=== PATIENT | female | born 1965 | race African-American/Black ===

== ENCOUNTER 2018-10-17 15:34 | Emergency (ER) | payer OTHER ==
[2018-10-17 16:25] VITALS: BP 132/78; PULSE 91; TEMP 98; BMI 27.3
--- NOTE | 2018-10-17 16:59 | PDOC ---
History of Present Illness - General Chief Complaint: Wound Stated Complaint: FOOT ULCER Time Seen by Provider: 10/17/18 16:57 Past History - Past Medical History Allergies/Adverse Reactions: Allergies Allergy/AdvReac Type Severity Reaction Status Date / Time No Known Allergies Allergy Verified 10/17/18 16:17 Home Medications: Ambulatory Orders Alprazolam [Xanax] 2 mg PO TID 10/17/18 Gabapentin 800 mg PO TID 10/17/18 Insulin Lispro Protamin/Lispro [Humalog Mix 75-25 Kwikpen] 15 unit SQ BID Oxycodone HCl/Acetaminophen [Percocet 10-325 mg Tablet] 1 tab PO TID 10/17/18 COPD: No Diabetes: Yes Psychiatric Problems: Yes (anxiety, depression) - Suicide/Smoking/Psychosocial Hx Smoking History: Current every day smoker Information on smoking cessation initiated: Yes Hx Alcohol Use: No Drug/Substance Use Hx: No *Physical Exam - Vital Signs Last Vital Signs Temp Pulse Resp BP Pulse Ox 98 F 91 H 18 132/78 97 10/17/18 16:05 10/17/18 16:05 10/17/18 16:05 10/17/18 16:05 10/17/18 16:05
[2018-10-17] MEDS ORDERED: ACETAMINOPHEN 1000 MG/100 ML VIAL (NON FORMULARY) IVPB ONE (17:22)
--- NOTE | 2018-10-17 17:23 | PDOC ---
History of Present Illness - General Chief Complaint: Wound Stated Complaint: FOOT ULCER Time Seen by Provider: 10/17/18 16:57 - History of Present Illness Initial Comments: Kat Good is a 53yo woman with a PMH of IDDM and chronic pain (sees pain management) who presents with a wound on her left heel as well . She reports that her feet feel cold and she has significant pain in her left heel. She additionally states that she has been unable to see her pain management doctor to refill her home Percocet as "they have rescheduled my appointment 4 times." Ms Good additionally states that she has not been able to refill her insulin either as her regular doctor is no longer seeing patients. She says that she went to [facility] but did not like her treatment there, so she came to [facility] for evaluation instead. She denies fevers or chills. Ms Good is a poor historian and is unable to give any additional information. She was noted to be comfortably eating candy when examined. Past History - Past Medical History Allergies/Adverse Reactions: Allergies Allergy/AdvReac Type Severity Reaction Status Date / Time No Known Allergies Allergy Verified 10/17/18 16:17 Home Medications: Ambulatory Orders Alprazolam [Xanax] 2 mg PO TID 10/17/18 Gabapentin 800 mg PO TID 10/17/18 Gabapentin 800 mg PO TID #30 tablet 10/17/18 Insulin Lispro Protamin/Lispro [Humalog Mix 75-25 Kwikpen] 15 unit SQ BID Oxycodone HCl/Acetaminophen [Percocet 10-325 mg Tablet] 1 tab PO TID 10/17/18 Sulfamethoxazole/Trimethoprim [Bactrim Ds -] 1 tab PO BID #20 tablet 10/17/18 COPD: No Diabetes: Yes Psychiatric Problems: Yes (anxiety, depression) - Suicide/Smoking/Psychosocial Hx Smoking History: Current every day smoker Information on smoking cessation initiated: Yes Hx Alcohol Use: No Drug/Substance Use Hx: No Review of Systems - Review of Systems Comments:: General: No fevers, no chills, no weight or appetite change, no malaise HEENT: No changes in vision, no changes in hearing, no congestion, no sore throat CV: No chest pain, no palpitations, no LE edema Pulm: No SOB, no cough, no wheezing GI: No nausea or vomiting, no change in bowel habits, no melena : No frequency, no urgency, no dysuria Musc: See HPI -h/o chronic pain, BLE pain Skin: No rash, + lesions, no erythema Endo: No excessive thirst, no heat/cold intolerance. h/o IDDM Heme: No unusual bruising or bleeding, no swollen glands Neuro: No syncope, + numbness/tingling, no focal weakness Vasc: No claudication Psych: No recent change in mood, no SI or HI *Physical Exam - Vital Signs Last Vital Signs Temp Pulse Resp BP Pulse Ox 98 F 91 H 18 132/78 97 10/17/18 16:05 10/17/18 16:05 10/17/18 16:05 10/17/18 16:05 10/17/18 16:05 - Physical Exam Comments: General: Comfortable, no acute distress, eating candy while examined HEENT: PERRL, EOMI, MMM, voice normal. Very poor dentition w/ only several remaining, broken teeth Cards: RRR, no murmur appreciated Pulm: Comfortable on room air, clear to auscultation bilaterally Abd: Soft, nontender, nondistended Ext: B/l feet with slightly dark discoloration but palpable DP's bilaterally. Able to wiggle toes. Chronic-appearing wound on distal right great toe, left posterior heel. No surrounding erythema or edema. No drainage. No purulence. Thick eschar over left heel wound. Vasc: Extremities WWP. Palpable radial and pedal pulses bilaterally Neuro: A&Ox3, CN grossly intact, normal speech, moves all extremities. Could not complete sensory exam as pt c/o pain and declined additional exam Psych: Agitated, upset ED Treatment Course - LABORATORY CBC & Chemistry Diagram: 10/17/18 18:07 10/17/18 18:07 - RADIOLOGY Radiology Studies Ordered: Category Date Time Status CHEST X-RAY PORTABLE* [RAD] Stat Radiology 10/17/18 17:20 Ordered FOOT-LEFT [RAD] Stat Radiology 10/17/18 17:20 Ordered Medical Decision Making - Medical Decision Making 10/17/18 17:23 Kat Good is a 53yo woman with a PMH of IDDM and chronic pain (sees pain management) who presents with pain, numbness, and sensation of cold in her feet as well as a heel wound that has been present for at least a week. She requests Percocet as she has been unable to see her pain specialist recently. - Lower extremities with palpable DP. Left heel and right 1st toe wounds consistent with diabetic foot wounds. Heel wound with dark eschar but no surrounding erythema, edema or purulence. Wounds do not appear infected - No records available for comparison - CBC, CMP, UA, acetone, A1C - Acetaminophen 10/17/18 18:18 - Pt declining acetaminophen because "Tylenol doesn't help." Advised patient that since she sees pain management, she will need to follow up with her pain specialist for additional narcotic prescriptions - Pt demanding antibiotics for her foot wound. Explained that wound does not appear infected, will review labs prior to giving antibiotics - Stated that she needs to see a different doctor because she was seeing Dr Pike, who is now unavailable, but she was assigned to a different doctor who she has never seen. 10/17/18 19:18 - Labs without significant abnormalities. Glucose 128, no leukocytosis, no REDD. A1C over 10, likely poor glucose control overall, c/w diabetic neuropathy. - No leukocytosis suggesting systemic infection or bacteremia. - Now reporting to Dr Sapp that she has seen a PMD less than one month ago, unclear whether she currently has a primary doctor - Will give antibiotic and gabapentin prior to discharge home. 10/17/18 20:11 - Called to bedside by nurse, pt now demanding acetaminophen. Patient yelling, belligerent. - Will give acetaminophen - Discussed home care and importance of follow up at length. Advised patient that she needs to see both podiatry and wound care. Gave information regarding diabetic foot wounds. Advised that her A1C is significantly elevated, and she needs to establish long-term care with a PMD for management of her diabetes. She states understanding. Discussed with Dr Sapp. Elissa Mcdonald PGY2 *DC/Admit/Observation/Transfer Diagnosis at time of Disposition: Diabetic foot ulcer Qualifiers: Diabetic foot ulcer location: heel Diabetes mellitus type: other specified ( including ASHANTI) Laterality: left Non-pressure ulcer stage: unspecified non- pressure ulcer stage Qualified Code(s): E13.621 - Other specified diabetes mellitus with foot ulcer - Discharge Dispostion Disposition: HOME Condition at time of disposition: Stable Decision to Admit order: No - Prescriptions Prescriptions: Gabapentin 800 mg PO TID #30 tablet Sulfamethoxazole/Trimethoprim [Bactrim Ds -] 1 tab PO BID #20 tablet - Referrals Referrals: [facility] [place] [Provider Group] Ildefonso Barclay MD [Non Staff, Medical] - Melvi Chisholm DPM [Staff Physician] - - Patient Instructions Printed Discharge Instructions: DI for Diabetic Foot Ulcer Additional Instructions: Discharge Instructions: You were seen in the emergency department for a wound on your foot. This wound appears to be a chronic diabetic foot wound but does not appear to be infected. You have been prescribed an antibiotic called bactrim. This should be taken twice per day for 10 days. Continue to take all of your regular medications. You have been given a refill for the next 10 days for your gabapentin, but you will need to see your pimary doctor for additional refills. Follow Up: - You should make an appointment to be seen in wound clinic within the next week. You have been given contact information for Dr Barclay. - You have also been given contact information for a assistant property manager (foot doctor). Please call Dr Chisholm and make an appointment for next week - You will need to see your primary physician as soon as possible for general medical care and management of your diabetes. Blood tests in the ED showed that your A1C is very high, over 10. This shows that your blood sugar is usually very high. If you do not have a regular doctor at this time, you have been given information for the [facility] clinic. Please call on Thursday to schedule an appointment for within the next 3-4 days or as soon as possible. Seek immediate medical care if you develop fever to 101F, you see redness and swelling around your wound or redness spreading up your leg, your wound spreads or begins to have a bad odor, or you have any other medical emergency. - Post Discharge Activity
[2018-10-17] MEDS ORDERED: ACETAMINOPHEN INJECTION 100 ML IVPB ONE (17:44)
[2018-10-17 18:23] LABS: BASO % 0.6 % (0-2.0); EOS % 1.6 % (0-4.5); HEMATOCRIT 37.3 % (32.4-45.2); HEMOGLOBIN 12.8 GM/dL (10.7-15.3); LYMPH % 27.5 % (8-40); MCH 31.4 pg (25.7-33.7); MCHC 34.2 g/dl (32.0-36.0); MEAN CELL VOLUME 91.8 fl (80-96); MEAN PLT VOLUME 9.8 fl (7.5-11.1); MONO % 4.4 % (3.8-10.2); NEUT % 65.9 % (42.8-82.8); PLATELET COUNT 171 K/MM3 (134-434); RBC 4.06 M/mm3 (3.60-5.2); RDW 12.7 % (11.6-15.6); WHITE BLOOD COUNT 8.7 K/mm3 (4.0-10.0)
[2018-10-17 18:45] LABS: ALBUMIN 3.2 g/dl (3.4-5.0); BILIRUBIN,TOTAL 0.3 mg/dL (0.2-1); BLOOD UREA NITROGEN 14.7 mg/dL (7-18); CALCIUM 9.3 mg/dL (8.5-10.1); CREATININE 0.8 mg/dL (0.55-1.3); POTASSIUM 4.3 mmol/L (3.5-5.1); TOT PROT 6.8 g/dl (6.4-8.2)
[2018-10-17] MEDS ORDERED: SULFAMETHOXAZOLE/TRIMETHOPRIM 800MG/160MG D.S. TABLET PO ONE (19:25)
[2018-10-17] MEDS ORDERED: GABAPENTIN 300 MG CAPSULE (FP) PO ONE (19:25)
[2018-10-17] MEDS ORDERED: GABAPENTIN 400 MG CAPSULE (FP) PO ONE (19:27)
[2018-10-17] MEDS ORDERED: GABAPENTIN 100 MG CAPSULE (FP) ONE ×2 (19:30→19:49)
[2018-10-17] MEDS ORDERED: SULFAMETHOXAZOLE/TRIMETHOPRIM 800MG/160MG D.S. TABLET ONE (19:30)
--- NOTE | 2018-10-17 19:32 | PDOC ---
Documentation entered by Berkley Barron SCRIBE, acting as scribe for Whitney Sapp MD. Whitney Sapp MD: This documentation has been prepared by the Anderson jin Sammi, SCRIBE, under my direction and personally reviewed by me in its entirety. I confirm that the documentation accurately reflects all work, treatment, procedures, and medical decision making performed by me. Attending Attestation - Resident Resident Name: TamaraElissa - ED Attending Attestation I have performed the following: I have examined & evaluated the patient, The case was reviewed & discussed with the resident, I agree w/resident's findings & plan, Exceptions are as noted - HPI HPI: 10/17/18 17:23 The patient is a 53 year old female, with a significant PMH of DM, who presents to the emergency department for evaluation of a diabetic foot wound to the left heel. The patient reports her feet feel numb and cold. She notes she went to [facility] for the wound but did not like it there. She states she is not compliant with her diabetes medication. 10/17/18 18:04 - Physicial Exam PE: 10/17/18 18:30 53 yo female looking older than states age has c/o cold feet and hands,wounds on her feet 10/17/18 19:21 head is normocephalic and atraumatic eyes quan eomi Oral exam edentulous arches with exception of one remaining carious tooth neck is supple Lungs are clear to auscultation bilaterally CVS regular rate and rhythm S1, S2 abdomen protuberant but nontender, no rebound or guarding. Extremities there is a chronic heel ulcer with eschar with no erythema or purulence. There is a small eschar on her the right big toe no areas of erythema or fluctuanton her feet. She does have palpable DP pulses and her feet are warm. Neuro alert and oriented 3, moving all her extremities - Medical Decision Making 10/17/18 19:24 patient has told us several different versions of her medical history. Initially, she said that her doctor, Dr. Pike was in skilled nursing and she doesn't have a doctor now. Then she said she saw Nicole Antoine about a month ago and does have prescriptions being sent to her pharmacy, which is [facility]. she also showed me that she has a flexible plan, she states that she gets gabapentin for peripheral neuropathies Initially, she said that she always gets Percocet when she goes to [facility] but it was explained to her that she was not at [facility] would not be receiving Percocets. patient does have a nonhealing wound with eschar that appears to be chronic. She was encouraged to follow up at our wound care and she was referred to a wound care Center.She does not have a fever, she has no evidence of cellulitis or fluctuance on her feet and she has pulses in her feet. She appears to have peripheral neuropathies with chronic nonhealing ulcers and will be given a referral
== END 2018-10-17 22:42 | disposition home or self-care (01) ==
LOC: JER 15:34
DX: R20.2 Paresthesia of skin (principal); E13.621 Other specified diabetes mellitus with foot ulcer; E11.9 Type 2 diabetes mellitus without complications
CPT/HCPCS: 36415; 71045-TC-FY; 73630-TC-LT; 80053; 82009; 83036; 85025; 99283-25

== ENCOUNTER 2019-04-29 10:35 | Inpatient (IN) | payer OTHER ==
--- NOTE | 2019-04-29 11:29 | PDOC ---
History of Present Illness - General Chief Complaint: Wound Stated Complaint: LT FOOT WOUND Time Seen by Provider: 04/29/19 11:28 - History of Present Illness Initial Comments: 04/29/19 11:28 Ms. Good is a 53 yo female w/ pmh of IDDM and chronic pain for which she sees pain management who presents for evaluation of several month history of LLE heel wound. Patient reports she presents today as pain is worsened (01/20 today) . Is s/p 2 courses of antibiotics throughout this time period for this same issue. Was at another hospital last week however reports she was sent home without intervention. Reports the wound seeps through her socks daily. Denies other symptoms at this time. The patient denies chest pain, shortness of breath, headache and dizziness. Denies fever, chills, nausea, vomit, diarrhea and constipation. Denies dysuria, frequency, urgency and hematuria Past History - Past Medical History Allergies/Adverse Reactions: Allergies Allergy/AdvReac Type Severity Reaction Status Date / Time No Known Allergies Allergy Verified 04/29/19 10:42 Home Medications: Ambulatory Orders Alprazolam [Xanax] 2 mg PO TID 10/17/18 Gabapentin 800 mg PO TID #30 tablet 10/17/18 Insulin Lispro Protamin/Lispro [Humalog Mix 75-25 Kwikpen] 15 unit SQ BID Albuterol Sulfate Inhaler - [Ventolin Hfa Inhaler -] 2 inh PO BID 04/29/19 COPD: No Diabetes: Yes Psychiatric Problems: Yes (anxiety, depression) - Immunization History Immunization Up to Date: (UNKNOWN) - Psycho Social/Smoking Cessation Hx Smoking History: Never smoked Hx Alcohol Use: No Drug/Substance Use Hx: No Review of Systems - Review of Systems Comments:: 04/29/19 11:28 GENERAL/CONSTITUTIONAL: No fever or chills. No weakness. HEAD, EYES, EARS, NOSE AND THROAT: No change in vision. No ear pain or discharge. No sore throat. CARDIOVASCULAR: No chest pain or shortness of breath RESPIRATORY: No cough, wheezing, or hemoptysis. GASTROINTESTINAL: No nausea, vomiting, diarrhea or constipation. GENITOURINARY: No dysuria, frequency, or change in urination. MUSCULOSKELETAL: +LLE pain at heal; constant, 10/10 SKIN: Heel wound only NEUROLOGIC: No headache, vertigo, loss of consciousness, or change in strength/ sensation. ENDOCRINE: No increased thirst. No abnormal weight change HEMATOLOGIC/LYMPHATIC: No anemia, easy bleeding, or history of blood clots. ALLERGIC/IMMUNOLOGIC: No hives or skin allergy. *Physical Exam - Vital Signs Last Vital Signs Temp Pulse Resp BP Pulse Ox 98.9 F 72 18 132/82 100 04/29/19 10:43 04/29/19 10:43 04/29/19 10:43 04/29/19 10:43 04/29/19 10:43 - Physical Exam 04/29/19 11:29 GENERAL: Awake, alert, and fully oriented, in no acute distress HEAD: No signs of trauma, normocephalic, atraumatic EYES: PERRLA, EOMI, sclera anicteric, conjunctiva clear ENT: +Patient has very poor dentition. Auricles normal inspection, hearing grossly normal, nares patent, oropharynx clear without exudates. Moist mucosa NECK: Normal ROM, supple, no lymphadenopathy, JVD, or masses LUNGS: No distress, speaks full sentences, clear to auscultation bilaterally HEART: Regular rate and rhythm, normal S1 and S2, no murmurs, rubs or gallops, peripheral pulses normal and equal bilaterally. ABDOMEN: Soft, nontender, normoactive bowel sounds. No guarding, no rebound. No masses EXTREMITIES: +Approx. 8cm chronic wound noted to L lateral heal. R forearm noted to be in splint from reported fracture. Otherwise normal inspection, Normal range of motion, no edema. No clubbing or cyanosis. NEUROLOGICAL: Cranial nerves II through XII grossly intact. Normal speech, normal gait, no focal sensorimotor deficits SKIN: +Heel wound as noted. Otherwise warm, dry, normal turgor, no rashes or lesions noted. ED Treatment Course - LABORATORY CBC & Chemistry Diagram: 04/29/19 12:10 04/29/19 14:50 Medical Decision Making - Medical Decision Making 04/29/19 12:22 Ms. Good is a 53 yo female w/ pmh as described who presents for evaluation of chronic leg wound. Contacted outside hospital who evaluated patient on 04/22 for more information and revealed ulnar R styloid fracture s/p fall which was splinted. Patient did not complain of other problems at this time and leg was not evaluated. Patient additionally has history of depression. Will evaluate patient with wound culture, blood cultures, and for systemic infection as well as XR for r/o osteo. Suspect admission will be needed. 04/29/19 16:50 Patient XR concerning for osteomyelitis. Patient given Vanc/Zosyn and will be admitted for MRI for confirmation and IV ABX / surgery if needed. 04/29/19 18:02 Patient admitted. Discharge - Discharge Information Problems reviewed: Yes Clinical Impression/Diagnosis: Osteomyelitis Qualifiers: Osteomyelitis type: unspecified type Osteomyelitis location: foot Laterality: left Qualified Code(s): M86.9 - Osteomyelitis, unspecified Diabetic foot ulcer Qualifiers: Diabetic foot ulcer location: unspecified part of foot Diabetes mellitus type: type 2 Laterality: left Non-pressure ulcer stage: unspecified non-pressure ulcer stage Qualified Code(s): E11.621 - Type 2 diabetes mellitus with foot ulcer - Admission Yes - Follow up/Referral - Patient Discharge Instructions - Post Discharge Activity
[2019-04-29] MEDS ORDERED: SODIUM CHLORIDE 1,000 ML IV STA (12:08)
[2019-04-29] MEDS ORDERED: ACETAMINOPHEN 1000 MG/100 ML VIAL (NON FORMULARY) IVPB ONE (12:08)
[2019-04-29] MEDS ORDERED: ACETAMINOPHEN INJECTION 100 ML IVPB ONE ×2 (12:36→20:39)
--- NOTE | 2019-04-29 13:05 | PDOC ---
Attending Attestation - Resident Resident Name: Lang Gonzalez - ED Attending Attestation I have performed the following: I have examined & evaluated the patient, The case was reviewed & discussed with the resident, I agree w/resident's findings & plan - HPI HPI: 04/29/19 13:01 53 yo female w/ pmh of IDDM and chronic pain for which she sees pain management who presents for evaluation of several month history of LLE heel wound. Patient reports she presents today as pain is worsened (01/20 today). Is s/p 2 courses of antibiotics throughout this time period for this same issue. Was at another hospital last week however reports she was sent home without intervention. Reports the wound seeps through her socks daily. Denies other symptoms at this time. she was seen at [facility] has splint in place to the right forearm for ulnar styloid fx from 1 week ago complains of chest pain, LLE pain. 04/29/19 13:03 04/29/19 17:12 - Physicial Exam PE: 04/29/19 13:01 Agree with the resident's HPI and PE as documented in the electronic medical record. NAD, well appearing, EOMI, PERRL, nl conjunctiva, anicteric; neck supple. left axilla with soft sq nodule, no erythema or drainage, no tenderness. lungs clear , RRR, abdomen soft nontender. no rebound, guarding. Back nontender. MANN x4, no focal neuro deficits. + peripheral edema. normal color for ethnicity, WWP. +left calcaneal heel with dry ulceration, malodorous, malleoli with discoloration. right forearm splint in place. +distal radius/ulna tenderness and swelling, c/w fx. 04/29/19 13:05 04/30/19 21:16 04/30/19 21:17 - Medical Decision Making 04/29/19 13:03 Vital Signs Temp Pulse Resp BP Pulse Ox 98.9 F 72 18 132/82 100 04/29/19 10:43 04/29/19 10:43 04/29/19 10:43 04/29/19 10:43 04/29/19 10:43 vitals reviewed, wnl, no fever, nontoxic appearing requesting to drink her coffee no abscess/cellulitis seen, chest wall is clear no drainage +acute on chronic left heel wound, does not appear to be healing well labs and lytes forearm splint in place for right arm injury - distal radius/ulna fx from 1 week ago, seen at [facility] IV abx for osteomyelitis coverage of left heel Patient given Vanc/Zosyn and will be admitted for MRI for confirmation and IV ABX / surgery if needed. admit to med/surg, medical management, s/o to resident team, admit to Dr Russo 04/29/19 13:04 04/30/19 21:17 04/30/19 21:18
[2019-04-29 14:07] LABS: BASO % 0.6 % (0-2.0); EOS % 1.4 % (0-4.5); HEMATOCRIT 33.4 % (32.4-45.2); HEMOGLOBIN 11.3 GM/dL (10.7-15.3); LYMPH % 26.7 % (8-40); MCH 30.2 pg (25.7-33.7); MCHC 33.8 g/dl (32.0-36.0); MEAN CELL VOLUME 89.3 fl (80-96); MONO % 5.4 % (3.8-10.2); NEUT % 65.9 % (42.8-82.8); PLATELET COUNT 256 K/MM3 (134-434); RBC 3.74 M/mm3 (3.60-5.2); RDW 14.5 % (11.6-15.6)
[2019-04-29 14:19] LABS: INR 1.14 (0.83-1.09); PROTHROMBIN TIME (PATIENT) 13.5 SEC (9.7-13.0)
[2019-04-29 14:21] LABS: ACTIVATED PTT 38.9 SECONDS (25.2-36.5)
[2019-04-29 15:56] LABS: ALBUMIN 2.7 g/dl (3.4-5.0); BILIRUBIN,TOTAL 0.4 mg/dL (0.2-1); BLOOD UREA NITROGEN 11.1 mg/dL (7-18); CALCIUM 8.9 mg/dL (8.5-10.1); CREATININE 0.9 mg/dL (0.55-1.3); POTASSIUM 4.5 mmol/L (3.5-5.1); TOT PROT 7.1 g/dl (6.4-8.2)
[2019-04-29] MEDS ORDERED: VANCOMYCIN HCL 1,500 MG in DEXTROSE 5%-WATER - 500 ML IVPB ONE (16:49)
[2019-04-29] MEDS ORDERED: PIPERACILLIN/TAZOB 3.375 GM 3.375 GM in DEXTROSE 5%-WATER - 50 ML IVPB ONE (16:49)
[2019-04-29] MEDS ORDERED: PIPERACILLIN/TAZOB 3.375 GM 3.375 GM/50 ML BAG IVPB ONE (17:38)
--- NOTE | 2019-04-29 17:58 | HP ---
CHIEF COMPLAINT: lower extremity wounds PCP: HISTORY OF PRESENT ILLNESS: Patient is a 53 year old female with history of insulin dependent diabetes mellitus, hypertension, anxiety, opiod use disorder (IV heroine; on Methadone), presents with complaint of bilateral lower extremity wounds. Endorses her left foot wound began when an unknown gub (? water-bug) bit her in January 2018. States that there was bubbling of the skin which erupted leaving a hole within her foot. Patient admits seeing a grey roll worker (Dr. Carlos) who performed debridement an dressing changes, however did not prescribe antibiotics. She endorses being seen in [facility] in October 2017 where she describes left lower extremity (?angioplasty/ thrombectomy) after which she describes worsening inability to ambulate. She has independently been dressing her wounds , and has not followed up since her hospital discharge in October. Patient endorses new onset purulent draining from the wound, along with worsening burning pain that prompted her ED presentation. Endorses a chronic right lateral lower extremity wound that has been ongoing for past 4 months. Does not recall inciting factor. Also endorses ?ulnar styloid fracture one week ago after a fall in her apartment lobby. Reportedly splinted at [facility] (04/22). ER course was notable for: (1) Left foot heel ulcer 5cm x 4cm ulcer. purulent discharge, with dry eschar overlying the wound. (2) (3) Recent Travel: Denies PAST MEDICAL HISTORY: insulin dependent diabetes mellitus, hypertension, anxiety , PAST SURGICAL HISTORY: bilateral ankle repair s/p fall in 1999, 1993 Social History: Currently lives alone in ground level apartment. Describes that her heat hsa not been working; freezing Smoking: Endorses 25 pack year smoking history. Currently smokes approx 1/3 pack / day Alcohol: Denies Drugs: Admits former IV heroine use for 4 years duration. Quit over 20 years ago. Currently taking Methadone ([facility]) Allergies No Known Allergies Allergy (Verified 04/29/19 10:42) HOME MEDICATIONS: Home Medications Medication Instructions Recorded Alprazolam [Xanax] 2 mg PO TID 10/17/18 Gabapentin 800 mg PO TID #30 tablet 10/17/18 Insulin Lispro Protamin/Lispro 15 unit SQ BID 10/17/18 [Humalog Mix 75-25 Kwikpen] Albuterol Sulfate Inhaler - 2 inh PO BID 04/29/19 [Ventolin Hfa Inhaler -] REVIEW OF SYSTEMS CONSTITUTIONAL: Absent: fever, chills, diaphoresis, generalized weakness, malaise, loss of appetite, weight change HEENT: Absent: rhinorrhea, nasal congestion, throat pain, throat swelling, difficulty swallowing, mouth swelling, ear pain, eye pain, visual changes CARDIOVASCULAR: Absent: chest pain, syncope, palpitations, irregular heart rate, lightheadedness , peripheral edema RESPIRATORY: Absent: cough, shortness of breath, dyspnea with exertion, orthopnea, wheezing, stridor, hemoptysis GASTROINTESTINAL: Absent: abdominal pain, abdominal distension, nausea, vomiting, diarrhea, constipation, melena, hematochezia GENITOURINARY: Absent: dysuria, frequency, urgency, hesitancy, hematuria, flank pain, genital pain MUSCULOSKELETAL: Admits: foot pain, drainage. Absent: myalgia, arthralgia, joint swelling, back pain, neck pain SKIN: Absent: rash, itching, pallor HEMATOLOGIC/IMMUNOLOGIC: Absent: easy bleeding, easy bruising, lymphadenopathy, frequent infections ENDOCRINE: Absent: unexplained weight gain, unexplained weight loss, heat intolerance, cold intolerance NEUROLOGIC: Absent: headache, focal weakness or paresthesias, dizziness, unsteady gait, seizure, mental status changes, bladder or bowel incontinence PSYCHIATRIC: Absent: anxiety, depression, suicidal or homicidal ideation, hallucinations. PHYSICAL EXAMINATION Vital Signs - 24 hr 04/29/19 04/29/19 10:43 16:54 Temperature 98.9 F Pulse Rate 72 Respiratory 18 Rate Blood Pressure 132/82 O2 Sat by Pulse 100 97 Oximetry (%) GENERAL: The patient is awake, alert, and fully oriented, in mild distress. HEAD: Normocephalic, atraumatic. EYES: PERRL, extraocular movements intact, sclera anicteric, conjunctiva clear. ENT: Oropharynx clear, without erythema or exudates. Moist mucous membranes. NECK: Trachea midline, full range of motion. Supple without lymphadenopathy. LUNGS: Breath sounds equal, clear to auscultation bilaterally. No wheezes, no crackles. No accessory muscle use. HEART: Regular rate and rhythm. S1, S2 without murmur, rub or gallop. ABDOMEN: Soft, nondistended, nontender to light and deep palpation x4 quadrants. No rebound tenderness, no guarding. Normoactive bowel sounds x4 quadrants. No hepatosplenomegaly, no masses appreciated. EXTREMITIES: Left foot heel ulcer 5cm x 4cm ulcer. purulent discharge, with dry eschar overlying the wound. Right lateral foot wound 2cm x 1xcm, minimal purulent drainage. Right upper extremity splinted. NEUROLOGICAL: Cranial nerves II through XII grossly intact. Normal speech. No gross focal deficits. PSYCH: Anxious, tangential upon my encounter. Laboratory Results - last 24 hr 04/29/19 04/29/19 04/29/19 11:17 12:10 12:10 WBC 8.0 RBC 3.74 Hgb 11.3 Hct 33.4 MCV 89.3 MCH 30.2 MCHC 33.8 RDW 14.5 D Plt Count 256 D MPV 9.0 Absolute Neuts (auto) 5.3 Neutrophils % 65.9 Lymphocytes % 26.7 Monocytes % 5.4 Eosinophils % 1.4 Basophils % 0.6 Nucleated RBC % 0 PT with INR INR PTT (Actin FS) Sodium Cancelled Potassium Cancelled Chloride Cancelled Carbon Dioxide Cancelled Anion Gap Cancelled BUN Cancelled Creatinine Cancelled Est GFR (CKD-EPI)AfAm Cancelled Est GFR (CKD-EPI)NonAf Cancelled Random Glucose Cancelled Lactic Acid 1.3 Calcium Cancelled Total Bilirubin Cancelled AST Cancelled ALT Cancelled Alkaline Phosphatase Cancelled Total Protein Cancelled Albumin Cancelled 04/29/19 04/29/19 12:10 14:50 WBC RBC Hgb Hct MCV MCH MCHC RDW Plt Count MPV Absolute Neuts (auto) Neutrophils % Lymphocytes % Monocytes % Eosinophils % Basophils % Nucleated RBC % PT with INR 13.50 H INR 1.14 H PTT (Actin FS) 38.9 H Sodium 139 Potassium 4.5 Chloride 102 Carbon Dioxide 32 Anion Gap 5 L BUN 11.1 Creatinine 0.9 Est GFR (CKD-EPI)AfAm 83.43 Est GFR (CKD-EPI)NonAf 71.98 Random Glucose 89 Lactic Acid Calcium 8.9 Total Bilirubin 0.4 AST 41 H ALT 17 Alkaline Phosphatase 155 H Total Protein 7.1 Albumin 2.7 L ASSESSMENT/PLAN: Patient is a 53 year old female with history of insulin dependent diabetes mellitus, hypertension, anxiety, opiod use disorder (IV heroine; on Methadone), presents with complaint of bilateral lower extremity wounds. Lower extremity wounds -Concern for osteomyelitis; MRI left lower extremity to evaluate for osteomyelitis -ESR, CRP -Arterial and Venous duplex bilateral lower extremities. -Continue Vancomycin, Zosyn -Follow blood cultures, wound cultures -ID consult (Dr. Hoffmann) -Vascular surgery/ wound care consult (Dr. Barclay) -Podiatry consult (Dr. Devine) Right forearm ulnar styloid fracture -Will obtain radiograph right upper extremity forearm, wrist to ensure proper alignment s/p splinting. -Orthopedic surgery consult Anxiety -Continue Alprazolam 2mg PO TID PRN Diabetes mellitus -Insuln Levemir 10 units subq daily -Insulin slidng scale ACHS -Fingerstick blood glucose monitoring ACHS -Gabapentn 800mg PO TID for neuropahy -HbA1c Opiod dependence -Continue patient's Methadone. She uses [facility] on [facility] (?60mg daily). Dose will need to be confirmed in morning. Elevated alkaline phosphatase -Concern for bone origin. Obtain GGT -Follow right upper quadrant ultrasound -Trend transaminases FEN -No IV fluids indicated -Follow BMP -Diabetic diet Prophylaxis -Heparin 5000units subq TID Disposition -Admit to medical- surgical floor Visit type - Emergency Visit Emergency Visit: Yes ED Registration Date: 04/29/19 Care time: The patient presented to the Emergency Department on the above date and was hospitalized for further evaluation of their emergent condition. - New Patient This patient is new to me today: Yes Date on this admission: 04/30/19 - Critical Care Critical Care patient: No ATTENDING PHYSICIAN STATEMENT I saw and evaluated the patient. I reviewed the resident's note and discussed the case with the resident. I agree with the resident's findings and plan as documented. SUBJECTIVE: OBJECTIVE: ASSESSMENT AND PLAN:
[2019-04-29] MEDS: HEPARIN NA (PORCINE) 5,000 UNITS/ML 1ML VIAL SQ SCH ×2 (18:07→22:28)
--- NOTE | 2019-04-29 19:28 | PN ---
Teaching Attending Note Name of Resident: Erick Buckner ATTENDING PHYSICIAN STATEMENT I saw and evaluated the patient. I reviewed the resident's note and discussed the case with the resident. I agree with the resident's findings and plan as documented. SUBJECTIVE: Patient is a 53 year old woman with a PMH of IDDM, Depression, Tobacco use and Chronic pain for which she sees pain management who presents for evaluation of several month history of LLE heel wound. Patient reports she presents today as pain is worsened (01/20 today). Has recently had two courses of antibiotics throughout this time period for this same issue. Was at another hospital last week however reports she was sent home without intervention. Reports the wound seeps through her socks daily. Patient was seen at another hospital on 2019 for fracture of right ulnar styloid after a fall and it was splinted. The patient denies chest pain, shortness of breath, headache and dizziness. Denies fever, chills, nausea, vomit, diarrhea and constipation. Denies dysuria, frequency, urgency and hematuria. Denies alcohol or illicit drug use. No sick contacts or recent travels. OBJECTIVE: Alert Vital Signs Period Temp Pulse Resp BP Sys/Kelly Pulse Ox Last 24 Hr 98.9 F 68-72 18-18 125-132/65-82 97-100 HEENT: No Jaundice, eye redness or discharge, PERRLA, EOMI. Normocephalic, atraumatic. External ears are normal and hearing is grossly intact. No nasal discharge. Neck: Supple, nontender. No palpable adenopathy or thyromegaly. No JVD Chest: Good effort. Clear to auscultation and percussion. Heart: Regular. No S3, rub or murmur Abdomen: Not distended, soft, nontender and no HSM. No rebound or guarding. Normal bowel sounds. Ext: Peripheral pulses intact. Leg edema. Malodorous left heel ulcer with no discharge with surrounding discoloration. Right foot ulcer. Right arm in a splint. Skin: Warm and dry. No petechiae, rash or ecchymosis. Neuro: Alert. Oriented x3. CN 2-12 grossly intact. Sensation grossly intact in all four extremities and DTR are symmetric. Psych: Appropriate mood and affect. Good insight. Current Medications Generic Name Dose Route Start Last Admin Trade Name Freq PRN Reason Stop Dose Admin Acetaminophen 1,000 mg 04/29/19 18:00 Ofirmev Injection - IVPB Q6H PRN PAIN LEVEL 1-5 Alprazolam 2 mg 04/29/19 19:56 Xanax - PO TID PRN ANXIETY Gabapentin 800 mg 04/29/19 22:00 Neurontin - PO TID OBI Heparin Sodium (Porcine) 5,000 unit 04/29/19 22:00 04/29/19 18:07 Heparin - SQ 5,000 unit TID OBI Administration Vancomycin HCl 1,000 mg in 250 mls @ 166.667 mls/hr 04/30/19 06:00 Vancomycin (Pre-Docked) IVPB 04/30/19 07:29 ONCE ONE Protocol Piperacillin Sod/Tazobactam 50 mls @ 100 mls/hr 04/30/19 02:00 Sod 3.375 gm/ Dextrose IVPB Q8H-IV OBI Protocol Piperacillin Sod/Tazobactam 50 mls @ 100 mls/hr 04/30/19 02:00 Sod 3.375 gm/ Dextrose IVPB 04/30/19 18:29 Q8H-IV OBI Protocol Insulin Aspart 1 vial 04/29/19 22:00 Novolog Vial Sliding Scale - SQ ACHS [facility] Protocol Home Medications Medication Instructions Recorded Alprazolam [Xanax] 2 mg PO TID 10/17/18 Gabapentin 800 mg PO TID #30 tablet 10/17/18 Insulin Lispro Protamin/Lispro 15 unit SQ BID 10/17/18 [Humalog Mix 75-25 Kwikpen] Albuterol Sulfate Inhaler - 2 inh PO BID 04/29/19 [Ventolin Hfa Inhaler -] Abnormal Lab Results 04/29/19 04/29/19 12:10 14:50 PT with INR 13.50 H INR 1.14 H PTT (Actin FS) 38.9 H Anion Gap 5 L AST 41 H Alkaline Phosphatase 155 H Albumin 2.7 L ASSESSMENT AND PLAN: 1. Infected diabetic left heel ulcer/right foot ulcer - Foot xray shows findings suspicious for osteomyelitis and possible gas collection. No acute abnormality on CXR. Being treated with IV Vancomycin and Zosyn. Will get MRI, provide daily wound care, consult ID, Vascular surgery and Podiatry. EKG shows NSR with no significant changes. Will continue comprehensive care for all of patients comorbid conditions including care of right arm fracture. 2. Hypoalbuminemia - Possibly due to combined effects of malnutrition and inflammation associated with comorbid chronic conditions. Will ensure adequate dietary protein intake and also consult social media marketing specialist. 3. DM For now, we will hold the home diabetes drugs and implement sliding scale insulin regimen. Provide comprehensive diabetes care with patient teaching and counseling about the importance of adherence to prescribed diabetes regimen, euglycemia, eye care and foot care. 4. Tobacco Use Counseled on risks associated with tobacco use. We will provide patient all the necessary assistance to facilitate smoking cessation and prescribe Nicotine patch. 5. DVT prophylaxis - Lovenox 40 mg SQ q 24 hours. 6. Advance directives - Full code
[2019-04-29] MEDS ORDERED: ALPRAZolam 2 MG TABLET PO PRN (19:56)
[2019-04-29] MEDS ORDERED: ALPRAZolam 1 MG TABLET ONE (20:39)
[2019-04-29] MEDS: ACETAMINOPHEN 1000 MG/100 ML VIAL (NON FORMULARY) IVPB PRN (20:53)
[2019-04-29] MEDS ORDERED: ALPRAZolam 2 MG TABLET PO SCH (22:00)
[2019-04-29] MEDS: GABAPENTIN 400 MG CAPSULE PO SCH (22:29)
[2019-04-29] MEDS: INSULIN SLIDING SCALE (NOVOLOG) 1 VIAL SQ SCH (22:58)
[2019-04-30] MEDS ORDERED: PIPERACILLIN/TAZOBACTAM 3.375 GM VIAL IVPB ONE ×3 (01:54→17:03)
[2019-04-30] MEDS ORDERED: DEXTROSE 5%-WATER - 50 ML IVPB ONE ×3 (01:55→17:03)
[2019-04-30] MEDS: PIPERACILLIN/TAZOB 3.375 GM 3.375 GM in DEXTROSE 5%-WATER - 50 ML IVPB SCH ×4 (02:00→19:19)
[2019-04-30] MEDS: GABAPENTIN 400 MG CAPSULE PO SCH ×3 (05:05→22:02)
[2019-04-30] MEDS: HEPARIN NA (PORCINE) 5,000 UNITS/ML 1ML VIAL SQ SCH ×3 (05:05→22:03)
[2019-04-30] MEDS: ALPRAZolam 1 MG TABLET PO PRN ×3 (05:20→22:02)
[2019-04-30] MEDS ORDERED: VANCOMYCIN 1 GRAM (PRE-DOCKED) 1,000 MG/250 ML BAG IVPB ONE (06:00)
[2019-04-30] MEDS: INSULIN SLIDING SCALE (NOVOLOG) 1 VIAL SQ SCH ×4 (06:50→23:02)
--- NOTE | 2019-04-30 06:51 | CONSULT ---
Consult - text type - Consultation Consultation Note: Podiatry Consultation: 53 year old diabetic female, history of IVDU, presents with non-healing ulcer left heel and diabetic infection. Patient endorses a history of non-healing ulcer since September. Has been seen by [facility] in the past. Denies any trauma to the foot. SHe lives at home alone and has been tending to the ulcer. Denies F/V/N/C/SOB/CP. Afebrile. PMHx:diabetes mellitus, hypertension, anxiety, opiod use disorder (IV heroine; on Methadone) Meds: noted ALL: NKMA BRITTANIE: Vascular: pedal pulses nonpalpable, TG wnl, CFT brisk to toes bilaterally. THere are no acute ischemic changes to the foot bilaterally. neuro: epicritic and protective sensations grossly diminished to the foot bilaterally. There are no focal motor or sensory deficits. derm: there is a right fifth metatarsal base diabetic ulcer fibrotic, no exposed bone, no purulence, no fluctuance, no streaking cellulitis, no signs of infection. There is a left heel diabetic ulcer laterally with fibrotic base, bogginess present, probes to calcaneus; no purulent drainage, no fluctuance, no soft tissue crepitus, no streaking cellulitis, no signs of acute gas infection L foot XR: bone demineralization, ?gas Imp: 53 year old diabetic female with left heel diabetic ulcer, osteomyelitis calcaneus 1. IV abx, ID consultation 2. Local wound care 3. MRI left foot to evaluate for osteomyelitis 4. Will need debridement bone biopsy early next week 5. Will follow. Thank you for the courtesy of this consultation Malcolm Devine DPM
[2019-04-30 09:53] LABS: HEMATOCRIT 32.7 % (32.4-45.2); MCH 30.5 pg (25.7-33.7); MCHC 33.7 g/dl (32.0-36.0); MEAN CELL VOLUME 90.4 fl (80-96); PLATELET COUNT 202 K/MM3 (134-434); RBC 3.61 M/mm3 (3.60-5.2); RDW 14.1 % (11.6-15.6); WHITE BLOOD COUNT 5.6 K/mm3 (4.0-10.0)
--- NOTE | 2019-04-30 09:55 | PN ---
Progress Note (short form) - Note Progress Note: Patient has no acute distress, afraid that is going to loose the LE. Vital Signs Temperature 97.8 F 04/30/19 06:00 Pulse Rate 79 04/30/19 06:00 Respiratory Rate 18 04/30/19 06:00 Blood Pressure 141/72 04/30/19 06:00 O2 Sat by Pulse Oximetry (%) 98 04/29/19 20:30 GENERAL: The patient is awake, alert, and fully oriented, in no acute distress. HEAD: Normal with no signs of trauma. EYES: PERRL, extraocular movements intact, sclera anicteric, conjunctiva clear. ENT: Ears normal, oropharynx clear without exudates, moist mucous membranes. NECK: Trachea midline, full range of motion, supple. LUNGS: Breath sounds equal, clear to auscultation bilaterally, no wheezes, no crackles, no accessory muscle use. HEART: Regular rate and rhythm, S1, S2 without murmur, rub or gallop. ABDOMEN: Soft, Nt,ND, normoactive bowel sounds, no guarding, no rebound, no hepatosplenomegaly, no masses. EXTREMITIES: 2+ pulses, warm, well-perfused, no edema. NEUROLOGICAL: Cranial nerves II through XII grossly intact. Normal speech, gait not observed. PSYCH: Normal mood, normal affect. SKIN: Warm, dry, normal turgor, no rashes or lesions noted CBCD WBC 8.0 K/mm3 (4.0-10.0) 04/29/19 12:10 RBC 3.74 M/mm3 (3.60-5.2) 04/29/19 12:10 Hgb 11.3 GM/dL (10.7-15.3) 04/29/19 12:10 Hct 33.4 % (32.4-45.2) 04/29/19 12:10 MCV 89.3 fl (80-96) 04/29/19 12:10 MCHC 33.8 g/dl (32.0-36.0) 04/29/19 12:10 RDW 14.5 % (11.6-15.6) D 04/29/19 12:10 Plt Count 256 K/MM3 (134-434) D 04/29/19 12:10 MPV 9.0 fl (7.5-11.1) 04/29/19 12:10 CMP Sodium 139 mmol/L (136-145) 04/29/19 14:50 Potassium 4.5 mmol/L (3.5-5.1) 04/29/19 14:50 Chloride 102 mmol/L (98-107) 04/29/19 14:50 Carbon Dioxide 32 mmol/L (21-32) 04/29/19 14:50 Anion Gap 5 MMOL/L (8-16) L 04/29/19 14:50 BUN 11.1 mg/dL (7-18) 04/29/19 14:50 Creatinine 0.9 mg/dL (0.55-1.3) 04/29/19 14:50 Random Glucose 89 mg/dL (74-106) 04/29/19 14:50 Calcium 8.9 mg/dL (8.5-10.1) 04/29/19 14:50 Total Bilirubin 0.4 mg/dL (0.2-1) 04/29/19 14:50 AST 41 U/L (15-37) H 04/29/19 14:50 ALT 17 U/L (13-61) 04/29/19 14:50 Alkaline Phosphatase 155 U/L (45-117) H 04/29/19 14:50 Total Protein 7.1 g/dl (6.4-8.2) 04/29/19 14:50 Albumin 2.7 g/dl (3.4-5.0) L 04/29/19 14:50 CARDIAC ENZYMES Creatine Kinase 172 U/L (26-192) 04/29/19 14:50 Troponin I < 0.02 ng/ml (0.00-0.05) 04/29/19 14:50 Current Medications Generic Name Dose Route Start Last Admin Trade Name Freq PRN Reason Stop Dose Admin Acetaminophen 1,000 mg 04/29/19 18:00 04/29/19 20:53 Ofirmev Injection - IVPB 1,000 mg Q6H PRN Administration PAIN LEVEL 1-5 Alprazolam 2 mg 04/30/19 05:02 04/30/19 05:20 Xanax PO 2 mg TID PRN Administration ANXIETY Gabapentin 800 mg 04/29/19 22:00 04/30/19 05:05 Neurontin - PO 800 mg TID OBI Administration Heparin Sodium (Porcine) 5,000 unit 04/29/19 22:00 04/30/19 05:05 Heparin - SQ 5,000 unit TID [facility] Administration Piperacillin Sod/Tazobactam 50 mls @ 100 mls/hr 04/30/19 02:00 Sod 3.375 gm/ Dextrose IVPB Q8H-IV [facility] Protocol Piperacillin Sod/Tazobactam 50 mls @ 100 mls/hr 04/30/19 02:00 04/30/19 02:00 Sod 3.375 gm/ Dextrose IVPB 04/30/19 18:29 100 mls/hr Q8H-IV [facility] Administration Protocol Influenza Virus Vaccine Quadrival 60 mcg 04/30/19 10:00 Flulaval Quad [id number] IM 04/30/19 10:01 .ONCE ONE Insulin Aspart 1 vial 04/29/19 22:00 04/30/19 06:50 Novolog Vial Sliding Scale - SQ 6 units ACHS [facility] Administration Protocol Insulin Detemir 10 units 04/30/19 08:45 Levemir Vial SQ DAILY@0700 [facility] Pneumococcal 13-Valent Conj Vacc 0.5 ml 04/30/19 10:00 Prevnar 13 Syringe - IM 04/30/19 10:01 .ONCE ONE Home Medications Medication Instructions Recorded Alprazolam [Xanax] 2 mg PO TID 10/17/18 Gabapentin 800 mg PO TID #30 tablet 10/17/18 Insulin Lispro Protamin/Lispro 15 unit SQ BID 10/17/18 [Humalog Mix 75-25 Kwikpen] Albuterol Sulfate Inhaler - 2 inh PO BID 04/29/19 [Ventolin Hfa Inhaler -] Insulin Lispro Protamin/Lispro 20 units SQ BID 04/30/19 [Humalog Mix 75-25 Kwikpen] Art. duplex of lower extremities: decreased monophasic flow is CT along of the common femoral, superficial femoral, popliteal and posterior tibial arteries bl. decreased flow bl. abdominal US: common bile duct apprears dilated with 0.9cm , MRI/MRCP to be considered, no stones or hepatic pathology noted. L foot XR: bone demineralization, ?gas Assessment and plan: Patient is a 53 year old female with Pmhx of history of insulin dependent diabetes mellitus, hypertension, anxiety, opiod use disorder (IV heroine; on Methadone), presents with complaint of bilateral lower extremity wounds. # Lower extremity wounds caanot r/o osteomyelitis; MRI left lower extremity to evaluate for osteomyelitis; ESR, CRP Continue Vancomycin, Zosyn , follow Bx, and wound cx, ID consult (Dr. Hoffmann) , Vascular surgery/ wound care consult (Dr. Barclay) Podiatry consult (Dr. Devine) #Right forearm ulnar styloid fracture: RUE forearm, wrist to ensure proper alignment s/p splinting. orhto consult appreciated #Anxiety: continue Alprazolam 2mg PO TID PRN #Diabetes mellitus: continue Levemir , with SS scale ,follow HbA1c # Peripheral neuropathy : continue Gabapentn 800mg PO TID #Opiod dependence: On Methadone. [facility] (90mg daily was confirmed by the nurse). # Elevated alkaline phosphatase: Concern for bone origin. US of abdomen: dilated CBD 0.9cm mrcp considered. will follow DVT Px: Heparin 5000units subq TID Visit type - Emergency Visit Emergency Visit: Yes ED Registration Date: 04/29/19 Care time: The patient presented to the Emergency Department on the above date and was hospitalized for further evaluation of their emergent condition. - New Patient This patient is new to me today: Yes Date on this admission: 04/30/19 - Critical Care Critical Care patient: No - Discharge Referral Referred to [facility] Med P.C.: No
[2019-04-30] MEDS ORDERED: FLU VACCINE QUAD 60 MCG/0.5 ML (MDV 19-20) IM ONE (10:00)
[2019-04-30] MEDS ORDERED: PNEUMOC 13-VAL CONJ-DIP CRM/PF 0.5 ML DISP.SYRIN IM ONE (10:00)
[2019-04-30 10:04] LABS: ALBUMIN 2.7 g/dl (3.4-5.0); BILIRUBIN,TOTAL 0.4 mg/dL (0.2-1); BLOOD UREA NITROGEN 11.6 mg/dL (7-18); CALCIUM 8.6 mg/dL (8.5-10.1); MAGNESIUM 1.9 mg/dL (1.8-2.4); PHOSPHOROUS 3.3 mg/dL (2.5-4.9); POTASSIUM 3.9 mmol/L (3.5-5.1); TOT PROT 6.9 g/dl (6.4-8.2)
[2019-04-30] MEDS: INSULIN (LEVEMIR) 100 UNITS/ML UNITS SQ SCH (10:21)
[2019-04-30] MEDS: ACETAMINOPHEN 1000 MG/100 ML VIAL (NON FORMULARY) IVPB PRN (11:14)
[2019-04-30] MEDS ORDERED: METHADONE HCL 10 MG TABLET PO SCH (12:30)
--- NOTE | 2019-04-30 13:16 | EKG ---
Test Reason : Blood Pressure : / mmHG Vent. Rate : 072 BPM Atrial Rate : 072 BPM P-R Int : 120 ms QRS Dur : 082 ms QT Int : 424 ms P-R-T Axes : 054 062 036 degrees QTc Int : 464 ms POOR DATA QUALITY, INTERPRETATION MAY BE ADVERSELY AFFECTED NORMAL SINUS RHYTHM CANNOT RULE OUT ANTERIOR INFARCT , AGE UNDETERMINED ABNORMAL ECG WHEN COMPARED WITH ECG OF 17-OCT-2018 18:51, NO SIGNIFICANT CHANGE WAS FOUND Confirmed by ELMIRA SWANSON MD ([id number]) on 04/30/2019 1:16:07 PM Referred By: Confirmed By:ELMIRA SWANSON MD
[2019-04-30] MEDS ORDERED: PT OWN MED DRAWER 7, Y5N ONE (13:42)
[2019-04-30] MEDS ORDERED: METHADONE HCL 10 MG TABLET ONE (13:42)
[2019-04-30] MEDS ORDERED: METHADONE HCL 40 MG DISPERSABLE TABLET ONE (13:42)
[2019-04-30] MEDS: METHADONE 80 MG, METHADONE 10 MG PO SCH (13:56)
--- NOTE | 2019-04-30 19:14 | PN ---
Progress Note (short form) - Note Progress Note: ID CONSULT DICTATED BILATERAL DIABETIC FOOT ULCERS R/O OSTEOMYELITIS IDDM AWAIT C/S, MRI EMPIRIC ZOSYN/VANCOMYCIN
--- NOTE | 2019-04-30 20:54 | PN ---
Progress Note (short form) - Note Progress Note: Films reviewed. Highly comminuted, shortened, displaced fracture of distal radius and ulna. Will come by in AM for full consult.
[2019-04-30] MEDS: VANCOMYCIN 1 GRAM (PRE-DOCKED) 1,000 MG/250 ML BAG IVPB SCH (21:03)
[2019-05-01] MEDS ORDERED: PIPERACILLIN/TAZOBACTAM 3.375 GM VIAL IVPB ONE ×3 (01:56→17:24)
[2019-05-01] MEDS ORDERED: DEXTROSE 5%-WATER - 50 ML IVPB ONE ×3 (01:56→17:24)
[2019-05-01] MEDS: PIPERACILLIN/TAZOB 3.375 GM 3.375 GM in DEXTROSE 5%-WATER - 50 ML IVPB SCH ×3 (02:20→17:35)
[2019-05-01] MEDS: ACETAMINOPHEN 1000 MG/100 ML VIAL (NON FORMULARY) IVPB PRN (02:40)
[2019-05-01] MEDS ORDERED: METHADONE HCL 10 MG TABLET ONE (06:11)
[2019-05-01] MEDS ORDERED: METHADONE HCL 40 MG DISPERSABLE TABLET ONE (06:11)
[2019-05-01] MEDS: METHADONE 80 MG, METHADONE 10 MG PO SCH (06:32)
[2019-05-01] MEDS: HEPARIN NA (PORCINE) 5,000 UNITS/ML 1ML VIAL SQ SCH ×3 (06:32→22:58)
[2019-05-01] MEDS: GABAPENTIN 400 MG CAPSULE PO SCH ×3 (06:33→22:56)
[2019-05-01] MEDS: ALPRAZolam 1 MG TABLET PO PRN ×3 (06:33→22:54)
[2019-05-01] MEDS: INSULIN (LEVEMIR) 100 UNITS/ML UNITS SQ SCH (06:48)
[2019-05-01] MEDS: INSULIN SLIDING SCALE (NOVOLOG) 1 VIAL SQ SCH ×4 (06:48→23:03)
[2019-05-01] MEDS: VANCOMYCIN 1 GRAM (PRE-DOCKED) 1,000 MG/250 ML BAG IVPB SCH ×2 (08:31→21:46)
[2019-05-01 08:52] LABS: BASO % 0.3 % (0-2.0); EOS % 2.1 % (0-4.5); HEMATOCRIT 34.8 % (32.4-45.2); HEMOGLOBIN 11.4 GM/dL (10.7-15.3); LYMPH % 21.2 % (8-40); MCH 29.8 pg (25.7-33.7); MCHC 32.9 g/dl (32.0-36.0); MEAN CELL VOLUME 90.7 fl (80-96); MEAN PLT VOLUME 8.9 fl (7.5-11.1); MONO % 5.6 % (3.8-10.2); NEUT % 70.8 % (42.8-82.8); PLATELET COUNT 223 K/MM3 (134-434); RBC 3.84 M/mm3 (3.60-5.2); RDW 14.3 % (11.6-15.6); WHITE BLOOD COUNT 6.5 K/mm3 (4.0-10.0)
[2019-05-01 09:27] LABS: ALBUMIN 2.8 g/dl (3.4-5.0); BILIRUBIN,TOTAL 0.5 mg/dL (0.2-1); BLOOD UREA NITROGEN 14.9 mg/dL (7-18); CALCIUM 8.8 mg/dL (8.5-10.1); CREATININE 1.1 mg/dL (0.55-1.3); PHOSPHOROUS 3.4 mg/dL (2.5-4.9); POTASSIUM 4.3 mmol/L (3.5-5.1); TOT PROT 7.2 g/dl (6.4-8.2)
--- NOTE | 2019-05-01 10:48 | PN ---
Teaching Attending Note Name of Resident: Gilmer Acevedo ATTENDING PHYSICIAN STATEMENT I saw and evaluated the patient. I reviewed the resident's note and discussed the case with the resident. I agree with the resident's findings and plan as documented. SUBJECTIVE: Patient continues to c/o having right lower extremity pain. Vital Signs Temperature 97.9 F 05/01/19 07:04 Pulse Rate 75 05/01/19 07:04 Respiratory Rate 20 05/01/19 07:04 Blood Pressure 120/79 05/01/19 07:04 O2 Sat by Pulse Oximetry (%) 96 04/30/19 21:00 GENERAL: The patient is awake, alert, and fully oriented, in no acute distress. HEAD: Normal with no signs of trauma. EYES: PERRL, extraocular movements intact, sclera anicteric, conjunctiva clear. ENT: Ears normal, oropharynx clear without exudates, moist mucous membranes. NECK: Trachea midline, full range of motion, supple. LUNGS: Breath sounds equal, clear to auscultation bilaterally, no wheezes, no crackles, no accessory muscle use. HEART: Regular rate and rhythm, S1, S2 without murmur, rub or gallop. ABDOMEN: Soft, Nt,ND, normoactive bowel sounds, no guarding, no rebound, no hepatosplenomegaly, no masses. EXTREMITIES: 2+ pulses, warm, well-perfused, R. forearm in splint and bandaged. + edema 1+ NEUROLOGICAL: Cranial nerves II through XII grossly intact. Normal speech, gait not observed. PSYCH: Normal mood, normal affect. SKIN: Warm, dry, normal turgor, positive for lower extremity, Lower extremities bandaged. CBCD WBC 6.5 K/mm3 (4.0-10.0) 05/01/19 07:00 RBC 3.84 M/mm3 (3.60-5.2) 05/01/19 07:00 Hgb 11.4 GM/dL (10.7-15.3) 05/01/19 07:00 Hct 34.8 % (32.4-45.2) 05/01/19 07:00 MCV 90.7 fl (80-96) 05/01/19 07:00 MCHC 32.9 g/dl (32.0-36.0) 05/01/19 07:00 RDW 14.3 % (11.6-15.6) 05/01/19 07:00 Plt Count 223 K/MM3 (134-434) 05/01/19 07:00 MPV 8.9 fl (7.5-11.1) 05/01/19 07:00 CMP Sodium 134 mmol/L (136-145) L 05/01/19 07:00 Potassium 4.3 mmol/L (3.5-5.1) 05/01/19 07:00 Chloride 100 mmol/L (98-107) 05/01/19 07:00 Carbon Dioxide 29 mmol/L (21-32) 05/01/19 07:00 Anion Gap 5 MMOL/L (8-16) L 05/01/19 07:00 BUN 14.9 mg/dL (7-18) 05/01/19 07:00 Creatinine 1.1 mg/dL (0.55-1.3) 05/01/19 07:00 Random Glucose 172 mg/dL (74-106) H 05/01/19 07:00 Calcium 8.8 mg/dL (8.5-10.1) 05/01/19 07:00 Total Bilirubin 0.5 mg/dL (0.2-1) 05/01/19 07:00 AST 20 U/L (15-37) 05/01/19 07:00 ALT 16 U/L (13-61) 05/01/19 07:00 Alkaline Phosphatase 159 U/L (45-117) H 05/01/19 07:00 Total Protein 7.2 g/dl (6.4-8.2) 05/01/19 07:00 Albumin 2.8 g/dl (3.4-5.0) L 05/01/19 07:00 CARDIAC ENZYMES Creatine Kinase 172 U/L (26-192) 04/29/19 14:50 Troponin I < 0.02 ng/ml (0.00-0.05) 04/29/19 14:50 Current Medications Generic Name Dose Route Start Last Admin Trade Name Freq PRN Reason Stop Dose Admin Acetaminophen 1,000 mg 04/29/19 18:00 05/01/19 02:40 Ofirmev Injection - IVPB 1,000 mg Q6H PRN Administration PAIN LEVEL 1-5 Alprazolam 2 mg 04/30/19 05:02 05/01/19 06:33 Xanax PO 2 mg TID PRN Administration ANXIETY Gabapentin 800 mg 04/29/19 22:00 05/01/19 06:33 Neurontin - PO 800 mg TID OBI Administration Heparin Sodium (Porcine) 5,000 unit 04/29/19 22:00 05/01/19 06:32 Heparin - SQ 5,000 unit TID OBI Administration Piperacillin Sod/Tazobactam 50 mls @ 100 mls/hr 05/01/19 02:00 05/01/19 02:20 Sod 3.375 gm/ Dextrose IVPB 100 mls/hr Q8H-IV OBI Administration Protocol Vancomycin HCl 1,000 mg in 250 mls @ 166.667 mls/hr 04/30/19 19:30 05/01/19 08:31 Vancomycin (Pre-Docked) IVPB 166.667 mls/hr Q12H OBI Administration Protocol Insulin Aspart 1 vial 04/29/19 22:00 05/01/19 06:48 Novolog Vial Sliding Scale - SQ 6 units ACHS OBI Administration Protocol Insulin Detemir 10 units 04/30/19 08:45 05/01/19 06:48 Levemir Vial SQ 10 units DAILY@0700 [facility] Administration Methadone HCl 80 mg/ Methadone 90 mg 04/30/19 13:00 05/01/19 06:32 HCl 10 mg PO 90 mg DAILY@0600 [facility] Administration Home Medications Medication Instructions Recorded Alprazolam [Xanax] 2 mg PO TID 10/17/18 Gabapentin 800 mg PO TID #30 tablet 10/17/18 Insulin Lispro Protamin/Lispro 15 unit SQ BID 10/17/18 [Humalog Mix 75-25 Kwikpen] Albuterol Sulfate Inhaler - 2 inh PO BID 04/29/19 [Ventolin Hfa Inhaler -] Insulin Lispro Protamin/Lispro 20 units SQ BID 04/30/19 [Humalog Mix 75-25 Kwikpen] Art. duplex of lower extremities: decreased monophasic flow is CT along of the common femoral, superficial femoral, popliteal and posterior tibial arteries bl. decreased flow bl. abdominal US: common bile duct apprears dilated with 0.9cm , MRI/MRCP to be considered, no stones or hepatic pathology noted. L foot XR: bone demineralization, possible gas Assessment and plan: Patient is a 53 year old female with Pmhx of history of insulin dependent diabetes mellitus, hypertension, anxiety, opiod use disorder (IV heroine; on Methadone), presents with complaint of bilateral lower extremity wounds. # Lower extremity wounds cannot r/o osteomyelitis; MRI left lower extremity to evaluate for osteomyelitis; ESR, CRP Continue Vancomycin, Zosyn , follow Bx, and wound cx, ID consult (Dr. Hoffmann) , Vascular surgery/ wound care consult (Dr. Barclay) Podiatry consult (Dr. Devine) #Right forearm ulnar styloid fracture: RUE forearm, wrist to ensure proper alignment s/p splinting. ortho consult appreciated #Anxiety: continue Alprazolam 2mg PO TID PRN #Diabetes mellitus: continue Levemir , with SS scale ,follow HbA1c # Peripheral neuropathy : continue Gabapentn 800mg PO TID #Opiod dependence: On Methadone. She uses [facility] on [facility] (90mg daily was confirmed by the nurse). # Elevated alkaline phosphatase: Concern for bone origin. US of abdomen: dilated CBD 0.9cm mrcp considered. will follow DVT Px: Heparin 5000units subq TID
--- NOTE | 2019-05-01 11:05 | PN ---
Physical Exam: SUBJECTIVE: Patient seen and examined. Pt. complained of pain overnight with imaging. Pt. afraid of losing her foot because of poor wound healing. Pt. states her wound dressing was changed overnight. Pt. states that her legs are swollen and that she takes Furosemide 10mg? at home for edema. Pt. endorses that her pain is improved after receiving her pain medications. this AM. Pt. sitting up in chair eating breakfast and is anxious. OBJECTIVE: Vital Signs Period Temp Pulse Resp BP Sys/Kelly Pulse Ox Last 24 Hr 97.6 F-97.9 F 71-83 20-20 120-149/77-87 96 GENERAL: The patient is awake, alert, and fully oriented, in no acute distress. HEAD: Normal with no signs of trauma. EYES: PERRL, extraocular movements intact, sclera anicteric, conjunctiva clear. ENT: Ears normal, oropharynx clear without exudates, moist mucous membranes. NECK: Trachea midline, full range of motion, supple. LUNGS: Breath sounds equal, clear to auscultation bilaterally, no wheezes, no crackles, no accessory muscle use. HEART: Regular rate and rhythm, S1, S2 without murmur, rub or gallop. ABDOMEN: Soft, Nt,ND, normoactive bowel sounds EXTREMITIES: 2+ radial pulses, warm, well-perfused, b/l lower extremitt anasarcic changes. Lower extremities bandaged. R. forearm in splint and bandaged. NEUROLOGICAL: Cranial nerves II through XII grossly intact. Normal speech, gait not observed. PSYCH: Anxious SKIN: Warm, dry, anasarca in lower extremities, thickened skin in lower extrmeities Laboratory Results - last 24 hr 04/30/19 04/30/19 04/30/19 08:51 08:51 11:35 WBC RBC Hgb Hct MCV MCH MCHC RDW Plt Count MPV Absolute Neuts (auto) Neutrophils % Lymphocytes % Monocytes % Eosinophils % Basophils % Nucleated RBC % ESR 66 H Sodium Potassium Chloride Carbon Dioxide Anion Gap BUN Creatinine Est GFR (CKD-EPI)AfAm Est GFR (CKD-EPI)NonAf POC Glucometer 242 Random Glucose Calcium Phosphorus Magnesium Total Bilirubin AST ALT Alkaline Phosphatase Total Protein Albumin Blood Type A POSITIVE Antibody Screen Negative 04/30/19 04/30/19 04/30/19 12:20 17:12 22:37 WBC RBC Hgb Hct MCV MCH MCHC RDW Plt Count MPV Absolute Neuts (auto) Neutrophils % Lymphocytes % Monocytes % Eosinophils % Basophils % Nucleated RBC % ESR Sodium Potassium Chloride Carbon Dioxide Anion Gap BUN Creatinine Est GFR (CKD-EPI)AfAm Est GFR (CKD-EPI)NonAf POC Glucometer 196 286 Random Glucose Calcium Phosphorus Magnesium Total Bilirubin AST ALT Alkaline Phosphatase Total Protein Albumin Blood Type A POSITIVE Antibody Screen 05/01/19 05/01/19 05/01/19 06:47 07:00 07:00 WBC 6.5 RBC 3.84 Hgb 11.4 Hct 34.8 MCV 90.7 MCH 29.8 MCHC 32.9 RDW 14.3 Plt Count 223 MPV 8.9 Absolute Neuts (auto) 4.6 Neutrophils % 70.8 Lymphocytes % 21.2 D Monocytes % 5.6 Eosinophils % 2.1 Basophils % 0.3 Nucleated RBC % 0 ESR Sodium 134 L Potassium 4.3 Chloride 100 Carbon Dioxide 29 Anion Gap 5 L BUN 14.9 Creatinine 1.1 Est GFR (CKD-EPI)AfAm 65.45 Est GFR (CKD-EPI)NonAf 56.47 POC Glucometer 230 Random Glucose 172 H Calcium 8.8 Phosphorus 3.4 Magnesium 2.0 Total Bilirubin 0.5 AST 20 ALT 16 Alkaline Phosphatase 159 H Total Protein 7.2 Albumin 2.8 L Blood Type Antibody Screen Active Medications Home Medications Medication Instructions Recorded Alprazolam [Xanax] 2 mg PO TID 10/17/18 Gabapentin 800 mg PO TID #30 tablet 10/17/18 Insulin Lispro Protamin/Lispro 15 unit SQ BID 10/17/18 [Humalog Mix 75-25 Kwikpen] Albuterol Sulfate Inhaler - 2 inh PO BID 04/29/19 [Ventolin Hfa Inhaler -] Insulin Lispro Protamin/Lispro 20 units SQ BID 04/30/19 [Humalog Mix 75-25 Kwikpen] Current Medications Acetaminophen (Ofirmev Injection -) 1,000 mg IVPB Q6H PRN PRN Reason: PAIN LEVEL 1-5 Last Admin: 05/01/19 02:40 Dose: 1,000 mg Alprazolam (Xanax) 2 mg PO TID PRN PRN Reason: ANXIETY Last Admin: 05/01/19 06:33 Dose: 2 mg Gabapentin (Neurontin -) 800 mg PO TID OBI Last Admin: 05/01/19 06:33 Dose: 800 mg Heparin Sodium (Porcine) (Heparin -) 5,000 unit SQ TID [facility] Last Admin: 05/01/19 06:32 Dose: 5,000 unit Piperacillin Sod/Tazobactam (Sod 3.375 gm/ Dextrose) 50 mls @ 100 mls/hr IVPB Q8H-IV OBI; Protocol Last Admin: 05/01/19 02:20 Dose: 100 mls/hr Vancomycin HCl (Vancomycin (Pre-Docked)) 1,000 mg in 250 mls @ 166.667 mls/hr IVPB Q12H [facility]; Protocol Last Admin: 05/01/19 08:31 Dose: 166.667 mls/hr Insulin Aspart (Novolog Vial Sliding Scale -) 1 vial SQ ACHS [facility]; Protocol Last Admin: 05/01/19 06:48 Dose: 6 units Insulin Detemir (Levemir Vial) 10 units SQ DAILY@0700 [facility] Last Admin: 05/01/19 06:48 Dose: 10 units Methadone HCl 80 mg/ Methadone (HCl 10 mg) 90 mg PO DAILY@0600 [facility] Last Admin: 05/01/19 06:32 Dose: 90 mg ASSESSMENT/PLAN: Patient is a 53 year old female with history of insulin dependent diabetes mellitus, hypertension, anxiety, opiod use disorder (IV heroine; on Methadone), presents with complaint of bilateral lower extremity wounds. Lower extremity wounds -Concern for osteomyelitis; f/u MRI read -ESR: 66, CRP: 2.3 -Arterial and Venous duplex bilateral lower extremities: decreased flow bilaterally -Continue Vancomycin, Zosyn -Follow blood cultures, wound cultures: WCx. growing MDR Morganella Morganii -ID consult (Dr. Hoffmann) -Vascular surgery/ wound care consult (Dr. Barclay) appreciated. -Podiatry consult (Dr. Devine) Right forearm ulnar styloid fracture -Xray confirms distal radial and ulnar fractures -Orthopedic surgery consulted, will evaluate. Anxiety -Continue Alprazolam 2mg PO TID PRN Diabetes mellitus -c/w Levemir 10 units -Insulin slidng scale ACHS -Fingerstick blood glucose monitoring ACHS -Gabapentn 800mg PO TID for neuropahy -HbA1c: 9.5 Opiod dependence -Continue patient's Methadone. She uses [facility] on [facility] (90mg daily). Elevated alkaline phosphatase -Concern for bone origin. GGT: elevated -Abd US: no acute pathology, CBD: 0.9cm, can do MRCP if there is increased clinical concern -LFTs downtrending FEN -No IV fluids indicated, encourage PO intake -Follow BMP -Diabetic diet Prophylaxis -Heparin 5000units subq TID Disposition -Admit to medical- surgical floor Visit type - Emergency Visit Emergency Visit: Yes ED Registration Date: 04/29/19 Care time: The patient presented to the Emergency Department on the above date and was hospitalized for further evaluation of their emergent condition. - New Patient This patient is new to me today: Yes Date on this admission: 05/02/19 - Critical Care Critical Care patient: No - Discharge Referral Referred to [facility] Med [facility] No ATTENDING PHYSICIAN STATEMENT I saw and evaluated the patient. I reviewed the resident's note and discussed the case with the resident. I agree with the resident's findings and plan as documented. SUBJECTIVE: OBJECTIVE: ASSESSMENT AND PLAN:
--- NOTE | 2019-05-01 12:12 | CON.ORTH ---
Consult Consult Specialty:: Orthopedic surgery - History of Present Illness History of Present Illness: 53y F with PMHx as below admitted for infected heel ulcers pt was treated at [facility] for wrist fracture that she states was 9 days ago pt states fracture happened "just after new years" when she tripped a wood panel in the floor of her building pt was splinted for the fracture but did not seek follow up care, states she did not know she was supposed to follow up notes persistent pain in the wrist no numbness or tingling being treated by ID/medicine for her foot infections with IV abx - Past Medical History 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 PLACEMENT DIRECTOR: Yes: Peripheral Neuropathy Cardio/Vascular: Yes: HTN, Other (PVD) Endocrine: Yes: Diabetes Insipidus - Past Surgical History Past Surgical History: Yes: - Alcohol/Substance Use Hx Alcohol Use: No - Smoking History Smoking history: Current every day smoker Have you smoked in the past 12 months: Yes - Social History Usual Living Arrangement: Alone Home Medications - Allergies Allergies/Adverse Reactions: Allergies Allergy/AdvReac Type Severity Reaction Status Date / Time No Known Allergies Allergy Verified 04/29/19 10:42 - Home Medications Home Medications: Ambulatory Orders Alprazolam [Xanax] 2 mg PO TID 10/17/18 Gabapentin 800 mg PO TID #30 tablet 10/17/18 Insulin Lispro Protamin/Lispro [Humalog Mix 75-25 Kwikpen] 15 unit SQ BID Albuterol Sulfate Inhaler - [Ventolin Hfa Inhaler -] 2 inh PO BID 04/29/19 Insulin Lispro Protamin/Lispro [Humalog Mix 75-25 Kwikpen] 20 units SQ BID 04/30 Physical Exam for Ortho Vital Signs: Vital Signs Temperature 97.9 F 05/01/19 07:04 Pulse Rate 75 05/01/19 07:04 Respiratory Rate 20 05/01/19 07:04 Blood Pressure 120/79 05/01/19 07:04 O2 Sat by Pulse Oximetry (%) 96 04/30/19 21:00 Constitutional: Yes: Well Nourished, Anxious Cardiovascular: Yes: Regular Rate and Rhythm Respiratory: Yes: Regular Extremities: Yes: Other (RUE splint removed. no skin lesions. mild swelling. tender about wrist. nontender elbow. no gross motion at fracture site. pt seen to weight bear on wrist to get out of and into of chair, was advised not to stand at the moment but did not pay attention. sensation grossly intact to light touch. 2+ rad pulse.) Labs: CBC, BMP 05/01/19 07:00 05/01/19 07:00 INR, PTT INR 1.14 (0.83-1.09) H 04/29/19 12:10 Imaging - Results X-ray: Report Reviewed, Image Reviewed (comminuted, displaced fracture of distal radius and ulnar styloid) Problem List - Problems (1) Colles' fracture of right radius, initial encounter for closed fracture Assessment/Plan: I reviewed today's findings with Kat advised that she suffered a significant injury to her wrist in an ideal case, surgery would be the best option for this fracture would not recommend surgery right now as she is suffering from active infection for now, pt placed in a better contoured splint advised to put no pressure on the joint, she should ask for assistance to properly mobilize will have pt follow up with hand surgeon on discharge to consider operative fixation, if she decides on surgery should be performed within the next 1-2 weeks as it has already likely been at least 2 weeks since her injury (lack of motion at fracture site, pt bearing weight on wrist) Code(s): S52.531A - COLLES' FRACTURE OF RIGHT RADIUS, INIT FOR KASHIF BENAVIDEZ
[2019-05-01] MEDS ORDERED: PT OWN MED DRAWER 7, Y5N ONE ×2 (13:11→21:35)
[2019-05-01 14:47] LABS: URINE APPEARANCE CLEAR; URINE BILIRUBIN NEGATIVE (NEGATIVE); URINE COLOR YELLOW; URINE GLUCOSE (UA) NEGATIVE (NEGATIVE); URINE KETONE NEGATIVE (NEGATIVE); URINE LEUK ESTERASE NEGATIVE (NEGATIVE); URINE NITRITE NEGATIVE (NEGATIVE); URINE PROTEIN TRACE (NEGATIVE); URINE UROBILINOGEN 0.2 mg/dL (0.2-1.0)
--- NOTE | 2019-05-01 15:57 | CONS ---
DATE OF CONSULTATION: DATE OF DICTATION: 05/01/2019 INFECTIOUS DISEASE CONSULTATION HISTORY OF PRESENT ILLNESS: The patient is a 53-year-old female, history of insulin-dependent diabetes mellitus, hypertension, history of IV drug use on methadone, admitted with bilateral lower extremity wounds. She reports that the left foot wound has been longstanding dating back to January 2018. She had been under the care of a manufacturing executive and had had debridements performed. She was seen in [facility] in 2018 where had undergone vascular intervention. She has had worsening pain and ulcers of the lower extremities with inability to ambulate. She has apparently not followed up since her hospital discharge in October 2018, and she now reports new onset of purulent drainage from the foot wound and a chronic right lateral foot wound which has been ongoing for the past several months. She denies any traumatic injury. PAST MEDICAL HISTORY: Positive for insulin-dependent diabetes mellitus, hypertension, peripheral vascular disease, anxiety. PAST SURGICAL HISTORY: Status post bilateral ankle repair, section. SOCIAL HISTORY: Lives in the community. Positive history of tobacco use. Former IV drug user on methadone. ALLERGIES: No known drug allergies. MEDICATIONS: Include vancomycin, Zosyn, Tylenol, Xanax, Neurontin, methadone. LABORATORY DATA: White count 5.8, ESR 66, creatinine 1.0, C-reactive protein 2.3. Blood cultures pending. Wound culture non-lactose air traffic controller center. MRI of the lower extremity is pending. Foot x-ray: Soft tissue air by the heel. PHYSICAL EXAMINATION: General: She is awake, moderate distress secondary to her foot pain. Vital Signs: Temperature 97.6, blood pressure 155/90, pulse 84, respirations 20 per minute. Patient is chronically ill appearing. HEENT: Sclerae are anicteric. Heart: Sounds S1, S2. Lungs: Clear. Abdomen: Obese, soft, nontender. Extremities: Examination of the left lower extremity there is a large ulceration present over the heel with no purulent drainage with surrounding erythema. There are ulcerations present over the lateral aspect of the right foot. Right upper extremity in cast. IMPRESSION: 1. Infected bilateral diabetic foot ulcers. 2. Rule out osteomyelitis. 3. Insulin-dependent diabetes mellitus. Await culture results, MRI. Surgical evaluation. Empiric antibiotic coverage with vancomycin and Zosyn. Local wound care. Thank you for the kind referral. ZULEIMA TEJADA M.D. [id number]
[2019-05-02] MEDS ORDERED: PIPERACILLIN/TAZOBACTAM 3.375 GM VIAL IVPB ONE ×3 (01:40→15:37)
[2019-05-02] MEDS ORDERED: DEXTROSE 5%-WATER - 50 ML IVPB ONE ×3 (01:41→15:37)
[2019-05-02] MEDS: PIPERACILLIN/TAZOB 3.375 GM 3.375 GM in DEXTROSE 5%-WATER - 50 ML IVPB SCH ×3 (01:45→17:07)
[2019-05-02] MEDS ORDERED: METHADONE HCL 40 MG DISPERSABLE TABLET ONE (07:00)
[2019-05-02] MEDS ORDERED: METHADONE HCL 10 MG TABLET ONE (07:00)
[2019-05-02] MEDS: METHADONE 80 MG, METHADONE 10 MG PO SCH (07:06)
[2019-05-02] MEDS: GABAPENTIN 400 MG CAPSULE PO SCH ×3 (07:08→21:28)
[2019-05-02] MEDS: ACETAMINOPHEN 1000 MG/100 ML VIAL (NON FORMULARY) IVPB PRN (07:14)
[2019-05-02] MEDS: HEPARIN NA (PORCINE) 5,000 UNITS/ML 1ML VIAL SQ SCH ×3 (07:16→21:28)
[2019-05-02] MEDS: INSULIN (LEVEMIR) 100 UNITS/ML UNITS SQ SCH (07:19)
[2019-05-02] MEDS: INSULIN SLIDING SCALE (NOVOLOG) 1 VIAL SQ SCH ×4 (07:22→21:28)
[2019-05-02] MEDS ORDERED: PT OWN MED DRAWER 7, Y5N ONE ×3 (08:14→21:19)
--- NOTE | 2019-05-02 08:15 | PN ---
Progress Note (short form) - Note Progress Note: Seen at bedside in NAD PT seen with Internal Medicine service PT had MRI yesterday suggestive of osteomyelitis of left heel Wounds clinically stable RECC bone biopsy and bone culture Discussed with pt proposed procedure and potential risks vs benefits All questions and concerns were addressed Seen and evaluated by Dr Jorge Markham
[2019-05-02] MEDS: VANCOMYCIN 1 GRAM (PRE-DOCKED) 1,000 MG/250 ML BAG IVPB SCH ×2 (08:17→19:14)
[2019-05-02] MEDS: ALPRAZolam 1 MG TABLET PO PRN ×2 (08:17→16:25)
[2019-05-02 09:04] LABS: BASO % 0.6 % (0-2.0); EOS % 1.9 % (0-4.5); HEMATOCRIT 33.9 % (32.4-45.2); HEMOGLOBIN 11.2 GM/dL (10.7-15.3); LYMPH % 27.8 % (8-40); MCH 29.7 pg (25.7-33.7); MEAN CELL VOLUME 90.2 fl (80-96); MEAN PLT VOLUME 8.9 fl (7.5-11.1); MONO % 7.8 % (3.8-10.2); NEUT % 61.9 % (42.8-82.8); PLATELET COUNT 212 K/MM3 (134-434); RBC 3.76 M/mm3 (3.60-5.2); RDW 13.8 % (11.6-15.6); WHITE BLOOD COUNT 6.4 K/mm3 (4.0-10.0)
[2019-05-02 09:32] LABS: ALBUMIN 2.6 g/dl (3.4-5.0); BILIRUBIN,TOTAL 0.4 mg/dL (0.2-1); BLOOD UREA NITROGEN 17.7 mg/dL (7-18); POTASSIUM 4.4 mmol/L (3.5-5.1); TOT PROT 7.1 g/dl (6.4-8.2)
--- NOTE | 2019-05-02 11:13 | PN ---
Physical Exam: SUBJECTIVE: Patient seen and examined. Pt. denies any new complaints. Pt. states that her living condition is very poor, with lots of bugs/roaches. Pt. states that she takes Lasix 10mg at home everyday. Pt. again was tearful and is anxious about losing her leg. Pt. described that she had a procedure( angiogram ) done at [facility] where Pt. follows for wound care. Pt. states that she has not been on antibiotics. OBJECTIVE: Vital Signs Period Temp Pulse Resp BP Sys/Kelly Pulse Ox Last 24 Hr 97.5 F-98.4 F 77-80 18-20 135-163/72-77 96 GENERAL: The patient is awake, alert, and fully oriented, in no acute distress. HEAD: Normal with no signs of trauma. EYES: PERRL, extraocular movements intact, sclera anicteric, conjunctiva clear. ENT: Ears normal, oropharynx clear without exudates, moist mucous membranes. NECK: Trachea midline, full range of motion, supple. LUNGS: Breath sounds equal, clear to auscultation bilaterally, no wheezes, no crackles, no accessory muscle use. HEART: Regular rate and rhythm, S1, S2 without murmur, rub or gallop. ABDOMEN: Soft, Nt,ND, normoactive bowel sounds EXTREMITIES: 2+ radial pulses, warm, well-perfused, b/l lower extremity anasarcic changes. Lower extremities bandaged. R. forearm in splint and bandaged. NEUROLOGICAL: Cranial nerves II through XII grossly intact. Normal speech, gait not observed. PSYCH: Anxious SKIN: Warm, dry, anasarca in lower extremities, thickened skin in lower extremities Laboratory Results - last 24 hr 05/01/19 05/01/19 05/01/19 07:45 11:21 17:16 WBC RBC Hgb Hct MCV MCH MCHC RDW Plt Count MPV Absolute Neuts (auto) Neutrophils % Lymphocytes % Monocytes % Eosinophils % Basophils % Nucleated RBC % Sodium Potassium Chloride Carbon Dioxide Anion Gap BUN Creatinine Est GFR (CKD-EPI)AfAm Est GFR (CKD-EPI)NonAf POC Glucometer 165 270 Random Glucose Calcium Total Bilirubin AST ALT Alkaline Phosphatase Total Protein Albumin Urine Color Yellow Urine Appearance Clear Urine pH 6.0 Ur Specific Darby 1.014 Urine Protein Trace Urine Glucose (UA) Negative Urine Ketones Negative Urine Blood Negative Urine Nitrite Negative Urine Bilirubin Negative Urine Urobilinogen 0.2 Ur Leukocyte Esterase Negative 05/01/19 05/02/19 05/02/19 21:49 07:03 08:15 WBC 6.4 RBC 3.76 Hgb 11.2 Hct 33.9 MCV 90.2 MCH 29.7 MCHC 33.0 RDW 13.8 Plt Count 212 MPV 8.9 Absolute Neuts (auto) 4.0 Neutrophils % 61.9 Lymphocytes % 27.8 D Monocytes % 7.8 Eosinophils % 1.9 Basophils % 0.6 Nucleated RBC % 0 Sodium Potassium Chloride Carbon Dioxide Anion Gap BUN Creatinine Est GFR (CKD-EPI)AfAm Est GFR (CKD-EPI)NonAf POC Glucometer 142 219 Random Glucose Calcium Total Bilirubin AST ALT Alkaline Phosphatase Total Protein Albumin Urine Color Urine Appearance Urine pH Ur Specific Darby Urine Protein Urine Glucose (UA) Urine Ketones Urine Blood Urine Nitrite Urine Bilirubin Urine Urobilinogen Ur Leukocyte Esterase 05/02/19 08:15 WBC RBC Hgb Hct MCV MCH MCHC RDW Plt Count MPV Absolute Neuts (auto) Neutrophils % Lymphocytes % Monocytes % Eosinophils % Basophils % Nucleated RBC % Sodium 136 Potassium 4.4 Chloride 102 Carbon Dioxide 27 Anion Gap 7 L BUN 17.7 Creatinine 1.0 Est GFR (CKD-EPI)AfAm 73.45 Est GFR (CKD-EPI)NonAf 63.37 POC Glucometer Random Glucose 228 H Calcium 9.0 Total Bilirubin 0.4 AST 19 ALT 15 Alkaline Phosphatase 156 H Total Protein 7.1 Albumin 2.6 L Urine Color Urine Appearance Urine pH Ur Specific Darby Urine Protein Urine Glucose (UA) Urine Ketones Urine Blood Urine Nitrite Urine Bilirubin Urine Urobilinogen Ur Leukocyte Esterase Active Medications Home Medications Medication Instructions Recorded Alprazolam [Xanax] 2 mg PO TID 10/17/18 Gabapentin 800 mg PO TID #30 tablet 10/17/18 Insulin Lispro Protamin/Lispro 15 unit SQ BID 10/17/18 [Humalog Mix 75-25 Kwikpen] Albuterol Sulfate Inhaler - 2 inh PO BID 04/29/19 [Ventolin Hfa Inhaler -] Insulin Lispro Protamin/Lispro 20 units SQ BID 04/30/19 [Humalog Mix 75-25 Kwikpen] Current Medications Acetaminophen (Tylenol -) 650 mg PO Q6H PRN PRN Reason: Fever Alprazolam (Xanax) 2 mg PO TID PRN PRN Reason: ANXIETY Last Admin: 05/02/19 08:17 Dose: 2 mg Furosemide (Lasix -) 20 mg PO ONCE ONE Stop: 05/02/19 16:00 Gabapentin (Neurontin -) 800 mg PO TID [facility] Last Admin: 05/02/19 13:38 Dose: 800 mg Heparin Sodium (Porcine) (Heparin -) 5,000 unit SQ TID OBI Last Admin: 05/02/19 13:39 Dose: 5,000 unit Piperacillin Sod/Tazobactam (Sod 3.375 gm/ Dextrose) 50 mls @ 100 mls/hr IVPB Q8H-IV OBI; Protocol Last Admin: 05/02/19 10:27 Dose: 100 mls/hr Vancomycin HCl (Vancomycin (Pre-Docked)) 1,000 mg in 250 mls @ 166.667 mls/hr IVPB Q12H [facility]; Protocol Last Admin: 05/02/19 08:17 Dose: 166.667 mls/hr Insulin Aspart (Novolog Vial Sliding Scale -) 1 vial SQ ACHS [facility]; Protocol Last Admin: 05/02/19 12:59 Dose: 10 units Insulin Detemir (Levemir Vial) 10 units SQ DAILY@0700 [facility] Last Admin: 05/02/19 07:19 Dose: 10 units Methadone HCl 80 mg/ Methadone (HCl 10 mg) 90 mg PO DAILY@0600 [facility] Last Admin: 05/02/19 07:06 Dose: 90 mg ASSESSMENT/PLAN: Patient is a 53 year old female with history of insulin dependent diabetes mellitus, hypertension, anxiety, opiod use disorder (IV heroine; on Methadone), presents with complaint of bilateral lower extremity wounds. #Lower extremity wounds Concern for osteomyelitis; f/u MRI read ESR: 66, CRP: 2.3 Arterial and Venous duplex bilateral lower extremities: decreased flow bilaterally Continue Vancomycin, Zosyn Follow blood cultures, wound cultures: WCx. growing MDR Morganella Morganii ID consult (Dr. Gaming): c/w Vancomycin and Zosyn Vascular surgery/ wound care consult (Dr. Barclay) appreciated: cleared from a vascular standpoint, if osteo found, pt will need HBO, can further work up vascular status after debridement with CTA. Podiatry consult (Dr. Bortniker): For bone biopsy in AM will give Lasix 20mg PO ONCE for lower extremity edema #Right forearm ulnar styloid fracture Xray confirms distal radial and ulnar fractures Orthopedic surgery consulted, will evaluate. #Anxiety Continue Alprazolam 2mg PO TID PRN #Diabetes mellitus c/w Levemir 10 units Insulin slidng scale ACHS Fingerstick blood glucose monitoring ACHS Gabapentn 800mg PO TID for neuropahy HbA1c: 9.5 #Opiod dependence Continue patient's Methadone. She uses [facility] on [facility] (90mg daily). #Elevated alkaline phosphatase Concern for bone origin. GGT: elevated Abd US: no acute pathology, CBD: 0.9cm, can do MRCP if there is increased clinical concern LFTs downtrending #FEN No IV fluids indicated, NPO after midnight Follow BMP Diabetic diet #DVT Prophylaxis Heparin 5000units subq TID #Disposition Admit to medical- surgical floor Visit type - Emergency Visit Emergency Visit: Yes ED Registration Date: 04/29/19 Care time: The patient presented to the Emergency Department on the above date and was hospitalized for further evaluation of their emergent condition. - New Patient This patient is new to me today: No - Critical Care Critical Care patient: No - Discharge Referral Referred to [facility] No ATTENDING PHYSICIAN STATEMENT I saw and evaluated the patient. I reviewed the resident's note and discussed the case with the resident. I agree with the resident's findings and plan as documented. SUBJECTIVE: OBJECTIVE: ASSESSMENT AND PLAN:
[2019-05-02] MEDS ORDERED: ACETAMINOPHEN 325 MG TABLET (FP) PO PRN (12:26)
--- NOTE | 2019-05-02 12:28 | PN ---
Progress Note (short form) - Note Progress Note: Vascular Surgery Pt seen and examined. Pt has left heel necrotic ulcer for over three months. Pt goes to [facility] wound care for treatment. Pt has had a angiogram at [facility]. Called to evaluate left leg. Left leg Necrotic left heel. Dopplerable biphasic PT signal. Foot is warm. Podiatry to do debridement and bone biopsy mckenzie. Cleared from a vascular standpoint. If osteo found, pt will need HBO. The ulcer is foul smelling and needs debridement. Pt has had vascular assessment with angiogram done at [facility]. Pt is non compliant with all treatment. Says her living conditions are terrible with roaches. Can further work up vascular status after debridement with CTA. Will follow Ildefonso Barclay DO
--- NOTE | 2019-05-02 15:39 | CON.ORTH ---
Consult Reason for Consultation:: right wrist fx - Past Medical History FIRER RETORT: Yes: Peripheral Neuropathy Cardio/Vascular: Yes: HTN, Other (PVD) Endocrine: Yes: Diabetes Insipidus - Past Surgical History Past Surgical History: Yes: - Alcohol/Substance Use Hx Alcohol Use: No - Smoking History Smoking history: Current every day smoker Have you smoked in the past 12 months: Yes - Social History Usual Living Arrangement: Alone Home Medications - Allergies Allergies/Adverse Reactions: Allergies Allergy/AdvReac Type Severity Reaction Status Date / Time No Known Allergies Allergy Verified 04/29/19 10:42 - Home Medications Home Medications: Ambulatory Orders Alprazolam [Xanax] 2 mg PO TID 10/17/18 Gabapentin 800 mg PO TID #30 tablet 10/17/18 Insulin Lispro Protamin/Lispro [Humalog Mix 75-25 Kwikpen] 15 unit SQ BID Albuterol Sulfate Inhaler - [Ventolin Hfa Inhaler -] 2 inh PO BID 04/29/19 Insulin Lispro Protamin/Lispro [Humalog Mix 75-25 Kwikpen] 20 units SQ BID 04/30 Physical Exam for Ortho Vital Signs: Vital Signs Temperature 98.1 F 05/02/19 09:49 Pulse Rate 77 05/02/19 09:49 Respiratory Rate 18 05/02/19 09:49 Blood Pressure 141/72 05/02/19 09:49 O2 Sat by Pulse Oximetry (%) 99 05/02/19 10:00 Labs: CBC, BMP 05/02/19 08:15 05/02/19 08:15 INR, PTT INR 1.14 (0.83-1.09) H 04/29/19 12:10 - Upper Extremity Wrist: Yes: Right, Other (splint intact, nvi) Imaging - Results X-ray: Image Reviewed Assessment/Plan 53 year old female with history of insulin dependent diabetes mellitus, hypertension, anxiety, opiod use disorder (IV heroine; on Methadone), presents with complaint of bilateral lower extremity wounds. Endorses her left foot wound began when an unknown gub (? water-bug) bit her in January 2018. States that there was bubbling of the skin which erupted leaving a hole within her foot. Patient admits seeing a hairspring vibrator (Dr. Carlos) who performed debridement an dressing changes, however did not prescribe antibiotics. She endorses being seen in [facility] in October 2017 where she describes left lower extremity (?angioplasty/ thrombectomy) after which she describes worsening inability to ambulate. She has independently been dressing her wounds, and has not followed up since her hospital discharge in October. Patient endorses new onset purulent draining from the wound, along with worsening burning pain that prompted her ED presentation. Also pt is s/ fall 2 weeks ago sustaining a distal radius fx. a/p- Right displaced distal radius fx Pt is not a good surgical candidate given her active infection etc. Will perform a bedside closed reduction and cast application tomorrow afternoon strict elevation pain control d/w Dr. Garcia
--- NOTE | 2019-05-02 15:39 | PN ---
Progress Note, Physician History of Present Illness: C/O CHRONIC LE EDEMA, HEEL PAIN REQUESTING WATER PILL AFEBRILE WBC WNL ESR 66 CRP 2.3 BC (-) WOUND C/S MORGANELLA MRI + OSTEOMYELITIS - Current Medication List Current Medications: Active Medications Acetaminophen (Tylenol -) 650 mg PO Q6H PRN PRN Reason: Fever Alprazolam (Xanax) 2 mg PO TID PRN PRN Reason: ANXIETY Last Admin: 05/02/19 08:17 Dose: 2 mg Gabapentin (Neurontin -) 800 mg PO TID [facility] Last Admin: 05/02/19 13:38 Dose: 800 mg Heparin Sodium (Porcine) (Heparin -) 5,000 unit SQ TID [facility] Last Admin: 05/02/19 13:39 Dose: 5,000 unit Piperacillin Sod/Tazobactam (Sod 3.375 gm/ Dextrose) 50 mls @ 100 mls/hr IVPB Q8H-IV OBI; Protocol Last Admin: 05/02/19 10:27 Dose: 100 mls/hr Vancomycin HCl (Vancomycin (Pre-Docked)) 1,000 mg in 250 mls @ 166.667 mls/hr IVPB Q12H [facility]; Protocol Last Admin: 05/02/19 08:17 Dose: 166.667 mls/hr Insulin Aspart (Novolog Vial Sliding Scale -) 1 vial SQ ACHS [facility]; Protocol Last Admin: 05/02/19 12:59 Dose: 10 units Insulin Detemir (Levemir Vial) 10 units SQ DAILY@0700 [facility] Last Admin: 05/02/19 07:19 Dose: 10 units Methadone HCl 80 mg/ Methadone (HCl 10 mg) 90 mg PO DAILY@0600 [facility] Last Admin: 05/02/19 07:06 Dose: 90 mg - Objective Vital Signs: Vital Signs Temperature 98.1 F 05/02/19 09:49 Pulse Rate 77 05/02/19 09:49 Respiratory Rate 18 05/02/19 09:49 Blood Pressure 141/72 05/02/19 09:49 O2 Sat by Pulse Oximetry (%) 99 05/02/19 10:00 Constitutional: Yes: No Distress Eyes: Yes: Conjunctiva Clear Cardiovascular: Yes: Regular Rate and Rhythm, S1, S2 Respiratory: Yes: CTA Bilaterally Gastrointestinal: Yes: Normal Bowel Sounds, Soft. No: Tenderness Extremities: Yes: Other (+ NECROTIC, FOUL SMELLING HEEL ULCER) Labs: CBC, BMP 05/02/19 08:15 05/02/19 08:15 INR, PTT INR 1.14 (0.83-1.09) H 04/29/19 12:10 Assessment/Plan INFECTED DIABETIC HEEL ULCER/ OSTEOMYELITIS FOR DEBRIDEMENT/ BONE BX CONTINUE ZOSYN/ VANCOMYCIN
[2019-05-02] MEDS ORDERED: FUROSEMIDE 20 MG TABLET (FP) PO ONE (15:59)
[2019-05-02] MEDS ORDERED: METHYL SALICYLATE/MENTHOL OINT 30 GM TUBE TP PRN (18:05)
--- NOTE | 2019-05-02 19:32 | PN ---
Teaching Attending Note Name of Resident: Gilmer Acevedo ATTENDING PHYSICIAN STATEMENT I saw and evaluated the patient. I reviewed the resident's note and discussed the case with the resident. I agree with the resident's findings and plan as documented. SUBJECTIVE: Patient has no new complaints. Vital Signs Temperature 98.0 F 05/02/19 15:00 Pulse Rate 80 05/02/19 15:00 Respiratory Rate 18 05/02/19 15:00 Blood Pressure 143/83 05/02/19 15:00 O2 Sat by Pulse Oximetry (%) 99 05/02/19 10:00 GENERAL: The patient is awake, alert, and fully oriented, in no acute distress. HEAD: Normal with no signs of trauma. EYES: PERRL, extraocular movements intact, sclera anicteric, conjunctiva clear. ENT: Ears normal, oropharynx clear without exudates, moist mucous membranes. NECK: Trachea midline, full range of motion, supple. LUNGS: Breath sounds equal, clear to auscultation bilaterally, no wheezes, no crackles, no accessory muscle use. HEART: Regular rate and rhythm, S1, S2 without murmur, rub or gallop. ABDOMEN: Soft, Nt,ND, normoactive bowel sounds, no guarding, no rebound, no hepatosplenomegaly, no masses. EXTREMITIES: 2+ pulses, warm, well-perfused, R. forearm in splint and bandaged. + edema 1+ NEUROLOGICAL: Cranial nerves II through XII grossly intact. Normal speech, gait not observed. PSYCH: Normal mood, normal affect. SKIN: Warm, dry, normal turgor, positive for lower extremities bandaged. CBCD WBC 6.4 K/mm3 (4.0-10.0) 05/02/19 08:15 RBC 3.76 M/mm3 (3.60-5.2) 05/02/19 08:15 Hgb 11.2 GM/dL (10.7-15.3) 05/02/19 08:15 Hct 33.9 % (32.4-45.2) 05/02/19 08:15 MCV 90.2 fl (80-96) 05/02/19 08:15 MCHC 33.0 g/dl (32.0-36.0) 05/02/19 08:15 RDW 13.8 % (11.6-15.6) 05/02/19 08:15 Plt Count 212 K/MM3 (134-434) 05/02/19 08:15 MPV 8.9 fl (7.5-11.1) 05/02/19 08:15 CMP Sodium 136 mmol/L (136-145) 05/02/19 08:15 Potassium 4.4 mmol/L (3.5-5.1) 05/02/19 08:15 Chloride 102 mmol/L (98-107) 05/02/19 08:15 Carbon Dioxide 27 mmol/L (21-32) 05/02/19 08:15 Anion Gap 7 MMOL/L (8-16) L 05/02/19 08:15 BUN 17.7 mg/dL (7-18) 05/02/19 08:15 Creatinine 1.0 mg/dL (0.55-1.3) 05/02/19 08:15 Random Glucose 228 mg/dL (74-106) H 05/02/19 08:15 Calcium 9.0 mg/dL (8.5-10.1) 05/02/19 08:15 Total Bilirubin 0.4 mg/dL (0.2-1) 05/02/19 08:15 AST 19 U/L (15-37) 05/02/19 08:15 ALT 15 U/L (13-61) 05/02/19 08:15 Alkaline Phosphatase 156 U/L (45-117) H 05/02/19 08:15 Total Protein 7.1 g/dl (6.4-8.2) 05/02/19 08:15 Albumin 2.6 g/dl (3.4-5.0) L 05/02/19 08:15 CARDIAC ENZYMES Creatine Kinase 172 U/L (26-192) 04/29/19 14:50 Troponin I < 0.02 ng/ml (0.00-0.05) 04/29/19 14:50 Current Medications Generic Name Dose Route Start Last Admin Trade Name Freq PRN Reason Stop Dose Admin Acetaminophen 650 mg 05/02/19 12:26 05/02/19 16:23 Tylenol - PO 650 mg Q6H PRN Administration Fever Alprazolam 2 mg 04/30/19 05:02 05/02/19 16:25 Xanax PO 2 mg TID PRN Administration ANXIETY Gabapentin 800 mg 04/29/19 22:00 05/02/19 13:38 Neurontin - PO 800 mg TID OBI Administration Heparin Sodium (Porcine) 5,000 unit 04/29/19 22:00 05/02/19 13:39 Heparin - SQ 5,000 unit TID OBI Administration Piperacillin Sod/Tazobactam 50 mls @ 100 mls/hr 05/01/19 02:00 05/02/19 17:07 Sod 3.375 gm/ Dextrose IVPB 100 mls/hr Q8H-IV OBI Administration Protocol Vancomycin HCl 1,000 mg in 250 mls @ 166.667 mls/hr 04/30/19 19:30 05/02/19 19:14 Vancomycin (Pre-Docked) IVPB Not Given Q12H [facility] Protocol Insulin Aspart 1 vial 04/29/19 22:00 05/02/19 17:05 Novolog Vial Sliding Scale - SQ 4 units ACHS OBI Administration Protocol Insulin Detemir 10 units 04/30/19 08:45 05/02/19 07:19 Levemir Vial SQ 10 units DAILY@0700 [facility] Administration Methadone HCl 80 mg/ Methadone 90 mg 04/30/19 13:00 05/02/19 07:06 HCl 10 mg PO 90 mg DAILY@0600 [facility] Administration Methyl Salicylate 1 applic 05/02/19 18:05 [place] - TP Q24H PRN PAIN Home Medications Medication Instructions Recorded Alprazolam [Xanax] 2 mg PO TID 10/17/18 Gabapentin 800 mg PO TID #30 tablet 10/17/18 Insulin Lispro Protamin/Lispro 15 unit SQ BID 10/17/18 [Humalog Mix 75-25 Kwikpen] Albuterol Sulfate Inhaler - 2 inh PO BID 04/29/19 [Ventolin Hfa Inhaler -] Insulin Lispro Protamin/Lispro 20 units SQ BID 04/30/19 [Humalog Mix 75-25 Kwikpen] Art. duplex of lower extremities: decreased monophasic flow is CT along of the common femoral, superficial femoral, popliteal and posterior tibial arteries bl. decreased flow bl. abdominal US: common bile duct apprears dilated with 0.9cm , MRI/MRCP to be considered, no stones or hepatic pathology noted. L foot XR: bone demineralization, possible gas Assessment and plan: Patient is a 53 year old female with Pmhx of history of insulin dependent diabetes mellitus, hypertension, anxiety, opiod use disorder (IV heroine; on Methadone), presents with complaint of bilateral lower extremity wounds. # Lower extremity wounds cannot r/o osteomyelitis; MRI left lower extremity to evaluate for osteomyelitis; ESR, CRP Continue Vancomycin, Zosyn , follow Bx, and wound cx, ID consult (Dr. Hoffmann) , Vascular surgery/ wound care consult (Dr. Barclay) Podiatry consult (Dr. Devine) #Right forearm ulnar styloid fracture/ distal radiun fx : RUE forearm, wrist to ensure proper alignment s/p splinting. As per ortho ;is not a good surgical candidate given her active infection etc. strict elevation, pain control #Anxiety: continue Alprazolam 2mg PO TID PRN #Diabetes mellitus: continue Levemir , with SS scale ,follow HbA1c # Peripheral neuropathy : continue Gabapentn 800mg PO TID #Opiod dependence: On Methadone. She uses [facility] on [facility] (90mg daily was confirmed by the nurse). # Elevated alkaline phosphatase: Concern for bone origin. US of abdomen: dilated CBD 0.9cm mrcp considered. will follow DVT Px: Heparin 5000units subq TID
[2019-05-02] MEDS ORDERED: INSULIN (NOVOLOG) ASPART 100 UNITS/ML 10ML VIAL ONE (21:27)
[2019-05-03] MEDS: ALPRAZolam 1 MG TABLET PO PRN ×3 (00:37→23:12)
[2019-05-03] MEDS ORDERED: PIPERACILLIN/TAZOBACTAM 3.375 GM VIAL IVPB ONE ×4 (01:03→16:55)
[2019-05-03] MEDS ORDERED: DEXTROSE 5%-WATER - 50 ML IVPB ONE ×3 (01:03→16:55)
[2019-05-03] MEDS: PIPERACILLIN/TAZOB 3.375 GM 3.375 GM in DEXTROSE 5%-WATER - 50 ML IVPB SCH ×3 (01:06→17:09)
[2019-05-03] MEDS ORDERED: METHADONE HCL 40 MG DISPERSABLE TABLET ONE (05:59)
[2019-05-03] MEDS ORDERED: METHADONE HCL 10 MG TABLET ONE (05:59)
[2019-05-03] MEDS ORDERED: PT OWN MED DRAWER 7, Y5N ONE ×2 (06:00→13:11)
[2019-05-03] MEDS: METHADONE 80 MG, METHADONE 10 MG PO SCH (06:06)
[2019-05-03] MEDS: HEPARIN NA (PORCINE) 5,000 UNITS/ML 1ML VIAL SQ SCH ×4 (06:07→23:10)
[2019-05-03] MEDS: GABAPENTIN 400 MG CAPSULE PO SCH ×3 (06:07→23:11)
[2019-05-03] MEDS: INSULIN (LEVEMIR) 100 UNITS/ML UNITS SQ SCH ×2 (06:31→07:22)
[2019-05-03] MEDS: INSULIN SLIDING SCALE (NOVOLOG) 1 VIAL SQ SCH ×5 (06:31→23:09)
[2019-05-03] MEDS ORDERED: ALPRAZolam 1 MG TABLET PO PRN (07:37)
[2019-05-03] MEDS: VANCOMYCIN 1 GRAM (PRE-DOCKED) 1,000 MG/250 ML BAG IVPB SCH (07:46)
[2019-05-03 09:20] LABS: BASO % 0.5 % (0-2.0); EOS % 1.5 % (0-4.5); HEMATOCRIT 33.9 % (32.4-45.2); HEMOGLOBIN 11.3 GM/dL (10.7-15.3); LYMPH % 20.7 % (8-40); MCH 30.3 pg (25.7-33.7); MCHC 33.3 g/dl (32.0-36.0); MEAN PLT VOLUME 8.9 fl (7.5-11.1); MONO % 5.6 % (3.8-10.2); NEUT % 71.7 % (42.8-82.8); PLATELET COUNT 211 K/MM3 (134-434); RBC 3.73 M/mm3 (3.60-5.2); WHITE BLOOD COUNT 6.5 K/mm3 (4.0-10.0)
[2019-05-03] MEDS ORDERED: MIDAZOLAM HCL 2 MG/2 ML SINGLE DOSE VIAL ONE ×4 (09:25→09:48)
[2019-05-03] MEDS ORDERED: PROPOFOL 20 ML ONE (09:25)
[2019-05-03] MEDS ORDERED: fentaNYL CITRATE 250 MCG/5 ML VIAL ONE (09:25)
[2019-05-03] MEDS ORDERED: LIDOCAINE HCL 2% (20ML MULTI-DOSE VIAL) ONE (09:35)
[2019-05-03 09:40] LABS: INR 1.1 (0.83-1.09)
[2019-05-03 09:55] LABS: ALBUMIN 2.8 g/dl (3.4-5.0); BILIRUBIN,TOTAL 0.4 mg/dL (0.2-1); BLOOD UREA NITROGEN 26.2 mg/dL (7-18); CALCIUM 8.9 mg/dL (8.5-10.1); CREATININE 1.1 mg/dL (0.55-1.3); MAGNESIUM 2.1 mg/dL (1.8-2.4); PHOSPHOROUS 3.1 mg/dL (2.5-4.9); POTASSIUM 4.5 mmol/L (3.5-5.1); TOT PROT 7.1 g/dl (6.4-8.2)
[2019-05-03] MEDS ORDERED: LIDOCAINE HCL 2% (50ML VIAL) NR ONE (10:00)
[2019-05-03] MEDS ORDERED: ONDANSETRON 4 MG/2 ML VIAL IVPUSH PRN ×2 (10:39→11:41)
[2019-05-03] MEDS ORDERED: METHYL SALICYLATE/MENTHOL OINT 30 GM TUBE TP PRN (11:41)
[2019-05-03] MEDS ORDERED: ACETAMINOPHEN 325 MG TABLET (FP) PO PRN (11:41)
--- NOTE | 2019-05-03 11:43 | OP ---
Operative Note - Note: Operative Date: 05/03/19 Pre-Operative Diagnosis: Left heel diabetic ulcer, osteomyelitis Operation: left heel debridement of ulcer with bone biopsy Findings: see operative note Post-Operative Diagnosis: Same as Pre-op Surgeon: Javier Devine Anesthesiologist/GEOTECHNICAL INTERN: Jacob Celestin Anesthesia: Local, MAC Specimens Removed: bone left heel Estimated Blood Loss (mls): 20 Instrument used (Debridements only): #15 blade scalpel and sterile scissors Operative Report Dictated: Yes
--- NOTE | 2019-05-03 13:37 | OP ---
DATE OF OPERATION: 05/03/2019 PREOPERATIVE DIAGNOSIS: Left heel diabetic ulcer with osteomyelitis. POSTOPERATIVE DIAGNOSIS: Left heel diabetic ulcer with osteomyelitis. PROCEDURE: Left heel debridement of ulcer with bone biopsy. SURGEON: Javier Devine DPM RESEARCH STUDY ASSISTANT: None. ANESTHESIA: IV sedation with local. HEMOSTASIS: Surgical dissection. PATHOLOGY: Bone, left heel. COMPLICATIONS: None. DESCRIPTION OF PROCEDURE: Patient was brought to the operating room and placed on the operating table in the supine position. Following the induction of IV sedation, local anesthesia was achieved using 10 mL of 2% lidocaine plain. The left foot was scrubbed, prepped, and draped in the usual sterile fashion. Attention was then directed to the left lateral heel where a diabetic ulcer with infection and probing to bone was visualized and appreciated. I began by performing a sharp excisional debridement of the left heel diabetic ulcer to the level of skin, subcutaneous tissue, and muscle utilizing a sterile 15 blade and sterile scissors. There was a large amount of fibronecrotic, liquefactive tissue overlying the heel. This was subsequently removed until there was bleeding, healthy, fibrogranular tissue present. Of note, there was depth to bone of the left heel diabetic ulcer. Next, I took a rongeur and removed fragments of bone from the lateral calcaneal wall, which was noted to be friable. Portions of bone were removed and sectioned for both bone culture and bone biopsy. A wound culture was then obtained. Surgical site was copiously irrigated with sterile saline. The surgical site was covered with Xeroform, and a sterile compressive dressing was applied to the left foot consisting of sterile gauze, Kerlix, and an Ez wrap. Patient tolerated the procedure and anesthesia well without complications. She was transferred from the operating room to the recovery unit with vital signs stable and neurovasculature intact to the left foot. JELLY DOWELL/[id number] cc: [facility]
--- NOTE | 2019-05-03 14:28 | PN ---
Progress Note (short form) - Note Progress Note: Ortho Pt seen and examined- s/p right wrist fx Selected Entries 05/03/19 11:45 Temperature 98.0 F Pulse Rate 70 Respiratory 18 Rate Blood Pressure 102/62 splint intact, + ttp, + swelling, decr rom nvi a/p Closed reduction performed, cast applied procedure tolerated well sling ordered for comfort pain control elevation will follow d/w Dr. Garcia
[2019-05-03] MEDS ORDERED: ACETAMINOPHEN 1000 MG/100 ML VIAL (NON FORMULARY) IVPB PRN (16:46)
--- NOTE | 2019-05-03 19:24 | PN ---
Physical Exam: SUBJECTIVE: Patient seen and examined RACHEL Has mild Left heel pain OBJECTIVE: Vital Signs Period Temp Pulse Resp BP Sys/Kelly Pulse Ox Last 24 Hr 97.8 F-98.6 F 69-88 10-20 102-158/54-85 95-98 GENERAL: The patient is awake, alert, and fully oriented, in no acute distress. HEAD: Normal with no signs of trauma. EYES: PERRL, extraocular movements intact, sclera anicteric, conjunctiva clear. ENT: Ears normal, oropharynx clear without exudates, moist mucous membranes. NECK: Trachea midline, full range of motion, supple. LUNGS: Breath sounds equal, clear to auscultation bilaterally, no wheezes, no crackles, no accessory muscle use. HEART: Regular rate and rhythm, S1, S2 without murmur, rub or gallop. ABDOMEN: Soft, Nt,ND, normoactive bowel sounds EXTREMITIES: 2+ radial pulses, warm, well-perfused, b/l lower extremity anasarcic changes. Lower extremities bandaged. Left heel with purulent wound with foul smell. R. forearm in splint and bandaged. NEUROLOGICAL: Cranial nerves II through XII grossly intact. Normal speech, favoring Left leg while walking. PSYCH: Anxious SKIN: Warm, dry, anasarca in lower extremities, thickened skin in lower extremities Laboratory Results - last 24 hr 05/02/19 05/03/19 05/03/19 21:22 06:37 08:42 WBC 6.5 RBC 3.73 Hgb 11.3 Hct 33.9 MCV 91.0 MCH 30.3 MCHC 33.3 RDW 14.0 Plt Count 211 MPV 8.9 Absolute Neuts (auto) 4.7 Neutrophils % 71.7 Lymphocytes % 20.7 D Monocytes % 5.6 Eosinophils % 1.5 Basophils % 0.5 Nucleated RBC % 0 PT with INR INR Sodium Potassium Chloride Carbon Dioxide Anion Gap BUN Creatinine Est GFR (CKD-EPI)AfAm Est GFR (CKD-EPI)NonAf POC Glucometer 187 206 Random Glucose Calcium Phosphorus Magnesium Total Bilirubin AST ALT Alkaline Phosphatase Total Protein Albumin 05/03/19 05/03/19 05/03/19 08:42 08:42 11:39 WBC RBC Hgb Hct MCV MCH MCHC RDW Plt Count MPV Absolute Neuts (auto) Neutrophils % Lymphocytes % Monocytes % Eosinophils % Basophils % Nucleated RBC % PT with INR 13.00 INR 1.10 H Sodium 136 Potassium 4.5 Chloride 103 Carbon Dioxide 28 Anion Gap 5 L BUN 26.2 H Creatinine 1.1 Est GFR (CKD-EPI)AfAm 65.45 Est GFR (CKD-EPI)NonAf 56.47 POC Glucometer 188 Random Glucose 208 H Calcium 8.9 Phosphorus 3.1 Magnesium 2.1 Total Bilirubin 0.4 AST 19 ALT 15 Alkaline Phosphatase 150 H Total Protein 7.1 Albumin 2.8 L 05/03/19 16:51 WBC RBC Hgb Hct MCV MCH MCHC RDW Plt Count MPV Absolute Neuts (auto) Neutrophils % Lymphocytes % Monocytes % Eosinophils % Basophils % Nucleated RBC % PT with INR INR Sodium Potassium Chloride Carbon Dioxide Anion Gap BUN Creatinine Est GFR (CKD-EPI)AfAm Est GFR (CKD-EPI)NonAf POC Glucometer 94 Random Glucose Calcium Phosphorus Magnesium Total Bilirubin AST ALT Alkaline Phosphatase Total Protein Albumin Active Medications Generic Name Dose Route Start Last Admin Trade Name Freq PRN Reason Stop Dose Admin Acetaminophen 650 mg 05/03/19 11:41 Tylenol - PO Q6H PRN Fever Acetaminophen 1,000 mg 05/03/19 16:46 Ofirmev Injection - IVPB 05/04/19 16:45 Q6H PRN PAIN LEVEL 6-10 Alprazolam 2 mg 05/03/19 11:41 05/03/19 13:11 Xanax PO 2 mg TID PRN Administration ANXIETY Gabapentin 800 mg 05/03/19 14:00 05/03/19 13:13 Neurontin - PO 800 mg TID OBI Administration Heparin Sodium (Porcine) 5,000 unit 05/03/19 14:00 05/03/19 13:12 Heparin - SQ 5,000 unit TID OBI Administration Piperacillin Sod/Tazobactam 50 mls @ 100 mls/hr 05/03/19 18:00 05/03/19 17:09 Sod 3.375 gm/ Dextrose IVPB 100 mls/hr Q8H-IV OBI Administration Protocol Insulin Aspart 1 vial 05/03/19 16:30 05/03/19 16:52 Novolog Vial Sliding Scale - SQ Not Given ACHS [facility] Protocol Insulin Detemir 10 units 05/04/19 07:00 Levemir Vial SQ DAILY@0700 [facility] Methadone HCl 80 mg/ Methadone 90 mg 05/04/19 06:00 HCl 10 mg PO DAILY@0600 OBI Methyl Salicylate 1 applic 05/03/19 11:41 Jam-Angeles - TP Q24H PRN PAIN ASSESSMENT/PLAN: 53 year old female with history of insulin dependent diabetes mellitus, hypertension, anxiety, opiod use disorder (IV heroine; on Methadone), presents with complaint of bilateral lower extremity wounds. S/p Left heel debridement w / bone biopsy(Nilson, 05/03/19). S/p bedside RUE ulnar-radial closed reduction (Jose, 05/03/19). #Lower extremity wounds --LLE OM > MRI(05/01/19): Left heel w/ extensive cellulitis and OM, partial tear of lateral plantar fascia > ESR: 66, CRP: 2.3 > Venous duplex bilateral lower extremities: decreased flow bilaterally > BCX(04/29/19): NGTD > Left Foot Heel Cx(04/29/19): Morganella, GBS - abx reigmen: --continue Vancomycin, Zosyn -ID consult (Dr. Gaming): --c/w Vancomycin and Zosyn -Vascular surgery/ wound care consult (Dr. Barclay) appreciated: --cleared from a vascular standpoint, if osteo found, pt will need HBO, --further work up vascular status after debridement with CTA. -Podiatry consult (Dr. Devine): --s/p Left heel debridement w/ bone biopsy(Nilson, 05/03/19) will give Lasix 20mg PO ONCE for lower extremity edema #Right forearm ulnar styloid fracture >Xray: distal radial and ulnar fractures -Orthopedic surgery consulted, will evaluate. --s/p bedside closed reduction(Jose, 05/03/19) #Anxiety Continue Alprazolam 2mg PO TID PRN #Diabetes mellitus c/w Levemir 10 units Insulin slidng scale ACHS Fingerstick blood glucose monitoring ACHS Gabapentn 800mg PO TID for neuropahy HbA1c: 9.5 #Opiod dependence Continue patient's Methadone. She uses [facility] on [facility] (90mg daily). #Elevated alkaline phosphatase Concern for bone origin. GGT: elevated Abd US: no acute pathology, CBD: 0.9cm, can do MRCP if there is increased clinical concern LFTs downtrending #FEN No IV fluids indicated, NPO after midnight Follow BMP Diabetic diet #DVT Prophylaxis Heparin 5000units subq TID #Disposition Admit to medical- surgical floor Visit type - Emergency Visit Emergency Visit: No - New Patient This patient is new to me today: No - Critical Care Critical Care patient: No ATTENDING PHYSICIAN STATEMENT I saw and evaluated the patient. I reviewed the resident's note and discussed the case with the resident. I agree with the resident's findings and plan as documented. SUBJECTIVE: OBJECTIVE: ASSESSMENT AND PLAN:
[2019-05-03] MEDS ORDERED: VANCOMYCIN 1 GRAM (PRE-DOCKED) 1,000 MG/250 ML BAG IVPB SCH (19:30)
--- NOTE | 2019-05-03 19:30 | PN ---
Teaching Attending Note Name of Resident: Duong Mcnally ATTENDING PHYSICIAN STATEMENT I saw and evaluated the patient. I reviewed the resident's note and discussed the case with the resident. I agree with the resident's findings and plan as documented. SUBJECTIVE: Vital Signs Temperature 97.8 F 05/03/19 18:00 Pulse Rate 78 05/03/19 18:00 Respiratory Rate 18 05/03/19 18:00 Blood Pressure 158/76 05/03/19 18:00 O2 Sat by Pulse Oximetry (%) 95 05/03/19 12:30 GENERAL: The patient is awake, alert, and fully oriented, in no acute distress. HEAD: Normal with no signs of trauma. EYES: PERRL, extraocular movements intact, sclera anicteric, conjunctiva clear. ENT: Ears normal, oropharynx clear without exudates, moist mucous membranes. NECK: Trachea midline, full range of motion, supple. LUNGS: Breath sounds equal, clear to auscultation bilaterally, no wheezes, no crackles, no accessory muscle use. HEART: Regular rate and rhythm, S1, S2 without murmur, rub or gallop. ABDOMEN: Soft, Nt,ND, normoactive bowel sounds, no guarding, no rebound, no hepatosplenomegaly, no masses. EXTREMITIES: 2+ pulses, warm, well-perfused, R. forearm in splint and bandaged. + edema 1+ NEUROLOGICAL: Cranial nerves II through XII grossly intact. Normal speech, gait not observed. PSYCH: Normal mood, normal affect. SKIN: Warm, dry, normal turgor, positive for lower extremities bandaged. CBCD WBC 6.4 K/mm3 (4.0-10.0) 05/02/19 08:15 RBC 3.76 M/mm3 (3.60-5.2) 05/02/19 08:15 Hgb 11.2 GM/dL (10.7-15.3) 05/02/19 08:15 Hct 33.9 % (32.4-45.2) 05/02/19 08:15 MCV 90.2 fl (80-96) 05/02/19 08:15 MCHC 33.0 g/dl (32.0-36.0) 05/02/19 08:15 RDW 13.8 % (11.6-15.6) 05/02/19 08:15 Plt Count 212 K/MM3 (134-434) 05/02/19 08:15 MPV 8.9 fl (7.5-11.1) 05/02/19 08:15 CMP Sodium 136 mmol/L (136-145) 05/02/19 08:15 Potassium 4.4 mmol/L (3.5-5.1) 05/02/19 08:15 Chloride 102 mmol/L (98-107) 05/02/19 08:15 Carbon Dioxide 27 mmol/L (21-32) 05/02/19 08:15 Anion Gap 7 MMOL/L (8-16) L 05/02/19 08:15 BUN 17.7 mg/dL (7-18) 05/02/19 08:15 Creatinine 1.0 mg/dL (0.55-1.3) 05/02/19 08:15 Random Glucose 228 mg/dL (74-106) H 05/02/19 08:15 Calcium 9.0 mg/dL (8.5-10.1) 05/02/19 08:15 Total Bilirubin 0.4 mg/dL (0.2-1) 05/02/19 08:15 AST 19 U/L (15-37) 05/02/19 08:15 ALT 15 U/L (13-61) 05/02/19 08:15 Alkaline Phosphatase 156 U/L (45-117) H 05/02/19 08:15 Total Protein 7.1 g/dl (6.4-8.2) 05/02/19 08:15 Albumin 2.6 g/dl (3.4-5.0) L 05/02/19 08:15 CARDIAC ENZYMES Creatine Kinase 172 U/L (26-192) 04/29/19 14:50 Troponin I < 0.02 ng/ml (0.00-0.05) 04/29/19 14:50 Current Medications Generic Name Dose Route Start Last Admin Trade Name Freq PRN Reason Stop Dose Admin Acetaminophen 650 mg 05/02/19 12:26 05/02/19 16:23 Tylenol - PO 650 mg Q6H PRN Administration Fever Alprazolam 2 mg 04/30/19 05:02 05/02/19 16:25 Xanax PO 2 mg TID PRN Administration ANXIETY Gabapentin 800 mg 04/29/19 22:00 05/02/19 13:38 Neurontin - PO 800 mg TID OBI Administration Heparin Sodium (Porcine) 5,000 unit 04/29/19 22:00 05/02/19 13:39 Heparin - SQ 5,000 unit TID OBI Administration Piperacillin Sod/Tazobactam 50 mls @ 100 mls/hr 05/01/19 02:00 05/02/19 17:07 Sod 3.375 gm/ Dextrose IVPB 100 mls/hr Q8H-IV OBI Administration Protocol Vancomycin HCl 1,000 mg in 250 mls @ 166.667 mls/hr 04/30/19 19:30 05/02/19 19:14 Vancomycin (Pre-Docked) IVPB Not Given Q12H OBI Protocol Insulin Aspart 1 vial 04/29/19 22:00 05/02/19 17:05 Novolog Vial Sliding Scale - SQ 4 units ACHS OBI Administration Protocol Insulin Detemir 10 units 04/30/19 08:45 05/02/19 07:19 Levemir Vial SQ 10 units DAILY@0700 OBI Administration Methadone HCl 80 mg/ Methadone 90 mg 04/30/19 13:00 05/02/19 07:06 HCl 10 mg PO 90 mg DAILY@0600 OBI Administration Methyl Salicylate 1 applic 05/02/19 18:05 Jam-Angeles - TP Q24H PRN PAIN Home Medications Medication Instructions Recorded Alprazolam [Xanax] 2 mg PO TID 10/17/18 Gabapentin 800 mg PO TID #30 tablet 10/17/18 Insulin Lispro Protamin/Lispro 15 unit SQ BID 10/17/18 [Humalog Mix 75-25 Kwikpen] Albuterol Sulfate Inhaler - 2 inh PO BID 04/29/19 [Ventolin Hfa Inhaler -] Insulin Lispro Protamin/Lispro 20 units SQ BID 04/30/19 [Humalog Mix 75-25 Kwikpen] Art. duplex of lower extremities: decreased monophasic flow is CT along of the common femoral, superficial femoral, popliteal and posterior tibial arteries bl. decreased flow bl. abdominal US: common bile duct apprears dilated with 0.9cm , MRI/MRCP to be considered, no stones or hepatic pathology noted. L foot XR: bone demineralization, possible gas Assessment and plan: Patient is a 53 year old female with Pmhx of history of insulin dependent diabetes mellitus, hypertension, anxiety, opiod use disorder (IV heroine; on Methadone), presents with complaint of bilateral lower extremity wounds. #POD# 0 left heel debridement of ulcer with bone biopsy by dr sandoval # POD#0 s/p closed reduction performed, patient with Right forearm ulnar styloid fracture/ distal radiun fx cast applied per ortho, sling ordered for comfort, pain control, elevation. Continue Vancomycin, Zosyn , follow Bx, and wound cx, ID consult (Dr. Hoffmann) , Vascular surgery/ wound care consult ( Dr. Barclay) Podiatry consult (Dr. Devine) #Anxiety: continue Alprazolam 2mg PO TID PRN #Diabetes mellitus: continue Levemir , with SS scale ,follow HbA1c # Peripheral neuropathy : continue Gabapentn 800mg PO TID #Opiod dependence: On Methadone. She uses [facility] on [facility] (90mg daily was confirmed by the nurse). # Elevated alkaline phosphatase: Concern for bone origin. US of abdomen: dilated CBD 0.9cm mrcp considered. will follow DVT Px: Heparin 5000units subq TID
[2019-05-04] MEDS ORDERED: PIPERACILLIN/TAZOBACTAM 3.375 GM VIAL IVPB ONE ×3 (01:04→17:43)
[2019-05-04] MEDS ORDERED: DEXTROSE 5%-WATER - 50 ML IVPB ONE ×3 (01:04→17:43)
[2019-05-04] MEDS: PIPERACILLIN/TAZOB 3.375 GM 3.375 GM in DEXTROSE 5%-WATER - 50 ML IVPB SCH ×3 (02:34→18:12)
[2019-05-04] MEDS ORDERED: METHADONE HCL 10 MG TABLET ONE (06:12)
[2019-05-04] MEDS ORDERED: METHADONE HCL 40 MG DISPERSABLE TABLET ONE (06:12)
[2019-05-04] MEDS: METHADONE 80 MG, METHADONE 10 MG PO SCH (06:19)
[2019-05-04] MEDS: HEPARIN NA (PORCINE) 5,000 UNITS/ML 1ML VIAL SQ SCH ×3 (06:22→23:39)
[2019-05-04] MEDS: GABAPENTIN 400 MG CAPSULE PO SCH ×3 (06:22→23:39)
[2019-05-04] MEDS: INSULIN SLIDING SCALE (NOVOLOG) 1 VIAL SQ SCH ×4 (06:26→23:43)
[2019-05-04] MEDS: INSULIN (LEVEMIR) 100 UNITS/ML UNITS SQ SCH (06:27)
--- NOTE | 2019-05-04 07:28 | PN ---
Progress Note (short form) - Note Progress Note: VASCULAR SURGERY POD #1 s/p left heel debridement of ulcer with bone biopsy by Podiatry CTA Aortogram w/ bilateral LE runoff ordered. Will cont to follow
[2019-05-04] MEDS: ALPRAZolam 1 MG TABLET PO PRN ×3 (08:49→23:38)
--- NOTE | 2019-05-04 09:22 | PN ---
Progress Note (short form) - Note Progress Note: Pt seen and examined. Her right wrist is in a short arm cast, doing well. Pain is decreasing in the right wrist. She is stable. RUE is grossly NVI. Good ROM of the right fingers, thumb, elbow. She understands her restrictions as far as the right wrist is concerned. Needs to keep cast clean and dry, no heavy lifting > 5 lbs
[2019-05-04 11:27] LABS: HEMATOCRIT 31.2 % (32.4-45.2); HEMOGLOBIN 10.5 GM/dL (10.7-15.3); MCH 30.4 pg (25.7-33.7); MCHC 33.7 g/dl (32.0-36.0); MEAN PLT VOLUME 8.9 fl (7.5-11.1); PLATELET COUNT 201 K/MM3 (134-434); RBC 3.46 M/mm3 (3.60-5.2); RDW 14.2 % (11.6-15.6); WHITE BLOOD COUNT 4.6 K/mm3 (4.0-10.0)
[2019-05-04 11:53] LABS: BLOOD UREA NITROGEN 19.4 mg/dL (7-18); CALCIUM 8.8 mg/dL (8.5-10.1); CREATININE 0.9 mg/dL (0.55-1.3); MAGNESIUM 2.2 mg/dL (1.8-2.4); PHOSPHOROUS 3.2 mg/dL (2.5-4.9); POTASSIUM 4.4 mmol/L (3.5-5.1)
[2019-05-04] MEDS ORDERED: PT OWN MED DRAWER 7, Y5N ONE ×2 (13:53→21:13)
--- NOTE | 2019-05-04 14:43 | PATH ---
Surgical Pathology Report Patient Name: PATRICIA ADAMS [facility]. Rec. #: [id number] /Age/Gender: 1965 (Age: 53) / F Account: [id number] Location: [address] [place] [address]/[facility] Taken: 05/03/2019 Received: 05/03/2019 Reported: 05/04/2019 Physicians: MD Javier Melendez DPM Specimen(s) Received A: BONE BIOPSY B: BONE BIOPSY Clinical History Left foot diabetic ulcer Final Diagnosis A. BONE, BIOPSY: SCANT BONE WITH FOCAL MILD ACUTE OSTEOMYELITIS. FRAGMENTS OF INFLAMED GRANULATION TISSUE AND FIBRINOPURULENT EXUDATE IN A HEMORRHAGIC BACKGROUND. B. BONE, CULTURE, BIOPSY: BONE WITH FOCAL MILD ACUTE OSTEOMYELITIS. FRAGMENTS OF SOFT TISSUE WITH MARKED ACUTE INFLAMMATION, ULCERATION, AND GRANULATION TISSUE IN A BACKGROUND OF HEMORRHAGE AND FIBRINOPURULENT EXUDATE. Electronically Signed Aishwarya Paz M.D. Gross Description A. Received fresh labeled "bone biopsy," is a 0.6 x 0.6 x 0.1 cm aggregate of elmore bone fragments. The formalin is filtered and the specimen is entirely submitted in one cassette, following decalcification. B. Received fresh labeled "bone culture," is a 0.7 x 0.5 x 0.2 cm aggregate of elmore bone fragments. A portion is given to microbiology for culture. The remainder of the specimen is entirely submitted in one cassette, following decalcification. DL/05/03/2019 saudi/05/03/2019
[2019-05-04 15:40] VITALS: BMI 30.2
--- NOTE | 2019-05-04 15:40 | PN ---
Progress Note (short form) - Note Progress Note: Podiatry Consultation: 53 year old diabetic female, history of IVDU, presents with non-healing ulcer left heel and diabetic infection. Is s/p heel bone biopsy. Doing well. NO complaints at this time. PMHx:diabetes mellitus, hypertension, anxiety, opiod use disorder (IV heroine; on Methadone) Meds: noted ALL: NKMA BRITTANIE: Vascular: pedal pulses nonpalpable, TG wnl, CFT brisk to toes bilaterally. Dressing intact, No gross further signs of infection neuro: epicritic and protective sensations grossly diminished to the foot bilaterally. There are no focal motor or sensory deficits. derm: there is a right fifth metatarsal base diabetic ulcer fibrotic, no exposed bone, no purulence, no fluctuance, no streaking cellulitis, no signs of infection. There is a left heel diabetic ulcer laterally with fibrotic base, bogginess present, probes to calcaneus; no purulent drainage, no fluctuance, no soft tissue crepitus, no streaking cellulitis, no signs of acute gas infection Imp: 53 year old diabetic female with left heel diabetic ulcer, osteomyelitis calcaneus; s/p bone biopsy Evaluated and reviewed Can do daily wet to dry dressing changes for CTA with vascular Stable; follow cultures for Iv ABX Will follow.
[2019-05-04] MEDS ORDERED: DOCUSATE SODIUM 100 MG CAPSULE (FP) PO PRN (18:36)
--- NOTE | 2019-05-04 18:40 | PN ---
Physical Exam: SUBJECTIVE: Patient seen and examined NAEON Endorsing pain of Left axilla. Says has had infection in the past OBJECTIVE: Vital Signs Period Temp Pulse Resp BP Sys/Kelly Pulse Ox Last 24 Hr 97.5 F-98.4 F 72-77 18-20 133-151/71-87 97-100 GENERAL: The patient is awake, alert, and fully oriented, in no acute distress. HEAD: Normal with no signs of trauma. EYES: PERRL, extraocular movements intact, sclera anicteric, conjunctiva clear. ENT: Ears normal, oropharynx clear without exudates, moist mucous membranes. NECK: Trachea midline, full range of motion, supple. LUNGS: Breath sounds equal, clear to auscultation bilaterally, no wheezes, no crackles, no accessory muscle use. HEART: Regular rate and rhythm, S1, S2 without murmur, rub or gallop. ABDOMEN: Soft, Nt,ND, normoactive bowel sounds EXTREMITIES: 2+ radial pulse of LUE, warm, well-perfused. RUE in short cast. Moving RUE fingers spontaneously, fingers warm and sensation intact. b/l lower extremity anasarcic changes. Lower extremities bandaged. Left heel with surgical dressing in place NEUROLOGICAL: Normal speech, favoring Left leg while walking. PSYCH: Anxious SKIN: Warm, dry, anasarca in lower extremities, thickened skin in lower extremities Laboratory Results - last 24 hr 05/03/19 05/04/19 05/04/19 23:04 06:24 10:25 WBC 4.6 RBC 3.46 L Hgb 10.5 L Hct 31.2 L MCV 90.0 MCH 30.4 MCHC 33.7 RDW 14.2 Plt Count 201 MPV 8.9 Sodium Potassium Chloride Carbon Dioxide Anion Gap BUN Creatinine Est GFR (CKD-EPI)AfAm Est GFR (CKD-EPI)NonAf POC Glucometer 265 225 Random Glucose Calcium Phosphorus Magnesium 05/04/19 05/04/19 05/04/19 10:25 12:38 17:13 WBC RBC Hgb Hct MCV MCH MCHC RDW Plt Count MPV Sodium 137 Potassium 4.4 Chloride 105 Carbon Dioxide 27 Anion Gap 5 L BUN 19.4 H Creatinine 0.9 Est GFR (CKD-EPI)AfAm 83.43 Est GFR (CKD-EPI)NonAf 71.98 POC Glucometer 222 171 Random Glucose 205 H Calcium 8.8 Phosphorus 3.2 Magnesium 2.2 Active Medications Generic Name Dose Route Start Last Admin Trade Name Freq PRN Reason Stop Dose Admin Acetaminophen 650 mg 05/03/19 11:41 05/03/19 23:13 Tylenol - PO 650 mg Q6H PRN Administration Fever Alprazolam 2 mg 05/03/19 11:41 05/04/19 17:08 Xanax PO 2 mg TID PRN Administration ANXIETY Gabapentin 800 mg 05/03/19 14:00 05/04/19 14:03 Neurontin - PO 800 mg TID OBI Administration Heparin Sodium (Porcine) 5,000 unit 05/03/19 14:00 05/04/19 14:05 Heparin - SQ 5,000 unit TID OBI Administration Piperacillin Sod/Tazobactam 50 mls @ 100 mls/hr 05/03/19 18:00 05/04/19 18:12 Sod 3.375 gm/ Dextrose IVPB 100 mls/hr Q8H-IV OBI Administration Protocol Insulin Aspart 1 vial 05/03/19 16:30 05/04/19 17:16 Novolog Vial Sliding Scale - SQ 2 units ACHS OBI Administration Protocol Insulin Detemir 10 units 05/04/19 07:00 05/04/19 06:27 Levemir Vial SQ 10 units DAILY@0700 OBI Administration Methadone HCl 80 mg/ Methadone 90 mg 05/04/19 06:00 05/04/19 06:19 HCl 10 mg PO 90 mg DAILY@0600 OBI Administration Methyl Salicylate 1 applic 05/03/19 11:41 Jam-Angeles - TP Q24H PRN PAIN ASSESSMENT/PLAN: 53 year old female with history of insulin dependent diabetes mellitus, hypertension, anxiety, opiod use disorder (IV heroine; on Methadone), presents with complaint of bilateral lower extremity wounds. Admitted for OM of Left heel. S/p Left heel debridement w/ bone biopsy(Nilson, 05/03/19). S/p bedside RUE ulnar-radial closed reduction(Jose, 05/03/19). On IV abx(zosyn). #Lower extremity wounds --LLE OM > MRI(05/01/19): Left heel w/ extensive cellulitis and OM, partial tear of lateral plantar fascia > ESR: 66, CRP: 2.3 > Venous duplex bilateral lower extremities: decreased flow bilaterally > BCX(04/29/19): NGTD > Left Foot Heel Cx(04/29/19): Morganella, GBS > Left Foot Heel Surgical Bx(05/03/19): GNR --pending speciation > CTA aortogram w/ bl runoffs(05/04/19): widely patent aortoiliac, femoro- popliteal and proximal infrapopliteal arteries - abx reigmen: --Zosyn -ID consult (Dr. Gaming): --c/w Zosyn -Vascular surgery/ wound care consult (Dr. Barclay) appreciated: --cleared from a vascular standpoint, if osteo found, pt will need HBO, --further work up vascular status after debridement with CTA. -Podiatry consult (Dr. Devine): --s/p Left heel debridement w/ bone biopsy(Nilson, 05/03/19) --Dressings: daily WTD #Right forearm ulnar styloid fracture >Xray: distal radial and ulnar fractures -Orthopedic surgery consulted, will evaluate. --s/p bedside closed reduction(Jose, 05/03/19) #Anxiety -Continue Alprazolam 2mg PO TID PRN #Diabetes mellitus -c/w Levemir 10 units -Insulin slidng scale ACHS -Fingerstick blood glucose monitoring ACHS -Gabapentn 800mg PO TID for neuropahy -HbA1c: 9.5 #Opiod dependence -Continue patient's Methadone. She uses [facility] on [facility] (90mg daily). #Elevated alkaline phosphatase -Concern for bone origin. GGT: elevated -Abd US: no acute pathology, CBD: 0.9cm, can do MRCP if there is increased clinical concern -LFTs downtrending #FEN -Diabetic diet #DVT Prophylaxis -Heparin 5000units subq TID #Disposition -MedSurg Visit type - Emergency Visit Emergency Visit: No - New Patient This patient is new to me today: No - Critical Care Critical Care patient: No ATTENDING PHYSICIAN STATEMENT I saw and evaluated the patient. I reviewed the resident's note and discussed the case with the resident. I agree with the resident's findings and plan as documented. SUBJECTIVE: OBJECTIVE: ASSESSMENT AND PLAN:
[2019-05-04] MEDS: POLYETHYLENE GLYCOL 3350 119 GM BTL PO SCH (18:41)
--- NOTE | 2019-05-04 19:59 | PN ---
Teaching Attending Note Name of Resident: Duong Mcnally ATTENDING PHYSICIAN STATEMENT I saw and evaluated the patient. I reviewed the resident's note and discussed the case with the resident. I agree with the resident's findings and plan as documented. SUBJECTIVE:seeen at 11 am pain in L heel and R arm. OBJECTIVE: NAD CV: RRR Lungs: CTAB Ext : L foot in a surgical dressing, R arm in a splint. edema on R leg with hyperpigmentation ASSESSMENT AND PLAN: 53 y/o lady wit h/o opioid abuse, on methadone, Dm, HTN, anxiety, an other medical problems who presented with L heel ulcer. 1- L heel infected woound with OM and tenosynovitis . 2- R diatal radius and ulnar Fx 3- methadone dependence 4- dilated CBD 0.9 cm 5- PVD 6- DM. plan : - cont zosyn . cx reviewed. - cont methadone - LFTS noted. no sx . will repeat LFTs in am , then if cont to be nl, MRCP as out pt - no weight baring RUE. - leg elevation - awaiting bone bx - vascular eval for short segment occlusion noted on CTA - cont SQ heparin
[2019-05-04] MEDS: SENNOSIDES 8.6MG TABLET (FP) PO SCH (23:38)
[2019-05-05] MEDS ORDERED: DEXTROSE 5%-WATER - 50 ML IVPB ONE ×3 (02:32→17:15)
[2019-05-05] MEDS ORDERED: PIPERACILLIN/TAZOBACTAM 3.375 GM VIAL IVPB ONE ×3 (02:32→17:15)
[2019-05-05] MEDS: PIPERACILLIN/TAZOB 3.375 GM 3.375 GM in DEXTROSE 5%-WATER - 50 ML IVPB SCH ×3 (03:29→17:35)
[2019-05-05] MEDS ORDERED: METHADONE HCL 10 MG TABLET ONE (06:44)
[2019-05-05] MEDS ORDERED: METHADONE HCL 40 MG DISPERSABLE TABLET ONE (06:44)
[2019-05-05] MEDS: METHADONE 80 MG, METHADONE 10 MG PO SCH (06:47)
[2019-05-05] MEDS: HEPARIN NA (PORCINE) 5,000 UNITS/ML 1ML VIAL SQ SCH ×2 (06:47→13:23)
[2019-05-05] MEDS: GABAPENTIN 400 MG CAPSULE PO SCH ×2 (06:47→13:22)
[2019-05-05] MEDS: ALPRAZolam 1 MG TABLET PO PRN ×2 (06:47→13:22)
[2019-05-05] MEDS: INSULIN (LEVEMIR) 100 UNITS/ML UNITS SQ SCH (06:48)
[2019-05-05] MEDS: INSULIN SLIDING SCALE (NOVOLOG) 1 VIAL SQ SCH ×3 (06:53→17:05)
[2019-05-05 08:49] LABS: HEMATOCRIT 33.2 % (32.4-45.2); MCH 30.4 pg (25.7-33.7); MCHC 33.2 g/dl (32.0-36.0); MEAN CELL VOLUME 91.7 fl (80-96); MEAN PLT VOLUME 8.9 fl (7.5-11.1); PLATELET COUNT 197 K/MM3 (134-434); RBC 3.63 M/mm3 (3.60-5.2); RDW 14.3 % (11.6-15.6); WHITE BLOOD COUNT 5.5 K/mm3 (4.0-10.0)
--- NOTE | 2019-05-05 08:57 | PN ---
Progress Note (short form) - Note Progress Note: Ortho Pt seen and examined- s/p right distal radius fx cast intact, nvi a/p maintain cast elevation work on rom of fingers pain control ok to d/c from ortho pov d/w Dr. Garcia
[2019-05-05 09:09] LABS: BLOOD UREA NITROGEN 23.4 mg/dL (7-18); CALCIUM 9.5 mg/dL (8.5-10.1); MAGNESIUM 2.4 mg/dL (1.8-2.4); PHOSPHOROUS 3.3 mg/dL (2.5-4.9); POTASSIUM 4.2 mmol/L (3.5-5.1)
[2019-05-05 09:20] LABS: ALBUMIN 2.9 g/dl (3.4-5.0); BILIRUBIN,DIRECT 0.2 mg/dL (0.0-0.2); BILIRUBIN,TOTAL 0.8 mg/dL (0.2-1); TOT PROT 7.9 g/dl (6.4-8.2)
[2019-05-05] MEDS: POLYETHYLENE GLYCOL 3350 119 GM BTL PO SCH (10:10)
[2019-05-05] MEDS ORDERED: PT OWN MED DRAWER 7, Y5N ONE (13:14)
[2019-05-05] MEDS ORDERED: ALBUTEROL SO4 2.5/IPRATROPIUM 0.5 INH SOL 3 ML VIAL.NEB. NEB PRN (15:17)
[2019-05-05] MEDS: FUROSEMIDE 40 MG TABLET (FP) PO SCH (16:28)
[2019-05-05] MEDS: CITALOPRAM HYDROBROMIDE 20 MG TABLET PO SCH (16:29)
[2019-05-05] MEDS: ENALAPRIL MALEATE 10 MG TABLET (FP) PO SCH (17:35)
--- NOTE | 2019-05-05 17:41 | PN ---
Teaching Attending Note Name of Resident: Duong Mcnally ATTENDING PHYSICIAN STATEMENT I saw and evaluated the patient. I reviewed the resident's note and discussed the case with the resident. I agree with the resident's findings and plan as documented. SUBJECTIVE: No fever or chills. has pain in her R thumb, and the cast is bothering her. has burning in the left heel. OBJECTIVE: NAD CV: RRR Lungs: CTAB Ext: R arm in a splint. L foot with a heel ulcer with no drainage. Edema on legs with hyperpigmentation Abd: soft, TTP in umbilical area. no hernia. ASSESSMENT AND PLAN: 53 y/o lady wit h/o opioid abuse, on methadone, Dm, HTN, anxiety, an other medical problems who presented with L heel ulcer. 1- L heel infected wound with OM and tenosynovitis . 2- R diatal radius and ulnar Fx 3- methadone dependence 4- dilated CBD 0.9 cm 5- PVD 6- DM. plan: - cont zosyn. cx reviewed, will wait for sensitivity on the group D strep - pathology with signs of OM, will call micro to confirm receiving bone cx - cont methadone - LFTS noted, MRCP as out pt - no weight baring RUE. - seen by otho and no adjustment of the cast is indicated - leg elevation - vascular eval for short segment occlusion noted on CTA - cont SQ heparin
--- NOTE | 2019-05-05 18:35 | PN ---
Physical Exam: SUBJECTIVE: Patient seen and examined OBJECTIVE: Vital Signs Period Temp Pulse Resp BP Sys/Kelly Pulse Ox Last 24 Hr 97.8 F-98.7 F 76-83 20-20 135-159/70-85 98-98 GENERAL: The patient is awake, alert, and fully oriented, in no acute distress. HEAD: Normal with no signs of trauma. EYES: PERRL, extraocular movements intact, sclera anicteric, conjunctiva clear. ENT: Ears normal, oropharynx clear without exudates, moist mucous membranes. NECK: Trachea midline, full range of motion, supple. LUNGS: Breath sounds equal, clear to auscultation bilaterally, no wheezes, no crackles, no accessory muscle use. HEART: Regular rate and rhythm, S1, S2 without murmur, rub or gallop. ABDOMEN: Soft, nonTTP [id number], ND, normoactive bowel sounds EXTREMITIES: 2+ radial pulse of LUE, warm, well-perfused. RUE in short cast. Moving RUE fingers spontaneously, fingers warm and sensation intact. B/l lower extremity w/ nonpitting edema. Lower extremities bandaged. Left heel with >8cm diameter of surgical debridement, clean pink base with mild fibrinous exudate at the edges NEUROLOGICAL: Normal speech, favoring Left leg while walking. PSYCH: Anxious SKIN: Warm, dry, nonpitting edema in lower extremities, thickened skin in lower extremities Laboratory Results - last 24 hr 05/04/19 05/05/19 05/05/19 23:42 06:52 08:10 WBC 5.5 RBC 3.63 Hgb 11.0 Hct 33.2 MCV 91.7 MCH 30.4 MCHC 33.2 RDW 14.3 Plt Count 197 MPV 8.9 Sodium Potassium Chloride Carbon Dioxide Anion Gap BUN Creatinine Est GFR (CKD-EPI)AfAm Est GFR (CKD-EPI)NonAf POC Glucometer 237 231 Random Glucose Calcium Phosphorus Magnesium Total Bilirubin Direct Bilirubin AST ALT Alkaline Phosphatase Total Protein Albumin 05/05/19 05/05/19 05/05/19 08:10 08:10 12:12 WBC RBC Hgb Hct MCV MCH MCHC RDW Plt Count MPV Sodium 138 Potassium 4.2 Chloride 105 Carbon Dioxide 28 Anion Gap 6 L BUN 23.4 H Creatinine 1.0 Est GFR (CKD-EPI)AfAm 73.45 Est GFR (CKD-EPI)NonAf 63.37 POC Glucometer 148 Random Glucose 158 H Calcium 9.5 Phosphorus 3.3 Magnesium 2.4 Total Bilirubin 0.8 Direct Bilirubin 0.2 AST 26 ALT 18 Alkaline Phosphatase 183 H Total Protein 7.9 Albumin 2.9 L 05/05/19 16:54 WBC RBC Hgb Hct MCV MCH MCHC RDW Plt Count MPV Sodium Potassium Chloride Carbon Dioxide Anion Gap BUN Creatinine Est GFR (CKD-EPI)AfAm Est GFR (CKD-EPI)NonAf POC Glucometer 191 Random Glucose Calcium Phosphorus Magnesium Total Bilirubin Direct Bilirubin AST ALT Alkaline Phosphatase Total Protein Albumin Active Medications Generic Name Dose Route Start Last Admin Trade Name Freq PRN Reason Stop Dose Admin Acetaminophen 650 mg 05/03/19 11:41 05/03/19 23:13 Tylenol - PO 650 mg Q6H PRN Administration Fever Albuterol/Ipratropium 1 amp 05/05/19 15:17 Duoneb - NEB Q6H PRN SHORT OF BREATH/WHEEZING Alprazolam 2 mg 05/03/19 11:41 05/05/19 13:22 Xanax PO 2 mg TID PRN Administration ANXIETY Citalopram Hydrobromide 20 mg 05/05/19 15:30 05/05/19 16:29 Celexa - PO 20 mg DAILY OBI Administration Docusate Sodium 100 mg 05/04/19 18:36 Colace - PO BID PRN CONSTIPATION Enalapril Maleate 10 mg 05/05/19 15:30 05/05/19 17:35 Vasotec - PO 10 mg DAILY OBI Administration Furosemide 40 mg 05/05/19 15:30 05/05/19 16:28 Lasix - PO 40 mg DAILY OBI Administration Gabapentin 800 mg 05/03/19 14:00 05/05/19 13:22 Neurontin - PO 800 mg TID OBI Administration Heparin Sodium (Porcine) 5,000 unit 05/03/19 14:00 05/05/19 13:23 Heparin - SQ 5,000 unit TID OBI Administration Piperacillin Sod/Tazobactam 50 mls @ 100 mls/hr 05/03/19 18:00 05/05/19 17:35 Sod 3.375 gm/ Dextrose IVPB 100 mls/hr Q8H-IV OBI Administration Protocol Insulin Aspart 1 vial 05/03/19 16:30 05/05/19 17:05 Novolog Vial Sliding Scale - SQ 4 units ACHS OBI Administration Protocol Insulin Detemir 10 units 05/04/19 07:00 05/05/19 06:48 Levemir Vial SQ 10 units DAILY@0700 OBI Administration Methadone HCl 80 mg/ Methadone 90 mg 05/04/19 06:00 05/05/19 06:47 HCl 10 mg PO 90 mg DAILY@0600 OBI Administration Methyl Salicylate 1 applic 05/03/19 11:41 Jam-Angeles - TP Q24H PRN PAIN Polyethylene Glycol 17 gm 05/04/19 18:45 05/05/19 10:10 Miralax (For Daily Use) - PO Not Given DAILY OBI Senna 1 tab 05/04/19 22:00 05/04/19 23:38 Senna - PO 1 tab HS OBI Administration ASSESSMENT/PLAN: 53 year old female with history of insulin dependent diabetes mellitus, hypertension, anxiety, opiod use disorder (IV heroine; on Methadone), presents with complaint of bilateral lower extremity wounds. Admitted for OM of Left heel. S/p Left heel debridement w/ bone biopsy(Nilson, 05/03/19). S/p bedside RUE ulnar-radial closed reduction(Jose, 05/03/19). On IV abx(zosyn). #Lower extremity wounds --LLE OM > MRI(05/01/19): Left heel w/ extensive cellulitis and OM, partial tear of lateral plantar fascia > ESR: 66, CRP: 2.3 > Venous duplex bilateral lower extremities: decreased flow bilaterally > BCX(04/29/19): NGTD > Left Foot Heel Cx(04/29/19): Morganella, GBS > Left Foot Heel Surgical Bx(05/03/19): morganella, Group D Strep, GBS > CTA aortogram w/ bl runoffs(05/04/19): widely patent aortoiliac, femoro- popliteal and proximal infrapopliteal arteries - abx reigmen: --Zosyn -ID consult (Dr. Gaming): --c/w Zosyn -Vascular surgery/ wound care consult (Dr. Barclay) appreciated: --cleared from a vascular standpoint, if osteo found, pt will need HBO, --further work up vascular status after debridement with CTA. -Podiatry consult (Dr. Devine): --s/p Left heel debridement w/ bone biopsy(Nilson, 05/03/19) --Dressings: daily WTD #Right forearm ulnar styloid fracture >Xray: distal radial and ulnar fractures -Orthopedic surgery consulted, will evaluate. --s/p bedside closed reduction(Jose, 05/03/19) #Anxiety -Continue Alprazolam 2mg PO TID PRN #Diabetes mellitus -c/w Levemir 10 units -Insulin slidng scale ACHS -Fingerstick blood glucose monitoring ACHS -Gabapentn 800mg PO TID for neuropahy -HbA1c: 9.5 #Opiod dependence -Continue patient's Methadone. She uses [facility] on [facility] (90mg daily). #Elevated alkaline phosphatase -Concern for bone origin. GGT: elevated -Abd US: no acute pathology, CBD: 0.9cm, can do MRCP if there is increased clinical concern -LFTs downtrending #FEN -Diabetic diet #DVT Prophylaxis -Heparin 5000units subq TID #Disposition -MedSur Visit type - Emergency Visit Emergency Visit: No - New Patient This patient is new to me today: No - Critical Care Critical Care patient: No ATTENDING PHYSICIAN STATEMENT I saw and evaluated the patient. I reviewed the resident's note and discussed the case with the resident. I agree with the resident's findings and plan as documented. SUBJECTIVE: OBJECTIVE: ASSESSMENT AND PLAN:
[2019-05-06] MEDS: SENNOSIDES 8.6MG TABLET (FP) PO SCH ×2 (00:34→21:56)
[2019-05-06] MEDS: ALPRAZolam 1 MG TABLET PO PRN ×4 (00:36→21:56)
[2019-05-06] MEDS: HEPARIN NA (PORCINE) 5,000 UNITS/ML 1ML VIAL SQ SCH ×4 (00:36→21:55)
[2019-05-06] MEDS: GABAPENTIN 400 MG CAPSULE PO SCH ×4 (00:37→21:57)
[2019-05-06] MEDS: INSULIN SLIDING SCALE (NOVOLOG) 1 VIAL SQ SCH ×5 (00:37→21:55)
[2019-05-06] MEDS ORDERED: PIPERACILLIN/TAZOBACTAM 3.375 GM VIAL IVPB ONE ×3 (02:35→17:29)
[2019-05-06] MEDS ORDERED: DEXTROSE 5%-WATER - 50 ML IVPB ONE ×3 (02:35→17:29)
[2019-05-06] MEDS: PIPERACILLIN/TAZOB 3.375 GM 3.375 GM in DEXTROSE 5%-WATER - 50 ML IVPB SCH ×3 (03:00→18:13)
[2019-05-06] MEDS ORDERED: METHADONE HCL 40 MG DISPERSABLE TABLET ONE (06:54)
[2019-05-06] MEDS ORDERED: METHADONE HCL 10 MG TABLET ONE (06:55)
[2019-05-06] MEDS: METHADONE 80 MG, METHADONE 10 MG PO SCH (06:58)
[2019-05-06] MEDS: INSULIN (LEVEMIR) 100 UNITS/ML UNITS SQ SCH (07:14)
[2019-05-06 08:52] LABS: HEMATOCRIT 32.3 % (32.4-45.2); HEMOGLOBIN 10.7 GM/dL (10.7-15.3); MCH 30.3 pg (25.7-33.7); MCHC 33.2 g/dl (32.0-36.0); MEAN CELL VOLUME 91.2 fl (80-96); MEAN PLT VOLUME 8.8 fl (7.5-11.1); PLATELET COUNT 209 K/MM3 (134-434); RBC 3.54 M/mm3 (3.60-5.2); RDW 14.2 % (11.6-15.6); WHITE BLOOD COUNT 6.7 K/mm3 (4.0-10.0)
[2019-05-06 09:28] LABS: BLOOD UREA NITROGEN 29.2 mg/dL (7-18); CREATININE 1.3 mg/dL (0.55-1.3); MAGNESIUM 2.1 mg/dL (1.8-2.4); PHOSPHOROUS 4.2 mg/dL (2.5-4.9); POTASSIUM 4.5 mmol/L (3.5-5.1)
[2019-05-06] MEDS: CITALOPRAM HYDROBROMIDE 20 MG TABLET PO SCH (10:33)
[2019-05-06] MEDS: FUROSEMIDE 40 MG TABLET (FP) PO SCH (10:33)
[2019-05-06] MEDS: POLYETHYLENE GLYCOL 3350 119 GM BTL PO SCH (10:34)
[2019-05-06] MEDS ORDERED: PT OWN MED DRAWER 7, Y5N ONE (10:39)
[2019-05-06] MEDS: ENALAPRIL MALEATE 10 MG TABLET (FP) PO SCH (10:41)
--- NOTE | 2019-05-06 12:33 | PN ---
Progress Note (short form) - Note Progress Note: 53 year old diabetic female, history of IVDU, presents with non-healing ulcer left heel and diabetic infection. Is s/p heel bone biopsy. PMHx:diabetes mellitus, hypertension, anxiety, opiod use disorder (IV heroine; on Methadone) Meds: noted ALL: NKMA BRITTANIE: Vascular: pedal pulses nonpalpable, TG wnl, CFT brisk to toes bilaterally. Dressing intact, No gross further signs of infection neuro: epicritic and protective sensations grossly diminished to the foot bilaterally. There are no focal motor or sensory deficits. derm: there is a right fifth metatarsal base diabetic ulcer fibrotic, no exposed bone, no purulence, no fluctuance, no streaking cellulitis, no signs of infection. There is a left heel diabetic ulcer laterally with fibrotic base, bogginess present, probes to calcaneus; no purulent drainage, no fluctuance, no soft tissue crepitus, no streaking cellulitis, no signs of acute gas infection Imp: 53 year old diabetic female with left heel diabetic ulcer, osteomyelitis calcaneus; s/p bone biopsy Evaluated and reviewed Cont Wet to dry daily dressing changes will need Iv abx Will follow as outpatient once discharged for wound care here at [place]
--- NOTE | 2019-05-06 17:34 | PN ---
Teaching Attending Note Name of Resident: Frantz Pablo ATTENDING PHYSICIAN STATEMENT I saw and evaluated the patient. I reviewed the resident's note and discussed the case with the resident. I agree with the resident's findings and plan as documented. SUBJECTIVE: R cast is bothering her thumb. has pain in her L heel. OBJECTIVE: NAD CV: RRR Lungs: CTAB Ext: R arm in a splint. L foot in a clean dressing. Edema on legs with hyperpigmentation. Abd: soft, TTP in umbilical area. No hernia. ASSESSMENT AND PLAN: 53 y/o lady wit h/o opioid abuse, on methadone, Dm, HTN, anxiety, an other medical problems who presented with L heel ulcer. 1- L heel infected wound with OM and tenosynovitis. 2- R diatal radius and ulnar Fx 3- methadone dependence 4- dilated CBD 0.9 cm 5- PVD 6- DM. plan: - microlab was called, the last cx reported as soft tissue is actually the bone and the soft tissue for m surgery. - cont zosyn which cover all her organisms - will d/w ID the duration and the choice of out pt Abx . - cont methadone - LFTS noted, MRCP as out pt - no weight baring RUE. - leg elevation - No follow up from vascular regarding CTA results. - cont levemir and SSI - cont SQ heparin
--- NOTE | 2019-05-06 17:58 | PN ---
Physical Exam: SUBJECTIVE: Patient seen and examined RACHEL Endorses continued R-hand inner thumb pain OBJECTIVE: Vital Signs Period Temp Pulse Resp BP Sys/Kelly Pulse Ox Last 24 Hr 97.7 F-99.9 F 77-83 18-20 114-163/64-91 97-99 GENERAL: The patient is awake, alert, and fully oriented, in no acute distress. HEAD: Normal with no signs of trauma. EYES: PERRL, extraocular movements intact, sclera anicteric, conjunctiva clear. ENT: Ears normal, oropharynx clear without exudates, moist mucous membranes. NECK: Trachea midline, full range of motion, supple. LUNGS: Breath sounds equal, clear to auscultation bilaterally, no wheezes, no crackles, no accessory muscle use. HEART: Regular rate and rhythm, S1, S2 without murmur, rub or gallop. ABDOMEN: Soft, nonTTP [id number], ND, normoactive bowel sounds EXTREMITIES: 2+ radial pulse of LUE, warm, well-perfused. RUE in short cast. Moving RUE fingers spontaneously, fingers warm and sensation intact. B/l lower extremity w/ nonpitting edema. Lower extremities bandaged. Left heel with >8cm diameter of surgical debridement, light pink base with mild fibrinous exudate at the edges NEUROLOGICAL: Normal speech, favoring Left leg while walking. PSYCH: Anxious SKIN: Warm, dry, nonpitting edema in lower extremities, thickened skin in lower extremities Laboratory Results - last 24 hr 05/06/19 05/06/19 05/06/19 00:35 07:12 08:23 WBC 6.7 RBC 3.54 L Hgb 10.7 Hct 32.3 L MCV 91.2 MCH 30.3 MCHC 33.2 RDW 14.2 Plt Count 209 MPV 8.8 Sodium Potassium Chloride Carbon Dioxide Anion Gap BUN Creatinine Est GFR (CKD-EPI)AfAm Est GFR (CKD-EPI)NonAf POC Glucometer 180 139 Random Glucose Calcium Phosphorus Magnesium 05/06/19 05/06/19 05/06/19 08:23 10:46 17:33 WBC RBC Hgb Hct MCV MCH MCHC RDW Plt Count MPV Sodium 135 L Potassium 4.5 Chloride 103 Carbon Dioxide 23 Anion Gap 9 BUN 29.2 H Creatinine 1.3 Est GFR (CKD-EPI)AfAm 53.48 Est GFR (CKD-EPI)NonAf 46.15 POC Glucometer 189 183 Random Glucose 163 H Calcium 9.0 Phosphorus 4.2 Magnesium 2.1 Active Medications Generic Name Dose Route Start Last Admin Trade Name Freq PRN Reason Stop Dose Admin Acetaminophen 650 mg 05/03/19 11:41 05/03/19 23:13 Tylenol - PO 650 mg Q6H PRN Administration Fever Albuterol/Ipratropium 1 amp 05/05/19 15:17 Duoneb - NEB Q6H PRN SHORT OF BREATH/WHEEZING Alprazolam 2 mg 05/03/19 11:41 05/06/19 13:36 Xanax PO 2 mg TID PRN Administration ANXIETY Citalopram Hydrobromide 20 mg 05/05/19 15:30 05/06/19 10:33 Celexa - PO 20 mg DAILY OBI Administration Docusate Sodium 100 mg 05/04/19 18:36 Colace - PO BID PRN CONSTIPATION Enalapril Maleate 10 mg 05/05/19 15:30 05/06/19 10:41 Vasotec - PO 10 mg DAILY OBI Administration Furosemide 40 mg 05/05/19 15:30 05/06/19 10:33 Lasix - PO 40 mg DAILY OBI Administration Gabapentin 800 mg 05/03/19 14:00 05/06/19 13:36 Neurontin - PO 800 mg TID OBI Administration Heparin Sodium (Porcine) 5,000 unit 05/03/19 14:00 05/06/19 13:37 Heparin - SQ 5,000 unit TID OBI Administration Piperacillin Sod/Tazobactam 50 mls @ 100 mls/hr 05/03/19 18:00 05/06/19 10:34 Sod 3.375 gm/ Dextrose IVPB 100 mls/hr Q8H-IV OBI Administration Protocol Insulin Aspart 1 vial 05/03/19 16:30 05/06/19 11:05 Novolog Vial Sliding Scale - SQ 4 units ACHS OBI Administration Protocol Insulin Detemir 10 units 05/04/19 07:00 05/06/19 07:14 Levemir Vial SQ 10 units DAILY@0700 OBI Administration Methadone HCl 80 mg/ Methadone 90 mg 05/04/19 06:00 05/06/19 06:58 HCl 10 mg PO 90 mg DAILY@0600 OBI Administration Methyl Salicylate 1 applic 05/03/19 11:41 Jam-Angeles - TP Q24H PRN PAIN Polyethylene Glycol 17 gm 05/04/19 18:45 05/06/19 10:34 Miralax (For Daily Use) - PO Not Given DAILY OBI Senna 1 tab 05/04/19 22:00 05/06/19 00:34 Senna - PO Not Given HS OBI ASSESSMENT/PLAN: 53 year old female with history of insulin dependent diabetes mellitus, hypertension, anxiety, opiod use disorder (IV heroine; on Methadone), presents with complaint of bilateral lower extremity wounds. Admitted for OM of Left heel. S/p Left heel debridement w/ bone biopsy(Nilson, 05/03/19). S/p bedside RUE ulnar-radial closed reduction(Jose, 05/03/19). On IV abx(zosyn). #Lower extremity wounds --LLE OM > MRI(05/01/19): Left heel w/ extensive cellulitis and OM, partial tear of lateral plantar fascia > ESR: 66, CRP: 2.3 > Venous duplex bilateral lower extremities: decreased flow bilaterally > BCX(04/29/19): NGTD > Left Foot Heel Cx(04/29/19): Morganella, GBS > Left Foot Heel Surgical Bx(05/03/19): morganella, Group D Strep, GBS > CTA aortogram w/ bl runoffs(05/04/19): widely patent aortoiliac, femoro- popliteal and proximal infrapopliteal arteries - abx reigmen: --Zosyn -ID consult (Dr. Gaming): --c/w Zosyn -Vascular surgery/ wound care consult (Dr. Barclay) appreciated: --cleared from a vascular standpoint, if osteo found, pt will need HBO, --further work up vascular status after debridement with CTA. -Podiatry consult (Dr. Devine): --s/p Left heel debridement w/ bone biopsy(Nilson, 05/03/19) --Dressings: daily WTD #Right forearm ulnar styloid fracture >Xray: distal radial and ulnar fractures -Orthopedic surgery consulted, will evaluate. --s/p bedside closed reduction(Jose, 05/03/19) #Anxiety -Continue Alprazolam 2mg PO TID PRN #Diabetes mellitus -c/w Levemir 10 units -Insulin slidng scale ACHS -Fingerstick blood glucose monitoring ACHS -Gabapentn 800mg PO TID for neuropahy -HbA1c: 9.5 #Opiod dependence -Continue patient's Methadone. She uses [facility] on [facility] (90mg daily). #Elevated alkaline phosphatase -Concern for bone origin. GGT: elevated -Abd US: no acute pathology, CBD: 0.9cm, can do MRCP if there is increased clinical concern -LFTs downtrending #FEN -Diabetic diet #DVT Prophylaxis -Heparin 5000units subq TID #Disposition -MedSurg Visit type - Emergency Visit Emergency Visit: No - New Patient This patient is new to me today: No - Critical Care Critical Care patient: No ATTENDING PHYSICIAN STATEMENT I saw and evaluated the patient. I reviewed the resident's note and discussed the case with the resident. I agree with the resident's findings and plan as documented. SUBJECTIVE: OBJECTIVE: ASSESSMENT AND PLAN:
--- NOTE | 2019-05-06 18:46 | PN ---
Progress Note, Physician History of Present Illness: OOB IN CHAIR C/O HEEL PAIN AFEBRILE WBC WNL ESR 66 CRP 2.3 BC (-) WOUND C/S MORGANELLA, PROTEUS, ENTEROCOCCUS MRI/ BONE BX + OSTEOMYELITIS - Current Medication List Current Medications: Active Medications Acetaminophen (Tylenol -) 650 mg PO Q6H PRN PRN Reason: Fever Last Admin: 05/03/19 23:13 Dose: 650 mg Albuterol/Ipratropium (Duoneb -) 1 amp NEB Q6H PRN PRN Reason: SHORT OF BREATH/WHEEZING Alprazolam (Xanax) 2 mg PO TID PRN PRN Reason: ANXIETY Last Admin: 05/06/19 13:36 Dose: 2 mg Citalopram Hydrobromide (Celexa -) 20 mg PO DAILY [facility] Last Admin: 05/06/19 10:33 Dose: 20 mg Docusate Sodium (Colace -) 100 mg PO BID PRN PRN Reason: CONSTIPATION Enalapril Maleate (Vasotec -) 10 mg PO DAILY [facility] Last Admin: 05/06/19 10:41 Dose: 10 mg Furosemide (Lasix -) 40 mg PO DAILY [facility] Last Admin: 05/06/19 10:33 Dose: 40 mg Gabapentin (Neurontin -) 800 mg PO TID [facility] Last Admin: 05/06/19 13:36 Dose: 800 mg Heparin Sodium (Porcine) (Heparin -) 5,000 unit SQ TID [facility] Last Admin: 05/06/19 13:37 Dose: 5,000 unit Piperacillin Sod/Tazobactam (Sod 3.375 gm/ Dextrose) 50 mls @ 100 mls/hr IVPB Q8H-IV [facility]; Protocol Last Admin: 05/06/19 10:34 Dose: 100 mls/hr Insulin Aspart (Novolog Vial Sliding Scale -) 1 vial SQ ACHS [facility]; Protocol Last Admin: 05/06/19 17:56 Dose: 4 units Insulin Detemir (Levemir Vial) 10 units SQ DAILY@0700 [facility] Last Admin: 05/06/19 07:14 Dose: 10 units Methadone HCl 80 mg/ Methadone (HCl 10 mg) 90 mg PO DAILY@0600 [facility] Last Admin: 05/06/19 06:58 Dose: 90 mg Methyl Salicylate (Jam-Angeles -) 1 applic TP Q24H PRN PRN Reason: PAIN Polyethylene Glycol (Miralax (For Daily Use) -) 17 gm PO DAILY [facility] Last Admin: 05/06/19 10:34 Dose: Not Given Senna (Senna -) 1 tab PO HS [facility] Last Admin: 05/06/19 00:34 Dose: Not Given - Objective Vital Signs: Vital Signs Temperature 97.8 F 05/06/19 18:00 Pulse Rate 78 05/06/19 18:00 Respiratory Rate 18 05/06/19 18:00 Blood Pressure 147/83 05/06/19 18:00 O2 Sat by Pulse Oximetry (%) 99 05/06/19 13:23 Cardiovascular: Yes: Regular Rate and Rhythm, S1, S2 Respiratory: Yes: CTA Bilaterally Gastrointestinal: Yes: Normal Bowel Sounds, Soft Extremities: Yes: Other (DRESSING IN PLACE) Labs: CBC, BMP 05/06/19 08:23 05/06/19 08:23 INR, PTT INR 1.10 (0.83-1.09) H 05/03/19 08:42 Assessment/Plan INFECTED DIABETIC HEEL ULCER/ OSTEOMYELITIS CONTINUE ZOSYN WILL NEED PICC FOR CREW CHIEF ANTIBIOTIC TX SNF PLACEMENT WOULD BE MOST APPROPRIATE AT THIS TIME (? HX IVDU)
--- NOTE | 2019-05-06 19:01 | PN ---
Progress Note (short form) - Note Progress Note: VAscular Surgery CTA reviewed. Good flow in PT to ankle and heel. No other disease found in left leg. Cont present care. No need for vascular intervention at this time. Ildefonso Barclay DO
[2019-05-07] MEDS ORDERED: PIPERACILLIN/TAZOBACTAM 3.375 GM VIAL IVPB ONE ×3 (01:08→17:00)
[2019-05-07] MEDS ORDERED: DEXTROSE 5%-WATER - 50 ML IVPB ONE ×3 (01:08→17:00)
[2019-05-07] MEDS: PIPERACILLIN/TAZOB 3.375 GM 3.375 GM in DEXTROSE 5%-WATER - 50 ML IVPB SCH ×3 (01:46→17:11)
[2019-05-07] MEDS ORDERED: METHADONE HCL 40 MG DISPERSABLE TABLET ONE (05:58)
[2019-05-07] MEDS ORDERED: METHADONE HCL 10 MG TABLET ONE (05:58)
[2019-05-07] MEDS: METHADONE 80 MG, METHADONE 10 MG PO SCH (06:37)
[2019-05-07] MEDS: INSULIN SLIDING SCALE (NOVOLOG) 1 VIAL SQ SCH ×4 (06:39→22:35)
[2019-05-07] MEDS: HEPARIN NA (PORCINE) 5,000 UNITS/ML 1ML VIAL SQ SCH ×3 (06:44→22:31)
[2019-05-07] MEDS: INSULIN (LEVEMIR) 100 UNITS/ML UNITS SQ SCH (06:44)
[2019-05-07] MEDS: GABAPENTIN 400 MG CAPSULE PO SCH ×3 (06:49→22:30)
[2019-05-07] MEDS: ALPRAZolam 1 MG TABLET PO PRN ×3 (07:10→22:29)
--- NOTE | 2019-05-07 08:22 | PN ---
Physical Exam: SUBJECTIVE: Patient seen and examined at bedside. Endorses continued pain at left heel. Denies subjective fevers, chills. OBJECTIVE: Vital Signs Period Temp Pulse Resp BP Sys/Kelly Pulse Ox Last 24 Hr 97.7 F-98.5 F 72-83 18-18 104-150/54-83 99-99 GENERAL: The patient is awake, alert, and fully oriented, in mild distress. HEAD: Normocephalic, atraumatic. EYES: PERRL, extraocular movements intact, sclera anicteric, conjunctiva clear. ENT: Oropharynx clear, without erythema or exudates. Moist mucous membranes. NECK: Trachea midline, full range of motion. Supple without lymphadenopathy. LUNGS: Breath sounds equal, clear to auscultation bilaterally. No wheezes, no crackles. No accessory muscle use. HEART: Regular rate and rhythm. S1, S2 without murmur, rub or gallop. ABDOMEN: Soft, nondistended, nontender to light and deep palpation x4 quadrants. No rebound tenderness, no guarding. Normoactive bowel sounds x4 quadrants. No hepatosplenomegaly, no masses appreciated. EXTREMITIES: Left foot heel ulcer s/p debridement, badinaged clean, dry. Right lateral foot wound 2cm x 1xcm, bandaged clean, dry. Right upper extremity splinted. Finger movement, sensation intact. NEUROLOGICAL: Cranial nerves II through XII grossly intact. Normal speech. No gross focal deficits. PSYCH: Anxious, tangential upon my encounter. Laboratory Results - last 24 hr 05/06/19 05/06/19 05/06/19 08:23 08:23 10:46 WBC 6.7 RBC 3.54 L Hgb 10.7 Hct 32.3 L MCV 91.2 MCH 30.3 MCHC 33.2 RDW 14.2 Plt Count 209 MPV 8.8 Sodium 135 L Potassium 4.5 Chloride 103 Carbon Dioxide 23 Anion Gap 9 BUN 29.2 H Creatinine 1.3 Est GFR (CKD-EPI)AfAm 53.48 Est GFR (CKD-EPI)NonAf 46.15 POC Glucometer 189 Random Glucose 163 H Calcium 9.0 Phosphorus 4.2 Magnesium 2.1 05/06/19 05/06/19 05/07/19 17:33 21:49 06:34 WBC RBC Hgb Hct MCV MCH MCHC RDW Plt Count MPV Sodium Potassium Chloride Carbon Dioxide Anion Gap BUN Creatinine Est GFR (CKD-EPI)AfAm Est GFR (CKD-EPI)NonAf POC Glucometer 183 204 162 Random Glucose Calcium Phosphorus Magnesium Active Medications Generic Name Dose Route Start Last Admin Trade Name Freq PRN Reason Stop Dose Admin Acetaminophen 650 mg 05/03/19 11:41 05/03/19 23:13 Tylenol - PO 650 mg Q6H PRN Administration Fever Albuterol/Ipratropium 1 amp 05/05/19 15:17 Duoneb - NEB Q6H PRN SHORT OF BREATH/WHEEZING Alprazolam 2 mg 05/03/19 11:41 05/07/19 07:10 Xanax PO 2 mg TID PRN Administration ANXIETY Citalopram Hydrobromide 20 mg 05/05/19 15:30 05/06/19 10:33 Celexa - PO 20 mg DAILY OBI Administration Docusate Sodium 100 mg 05/04/19 18:36 Colace - PO BID PRN CONSTIPATION Enalapril Maleate 10 mg 05/05/19 15:30 05/06/19 10:41 Vasotec - PO 10 mg DAILY OBI Administration Furosemide 40 mg 05/05/19 15:30 05/06/19 10:33 Lasix - PO 40 mg DAILY OBI Administration Gabapentin 800 mg 05/03/19 14:00 05/07/19 06:49 Neurontin - PO 800 mg TID OIB Administration Heparin Sodium (Porcine) 5,000 unit 05/03/19 14:00 05/07/19 06:44 Heparin - SQ 5,000 unit TID OBI Administration Piperacillin Sod/Tazobactam 50 mls @ 100 mls/hr 05/03/19 18:00 05/07/19 01:46 Sod 3.375 gm/ Dextrose IVPB 100 mls/hr Q8H-IV OBI Administration Protocol Insulin Aspart 1 vial 05/03/19 16:30 05/07/19 06:39 Novolog Vial Sliding Scale - SQ 4 units ACHS OBI Administration Protocol Insulin Detemir 10 units 05/04/19 07:00 05/07/19 06:44 Levemir Vial SQ 10 units DAILY@0700 OBI Administration Methadone HCl 80 mg/ Methadone 90 mg 05/04/19 06:00 05/07/19 06:37 HCl 10 mg PO 90 mg DAILY@0600 OBI Administration Methyl Salicylate 1 applic 05/03/19 11:41 Jam-Angeles - TP Q24H PRN PAIN Polyethylene Glycol 17 gm 05/04/19 18:45 05/06/19 10:34 Miralax (For Daily Use) - PO Not Given DAILY OBI Senna 1 tab 05/04/19 22:00 05/06/19 21:56 Senna - PO 1 tab HS OBI Administration ASSESSMENT/PLAN: Patient is a 53 year old female with history of insulin dependent diabetes mellitus, hypertension, anxiety, opiod use disorder (IV heroine; on Methadone), presents with complaint of bilateral lower extremity wounds. Osteomyelitis left lower extremity -Wound cultures grow morganella, E. Faecalis, Group B strep. -ID consult appreciated. Will determine duration. Requires PICC line for custodial antibiotics. -Continue Zosyn -Elevate left lower extremity at rest. Avoid weight bearing. -Vascular surgery/ wound care consult appreciated -Podiatry consult appreciated Right forearm ulnar styloid fracture -Splinted. Patent will continue outpatient orthopedic follow up. -Orthopedic surgery consult appreciated Anxiety -Continue Alprazolam 2mg PO TID PRN -Citalopram 20mg PO daily Diabetes mellitus -Insuln Levemir 10 units subq daily -Insulin slidng scale ACHS -Fingerstick blood glucose monitoring ACHS -Gabapentin 800mg PO TID for neuropathy Opiod dependence -Continue Methadone 90mg PO daily FEN -No IV fluids indicated -Follow BMP -Diabetic diet Prophylaxis -Heparin 5000units subq TID Disposition -Continue care in medical- surgical floor. PICC line on Thursday. Likely will require SNF placement; patient will consider. Visit type - Emergency Visit Emergency Visit: Yes ED Registration Date: 04/29/19 Care time: The patient presented to the Emergency Department on the above date and was hospitalized for further evaluation of their emergent condition. - New Patient This patient is new to me today: No - Critical Care Critical Care patient: No - Discharge Referral Referred to [facility] No ATTENDING PHYSICIAN STATEMENT I saw and evaluated the patient. I reviewed the resident's note and discussed the case with the resident. I agree with the resident's findings and plan as documented. SUBJECTIVE: OBJECTIVE: ASSESSMENT AND PLAN:
[2019-05-07] MEDS ORDERED: PT OWN MED DRAWER 7, Y5N ONE (09:22)
[2019-05-07] MEDS: FUROSEMIDE 40 MG TABLET (FP) PO SCH (09:48)
[2019-05-07] MEDS: CITALOPRAM HYDROBROMIDE 20 MG TABLET PO SCH (09:49)
[2019-05-07] MEDS: POLYETHYLENE GLYCOL 3350 119 GM BTL PO SCH (10:06)
[2019-05-07] MEDS: ENALAPRIL MALEATE 10 MG TABLET (FP) PO SCH (11:31)
[2019-05-07 11:33] LABS: HEMATOCRIT 33.7 % (32.4-45.2); HEMOGLOBIN 11.2 GM/dL (10.7-15.3); MCH 30.2 pg (25.7-33.7); MCHC 33.1 g/dl (32.0-36.0); MEAN CELL VOLUME 91.1 fl (80-96); MEAN PLT VOLUME 9.1 fl (7.5-11.1); PLATELET COUNT 203 K/MM3 (134-434); RDW 14.6 % (11.6-15.6); WHITE BLOOD COUNT 6.5 K/mm3 (4.0-10.0)
[2019-05-07 12:37] LABS: BLOOD UREA NITROGEN 33.9 mg/dL (7-18); CALCIUM 9.2 mg/dL (8.5-10.1); CREATININE 1.1 mg/dL (0.55-1.3); MAGNESIUM 2.3 mg/dL (1.8-2.4); PHOSPHOROUS 4.5 mg/dL (2.5-4.9); POTASSIUM 4.5 mmol/L (3.5-5.1)
--- NOTE | 2019-05-07 15:11 | PN ---
Teaching Attending Note Name of Resident: Erick Buckner ATTENDING PHYSICIAN STATEMENT I saw and evaluated the patient. I reviewed the resident's note and discussed the case with the resident. I agree with the resident's findings and plan as documented. SUBJECTIVE: No fever or chills. no SOB. No diarrhea. pain in L heel. did not sleep last night . OBJECTIVE: NAD CV: RRR Lungs: CTAB Ext: R arm in a splint able to ove her fingers. L foot with an ulcer on L heel with no drainage. no change from before. a scab on posterior lower leg. R foot with scabs on lateral front foot. less edema on legs with hyperpigmentation. Abd: soft,NT. nl BS ASSESSMENT AND PLAN: 53 y/o lady wit h/o opioid abuse, on methadone, Dm, HTN, anxiety, an other medical problems who presented with L heel ulcer. 1- L heel infected wound with OM and tenosynovitis. 2- R diatal radius and ulnar Fx. 3- methadone dependence. 4- Dilated CBD 0.9 cm. 5- PVD. 6- DM. Plan: - cont zosyn for - will decide on Abx fro PICC on Thursday if patient agrees to rehab - cont methadone - LFTS tomorrow - no weight baring RUE. - leg elevation - Vascular f.u as out p t. no intervention is recommended at this time . - cont levemir and SSI - cont lasix and enalapril - cont SQ heparin ASSESSMENT AND PLAN:
[2019-05-07] MEDS: SENNOSIDES 8.6MG TABLET (FP) PO SCH (22:44)
[2019-05-08] MEDS ORDERED: DEXTROSE 5%-WATER - 50 ML IVPB ONE ×3 (02:05→17:10)
[2019-05-08] MEDS ORDERED: PIPERACILLIN/TAZOBACTAM 3.375 GM VIAL IVPB ONE ×3 (02:05→17:10)
[2019-05-08] MEDS: PIPERACILLIN/TAZOB 3.375 GM 3.375 GM in DEXTROSE 5%-WATER - 50 ML IVPB SCH ×3 (02:20→17:47)
[2019-05-08] MEDS ORDERED: METHADONE HCL 40 MG DISPERSABLE TABLET ONE (05:36)
[2019-05-08] MEDS ORDERED: METHADONE HCL 10 MG TABLET ONE (05:37)
[2019-05-08] MEDS: METHADONE 80 MG, METHADONE 10 MG PO SCH (06:56)
[2019-05-08] MEDS: HEPARIN NA (PORCINE) 5,000 UNITS/ML 1ML VIAL SQ SCH ×3 (06:57→22:59)
[2019-05-08] MEDS: INSULIN SLIDING SCALE (NOVOLOG) 1 VIAL SQ SCH ×4 (07:00→22:59)
[2019-05-08] MEDS: INSULIN (LEVEMIR) 100 UNITS/ML UNITS SQ SCH (07:01)
[2019-05-08] MEDS: GABAPENTIN 400 MG CAPSULE PO SCH ×3 (07:02→22:58)
[2019-05-08] MEDS: ALPRAZolam 1 MG TABLET PO PRN ×3 (07:04→22:55)
[2019-05-08 08:30] LABS: MCH 30.7 pg (25.7-33.7); MCHC 33.4 g/dl (32.0-36.0); MEAN CELL VOLUME 91.8 fl (80-96); MEAN PLT VOLUME 9.3 fl (7.5-11.1); PLATELET COUNT 189 K/MM3 (134-434); WHITE BLOOD COUNT 6.4 K/mm3 (4.0-10.0)
[2019-05-08 08:46] LABS: ALBUMIN 2.9 g/dl (3.4-5.0); BILIRUBIN,DIRECT 0.2 mg/dL (0.0-0.2); BILIRUBIN,TOTAL 0.5 mg/dL (0.2-1); CALCIUM 9.5 mg/dL (8.5-10.1); CREATININE 1.3 mg/dL (0.55-1.3); POTASSIUM 4.4 mmol/L (3.5-5.1); TOT PROT 7.5 g/dl (6.4-8.2)
[2019-05-08] MEDS: FUROSEMIDE 40 MG TABLET (FP) PO SCH (10:04)
[2019-05-08] MEDS: CITALOPRAM HYDROBROMIDE 20 MG TABLET PO SCH (10:04)
--- NOTE | 2019-05-08 10:16 | PN ---
Progress Note (short form) - Note Progress Note: Podiatry F/U: Seen/evaluated at bedside NAD. Pain controlled, denies F/V/N/C/SOB/CP. AFebrile. S/p L heel debridement and bone biopsy. BRITTANIE: L foot: pedal pulses nonpalpable, TG wnl, CFT brisk to toes. There is no active bleeding, no bandage strikethrough. Diabetic ulcer lateral heel with mixed fibrogranular base, down to capsule, no purulent drainage, no fluctuance, no streaking cellulitis, no signs of infection. No ischemic changes to the foot. Mild tenderness to palpation. OR Cx: morganella, group d enterococcus OR Path: (+) osteomyelitis Imp: 53 year old diabetic female s/p left heel debridement and bone biopsy 1. IV abx per ID 2. Continue local wound care 3. Vascular input appreciated 4. Will follow Malcolm Devine DPM
[2019-05-08] MEDS: POLYETHYLENE GLYCOL 3350 119 GM BTL PO SCH (10:41)
[2019-05-08] MEDS: ENALAPRIL MALEATE 10 MG TABLET (FP) PO SCH (14:17)
--- NOTE | 2019-05-08 16:37 | PN ---
Progress Note (short form) - Note Progress Note: Subjective: painin R hand. and L heel. Objective: Vital Signs: Last Vital Signs Temp Pulse Resp BP Pulse Ox 97.8 F 77 20 137/73 99 05/08/19 15:39 05/08/19 15:39 05/08/19 15:39 05/08/19 15:39 05/08/19 09:00 Laboratory Results - last 24 hr 05/07/19 05/07/19 05/08/19 16:50 22:27 06:59 WBC RBC Hgb Hct MCV MCH MCHC RDW Plt Count MPV Sodium Potassium Chloride Carbon Dioxide Anion Gap BUN Creatinine Est GFR (CKD-EPI)AfAm Est GFR (CKD-EPI)NonAf POC Glucometer 162 178 164 Random Glucose Calcium Total Bilirubin Direct Bilirubin AST ALT Alkaline Phosphatase Total Protein Albumin 05/08/19 05/08/19 05/08/19 07:55 07:55 11:54 WBC 6.4 RBC 3.60 Hgb 11.0 Hct 33.0 MCV 91.8 MCH 30.7 MCHC 33.4 RDW 14.0 Plt Count 189 MPV 9.3 Sodium 137 Potassium 4.4 Chloride 104 Carbon Dioxide 28 Anion Gap 5 L BUN 33.0 H Creatinine 1.3 Est GFR (CKD-EPI)AfAm 53.48 Est GFR (CKD-EPI)NonAf 46.15 POC Glucometer 241 Random Glucose 162 H Calcium 9.5 Total Bilirubin 0.5 Direct Bilirubin 0.2 AST 29 ALT 21 Alkaline Phosphatase 172 H Total Protein 7.5 Albumin 2.9 L Physical Exam: NAD CV: RRR Lungs: CTAB Ext: R arm in a splint able to move her fingers. mild edema on fingers with no color change.she declined L foot exam. edema on both legs . L thigh circumference > R . ASSESSMENT AND PLAN: 53 y/o lady wit h/o opioid abuse, on methadone, Dm, HTN, anxiety, an other medical problems who presented with L heel ulcer. 1- L heel infected wound with OM and tenosynovitis. 2- R diatal radius and ulnar Fx. 3- methadone dependence. 4- Dilated CBD 0.9 cm. 5- PVD. 6- DM. Plan: - cont zosyn for now -will place PICC for Abx. - cont methadone - LFTS with isolated ALk phos elevation , likely due to Fx. out pT MRCP for dilated CBD - no weight baring RUE. - leg elevation - Vascular f.u as out p t. no intervention is recommended at this time . - cont levemir and SSI - cont lasix and enalapril - cont SQ heparin - Us of LLE Visit type - Emergency Visit Emergency Visit: Yes ED Registration Date: 04/29/19 Care time: The patient presented to the Emergency Department on the above date and was hospitalized for further evaluation of their emergent condition. - New Patient This patient is new to me today: No - Critical Care Critical Care patient: No
[2019-05-08] MEDS: SENNOSIDES 8.6MG TABLET (FP) PO SCH (23:00)
[2019-05-09] MEDS ORDERED: PIPERACILLIN/TAZOBACTAM 3.375 GM VIAL IVPB ONE ×2 (00:14→09:17)
[2019-05-09] MEDS ORDERED: DEXTROSE 5%-WATER - 50 ML IVPB ONE ×2 (00:15→09:17)
[2019-05-09] MEDS: PIPERACILLIN/TAZOB 3.375 GM 3.375 GM in DEXTROSE 5%-WATER - 50 ML IVPB SCH ×2 (02:00→09:23)
[2019-05-09] MEDS ORDERED: METHADONE HCL 40 MG DISPERSABLE TABLET ONE (06:45)
[2019-05-09] MEDS ORDERED: METHADONE HCL 10 MG TABLET ONE (06:45)
[2019-05-09] MEDS: METHADONE 80 MG, METHADONE 10 MG PO SCH (06:59)
[2019-05-09] MEDS: ALPRAZolam 1 MG TABLET PO PRN (07:01)
[2019-05-09] MEDS: GABAPENTIN 400 MG CAPSULE PO SCH ×3 (07:02→23:07)
[2019-05-09] MEDS: HEPARIN NA (PORCINE) 5,000 UNITS/ML 1ML VIAL SQ SCH ×3 (07:03→23:07)
[2019-05-09] MEDS: INSULIN (LEVEMIR) 100 UNITS/ML UNITS SQ SCH (07:47)
[2019-05-09] MEDS: INSULIN SLIDING SCALE (NOVOLOG) 1 VIAL SQ SCH ×4 (07:49→23:08)
[2019-05-09] MEDS ORDERED: PT OWN MED DRAWER 7, Y5N ONE ×4 (09:17→22:34)
[2019-05-09] MEDS: ENALAPRIL MALEATE 10 MG TABLET (FP) PO SCH (09:23)
[2019-05-09] MEDS: FUROSEMIDE 40 MG TABLET (FP) PO SCH (09:23)
[2019-05-09] MEDS: POLYETHYLENE GLYCOL 3350 119 GM BTL PO SCH (09:23)
[2019-05-09] MEDS: CITALOPRAM HYDROBROMIDE 20 MG TABLET PO SCH (09:23)
--- NOTE | 2019-05-09 15:58 | PN ---
Progress Note, Physician History of Present Illness: AMBULATING NO C/O HEEL PAIN AFEBRILE WBC WNL BC (-) WOUND C/S MORGANELLA, PROTEUS, ENTEROCOCCUS MRI/ BONE BX + OSTEOMYELITIS - Current Medication List Current Medications: Active Medications Acetaminophen (Tylenol -) 650 mg PO Q6H PRN PRN Reason: Fever Last Admin: 05/03/19 23:13 Dose: 650 mg Albuterol/Ipratropium (Duoneb -) 1 amp NEB Q6H PRN PRN Reason: SHORT OF BREATH/WHEEZING Citalopram Hydrobromide (Celexa -) 20 mg PO DAILY [facility] Last Admin: 05/09/19 09:23 Dose: 20 mg Docusate Sodium (Colace -) 100 mg PO BID PRN PRN Reason: CONSTIPATION Enalapril Maleate (Vasotec -) 10 mg PO DAILY [facility] Last Admin: 05/09/19 09:23 Dose: 10 mg Furosemide (Lasix -) 40 mg PO DAILY [facility] Last Admin: 05/09/19 09:23 Dose: 40 mg Gabapentin (Neurontin -) 800 mg PO TID [facility] Last Admin: 05/09/19 14:31 Dose: 800 mg Heparin Sodium (Porcine) (Heparin -) 5,000 unit SQ TID [facility] Last Admin: 05/09/19 14:32 Dose: 5,000 unit Piperacillin Sod/Tazobactam (Sod 3.375 gm/ Dextrose) 50 mls @ 100 mls/hr IVPB Q8H-IV [facility]; Protocol Last Admin: 05/09/19 09:23 Dose: 100 mls/hr Insulin Aspart (Novolog Vial Sliding Scale -) 1 vial SQ ACHS [facility]; Protocol Last Admin: 05/09/19 11:49 Dose: 8 units Insulin Detemir (Levemir Vial) 10 units SQ DAILY@0700 [facility] Last Admin: 05/09/19 07:47 Dose: 10 units Methadone HCl 80 mg/ Methadone (HCl 10 mg) 90 mg PO DAILY@0600 [facility] Last Admin: 05/09/19 06:59 Dose: 90 mg Methyl Salicylate (Jam-Anglees -) 1 applic TP Q24H PRN PRN Reason: PAIN Polyethylene Glycol (Miralax (For Daily Use) -) 17 gm PO DAILY [facility] Last Admin: 05/09/19 09:23 Dose: Not Given Senna (Senna -) 1 tab PO HS [facility] Last Admin: 05/08/19 23:00 Dose: Not Given - Objective Vital Signs: Vital Signs Temperature 97.9 F 05/09/19 15:00 Pulse Rate 83 05/09/19 15:00 Respiratory Rate 05/09/19 15:00 Blood Pressure 125/61 05/09/19 15:00 O2 Sat by Pulse Oximetry (%) 99 05/09/19 09:00 Constitutional: Yes: No Distress Cardiovascular: Yes: Regular Rate and Rhythm, S1, S2 Respiratory: Yes: CTA Bilaterally Gastrointestinal: Yes: Normal Bowel Sounds, Soft. No: Tenderness Extremities: Yes: Other (DRESSING IN PLACE, FOOT) Labs: CBC, BMP 05/08/19 07:55 05/08/19 07:55 INR, PTT INR 1.10 (0.83-1.09) H 05/03/19 08:42 Assessment/Plan INFECTED DIABETIC HEEL ULCER/ OSTEOMYELITIS WILL NEED CATHETER FOR SENIOR CARE ANTIBIOTIC TX ERTAPENEM 1GM QD X 5WEEKS
--- NOTE | 2019-05-09 17:02 | PN ---
Physical Exam: SUBJECTIVE: Patient seen and examined RACHEL Complains of Left heel pain. States that the dressings are wet and needs a change. OBJECTIVE: Vital Signs Period Temp Pulse Resp BP Sys/Kelly Pulse Ox Last 24 Hr 97.1 F-98.3 F 69-83 20-20 114-158/58-89 99-99 GENERAL: The patient is awake, alert, and fully oriented, in no acute distress. HEAD: Normal with no signs of trauma. EYES: PERRL, extraocular movements intact, sclera anicteric, conjunctiva clear. ENT: Ears normal, oropharynx clear without exudates, moist mucous membranes. NECK: Trachea midline, full range of motion, supple. LUNGS: Breath sounds equal, clear to auscultation bilaterally, no wheezes, no crackles, no accessory muscle use. HEART: Regular rate and rhythm, S1, S2 without murmur, rub or gallop. ABDOMEN: Soft, nonTTP [id number], ND, normoactive bowel sounds EXTREMITIES: 2+ radial pulse of LUE, warm, well-perfused. RUE in short cast. Moving RUE fingers spontaneously, fingers warm and sensation intact. B/l lower extremity w/ nonpitting edema. Mild erythema of RLE. LLE bandaged with scant serous drainage. Left heel with >8cm diameter of surgical debridement, light pink base with mild fibrinous exudate at the edges, mil bleeding at center NEUROLOGICAL: Normal speech. PSYCH: meandering thoughts SKIN: Warm, dry, nonpitting edema in lower extremities, thickened skin in lower extremities Laboratory Results - last 24 hr 05/08/19 05/08/19 05/09/19 16:41 22:57 07:35 POC Glucometer 157 196 127 05/09/19 11:40 POC Glucometer 264 Active Medications Generic Name Dose Route Start Last Admin Trade Name Freq PRN Reason Stop Dose Admin Acetaminophen 650 mg 05/03/19 11:41 05/03/19 23:13 Tylenol - PO 650 mg Q6H PRN Administration Fever Albuterol/Ipratropium 1 amp 05/05/19 15:17 Duoneb - NEB Q6H PRN SHORT OF BREATH/WHEEZING Citalopram Hydrobromide 20 mg 05/05/19 15:30 05/09/19 09:23 Celexa - PO 20 mg DAILY [facility] Administration Docusate Sodium 100 mg 05/04/19 18:36 Colace - PO BID PRN CONSTIPATION Enalapril Maleate 10 mg 05/05/19 15:30 05/09/19 09:23 Vasotec - PO 10 mg DAILY [facility] Administration Furosemide 40 mg 05/05/19 15:30 05/09/19 09:23 Lasix - PO 40 mg DAILY [facility] Administration Gabapentin 800 mg 05/03/19 14:00 05/09/19 14:31 Neurontin - PO 800 mg TID [facility] Administration Heparin Sodium (Porcine) 5,000 unit 05/03/19 14:00 05/09/19 14:32 Heparin - SQ 5,000 unit TID [facility] Administration Ertapenem 1 gm/ Sodium 50 mls @ 100 mls/hr 05/09/19 16:00 Chloride IVPB DAILY [facility] Insulin Aspart 1 vial 05/03/19 16:30 05/09/19 11:49 Novolog Vial Sliding Scale - SQ 8 units ACHS [facility] Administration Protocol Insulin Detemir 10 units 05/04/19 07:00 05/09/19 07:47 Levemir Vial SQ 10 units DAILY@0700 [facility] Administration Methadone HCl 80 mg/ Methadone 90 mg 05/04/19 06:00 05/09/19 06:59 HCl 10 mg PO 90 mg DAILY@0600 [facility] Administration Methyl Salicylate 1 applic 05/03/19 11:41 Ajm-Angeles - TP Q24H PRN PAIN Polyethylene Glycol 17 gm 05/04/19 18:45 05/09/19 09:23 Miralax (For Daily Use) - PO Not Given DAILY [facility] Senna 1 tab 05/04/19 22:00 05/08/19 23:00 Senna - PO Not Given HS [facility] ASSESSMENT/PLAN: 53 year old female with history of insulin dependent diabetes mellitus, hypertension, anxiety, opiod use disorder (IV heroine; on Methadone), presents with complaint of bilateral lower extremity wounds. Admitted for OM of Left heel. S/p Left heel debridement w/ bone biopsy(Nilson, 05/03/19). S/p bedside RUE ulnar-radial closed reduction(Jose, 05/03/19). Was IV abx(zosyn), then changed to Ertapenem 1g QD [id number]. Will need PICC vs tunneled-catheter. #Lower extremity wounds --LLE OM > MRI(05/01/19): Left heel w/ extensive cellulitis and OM, partial tear of lateral plantar fascia > ESR: 66, CRP: 2.3 > Venous duplex bilateral lower extremities: decreased flow bilaterally > BCX(04/29/19): NGTD > Left Foot Heel Cx(04/29/19): Morganella, GBS > Left Foot Heel Surgical Bx(05/03/19): morganella, Group D Strep, GBS > CTA aortogram w/ bl runoffs(05/04/19): widely patent aortoiliac, femoro- popliteal and proximal infrapopliteal arteries - abx reigmen: --Zosyn then Ertapenem 1g QD [id number] -ID consult (Dr. Gaming): --c/w Zosyn then Ertapenem 1g QD [id number] -Vascular surgery/ wound care consult (Dr. Barclay) appreciated: --cleared from a vascular standpoint, if osteo found, pt will need HBO, --further work up vascular status after debridement with CTA. -Podiatry consult (Dr. Devine): --s/p Left heel debridement w/ bone biopsy(Nilson, 05/03/19) --Dressings: daily WTD #Right forearm ulnar styloid fracture >Xray: distal radial and ulnar fractures -Orthopedic surgery consulted, will evaluate. --s/p bedside closed reduction(Jose, 05/03/19) #Anxiety -Continue Alprazolam 2mg PO TID PRN #Diabetes mellitus -c/w Levemir 10 units -Insulin slidng scale ACHS -Fingerstick blood glucose monitoring ACHS -Gabapentn 800mg PO TID for neuropathy -HbA1c: 9.5 #Opiod dependence -Continue patient's Methadone. She uses [facility] on [facility] (90mg daily). #Elevated alkaline phosphatase -Concern for bone origin. GGT: elevated -Abd US: no acute pathology, CBD: 0.9cm, can do MRCP if there is increased clinical concern -LFTs downtrending #FEN -Diabetic diet #DVT Prophylaxis -Heparin 5000units subq TID --to hold prior to Tunneled-Cathteter #Disposition -MedSurg Visit type - Emergency Visit Emergency Visit: No - New Patient This patient is new to me today: No - Critical Care Critical Care patient: No ATTENDING PHYSICIAN STATEMENT I saw and evaluated the patient. I reviewed the resident's note and discussed the case with the resident. I agree with the resident's findings and plan as documented. SUBJECTIVE: OBJECTIVE: ASSESSMENT AND PLAN:
--- NOTE | 2019-05-09 17:03 | PN ---
Teaching Attending Note Name of Resident: Duong Mcnally ATTENDING PHYSICIAN STATEMENT I saw and evaluated the patient. I reviewed the resident's note and discussed the case with the resident. I agree with the resident's findings and plan as documented. SUBJECTIVE: No fever or chills. pain in L heel OBJECTIVE: NAD CV: RRR Lungs: CTAB Ext: R arm in a splint able to move her fingers. mild edema on fingers with no color change. L heel wit a deep ulcer with no drainage or any surrounding erythema. edema and hyperpigmentation on both legs . L thigh circumference > R . ASSESSMENT AND PLAN: 53 y/o lady wit h/o opioid abuse, on methadone, Dm, HTN, anxiety, an other medical problems who presented with L heel ulcer. 1- L heel infected wound with OM and tenosynovitis. 2- R diatal radius and ulnar Fx. 3- methadone dependence. 4- Dilated CBD 0.9 cm. 5- PVD. 6- DM. Plan: - plan fro Ertapenem x 5 weeks - weekly blood work - Tunneled cath placement - cont methadone - LFTS with isolated ALk phos elevation , likely due to Fx. out pT MRCP for dilated CBD - no weight baring RUE, until f/u with ortho - leg elevation - Vascular f.u as out p t. no intervention is recommended at this time . - cont levemir and SSI. will change to her home insulin at dc - cont lasix and enalapril - cont SQ heparin - Us of LLE
[2019-05-09] MEDS: ERTAPENEM SODIUM 1 GM in SODIUM CHLORIDE 50 ML IVPB SCH (17:58)
[2019-05-09] MEDS: SENNOSIDES 8.6MG TABLET (FP) PO SCH (23:07)
[2019-05-09] MEDS ORDERED: ALPRAZolam 2 MG TABLET PO PRN (23:22)
[2019-05-10] MEDS: ALPRAZolam 1 MG TABLET PO PRN ×2 (00:49→16:31)
[2019-05-10] MEDS ORDERED: METHADONE HCL 40 MG DISPERSABLE TABLET ONE (05:09)
[2019-05-10] MEDS ORDERED: METHADONE HCL 10 MG TABLET ONE (05:09)
[2019-05-10] MEDS: METHADONE 80 MG, METHADONE 10 MG PO SCH (06:17)
[2019-05-10] MEDS: GABAPENTIN 400 MG CAPSULE PO SCH ×3 (06:19→22:20)
[2019-05-10] MEDS: HEPARIN NA (PORCINE) 5,000 UNITS/ML 1ML VIAL SQ SCH ×3 (06:19→22:20)
[2019-05-10] MEDS: INSULIN (LEVEMIR) 100 UNITS/ML UNITS SQ SCH (06:20)
[2019-05-10] MEDS: INSULIN SLIDING SCALE (NOVOLOG) 1 VIAL SQ SCH ×4 (06:21→22:21)
[2019-05-10 09:15] LABS: HEMATOCRIT 28.9 % (32.4-45.2); HEMOGLOBIN 9.6 GM/dL (10.7-15.3); MCH 30.3 pg (25.7-33.7); MCHC 33.3 g/dl (32.0-36.0); MEAN PLT VOLUME 9.4 fl (7.5-11.1); PLATELET COUNT 179 K/MM3 (134-434); RBC 3.18 M/mm3 (3.60-5.2); RDW 14.9 % (11.6-15.6); WHITE BLOOD COUNT 6.1 K/mm3 (4.0-10.0)
[2019-05-10 10:33] LABS: BLOOD UREA NITROGEN 36.1 mg/dL (7-18); CALCIUM 8.6 mg/dL (8.5-10.1); CREATININE 1.2 mg/dL (0.55-1.3); MAGNESIUM 2.3 mg/dL (1.8-2.4); PHOSPHOROUS 4.2 mg/dL (2.5-4.9); POTASSIUM 4.1 mmol/L (3.5-5.1)
[2019-05-10] MEDS: POLYETHYLENE GLYCOL 3350 119 GM BTL PO SCH (10:49)
[2019-05-10] MEDS: CITALOPRAM HYDROBROMIDE 20 MG TABLET PO SCH (10:53)
[2019-05-10] MEDS: FUROSEMIDE 40 MG TABLET (FP) PO SCH (10:53)
[2019-05-10] MEDS: ENALAPRIL MALEATE 10 MG TABLET (FP) PO SCH (10:54)
[2019-05-10] MEDS: ERTAPENEM SODIUM 1 GM in SODIUM CHLORIDE 50 ML IVPB SCH (11:45)
[2019-05-10] MEDS ORDERED: PT OWN MED DRAWER 7, Y5N ONE ×2 (15:25→22:18)
--- NOTE | 2019-05-10 16:08 | PN ---
Progress Note (short form) - Note Progress Note: Podiatry F/U: Seen/evaluated at bedside NAD. Pain to left foot. Denies F/V/N/C/SOB/CP. Afebrile. S/p left heel debridement and bone biopsy for osteomyelitis. BRITTANIE: L foot: pedal pulses nonpalpable, TG wnl, CFT brisk to toes. There are no ischemic changes to the foot. Lateral heel diabetic ulcer with mixed fibrogranular base, granular tissue covering calcaneus, no purulent drainage, no fluctuance, no streaking cellulitis, no signs of active infection. Moderate tenderness to palpation. OR cx: morganella, group d strep, enterococcus Imp: 53 year old diabetic female with left heel diabetic ulcer and chronic osteomyelitis 1. IV abx per infectious disease 2. Tunnelled catheter placement 3. Patient instructed to minimizing weightbearing and for toe-touch weightbearing 4. Pod stable for discharge will f/u in wound healing center Malcolm Devine DPM
--- NOTE | 2019-05-10 17:28 | PN ---
Physical Exam: SUBJECTIVE: Patient seen and examined RACHEL Complains of Right thumb pain, Left-sided axillary pain at site of former I&D. Endorsing pain and demanding w/u. Threatening to purposefully fall in order to prolong hospitalization OBJECTIVE: Vital Signs Period Temp Pulse Resp BP Sys/Kelly Pulse Ox Last 24 Hr 97.2 F-99.4 F 72-88 20-20 100-153/48-78 100-100 GENERAL: The patient is awake, alert, and fully oriented, in no acute distress. HEAD: Normal with no signs of trauma. EYES: PERRL, extraocular movements intact, sclera anicteric, conjunctiva clear. ENT: Ears normal, oropharynx clear without exudates, moist mucous membranes. NECK: Trachea midline, full range of motion, supple. LUNGS: Breath sounds equal, clear to auscultation bilaterally, no wheezes, no crackles, no accessory muscle use. HEART: Regular rate and rhythm, S1, S2 without murmur, rub or gallop. ABDOMEN: Soft, nonTTP [id number], ND, normoactive bowel sounds EXTREMITIES: 2+ radial pulse of LUE, warm, well-perfused. RUE in short cast. Moving RUE fingers spontaneously, fingers warm and sensation intact. B/l lower extremity w/ nonpitting edema. Mild erythema of RLE. LLE bandaged with scant serous drainage. Left heel with >7cm diameter of surgical debridement, light pink base with mild fibrinous exudate at the edges, mil bleeding at center NEUROLOGICAL: Normal speech. PSYCH: meandering thoughts SKIN: Warm, dry, nonpitting edema in lower extremities, thickened skin in lower extremities Laboratory Results - last 24 hr 05/09/19 05/09/19 05/10/19 17:27 22:10 06:08 WBC RBC Hgb Hct MCV MCH MCHC RDW Plt Count MPV Sodium Potassium Chloride Carbon Dioxide Anion Gap BUN Creatinine Est GFR (CKD-EPI)AfAm Est GFR (CKD-EPI)NonAf POC Glucometer 234 140 152 Random Glucose Calcium Phosphorus Magnesium 05/10/19 05/10/19 05/10/19 07:45 07:45 11:35 WBC 6.1 RBC 3.18 L Hgb 9.6 L Hct 28.9 L MCV 91.0 MCH 30.3 MCHC 33.3 RDW 14.9 Plt Count 179 MPV 9.4 Sodium 137 Potassium 4.1 Chloride 105 Carbon Dioxide 26 Anion Gap 7 L BUN 36.1 H Creatinine 1.2 Est GFR (CKD-EPI)AfAm 58.92 Est GFR (CKD-EPI)NonAf 50.84 POC Glucometer 188 Random Glucose 150 H Calcium 8.6 Phosphorus 4.2 Magnesium 2.3 05/10/19 16:59 WBC RBC Hgb Hct MCV MCH MCHC RDW Plt Count MPV Sodium Potassium Chloride Carbon Dioxide Anion Gap BUN Creatinine Est GFR (CKD-EPI)AfAm Est GFR (CKD-EPI)NonAf POC Glucometer 148 Random Glucose Calcium Phosphorus Magnesium Active Medications Generic Name Dose Route Start Last Admin Trade Name Freq PRN Reason Stop Dose Admin Acetaminophen 650 mg 05/03/19 11:41 05/03/19 23:13 Tylenol - PO 650 mg Q6H PRN Administration Fever Albuterol/Ipratropium 1 amp 05/05/19 15:17 Duoneb - NEB Q6H PRN SHORT OF BREATH/WHEEZING Alprazolam 2 mg 05/10/19 00:29 05/10/19 16:31 Xanax PO 2 mg TID PRN Administration ANXIETY Citalopram Hydrobromide 20 mg 05/05/19 15:30 05/10/19 10:53 Celexa - PO 20 mg DAILY [facility] Administration Docusate Sodium 100 mg 05/04/19 18:36 Colace - PO BID PRN CONSTIPATION Enalapril Maleate 10 mg 05/05/19 15:30 05/10/19 10:54 Vasotec - PO 10 mg DAILY [facility] Administration Furosemide 40 mg 05/05/19 15:30 05/10/19 10:53 Lasix - PO 40 mg DAILY [facility] Administration Gabapentin 800 mg 05/03/19 14:00 05/10/19 15:28 Neurontin - PO 800 mg TID [facility] Administration Heparin Sodium (Porcine) 5,000 unit 05/03/19 14:00 05/10/19 14:22 Heparin - SQ Not Given TID [facility] Ertapenem 1 gm/ Sodium 50 mls @ 100 mls/hr 05/09/19 16:00 05/10/19 11:45 Chloride IVPB 100 mls/hr DAILY [facility] Administration Insulin Aspart 1 vial 05/03/19 16:30 05/10/19 17:02 Novolog Vial Sliding Scale - SQ 2 units ACHS [facility] Administration Protocol Insulin Detemir 10 units 05/04/19 07:00 05/10/19 06:20 Levemir Vial SQ 10 units DAILY@0700 [facility] Administration Methadone HCl 80 mg/ Methadone 90 mg 05/04/19 06:00 05/10/19 06:17 HCl 10 mg PO 90 mg DAILY@0600 [facility] Administration Methyl Salicylate 1 applic 05/03/19 11:41 Jam-Angeles - TP Q24H PRN PAIN Polyethylene Glycol 17 gm 05/04/19 18:45 05/10/19 10:49 Miralax (For Daily Use) - PO Not Given DAILY [facility] Senna 1 tab 05/04/19 22:00 05/09/19 23:07 Senna - PO 1 tab HS [facility] Administration ASSESSMENT/PLAN: 53 year old female with history of insulin dependent diabetes mellitus, hypertension, anxiety, opiod use disorder (IV heroine; on Methadone), presents with complaint of bilateral lower extremity wounds. Admitted for OM of Left heel. S/p Left heel debridement w/ bone biopsy(Nilson, 05/03/19). S/p bedside RUE ulnar-radial closed reduction(Jose, 05/03/19). Was IV abx(zosyn), then changed to Ertapenem 1g QD [id number]. Tunneled-catheter placed. Pt appealing discharge. States that she will purposely fall to prolong her hospitalization. #Lower extremity wounds --LLE OM > MRI(05/01/19): Left heel w/ extensive cellulitis and OM, partial tear of lateral plantar fascia > ESR: 66, CRP: 2.3 > Venous duplex bilateral lower extremities: decreased flow bilaterally > BCX(04/29/19): NGTD > Left Foot Heel Cx(04/29/19): Morganella, GBS > Left Foot Heel Surgical Bx(05/03/19): morganella, Group D Strep, GBS > CTA aortogram w/ bl runoffs(05/04/19): widely patent aortoiliac, femoro- popliteal and proximal infrapopliteal arteries - abx reigmen: --Zosyn then Ertapenem 1g QD [id number] -ID consult (Dr. Gaming): --c/w Zosyn then Ertapenem 1g QD [id number] -Vascular surgery/ wound care consult (Dr. Barclay) appreciated: --cleared from a vascular standpoint, if osteo found, pt will need HBO, --further work up vascular status after debridement with CTA. -Podiatry consult (Dr. Devine): --s/p Left heel debridement w/ bone biopsy(Nilson, 05/03/19) --Dressings: daily WTD #Right forearm ulnar styloid fracture >Xray: distal radial and ulnar fractures -Orthopedic surgery consulted, will evaluate. --s/p bedside closed reduction(Jose, 05/03/19) #Anxiety -Continue Alprazolam 2mg PO TID PRN #Diabetes mellitus -c/w Levemir 10 units -Insulin slidng scale ACHS -Fingerstick blood glucose monitoring ACHS -Gabapentn 800mg PO TID for neuropathy -HbA1c: 9.5 #Opiod dependence -Continue patient's Methadone. She uses [facility] on [facility] (90mg daily). #Elevated alkaline phosphatase -Concern for bone origin. GGT: elevated -Abd US: no acute pathology, CBD: 0.9cm, can do MRCP if there is increased clinical concern -LFTs downtrending #FEN -Diabetic diet #DVT Prophylaxis -Heparin 5000units subq TID --to hold prior to Tunneled-Cathteter #Disposition -MedSurg Visit type - Emergency Visit Emergency Visit: No - New Patient This patient is new to me today: No - Critical Care Critical Care patient: No ATTENDING PHYSICIAN STATEMENT I saw and evaluated the patient. I reviewed the resident's note and discussed the case with the resident. I agree with the resident's findings and plan as documented. SUBJECTIVE: OBJECTIVE: ASSESSMENT AND PLAN:
--- NOTE | 2019-05-10 18:15 | PN ---
Teaching Attending Note Name of Resident: Duong Mcnally ATTENDING PHYSICIAN STATEMENT I saw and evaluated the patient. I reviewed the resident's note and discussed the case with the resident. I agree with the resident's findings and plan as documented. SUBJECTIVE: No fever or chills. cont to have pain in her foot . she says that some one told her previously ( before her admission ) she has a lesion on her left side. she does not have any specific details . OBJECTIVE: NAD Ext: R arm in a splint able to move her fingers. mild edema on fingers with no color change. edema and hyperpigmentation on legs. L foot in a dressing ASSESSMENT AND PLAN: 53 y/o lady wit h/o opioid abuse, on methadone, D, HTN, anxiety, an other medical problems who presented with L heel ulcer. 1- L heel infected wound with OM and tenosynovitis. 2- R diatal radius and ulnar Fx. 3- methadone dependence. 4- Dilated CBD 0.9 cm. 5- PVD. 6- DM. Plan: - plan for Ertapenem x 5 weeks - weekly blood work while on Abx ( ESR, CRP, CMP, CBC) - Tunneled cath placement today - cont methadone - LFTS with isolated ALk phos elevation , likely due to Fx. out pT MRCP for dilated CBD - no weight baring RUE, until f/u with ortho - leg elevation - Vascular f.u as out p t. no intervention is recommended at this time . - Resume her home insulin at dc - cont lasix and enalapril - cont SQ heparin - old cxray reviewed. radiologist reported a lesion in L base. Not edilson rib vs lung lesion. xray this admission with no reported findings. she will need out pt follow up with her PCP for further investigations ( probably CT of the chest) . patient was discharged home with VNS today . plan for IV abx at infusion center. She declined going to rehab for IV abx and wound care. she understands that wound might get worse, in addition to the risk of fall and risk for non compliance with her Abx regimen. she insisted on home dc. Her wishes were respected. however, later today, she refused to leave the hospital and she threatened to fall i n the hospital ( per medical student report to me )
[2019-05-10] MEDS: SENNOSIDES 8.6MG TABLET (FP) PO SCH (22:20)
[2019-05-11] MEDS ORDERED: METHADONE HCL 40 MG DISPERSABLE TABLET ONE (06:07)
[2019-05-11] MEDS ORDERED: METHADONE HCL 10 MG TABLET ONE (06:07)
[2019-05-11] MEDS: GABAPENTIN 400 MG CAPSULE PO SCH ×3 (06:11→21:39)
[2019-05-11] MEDS: HEPARIN NA (PORCINE) 5,000 UNITS/ML 1ML VIAL SQ SCH ×3 (06:12→21:39)
[2019-05-11] MEDS: METHADONE 80 MG, METHADONE 10 MG PO SCH (06:12)
[2019-05-11] MEDS: INSULIN (LEVEMIR) 100 UNITS/ML UNITS SQ SCH (07:06)
[2019-05-11] MEDS: INSULIN SLIDING SCALE (NOVOLOG) 1 VIAL SQ SCH ×4 (07:07→21:39)
[2019-05-11] MEDS: ALPRAZolam 1 MG TABLET PO PRN ×2 (07:10→21:41)
[2019-05-11] MEDS ORDERED: PT OWN MED DRAWER 7, Y5N ONE ×3 (09:34→21:36)
[2019-05-11] MEDS: ERTAPENEM SODIUM 1 GM in SODIUM CHLORIDE 50 ML IVPB SCH (10:08)
[2019-05-11] MEDS: FUROSEMIDE 40 MG TABLET (FP) PO SCH (10:38)
[2019-05-11] MEDS: ENALAPRIL MALEATE 10 MG TABLET (FP) PO SCH (10:38)
[2019-05-11] MEDS: CITALOPRAM HYDROBROMIDE 20 MG TABLET PO SCH (10:38)
[2019-05-11] MEDS: POLYETHYLENE GLYCOL 3350 119 GM BTL PO SCH (10:39)
--- NOTE | 2019-05-11 13:24 | DS ---
Physical Exam: SUBJECTIVE: Patient seen and examined Endorsing pain of Left sided chest wall, axilla and demanding w/u. Had threatened to fall to purposefully fall in order to prolong hospitalization OBJECTIVE: Vital Signs Period Temp Pulse Resp BP Sys/Kelly Pulse Ox Last 24 Hr 97.2 F-98.3 F 72-88 20-20 103-153/62-85 100 PHYSICAL EXAM GENERAL: The patient is awake, alert, and fully oriented, in no acute distress. HEAD: Normal with no signs of trauma. EYES: PERRL, extraocular movements intact, sclera anicteric, conjunctiva clear. ENT: Ears normal, oropharynx clear without exudates, moist mucous membranes. NECK: Trachea midline, full range of motion, supple. LUNGS: Breath sounds equal, clear to auscultation bilaterally, no wheezes, no crackles, no accessory muscle use. HEART: Regular rate and rhythm, S1, S2 without murmur, rub or gallop. ABDOMEN: Soft, nonTTP [id number], ND, normoactive bowel sounds EXTREMITIES: 2+ radial pulse of LUE, warm, well-perfused. RUE in short cast. Moving RUE fingers spontaneously, fingers warm and sensation intact. B/l lower extremity w/ nonpitting edema. Mild erythema of RLE. LLE bandaged with scant serous drainage. Left heel with >7cm diameter of surgical debridement, light pink base with mild fibrinous exudate at the edges, mil bleeding at center NEUROLOGICAL: Normal speech. PSYCH: meandering thoughts SKIN: Warm, dry, nonpitting edema in lower extremities, thickened skin in lower extremities LABS Laboratory Results - last 24 hr 05/10/19 05/10/19 05/11/19 16:59 21:14 06:03 POC Glucometer 148 156 168 05/11/19 10:59 POC Glucometer 233 HOSPITAL COURSE: Date of Admission:04/29/19 Date of Discharge: 05/11/19 53 year old female with history of insulin dependent diabetes mellitus, hypertension, anxiety, opiod use disorder (IV heroine; on Methadone), presented with complaint of bilateral lower extremity wounds. Admitted for OM of Left heel. S/p Left heel debridement w/ bone biopsy(Nilson, 05/03/19). S/p bedside RUE ulnar-radial closed reduction(Jose, 05/03/19). MRI suggesting OM of Left heel w/ partial tear of lateral plantar fascia. Vascular consult recommended CTA aortogram w/ b/l runoffs, which showed patent vasculature. Bone biopsy growing morganella, Group D Strept, GBS. Was given IV abx(zosyn), then changed to Ertapenem 1g QD [id number]. Tunneled-catheter placed on 05/10/19. Incidental findings of dilated CBD(0.9cm). HbA1c 9.5. Pt appealed discharge on 05/10/19. Stated that she will purposely fall to prolong her hospitalization. Minutes to complete discharge: 31 Discharge Summary Problems reviewed: Yes Reason For Visit: DIABETIC FOOT ULCER Current Active Problems Colles' fracture of right radius, initial encounter for closed fracture (Acute) Diabetic foot ulcer (Acute) Osteomyelitis (Acute) Condition: Improved - Instructions Diet, Activity, Other Instructions: You were admitted to the hospital for evaluation of your Left foot pain. You were evaluated by the furnace fitter, vascular surgeon, and infectious disease physicians and underwent debridement of your wound. Imaging studies and bone cultures confirmed infection of your bone (osteomyelitis) and you were treated with antibiotics. You will require IV antibiotics as outpatient MEDICATIONS: - Intravenous Antibiotics: Ertapenem 1 gram IV daily through 06/04/19 - Continue taking your other home medications as directed Additional Instructions: - Keep Right arm cast clean and dry, no weight baring on right arm until you follow up with the your orthopedic surgeon - Apply wet-to-dry dressings to you Left heel wound, once daily. Apply a gauze, moistened with normal saline, on top of the heel wound. Then apply a dry bandage on top of the dressing. Please see the physicians below: -Primary Care Physician: to discuss your recent hospitalization. -Orthopedist(Rodney): to discuss your Right wrist splint -Podiatry(Nilson): to discuss your Left heel wound -Infectious Disease specialist(Mekhi): to discuss your bone infection of the Left Heel - GI dr. Stone, to inquire about getting an outpatient MRCP for a dilated Common Bile Duct - follow up with Jayesh Sandoval, vascular surgeon regarding your circulation in legs you need weekly blood work ( CBC, CMP, ESR, CRP ) while on Antibiotics . results to be faxed to Dr. Gaming Avoid taking ibuprofen/motrin/Advil to prevent damage to your kidneys Return to your methadone clinic for your methadone You need to follow with Your primary care doctor and the lung doctor ( dr. Martínez ) , regarding the findings of a possible lesion on the L lung/rib seen on a previous xray. need to confirm with CT scan . No urgency but needs to be done within the next month for sure. Referrals: Matt Gaming MD [Staff Physician] - 2 Weeks Javier Devine MD [Staff Physician] - 1 Week Hari Stevens MD [Staff Physician] - 1 Week Nicole Antoine MD [Primary Care Provider] - 1 Week Aishwarya Stone DO [Staff Physician] - 2 Weeks Ildefonso Barclay DO [Staff Physician] - 3 Weeks Pk Martínez MD, MD [Staff Physician] - Disposition: HOME - Home Medications Comprehensive Discharge Medication List: Ambulatory Orders Alprazolam [Xanax] 2 mg PO TID 10/17/18 Gabapentin 800 mg PO TID #30 tablet 10/17/18 Insulin Lispro Protamin/Lispro [Humalog Mix 75-25 Kwikpen] 24 units SQ BID 04/30 Albuterol Sulfate Inhaler - [Ventolin HFA Inhaler -] 2 inh PO Q4H 05/03/19 Citalopram Hydrobromide [Citalopram HBr] 20 mg PO DAILY 05/03/19 Enalapril Maleate [Vasotec -] 10 mg PO DAILY 05/03/19 Fenofibrate Nanocrystallized [Fenofibrate] 145 mg PO DAILY 05/03/19 Ferrous Sulfate 325 mg PO BID 05/03/19 Furosemide 40 mg PO DAILY 05/03/19 Ipratropium/Albuterol Sulfate [Iprat-Albut 0.5-3(2.5) mg/3 ml] 1 vial IH Q6H PRN 05/03/19 Metformin HCl [Glucophage] 1,000 mg PO BID 05/03/19 Sitagliptin Phosphate [Januvia] 100 mg PO DAILY 05/03/19 Ertapenem Sodium [Invanz -] 1 gm IVPB DAILY vial 05/09/19 Methadone [Dolophine -] 90 mg PO DAILY #1 tab.disper MDD 90 mg 05/09/19 This patient is new to me today: No Emergency Visit: No Critical Care patient: No - Discharge Referral Referred to [facility] Med P.C[facility] No ATTENDING PHYSICIAN STATEMENT I saw and evaluated the patient. I reviewed the resident's note and discussed the case with the resident. I agree with the resident's findings and plan as documented. SUBJECTIVE: OBJECTIVE: ASSESSMENT AND PLAN:
--- NOTE | 2019-05-11 18:20 | PN ---
Teaching Attending Note Name of Resident: Duong Mcnally ATTENDING PHYSICIAN STATEMENT I saw and evaluated the patient. I reviewed the resident's note and discussed the case with the resident. I agree with the resident's findings and plan as documented. SUBJECTIVE: Patient is comfortable with no acute distress. OBJECTIVE: Vital Signs Temperature 98.1 F 05/11/19 15:00 Pulse Rate 82 05/11/19 15:00 Respiratory Rate 20 05/11/19 15:00 Blood Pressure 143/76 05/11/19 15:00 O2 Sat by Pulse Oximetry (%) 100 05/11/19 09:00 Chest: CTA BL Heart: S1S2 +, NAD Abdomen: soft, NT,ND Ext: R arm in a splint able to move her fingers. mild edema on fingers with no color change. edema and hyperpigmentation on legs. L foot in a dressing CBCD WBC 6.1 K/mm3 (4.0-10.0) 05/10/19 07:45 RBC 3.18 M/mm3 (3.60-5.2) L 05/10/19 07:45 Hgb 9.6 GM/dL (10.7-15.3) L 05/10/19 07:45 Hct 28.9 % (32.4-45.2) L 05/10/19 07:45 MCV 91.0 fl (80-96) 05/10/19 07:45 MCHC 33.3 g/dl (32.0-36.0) 05/10/19 07:45 RDW 14.9 % (11.6-15.6) 05/10/19 07:45 Plt Count 179 K/MM3 (134-434) 05/10/19 07:45 MPV 9.4 fl (7.5-11.1) 05/10/19 07:45 CMP Sodium 137 mmol/L (136-145) 05/10/19 07:45 Potassium 4.1 mmol/L (3.5-5.1) 05/10/19 07:45 Chloride 105 mmol/L (98-107) 05/10/19 07:45 Carbon Dioxide 26 mmol/L (21-32) 05/10/19 07:45 Anion Gap 7 MMOL/L (8-16) L 05/10/19 07:45 BUN 36.1 mg/dL (7-18) H 05/10/19 07:45 Creatinine 1.2 mg/dL (0.55-1.3) 05/10/19 07:45 Random Glucose 150 mg/dL (74-106) H 05/10/19 07:45 Calcium 8.6 mg/dL (8.5-10.1) 05/10/19 07:45 Total Bilirubin 0.5 mg/dL (0.2-1) 05/08/19 07:55 AST 29 U/L (15-37) 05/08/19 07:55 ALT 21 U/L (13-61) 05/08/19 07:55 Alkaline Phosphatase 172 U/L (45-117) H 05/08/19 07:55 Total Protein 7.5 g/dl (6.4-8.2) 05/08/19 07:55 Albumin 2.9 g/dl (3.4-5.0) L 05/08/19 07:55 CARDIAC ENZYMES Creatine Kinase 172 U/L (26-192) 04/29/19 14:50 Troponin I < 0.02 ng/ml (0.00-0.05) 04/29/19 14:50 Current Medications Generic Name Dose Route Start Last Admin Trade Name Freq PRN Reason Stop Dose Admin Acetaminophen 650 mg 05/03/19 11:41 05/03/19 23:13 Tylenol - PO 650 mg Q6H PRN Administration Fever Albuterol/Ipratropium 1 amp 05/05/19 15:17 Duoneb - NEB Q6H PRN SHORT OF BREATH/WHEEZING Alprazolam 2 mg 05/10/19 00:29 05/11/19 07:10 Xanax PO 2 mg TID PRN Administration ANXIETY Citalopram Hydrobromide 20 mg 05/05/19 15:30 05/11/19 10:38 Celexa - PO 20 mg DAILY OBI Administration Docusate Sodium 100 mg 05/04/19 18:36 Colace - PO BID PRN CONSTIPATION Enalapril Maleate 10 mg 05/05/19 15:30 05/11/19 10:38 Vasotec - PO 10 mg DAILY OBI Administration Furosemide 40 mg 05/05/19 15:30 05/11/19 10:38 Lasix - PO 40 mg DAILY OBI Administration Gabapentin 800 mg 05/03/19 14:00 05/11/19 15:50 Neurontin - PO 800 mg TID OBI Administration Heparin Sodium (Porcine) 5,000 unit 05/03/19 14:00 05/11/19 15:50 Heparin - SQ 5,000 unit TID OBI Administration Ertapenem 1 gm/ Sodium 50 mls @ 100 mls/hr 05/09/19 16:00 05/11/19 10:08 Chloride IVPB 100 mls/hr DAILY OBI Administration Insulin Aspart 1 vial 05/03/19 16:30 05/11/19 16:51 Novolog Vial Sliding Scale - SQ 2 units ACHS OBI Administration Protocol Insulin Detemir 10 units 05/04/19 07:00 05/11/19 07:06 Levemir Vial SQ 10 units DAILY@0700 [facility] Administration Methadone HCl 80 mg/ Methadone 90 mg 05/04/19 06:00 05/11/19 06:12 HCl 10 mg PO 90 mg DAILY@0600 OBI Administration Methyl Salicylate 1 applic 05/03/19 11:41 Jam-Angeles - TP Q24H PRN PAIN Polyethylene Glycol 17 gm 05/04/19 18:45 05/11/19 10:39 Miralax (For Daily Use) - PO Not Given DAILY OBI Senna 1 tab 05/04/19 22:00 05/10/19 22:20 Senna - PO 1 tab HS OBI Administration Home Medications Medication Instructions Recorded Alprazolam [Xanax] 2 mg PO TID 10/17/18 Gabapentin 800 mg PO TID #30 tablet 10/17/18 Insulin Lispro Protamin/Lispro 24 units SQ BID 04/30/19 [Humalog Mix 75-25 Kwikpen] Albuterol Sulfate Inhaler - 2 inh PO Q4H 05/03/19 [Ventolin HFA Inhaler -] Citalopram Hydrobromide 20 mg PO DAILY 05/03/19 [Citalopram HBr] Enalapril Maleate [Vasotec -] 10 mg PO DAILY 05/03/19 Fenofibrate Nanocrystallized 145 mg PO DAILY 05/03/19 [Fenofibrate] Ferrous Sulfate 325 mg PO BID 05/03/19 Furosemide 40 mg PO DAILY 05/03/19 Ipratropium/Albuterol Sulfate 1 vial IH Q6H PRN 05/03/19 [Iprat-Albut 0.5-3(2.5) mg/3 ml] Metformin HCl [Glucophage] 1,000 mg PO BID 05/03/19 Sitagliptin Phosphate [Januvia] 100 mg PO DAILY 05/03/19 Ertapenem Sodium [Invanz -] 1 gm IVPB DAILY vial 05/09/19 Methadone [Dolophine -] 90 mg PO DAILY #1 tab.disper MDD 05/09/19 90 mg ASSESSMENT AND PLAN: Patient is a 53yof with PMhx of opioid abuse, on methadone, HTN, anxiety, presented with L heel ulcer. # Acute L heel infected wound with OM and tenosynovitis. plan for Ertapenem x 5 weeks , patient has a tunneled catheter day#2 of placement weekly blood work while on Abx ( ESR, CRP, CMP, CBC) , follow up with infusion center daily for IV antibiotic, follow with the wound care on a weekly basis. # R diatal radius and ulnar Fx. isolated ALk phos elevation , likely due to Fx. no weight baring RUE, until f/u with ortho # methadone dependence: cont methadone # Dilated CBD 0.9 cm.: out pT MRCP for dilated CBD # PVD: leg elevation ,Vascular f/u as outpatient no intervention is recommended at this time #T2DM: Resume her home insulin at dc #HTN : continue lasix and enalapril DVT Px: SQ heparin Old cxray reviewed. radiologist reported a lesion in L base. Not sure rib vs lung lesion. xray this admission with no reported findings. she will need out pt follow up with her PCP for further investigations ( probably CT of the chest) . Patient was discharged home with VNS but appealed. plan for IV abx at infusion center. She declined going to rehab for IV abx and wound care. she understands that wound might get worse, in addition to the risk of fall and risk for non compliance with her Abx regimen. she insisted on home dc. patient is going home today.
[2019-05-11] MEDS ORDERED: INSULIN (NOVOLOG) ASPART 100 UNITS/ML 10ML VIAL ONE (21:37)
[2019-05-11] MEDS: SENNOSIDES 8.6MG TABLET (FP) PO SCH (21:39)
[2019-05-12] MEDS: HEPARIN NA (PORCINE) 5,000 UNITS/ML 1ML VIAL SQ SCH ×2 (06:48→13:22)
[2019-05-12] MEDS: INSULIN SLIDING SCALE (NOVOLOG) 1 VIAL SQ SCH ×2 (06:50→12:15)
[2019-05-12] MEDS ORDERED: METHADONE HCL 40 MG DISPERSABLE TABLET ONE (08:58)
[2019-05-12] MEDS ORDERED: METHADONE HCL 10 MG TABLET ONE (08:59)
[2019-05-12] MEDS: METHADONE 80 MG, METHADONE 10 MG PO SCH (09:01)
[2019-05-12] MEDS: CITALOPRAM HYDROBROMIDE 20 MG TABLET PO SCH (09:03)
[2019-05-12] MEDS: FUROSEMIDE 40 MG TABLET (FP) PO SCH (09:03)
[2019-05-12] MEDS: GABAPENTIN 400 MG CAPSULE PO SCH ×2 (09:04→13:23)
[2019-05-12] MEDS: INSULIN (LEVEMIR) 100 UNITS/ML UNITS SQ SCH (09:04)
--- NOTE | 2019-05-12 09:41 | PN ---
Teaching Attending Note Name of Resident: Duong Mcnally ATTENDING PHYSICIAN STATEMENT I saw and evaluated the patient. I reviewed the resident's note and discussed the case with the resident. I agree with the resident's findings and plan as documented. SUBJECTIVE: Patient is comfortable going home today, did not go home yesterday Vital Signs Temperature 98.3 F 05/12/19 06:00 Pulse Rate 73 05/12/19 06:00 Respiratory Rate 20 05/12/19 06:00 Blood Pressure 104/56 L 05/12/19 06:00 O2 Sat by Pulse Oximetry (%) 100 05/11/19 21:00 Chest: CTA BL Heart: S1S2 +, NAD Abdomen: soft, NT,ND Ext: R arm in a splint able to move her fingers. mild edema on fingers with no color change. edema and hyperpigmentation on legs. L foot in a dressing CBCD WBC 6.1 K/mm3 (4.0-10.0) 05/10/19 07:45 RBC 3.18 M/mm3 (3.60-5.2) L 05/10/19 07:45 Hgb 9.6 GM/dL (10.7-15.3) L 05/10/19 07:45 Hct 28.9 % (32.4-45.2) L 05/10/19 07:45 MCV 91.0 fl (80-96) 05/10/19 07:45 MCHC 33.3 g/dl (32.0-36.0) 05/10/19 07:45 RDW 14.9 % (11.6-15.6) 05/10/19 07:45 Plt Count 179 K/MM3 (134-434) 05/10/19 07:45 MPV 9.4 fl (7.5-11.1) 05/10/19 07:45 CMP Sodium 137 mmol/L (136-145) 05/10/19 07:45 Potassium 4.1 mmol/L (3.5-5.1) 05/10/19 07:45 Chloride 105 mmol/L (98-107) 05/10/19 07:45 Carbon Dioxide 26 mmol/L (21-32) 05/10/19 07:45 Anion Gap 7 MMOL/L (8-16) L 05/10/19 07:45 BUN 36.1 mg/dL (7-18) H 05/10/19 07:45 Creatinine 1.2 mg/dL (0.55-1.3) 05/10/19 07:45 Random Glucose 150 mg/dL (74-106) H 05/10/19 07:45 Calcium 8.6 mg/dL (8.5-10.1) 05/10/19 07:45 Total Bilirubin 0.5 mg/dL (0.2-1) 05/08/19 07:55 AST 29 U/L (15-37) 05/08/19 07:55 ALT 21 U/L (13-61) 05/08/19 07:55 Alkaline Phosphatase 172 U/L (45-117) H 05/08/19 07:55 Total Protein 7.5 g/dl (6.4-8.2) 05/08/19 07:55 Albumin 2.9 g/dl (3.4-5.0) L 05/08/19 07:55 CARDIAC ENZYMES Creatine Kinase 172 U/L (26-192) 04/29/19 14:50 Troponin I < 0.02 ng/ml (0.00-0.05) 04/29/19 14:50 Current Medications Generic Name Dose Route Start Last Admin Trade Name Freq PRN Reason Stop Dose Admin Acetaminophen 650 mg 05/03/19 11:41 05/03/19 23:13 Tylenol - PO 650 mg Q6H PRN Administration Fever Albuterol/Ipratropium 1 amp 05/05/19 15:17 Duoneb - NEB Q6H PRN SHORT OF BREATH/WHEEZING Alprazolam 2 mg 05/10/19 00:29 05/11/19 21:41 Xanax PO 2 mg TID PRN Administration ANXIETY Citalopram Hydrobromide 20 mg 05/05/19 15:30 05/12/19 09:03 Celexa - PO 20 mg DAILY OBI Administration Docusate Sodium 100 mg 05/04/19 18:36 Colace - PO BID PRN CONSTIPATION Enalapril Maleate 10 mg 05/05/19 15:30 05/11/19 10:38 Vasotec - PO 10 mg DAILY OBI Administration Furosemide 40 mg 05/05/19 15:30 05/12/19 09:03 Lasix - PO 40 mg DAILY OBI Administration Gabapentin 800 mg 05/03/19 14:00 05/12/19 09:04 Neurontin - PO 800 mg TID [facility] Administration Heparin Sodium (Porcine) 5,000 unit 05/03/19 14:00 05/12/19 06:48 Heparin - SQ Not Given TID [facility] Ertapenem 1 gm/ Sodium 50 mls @ 100 mls/hr 05/09/19 16:00 05/11/19 10:08 Chloride IVPB 100 mls/hr DAILY [facility] Administration Insulin Aspart 1 vial 05/03/19 16:30 05/12/19 06:50 Novolog Vial Sliding Scale - SQ Not Given ACHS [facility] Protocol Insulin Detemir 10 units 05/04/19 07:00 05/12/19 09:04 Levemir Vial SQ 10 units DAILY@0700 [facility] Administration Methadone HCl 80 mg/ Methadone 90 mg 05/04/19 06:00 05/12/19 09:01 HCl 10 mg PO 90 mg DAILY@0600 [facility] Administration Methyl Salicylate 1 applic 05/03/19 11:41 Jam-Angeles - TP Q24H PRN PAIN Polyethylene Glycol 17 gm 05/04/19 18:45 05/11/19 10:39 Miralax (For Daily Use) - PO Not Given DAILY [facility] Senna 1 tab 05/04/19 22:00 05/11/19 21:39 Senna - PO Not Given [facility] Home Medications Medication Instructions Recorded Alprazolam [Xanax] 2 mg PO TID 10/17/18 Gabapentin 800 mg PO TID #30 tablet 10/17/18 Insulin Lispro Protamin/Lispro 24 units SQ BID 04/30/19 [Humalog Mix 75-25 Kwikpen] Albuterol Sulfate Inhaler - 2 inh PO Q4H 05/03/19 [Ventolin HFA Inhaler -] Citalopram Hydrobromide 20 mg PO DAILY 05/03/19 [Citalopram HBr] Enalapril Maleate [Vasotec -] 10 mg PO DAILY 05/03/19 Fenofibrate Nanocrystallized 145 mg PO DAILY 05/03/19 [Fenofibrate] Ferrous Sulfate 325 mg PO BID 05/03/19 Furosemide 40 mg PO DAILY 05/03/19 Ipratropium/Albuterol Sulfate 1 vial IH Q6H PRN 05/03/19 [Iprat-Albut 0.5-3(2.5) mg/3 ml] Metformin HCl [Glucophage] 1,000 mg PO BID 05/03/19 Sitagliptin Phosphate [Januvia] 100 mg PO DAILY 05/03/19 Ertapenem Sodium [Invanz -] 1 gm IVPB DAILY vial 05/09/19 Methadone [Dolophine -] 90 mg PO DAILY #1 tab.disper MDD 05/09/19 90 mg ASSESSMENT AND PLAN: Patient is a 53yof with PMhx of opioid abuse, on methadone, HTN, anxiety, presented with L heel ulcer. # Acute L heel infected wound with OM and tenosynovitis. plan for Ertapenem x 5 weeks , patient has a tunneled catheter day#2 of placement weekly blood work while on Abx ( ESR, CRP, CMP, CBC) , daily visit to infusion center, follow with the wound care center # R diatal radius and ulnar Fx. isolated ALk phos elevation , likely due to Fx. no weight baring RUE, until f/u with ortho as an outpatient. # methadone dependence: cont methadone # Dilated CBD 0.9 cm.: out pT MRCP for dilated CBD # PVD: leg elevation ,Vascular f/u as outpatient no intervention is recommended at this time #T2DM: Resume her home insulin at dc #HTN : continue lasix and enalapril DVT Px: SQ heparin Old cxray reviewed. radiologist reported a lesion in L base. Not sure rib vs lung lesion. xray this admission with no reported findings. she will need out pt follow up with her PCP for further investigations ( probably CT of the chest) . Patient is discharged home with VNS .plan for IV abx at infusion center daily x 5 weeks. She declined going to rehab for IV abx and wound care. she understands that wound might get worse, in addition to the risk of fall and risk for non compliance with her Abx regimen. she insisted on home dc.
[2019-05-12] MEDS: ERTAPENEM SODIUM 1 GM in SODIUM CHLORIDE 50 ML IVPB SCH (10:36)
[2019-05-12] MEDS: POLYETHYLENE GLYCOL 3350 119 GM BTL PO SCH (10:36)
[2019-05-12] MEDS: ENALAPRIL MALEATE 10 MG TABLET (FP) PO SCH (10:55)
[2019-05-12] MEDS ORDERED: PT OWN MED DRAWER 7, Y5N ONE (11:48)
[2019-05-12 12:48] VITALS: PULSE 77; TEMP 98.5
[2019-05-12 13:05] VITALS: BP 144/77
[2019-05-12] MEDS: ALPRAZolam 1 MG TABLET PO PRN (13:22)
--- NOTE | 2019-05-12 17:09 | DS ---
Physical Exam: SUBJECTIVE: Patient seen and examined OBJECTIVE: Vital Signs Period Temp Pulse Resp BP Sys/Kelly Pulse Ox Last 24 Hr 98.0 F-98.5 F 73-87 17-20 104-151/56-82 100-100 PHYSICAL EXAM GENERAL: The patient is awake, alert, and fully oriented, in no acute distress. HEAD: Normal with no signs of trauma. EYES: PERRL, extraocular movements intact, sclera anicteric, conjunctiva clear. ENT: Ears normal, oropharynx clear without exudates, moist mucous membranes. NECK: Trachea midline, full range of motion, supple. LUNGS: Breath sounds equal, clear to auscultation bilaterally, no wheezes, no crackles, no accessory muscle use. HEART: Regular rate and rhythm, S1, S2 without murmur, rub or gallop. ABDOMEN: Soft, nonTTP [id number], ND, normoactive bowel sounds EXTREMITIES: 2+ radial pulse of LUE, warm, well-perfused. RUE in short cast. Moving RUE fingers spontaneously, fingers warm and sensation intact. B/l lower extremity w/ nonpitting edema. Mild erythema of RLE. LLE bandaged with scant serous drainage. Left heel with >7cm diameter of surgical debridement, light pink base with mild fibrinous exudate at the edges, mil bleeding at center NEUROLOGICAL: Normal speech. PSYCH: meandering thoughts SKIN: Warm, dry, nonpitting edema in lower extremities, thickened skin in lower extremities LABS Laboratory Results - last 24 hr 05/11/19 05/12/19 05/12/19 21:33 06:38 11:26 POC Glucometer 132 101 175 HOSPITAL COURSE: Date of Admission:04/29/19 Date of Discharge: 05/12/19 53 year old female with history of insulin dependent diabetes mellitus, hypertension, anxiety, opiod use disorder (IV heroine; on Methadone), presented with complaint of bilateral lower extremity wounds. Admitted for OM of Left heel. S/p Left heel debridement w/ bone biopsy(Nilson, 05/03/19). S/p bedside RUE ulnar-radial closed reduction(Jose, 05/03/19). MRI suggesting OM of Left heel w/ partial tear of lateral plantar fascia. Vascular consult recommended CTA aortogram w/ b/l runoffs, which showed patent vasculature. Bone biopsy growing morganella, Group D Strept, GBS. Was given IV abx(zosyn), then changed to Ertapenem 1g QD [id number]. Tunneled-catheter placed on 05/10/19. Incidental findings of dilated CBD(0.9cm). HbA1c 9.5. Pt appealed discharge on 05/10/19. Stated that she will purposely fall to prolong her hospitalization. Patient left the hospital on 05/12/19. Minutes to complete discharge: 33 Discharge Summary Problems reviewed: Yes Reason For Visit: DIABETIC FOOT ULCER Condition: Improved - Instructions Diet, Activity, Other Instructions: You were admitted to the hospital for evaluation of your Left foot pain. You were evaluated by the assistant cook, vascular surgeon, and infectious disease physicians and underwent debridement of your wound. Imaging studies and bone cultures confirmed infection of your bone (osteomyelitis) and you were treated with antibiotics. You will require IV antibiotics as outpatient MEDICATIONS: - Intravenous Antibiotics: Ertapenem 1 gram IV daily through 06/04/19 - Continue taking your other home medications as directed Additional Instructions: - Keep Right arm cast clean and dry, no weight baring on right arm until you follow up with the your orthopedic surgeon - Apply wet-to-dry dressings to you Left heel wound, once daily. Apply a gauze, moistened with normal saline, on top of the heel wound. Then apply a dry bandage on top of the dressing. Please see the physicians below: -Primary Care Physician: to discuss your recent hospitalization. -Orthopedist(Rodney): to discuss your Right wrist splint -Podiatry(Nilson): to discuss your Left heel wound -Infectious Disease specialist(Mekhi): to discuss your bone infection of the Left Heel - GI dr. Stone, to inquire about getting an outpatient MRCP for a dilated Common Bile Duct - follow up with Jayesh Sandoval, vascular surgeon regarding your circulation in legs you need weekly blood work ( CBC, CMP, ESR, CRP ) while on Antibiotics . results to be faxed to Dr. Gamign Avoid taking ibuprofen/motrin/Advil to prevent damage to your kidneys Return to your methadone clinic for your methadone You need to follow with Your primary care doctor and the lung doctor ( dr. Martínez ) , regarding the findings of a possible lesion on the L lung/rib seen on a previous xray. need to confirm with CT scan . No urgency but needs to be done within the next month for sure. Referrals: Matt Gaming MD [Staff Physician] - 2 Weeks Javier Devine MD [Staff Physician] - 1 Week Hari Stevens MD [Staff Physician] - 1 Week Nicole Antoine MD [Primary Care Provider] - 1 Week Aishwarya Stone DO [Staff Physician] - 2 Weeks Ildefonso Barclay DO [Staff Physician] - 3 Weeks Pk Martínez MD, MD [Staff Physician] - Disposition: HOME - Home Medications Comprehensive Discharge Medication List: Ambulatory Orders Alprazolam [Xanax] 2 mg PO TID 10/17/18 Gabapentin 800 mg PO TID #30 tablet 10/17/18 Insulin Lispro Protamin/Lispro [Humalog Mix 75-25 Kwikpen] 24 units SQ BID 04/30 Albuterol Sulfate Inhaler - [Ventolin HFA Inhaler -] 2 inh PO Q4H 05/03/19 Citalopram Hydrobromide [Citalopram HBr] 20 mg PO DAILY 05/03/19 Fenofibrate Nanocrystallized [Fenofibrate] 145 mg PO DAILY 05/03/19 Ferrous Sulfate 325 mg PO BID 05/03/19 Furosemide 40 mg PO DAILY 05/03/19 Ipratropium/Albuterol Sulfate [Iprat-Albut 0.5-3(2.5) mg/3 ml] 1 vial IH Q6H PRN 05/03/19 Ertapenem Sodium [Invanz -] 1 gm IVPB DAILY vial 05/09/19 Methadone [Dolophine -] 90 mg PO DAILY #1 tab.disper MDD 90 mg 05/09/19 Citalopram Hydrobromide [Celexa -] 20 mg PO DAILY #30 tablet 05/12/19 Enalapril Maleate [Vasotec -] 10 mg PO DAILY #30 tablet 05/12/19 Furosemide [Lasix -] 40 mg PO DAILY #30 tablet 05/12/19 Gabapentin 800 mg PO TID #30 tablet 05/12/19 Gauze Bandage [Band-Aid Gauze Pads] 1 each TP DAILY #60 bandage 05/12/19 Gauze Bandage [Kerlix] 1 each TP DAILY #30 sponge 05/12/19 Metformin HCl [Glucophage] 1,000 mg PO BID #60 tablet 05/12/19 Sitagliptin Phosphate [Januvia] 100 mg PO DAILY #30 tablet 05/12/19 Sodium Chloride 0.9% Irrig [Sodium Chloride 0.9% Irrig. Soln 500 ml] 500 ml IR DAILY #1 btl 05/12/19 This patient is new to me today: No Emergency Visit: No Critical Care patient: No - Discharge Referral Referred to [facility] No ATTENDING PHYSICIAN STATEMENT I saw and evaluated the patient. I reviewed the resident's note and discussed the case with the resident. I agree with the resident's findings and plan as documented. SUBJECTIVE: OBJECTIVE: ASSESSMENT AND PLAN:
== END 2019-05-12 16:41 | disposition home or self-care (01) | DRG 317 ==
LOC: JER 10:35 → SUPCPDRO 10:35 → JERBED 16:51 → J5S 21:45
PROVIDERS: ADMIT Internal Medicine; ATTEND Internal Medicine
PROC: 0QBM0ZX Excision of Left Tarsal, Open Approach, Diagnostic (ICD-10-PCS; 2019-05-03)
PROC: 0KBW0ZZ Excision of Left Foot Muscle, Open Approach (ICD-10-PCS; principal; 2019-05-03 12:00)
PROC: 02HV33Z Insertion of Infusion Device into Superior Vena Cava, Percutaneous Approach (ICD-10-PCS; 2019-05-10)
DX: E11.621 Type 2 diabetes mellitus with foot ulcer (principal); E11.69 Type 2 diabetes mellitus with other specified complication; M86.172 Other acute osteomyelitis, left ankle and foot; F41.8 Other specified anxiety disorders; F41.9 Anxiety disorder, unspecified; Z72.0 Tobacco use; I10 Essential (primary) hypertension; E88.09 Other disorders of plasma-protein metabolism, not elsewhere classified; E46 Unspecified protein-calorie malnutrition; F11.20 Opioid dependence, uncomplicated; E11.42 Type 2 diabetes mellitus with diabetic polyneuropathy; S52.201A Unspecified fracture of shaft of right ulna, initial encounter for closed fracture; T14.8XXA Other injury of unspecified body region, initial encounter; Y93.9 Activity, unspecified; Y92.89 Other specified places as the place of occurrence of the external cause; Y99.9 Unspecified external cause status
CPT/HCPCS: 36415; 36558; 71045-TC-FY; 73090-TC-RT-FY; 73110-TC-RT-FY; 73630-TC-LT; 73718-TC-LT; 75635-TC; 76705-TC; 77001-TC-FY; 80048; 80053; 80076; 81003; 82550; 82553; 82962; 82977; 83036; 83605; 83735; 84100; 84484; 85025; 85027; 85610; 85651; 85730; 86140; 86850; 86900; 86901; 87040; 87070; 87075; 87077; 87186; 87205; 88305-TC; 88311-TC; 90670; 93005; 93010; 93925-TC; 93970-TC; 94760; 97116-GP; 97162-GP; 99284-25; C1751; G0008; G0009; G0480; J0131; J1644; J7030; Q2036; Q9967

== ENCOUNTER 2019-05-15 14:55 | Day surgery (SDC) | payer OTHER ==
[2019-05-15] MEDS ORDERED: ERTAPENEM SODIUM 1 GM in SODIUM CHLORIDE 50 ML IVPB ONE (16:00)
== END 2019-05-15 19:27 | disposition home or self-care (01) ==
LOC: J7W 14:55 → JINFUSION 14:55
PROVIDERS: ATTEND Internal Medicine
DX: E11.621 Type 2 diabetes mellitus with foot ulcer (principal); M86.172 Other acute osteomyelitis, left ankle and foot
CPT/HCPCS: 96365

== ENCOUNTER 2019-05-16 16:03 | Day surgery (SDC) | payer OTHER ==
[2019-05-16] MEDS ORDERED: ERTAPENEM SODIUM 1 GM in SODIUM CHLORIDE 50 ML IVPB ONE (16:45)
[2019-05-16 17:22] VITALS: BP 147/78; PULSE 86; TEMP 98.8
== END 2019-05-16 18:45 | disposition home or self-care (01) ==
LOC: JINFUSION 16:03 → J7W 16:36 → JINFUSION 18:45
PROVIDERS: ATTEND Internal Medicine
DX: E11.621 Type 2 diabetes mellitus with foot ulcer (principal); M86.172 Other acute osteomyelitis, left ankle and foot
CPT/HCPCS: 96365

== ENCOUNTER 2019-05-17 16:20 | Day surgery (SDC) | payer OTHER ==
[2019-05-17] MEDS ORDERED: ERTAPENEM SODIUM 1 GM in SODIUM CHLORIDE 50 ML IVPB ONE (17:15)
[2019-05-17 18:48] VITALS: BP 154/73; PULSE 79; TEMP 98
== END 2019-05-17 19:00 | disposition home or self-care (01) ==
LOC: JINFUSION 16:20 → J7W 16:22 → JINFUSION 19:00
PROVIDERS: ATTEND Internal Medicine
DX: E11.621 Type 2 diabetes mellitus with foot ulcer (principal); M86.172 Other acute osteomyelitis, left ankle and foot
CPT/HCPCS: 96365

== ENCOUNTER 2019-05-19 16:27 | Day surgery (SDC) | payer OTHER ==
[2019-05-19] MEDS ORDERED: ERTAPENEM SODIUM 1 GM in SODIUM CHLORIDE 50 ML IVPB ONE (17:15)
[2019-05-19 18:02] VITALS: BP 151/84; PULSE 76; TEMP 98.2
[2019-05-19 18:15] LABS: HEMATOCRIT 33.7 % (32.4-45.2); HEMOGLOBIN 11.4 GM/dL (10.7-15.3); MCH 30.7 pg (25.7-33.7); MCHC 33.9 g/dl (32.0-36.0); MEAN CELL VOLUME 90.7 fl (80-96); MEAN PLT VOLUME 9.2 fl (7.5-11.1); PLATELET COUNT 232 K/MM3 (134-434); RBC 3.72 M/mm3 (3.60-5.2); RDW 14.3 % (11.6-15.6); WHITE BLOOD COUNT 8.8 K/mm3 (4.0-10.0)
[2019-05-19 18:42] LABS: BLOOD UREA NITROGEN 17.6 mg/dL (7-18); CALCIUM 8.8 mg/dL (8.5-10.1); CREATININE 1.1 mg/dL (0.55-1.3); POTASSIUM 4.2 mmol/L (3.5-5.1)
== END 2019-05-19 19:39 | disposition home or self-care (01) ==
LOC: JINFUSION 16:27 → J7W 16:45 → JINFUSION 19:39
PROVIDERS: ATTEND Internal Medicine
DX: E11.621 Type 2 diabetes mellitus with foot ulcer (principal); M86.172 Other acute osteomyelitis, left ankle and foot
CPT/HCPCS: 36415; 80048; 85027; 85651; 86140; 96365

== ENCOUNTER 2019-05-20 14:51 | Day surgery (SDC) | payer OTHER ==
[2019-05-20] MEDS ORDERED: ERTAPENEM SODIUM 1 GM in SODIUM CHLORIDE 50 ML IVPB ONE (15:30)
[2019-05-20 15:45] VITALS: TEMP 98.4
[2019-05-20 17:34] VITALS: BP 158/87; PULSE 79
== END 2019-05-20 18:23 | disposition home or self-care (01) ==
LOC: J7W 14:51 → JINFUSION 14:51 → J7W 15:21 → JINFUSION 18:23
PROVIDERS: ATTEND Internal Medicine
DX: E11.621 Type 2 diabetes mellitus with foot ulcer (principal); M86.172 Other acute osteomyelitis, left ankle and foot
CPT/HCPCS: 96365

== ENCOUNTER 2019-05-21 12:36 | Day surgery (SDC) | payer OTHER ==
[2019-05-21] MEDS ORDERED: ERTAPENEM SODIUM 1 GM in SODIUM CHLORIDE 50 ML IVPB ONE (13:15)
[2019-05-21 15:30] VITALS: BP 143/76; PULSE 71; TEMP 98.1
== END 2019-05-21 15:33 | disposition home or self-care (01) ==
LOC: JINFUSION 12:36 → J7W 12:37 → JINFUSION 15:33
PROVIDERS: ATTEND Internal Medicine
DX: E11.621 Type 2 diabetes mellitus with foot ulcer (principal); M86.172 Other acute osteomyelitis, left ankle and foot
CPT/HCPCS: 96365

== ENCOUNTER 2019-05-22 14:45 | Day surgery (SDC) | payer OTHER ==
[2019-05-22] MEDS ORDERED: ERTAPENEM SODIUM 1 GM in SODIUM CHLORIDE 50 ML IVPB ONE (15:15)
[2019-05-22 15:21] VITALS: TEMP 98.1
[2019-05-22 16:11] VITALS: BP 125/55; PULSE 81
== END 2019-05-22 17:05 | disposition home or self-care (01) ==
LOC: J7W 14:45 → JINFUSION 14:45
PROVIDERS: ATTEND Internal Medicine
DX: E11.621 Type 2 diabetes mellitus with foot ulcer (principal); M86.172 Other acute osteomyelitis, left ankle and foot
CPT/HCPCS: 96365

== ENCOUNTER 2019-05-23 14:34 | Day surgery (SDC) | payer OTHER ==
[2019-05-23] MEDS ORDERED: ERTAPENEM SODIUM 1 GM in SODIUM CHLORIDE 50 ML IVPB ONE (16:00)
[2019-05-23 18:20] VITALS: BP 120/86; PULSE 86
== END 2019-05-23 18:23 | disposition home or self-care (01) ==
LOC: JINFUSION 14:34 → J7W 14:47 → JINFUSION 18:23
PROVIDERS: ATTEND Internal Medicine
DX: E11.621 Type 2 diabetes mellitus with foot ulcer (principal); M86.172 Other acute osteomyelitis, left ankle and foot
CPT/HCPCS: 96365

== ENCOUNTER 2019-05-24 14:16 | Day surgery (SDC) | payer OTHER ==
[2019-05-24] MEDS ORDERED: PT OWN MED DRAWER 7, Y5N ONE (15:53)
[2019-05-24] MEDS ORDERED: ERTAPENEM SODIUM 1 GM in SODIUM CHLORIDE 50 ML IVPB ONE (16:00)
[2019-05-24 17:27] VITALS: BP 138/65; PULSE 74; TEMP 98.2
== END 2019-05-24 18:21 | disposition home or self-care (01) ==
LOC: JINFUSION 14:16 → J7W 14:18 → JINFUSION 18:21
PROVIDERS: ATTEND Internal Medicine
DX: E11.621 Type 2 diabetes mellitus with foot ulcer (principal); M86.172 Other acute osteomyelitis, left ankle and foot
CPT/HCPCS: 96365

== ENCOUNTER 2019-05-25 14:41 | Day surgery (SDC) | payer OTHER ==
[2019-05-25 15:28] LABS: HEMATOCRIT 34.1 % (32.4-45.2); HEMOGLOBIN 11.6 GM/dL (10.7-15.3); MCH 30.7 pg (25.7-33.7); MEAN CELL VOLUME 90.3 fl (80-96); MEAN PLT VOLUME 9.2 fl (7.5-11.1); PLATELET COUNT 182 K/MM3 (134-434); RBC 3.78 M/mm3 (3.60-5.2); RDW 13.8 % (11.6-15.6); WHITE BLOOD COUNT 6.3 K/mm3 (4.0-10.0)
[2019-05-25 15:50] LABS: BLOOD UREA NITROGEN 15.3 mg/dL (7-18); CALCIUM 8.6 mg/dL (8.5-10.1); CREATININE 0.9 mg/dL (0.55-1.3); POTASSIUM 4.4 mmol/L (3.5-5.1)
[2019-05-25 16:52] VITALS: TEMP 98.5
[2019-05-25] MEDS ORDERED: ERTAPENEM SODIUM 1 GM in SODIUM CHLORIDE 50 ML IVPB ONE (17:00)
[2019-05-25 17:40] VITALS: BP 163/95; PULSE 73
[2019-05-25 17:48] LABS: ERYTHROCYTE SEDIMENTATION RATE 43 mm/hr (0-30)
== END 2019-05-25 17:45 | disposition home or self-care (01) ==
LOC: JINFUSION 14:41 → J7W 14:41 → JINFUSION 17:45
PROVIDERS: ATTEND Internal Medicine
DX: E11.621 Type 2 diabetes mellitus with foot ulcer (principal); M86.172 Other acute osteomyelitis, left ankle and foot
CPT/HCPCS: 36415; 80048; 85027; 85651; 86140; 96365

== ENCOUNTER 2019-05-26 14:42 | Day surgery (SDC) | payer OTHER ==
[2019-05-26] MEDS ORDERED: ERTAPENEM SODIUM 1 GM in SODIUM CHLORIDE 50 ML IVPB ONE (16:00)
[2019-05-26 18:51] VITALS: BP 154/70; PULSE 89; TEMP 98.4
== END 2019-05-26 18:05 | disposition home or self-care (01) ==
LOC: J7W 14:42 → JINFUSION 14:42
PROVIDERS: ATTEND Internal Medicine
DX: E11.621 Type 2 diabetes mellitus with foot ulcer (principal); M86.172 Other acute osteomyelitis, left ankle and foot
CPT/HCPCS: 96365

== ENCOUNTER 2019-05-27 16:15 | Day surgery (SDC) | payer OTHER ==
[2019-05-27] MEDS ORDERED: ERTAPENEM SODIUM 1 GM in SODIUM CHLORIDE 50 ML IVPB ONE (16:30)
[2019-05-27] MEDS ORDERED: PT OWN MED DRAWER 7, Y5N ONE (17:41)
[2019-05-27 17:58] VITALS: BP 147/76; PULSE 78; TEMP 98.9
== END 2019-05-27 18:30 | disposition home or self-care (01) ==
LOC: JINFUSION 16:15 → J7W 16:16 → JINFUSION 18:30
PROVIDERS: ATTEND Internal Medicine
DX: E11.621 Type 2 diabetes mellitus with foot ulcer (principal); M86.172 Other acute osteomyelitis, left ankle and foot
CPT/HCPCS: 96365

== ENCOUNTER 2019-05-28 12:43 | Day surgery (SDC) | payer OTHER ==
[2019-05-28] MEDS ORDERED: ERTAPENEM SODIUM 1 GM in SODIUM CHLORIDE 50 ML IVPB ONE (13:15)
[2019-05-28 15:25] VITALS: BP 151/67; PULSE 71; TEMP 97.7
== END 2019-05-28 14:15 | disposition home or self-care (01) ==
LOC: J7W 12:43 → JINFUSION 12:43
PROVIDERS: ATTEND Internal Medicine
DX: E11.621 Type 2 diabetes mellitus with foot ulcer (principal); M86.172 Other acute osteomyelitis, left ankle and foot
CPT/HCPCS: 96365

== ENCOUNTER 2019-05-29 14:48 | Day surgery (SDC) | payer OTHER ==
[2019-05-29 15:53] VITALS: BP 154/79; PULSE 81; TEMP 97.5
[2019-05-29] MEDS ORDERED: ERTAPENEM SODIUM 1 GM in SODIUM CHLORIDE 50 ML IVPB ONE (16:00)
== END 2019-05-29 16:35 | disposition home or self-care (01) ==
LOC: JINFUSION 14:48 → J7W 14:55 → JINFUSION 16:35
PROVIDERS: ATTEND Internal Medicine
DX: E11.621 Type 2 diabetes mellitus with foot ulcer (principal); M86.172 Other acute osteomyelitis, left ankle and foot
CPT/HCPCS: 96365

== ENCOUNTER 2019-05-30 14:47 | Day surgery (SDC) | payer OTHER ==
[2019-05-30] MEDS ORDERED: ERTAPENEM SODIUM 1 GM in SODIUM CHLORIDE 50 ML IVPB ONE (15:30)
[2019-05-30 18:53] VITALS: BP 132/71; PULSE 76; TEMP 97.4
== END 2019-05-30 15:00 | disposition home or self-care (01) ==
LOC: J7W 14:47 → JINFUSION 14:47
PROVIDERS: ATTEND Internal Medicine
DX: E11.621 Type 2 diabetes mellitus with foot ulcer (principal); M86.172 Other acute osteomyelitis, left ankle and foot
CPT/HCPCS: 96365

== ENCOUNTER 2019-05-31 12:39 | Day surgery (SDC) | payer OTHER ==
[2019-05-31] MEDS ORDERED: ERTAPENEM SODIUM 1 GM in SODIUM CHLORIDE 100 ML IVPB ONE (14:30)
[2019-05-31] MEDS ORDERED: ERTAPENEM SODIUM 1 GM in SODIUM CHLORIDE 50 ML IVPB ONE (14:45)
[2019-05-31 14:54] VITALS: PULSE 75; TEMP 98.1
[2019-05-31 14:58] VITALS: BP 145/90
== END 2019-05-31 15:49 | disposition home or self-care (01) ==
LOC: JINFUSION 12:39 → J7W 12:40 → JINFUSION 15:49
PROVIDERS: ATTEND Internal Medicine
DX: E11.621 Type 2 diabetes mellitus with foot ulcer (principal); M86.172 Other acute osteomyelitis, left ankle and foot
CPT/HCPCS: 96365

== ENCOUNTER 2019-06-01 14:06 | Day surgery (SDC) | payer OTHER ==
[2019-06-01] MEDS ORDERED: ERTAPENEM SODIUM 1 GM in SODIUM CHLORIDE 50 ML IVPB ONE (16:00)
[2019-06-01] MEDS ORDERED: ERTAPENEM SODIUM 1 GM VIAL ONE (16:03)
[2019-06-01] MEDS ORDERED: SODIUM CHLORIDE 50 ML IVPB ONE (16:03)
[2019-06-01 17:08] LABS: BASO % 0.4 % (0-2.0); EOS % 1.6 % (0-4.5); HEMATOCRIT 34.5 % (32.4-45.2); HEMOGLOBIN 11.6 GM/dL (10.7-15.3); LYMPH % 21.5 % (8-40); MCH 30.1 pg (25.7-33.7); MCHC 33.7 g/dl (32.0-36.0); MEAN CELL VOLUME 89.4 fl (80-96); MEAN PLT VOLUME 9.4 fl (7.5-11.1); MONO % 5.7 % (3.8-10.2); NEUT % 70.8 % (42.8-82.8); PLATELET COUNT 188 K/MM3 (134-434); RBC 3.85 M/mm3 (3.60-5.2); WHITE BLOOD COUNT 7.3 K/mm3 (4.0-10.0)
[2019-06-01 17:28] LABS: BLOOD UREA NITROGEN 11.8 mg/dL (7-18); CALCIUM 9.1 mg/dL (8.5-10.1); CREATININE 0.8 mg/dL (0.55-1.3); POTASSIUM 4.4 mmol/L (3.5-5.1)
[2019-06-01 17:53] VITALS: BP 145/65; PULSE 80; TEMP 98
[2019-06-01 18:30] LABS: ERYTHROCYTE SEDIMENTATION RATE 64 mm/hr (0-30)
== END 2019-06-01 17:53 | disposition home or self-care (01) ==
LOC: JINFUSION 14:06 → J7W 14:08 → JINFUSION 17:53
PROVIDERS: ATTEND Internal Medicine
DX: E11.621 Type 2 diabetes mellitus with foot ulcer (principal); M86.172 Other acute osteomyelitis, left ankle and foot
CPT/HCPCS: 36415; 80048; 85025; 85651; 86140; 96365

== ENCOUNTER 2019-06-02 15:37 | Day surgery (SDC) | payer OTHER ==
[2019-06-02] MEDS ORDERED: ERTAPENEM SODIUM 1 GM in SODIUM CHLORIDE 50 ML IVPB ONE (16:30)
== END 2019-06-02 17:32 | disposition home or self-care (01) ==
LOC: J7W 15:37 → JINFUSION 15:37
PROVIDERS: ATTEND Internal Medicine
DX: E11.621 Type 2 diabetes mellitus with foot ulcer (principal); M86.172 Other acute osteomyelitis, left ankle and foot
CPT/HCPCS: 96365

== ENCOUNTER 2019-06-08 14:41 | Day surgery (SDC) | payer OTHER ==
[2019-06-08] MEDS ORDERED: ERTAPENEM SODIUM 1 GM in SODIUM CHLORIDE 50 ML IVPB ONE (15:15)
[2019-06-08] MEDS ORDERED: ERTAPENEM SODIUM 1 GM VIAL ONE (15:29)
[2019-06-08] MEDS ORDERED: SODIUM CHLORIDE 50 ML IVPB ONE (15:29)
[2019-06-08 15:39] LABS: HEMATOCRIT 37.8 % (32.4-45.2); HEMOGLOBIN 12.8 GM/dL (10.7-15.3); MCH 30.3 pg (25.7-33.7); MCHC 33.8 g/dl (32.0-36.0); MEAN CELL VOLUME 89.5 fl (80-96); MEAN PLT VOLUME 9.2 fl (7.5-11.1); PLATELET COUNT 195 K/MM3 (134-434); RBC 4.22 M/mm3 (3.60-5.2); RDW 13.9 % (11.6-15.6); WHITE BLOOD COUNT 7.7 K/mm3 (4.0-10.0)
[2019-06-08 16:07] LABS: BLOOD UREA NITROGEN 15.4 mg/dL (7-18); CALCIUM 9.2 mg/dL (8.5-10.1); CREATININE 0.9 mg/dL (0.55-1.3); POTASSIUM 4.3 mmol/L (3.5-5.1)
[2019-06-08 16:09] VITALS: TEMP 97.8
[2019-06-08 16:59] LABS: ERYTHROCYTE SEDIMENTATION RATE 51 mm/hr (0-30)
[2019-06-08 18:14] VITALS: BP 153/90; PULSE 84
== END 2019-06-08 16:30 | disposition home or self-care (01) ==
LOC: JINFUSION 14:41 → J7W 14:42 → JINFUSION 16:30
PROVIDERS: ATTEND Internal Medicine
DX: M86.172 Other acute osteomyelitis, left ankle and foot (principal); E11.621 Type 2 diabetes mellitus with foot ulcer
CPT/HCPCS: 36415; 80048; 85027; 85651; 86140; 96365

== ENCOUNTER 2019-06-12 15:29 | Day surgery (SDC) | payer OTHER ==
[2019-06-12] MEDS ORDERED: ERTAPENEM SODIUM 1 GM VIAL ONE (15:43)
[2019-06-12] MEDS ORDERED: ERTAPENEM SODIUM 1 GM in SODIUM CHLORIDE 50 ML IVPB ONE (15:45)
[2019-06-12 18:19] VITALS: BP 160/80; PULSE 83; TEMP 97.8
== END 2019-06-12 16:51 | disposition home or self-care (01) ==
LOC: JINFUSION 15:29 → J7W 15:34 → JINFUSION 16:51
PROVIDERS: ATTEND Internal Medicine
DX: M86.172 Other acute osteomyelitis, left ankle and foot (principal); E11.621 Type 2 diabetes mellitus with foot ulcer
CPT/HCPCS: 96365

== ENCOUNTER 2019-06-13 14:42 | Day surgery (SDC) | payer OTHER ==
[2019-06-13] MEDS ORDERED: ERTAPENEM SODIUM 1 GM VIAL ONE (15:14)
[2019-06-13] MEDS ORDERED: ERTAPENEM SODIUM 1 GM in SODIUM CHLORIDE 50 ML IVPB ONE ×2 (15:15→15:30)
[2019-06-13 16:36] VITALS: BP 125/85; PULSE 89; TEMP 98
== END 2019-06-13 16:36 | disposition home or self-care (01) ==
LOC: JINFUSION 14:42 → J7W 14:43 → JINFUSION 16:36
PROVIDERS: ATTEND Internal Medicine
DX: M86.172 Other acute osteomyelitis, left ankle and foot (principal); E11.621 Type 2 diabetes mellitus with foot ulcer
CPT/HCPCS: 96365

== ENCOUNTER 2019-06-14 14:22 | Day surgery (SDC) | payer OTHER ==
[2019-06-14] MEDS ORDERED: SODIUM CHLORIDE 50 ML IVPB ONE (14:41)
[2019-06-14] MEDS ORDERED: ERTAPENEM SODIUM 1 GM VIAL ONE (14:41)
[2019-06-14] MEDS ORDERED: ERTAPENEM SODIUM 1 GM in SODIUM CHLORIDE 50 ML IVPB ONE (15:00)
[2019-06-14 15:43] VITALS: BP 160/94; PULSE 88; TEMP 97.9
== END 2019-06-14 16:00 | disposition home or self-care (01) ==
LOC: J7W 14:22 → JINFUSION 14:22
PROVIDERS: ATTEND Internal Medicine
DX: M86.172 Other acute osteomyelitis, left ankle and foot (principal); E11.621 Type 2 diabetes mellitus with foot ulcer
CPT/HCPCS: 96365

== ENCOUNTER 2019-06-17 14:41 | Day surgery (SDC) | payer OTHER ==
[2019-06-17 15:22] LABS: HEMATOCRIT 38.2 % (32.4-45.2); HEMOGLOBIN 12.8 GM/dL (10.7-15.3); MCH 29.8 pg (25.7-33.7); MCHC 33.4 g/dl (32.0-36.0); MEAN CELL VOLUME 89.3 fl (80-96); MEAN PLT VOLUME 9.3 fl (7.5-11.1); PLATELET COUNT 188 K/MM3 (134-434); RBC 4.28 M/mm3 (3.60-5.2); RDW 13.7 % (11.6-15.6); WHITE BLOOD COUNT 7.4 K/mm3 (4.0-10.0)
[2019-06-17] MEDS ORDERED: ERTAPENEM SODIUM 1 GM in SODIUM CHLORIDE 50 ML IVPB ONE (15:30)
[2019-06-17 15:45] LABS: POTASSIUM 4.3 mmol/L (3.5-5.1)
[2019-06-17] MEDS ORDERED: ERTAPENEM SODIUM 1 GM VIAL ONE (16:04)
[2019-06-17] MEDS ORDERED: SODIUM CHLORIDE 50 ML IVPB ONE (16:04)
[2019-06-17 16:26] LABS: ERYTHROCYTE SEDIMENTATION RATE 51 mm/hr (0-30)
[2019-06-17 16:36] VITALS: BP 137/87; PULSE 75; TEMP 98.2
--- NOTE | 2019-06-17 16:51 | PN ---
Progress Note (short form) - Note Progress Note: ID SEEN [facility] 7[facility] DAY# 49 IV ABX ( MINUS MISSED DAYS) L HEEL ULCER WITH GRANULATION TISSUE NO DRAINAGE OR FOUL ODOR OSTEOMYELITIS L HEEL COMPLETING COURSE OF IV TX D/C ANTIBIOTICS/ CATHETER THURSDAY FOLLOW UP WOUND [facility]
== END 2019-06-17 17:19 | disposition home or self-care (01) ==
LOC: JINFUSION 14:41 → J7W 14:42 → JINFUSION 17:19
PROVIDERS: ATTEND Internal Medicine
DX: M86.172 Other acute osteomyelitis, left ankle and foot (principal); E11.621 Type 2 diabetes mellitus with foot ulcer
CPT/HCPCS: 36415; 80048; 85027; 85651; 86140; 96365

== ENCOUNTER 2019-06-18 15:13 | Day surgery (SDC) | payer OTHER ==
[2019-06-18] MEDS ORDERED: SODIUM CHLORIDE 50 ML IVPB ONE (15:55)
[2019-06-18] MEDS ORDERED: ERTAPENEM SODIUM 1 GM VIAL ONE (15:55)
[2019-06-18] MEDS ORDERED: ERTAPENEM SODIUM 1 GM in SODIUM CHLORIDE 50 ML IVPB ONE (16:00)
[2019-06-18 17:25] VITALS: BP 154/77; PULSE 78; TEMP 98
== END 2019-06-18 16:55 | disposition home or self-care (01) ==
LOC: JINFUSION 15:13 → J7W 15:14 → JINFUSION 16:55
PROVIDERS: ATTEND Internal Medicine
DX: M86.172 Other acute osteomyelitis, left ankle and foot (principal); E11.621 Type 2 diabetes mellitus with foot ulcer
CPT/HCPCS: 96365

== ENCOUNTER 2019-06-19 15:41 | Day surgery (SDC) | payer OTHER ==
[2019-06-19] MEDS ORDERED: ERTAPENEM SODIUM 1 GM in SODIUM CHLORIDE 50 ML IVPB ONE (16:30)
[2019-06-19] MEDS ORDERED: PORTA CATH FLUSH 10 ML IVPUSH ONE (18:13)
[2019-06-19 18:14] VITALS: BP 149/85; PULSE 75; TEMP 97.6
== END 2019-06-19 18:00 | disposition home or self-care (01) ==
LOC: J7W 15:41 → JINFUSION 15:41
PROVIDERS: ATTEND Internal Medicine
DX: M86.172 Other acute osteomyelitis, left ankle and foot (principal); E11.621 Type 2 diabetes mellitus with foot ulcer
CPT/HCPCS: 96365

== ENCOUNTER 2019-12-09 17:42 | Inpatient (IN) | payer OTHER ==
[2019-12-09 18:07] VITALS: BMI 31.8
[2019-12-09] MEDS ORDERED: ACETAMINOPHEN 1000 MG/100 ML VIAL (NON FORMULARY) IVPB ONE (19:46)
--- NOTE | 2019-12-09 20:08 | PDOC ---
History of Present Illness - General Chief Complaint: Wound Stated Complaint: ANKLE PAIN Time Seen by Provider: 12/09/19 19:09 - History of Present Illness Initial Comments: 12/09/19 19:59 54 y/o F hx of DM, HTN, opioid use (daily methadone 90mg daily), chronic osteomyelitis, neuropathy presents to the ED with bilateral foot pain. Pt has a chronic stage III ulcer on left heel s/p bone biopsy. Pain has been worsening over the last month Pt has not had wound care for the last 1 month due to problems with the agency and insurance issues. Patient denies BRAGA, vision change, palpitations, cough, wheezing, orthopena, PND, leg swelling/pain, N/V, F,C, CP, SOB, urinary complaints, hematuria, BPR, abdominal pain, diarrhea, constipation, lightheadedness, weakness, sensory changes. PMHx: as noted above ROS: as noted SHx: Denies Etoh, IVDA, tobacco use Allergies: NKDA ROS: GENERAL/CONSTITUTIONAL: No fever or chills. No weakness. HEAD, EYES, EARS, NOSE AND THROAT: No change in vision. No ear pain or discharge. No sore throat. CARDIOVASCULAR: No chest pain or shortness of breath RESPIRATORY: No cough, wheezing, or hemoptysis. GASTROINTESTINAL: No nausea, vomiting, diarrhea or constipation. GENITOURINARY: No dysuria, frequency, or change in urination. MUSCULOSKELETAL: No joint or muscle swelling or pain. No neck or back pain. SKIN: No rash NEUROLOGIC: No headache, vertigo, loss of consciousness, or change in strength /sensation. ENDOCRINE: No increased thirst. No abnormal weight change HEMATOLOGIC/LYMPHATIC: No anemia, easy bleeding, or history of blood clots. ALLERGIC/IMMUNOLOGIC: No hives or skin allergy. PE: GENERAL: Awake, alert, and fully oriented, in no acute distress HEAD: No signs of trauma, normocephalic, atraumatic EYES: PERRLA, EOMI, sclera anicteric, conjunctiva clear ENT: Auricles normal inspection, hearing grossly normal, nares patent, oropharynx clear without exudates. Moist mucosa NECK: Normal ROM, supple, no lymphadenopathy, JVD, or masses LUNGS: No distress, speaks full sentences, clear to auscultation bilaterally HEART: Regular rate and rhythm, normal S1 and S2, no murmurs, rubs or gallops, peripheral pulses normal and equal bilaterally. ABDOMEN: Soft, nontender, normoactive bowel sounds. No guarding, no rebound. No masses EXTREMITIES : Normal inspection, Normal range of motion, no edema. No clubbing or cyanosis NEUROLOGICAL: Cranial nerves II through XII grossly intact. Normal speech, normal gait, no focal sensorimotor deficits SKIN: Warm, Dry, normal turgor, no rashes or lesions noted 12/09/19 23:04 12/09/19 23:07 Past History - Medical History Allergies/Adverse Reactions: Allergies Allergy/AdvReac Type Severity Reaction Status Date / Time No Known Allergies Allergy Verified 04/29/19 10:42 Home Medications: Ambulatory Orders Alprazolam [Xanax] 2 mg PO TID 10/17/18 Insulin Lispro Protamin/Lispro [Humalog Mix 75-25 Kwikpen] 24 units SQ BID 04/30/19 Albuterol Sulfate Inhaler - [Ventolin HFA Inhaler -] 2 inh PO Q4H 05/03/19 Citalopram Hydrobromide [Citalopram HBr] 20 mg PO DAILY 05/03/19 Fenofibrate Nanocrystallized [Fenofibrate] 145 mg PO DAILY 05/03/19 Ferrous Sulfate 325 mg PO BID 05/03/19 Ipratropium/Albuterol Sulfate [Iprat-Albut 0.5-3(2.5) mg/3 ml] 1 vial IH Q6H PRN 05/03/19 Methadone [Dolophine -] 90 mg PO DAILY #1 tab.disper MDD 90 mg 05/09/19 Enalapril Maleate [Vasotec -] 10 mg PO DAILY #30 tablet 05/12/19 Furosemide [Lasix -] 40 mg PO DAILY #30 tablet 05/12/19 Gabapentin 800 mg PO TID #30 tablet 05/12/19 Metformin HCl [Glucophage] 1,000 mg PO BID #60 tablet 05/12/19 Sitagliptin Phosphate [Januvia] 100 mg PO DAILY #30 tablet 05/12/19 Collagenase Clostridium Hist. [Santyl] 1 applic TP DAILY #30 applic 08/19/19 Piperacillin/Tazob 3.375 gm [Zosyn -] 3.375 gm IVPB Q8H-IV vial 05/08/20 COPD: No Diabetes: Yes HTN: Yes Psychiatric Problems: Yes (anxiety, depression) - Surgical History Orthopedic Surgery: (Rt ulnar fracture- splint in place) - Reproductive History Is Patient Now?: No - Immunization History Immunization Up to Date: (UNKNOWN) - Psycho-Social/Smoking History Smoking History: Never smoked Have you smoked in the past 12 months: No Number of Cigarettes Smoked Daily: 6 Information on smoking cessation initiated: No 'Breaking Loose' booklet given: 08/15/19 - Substance Abuse Hx (Audit-C & DAST Scrn) How often the patient has a drink containing alcohol: Never Score: In Men: 4 or > Positive; In Women: 3 or > Positive: 0 Screen Result (Pos requires Nsg. Audit-10AR): Negative In the last yr the pt used illegal drug/Rx for NonMed reason: No Score: Yes response is considered Positive: 0 Screen Result (Positive result requires Nsg. DAST-10): Negative *Physical Exam - Vital Signs Last Vital Signs Temp Pulse Resp BP Pulse Ox 99.1 F 86 18 146/78 98 12/09/19 17:43 12/09/19 17:43 12/09/19 17:43 12/09/19 17:43 12/09/19 17:43 ED Treatment Course - LABORATORY CBC & Chemistry Diagram: 12/09/19 22:30 12/09/19 20:50 - RADIOLOGY Radiology Studies Ordered: Category Date Time Status GLEN [CHEST X-RAY PORTABLE*] [RAD] Stat Radiology 12/09/19 19:48 Ordered FOOT-LEFT [RAD] Stat Radiology 12/09/19 19:47 Ordered FOOT-RIGHT [RAD] Stat Radiology 12/09/19 19:47 Ordered
[2019-12-09] MEDS ORDERED: ACETAMINOPHEN INJECTION 100 ML IVPB ONE (20:15)
[2019-12-09] MEDS ORDERED: KETOROLAC TROMETHAMINE 30 MG/1 ML VIAL IM ONE (21:01)
[2019-12-09] MEDS ORDERED: METHADONE HCL 10 MG TABLET (FOR DETOX USE ONLY) PO ONE (21:01)
[2019-12-09] MEDS ORDERED: METHADONE HCL 10 MG TABLET ONE (21:05)
[2019-12-09] MEDS ORDERED: METHADONE HCL 40 MG DISPERSABLE TABLET ONE (21:05)
[2019-12-09] MEDS ORDERED: KETOROLAC TROMETHAMINE 30 MG/1 ML VIAL ONE (21:06)
[2019-12-09 21:56] LABS: ALBUMIN 2.6 g/dl (3.4-5.0); BILIRUBIN,TOTAL 0.4 mg/dL (0.2-1); BLOOD UREA NITROGEN 19.8 mg/dL (7-18); CALCIUM 9.2 mg/dL (8.5-10.1); CREATININE 1.2 mg/dL (0.55-1.3); TOT PROT 7.5 g/dl (6.4-8.2)
[2019-12-09] MEDS ORDERED: GABAPENTIN 400 MG CAPSULE PO ONE (22:24)
[2019-12-09] MEDS ORDERED: GABAPENTIN 100 MG CAPSULE ONE (22:26)
[2019-12-09 22:47] LABS: BASO % 1.4 % (0-2.0); EOS % 1.4 % (0-4.5); HEMATOCRIT 35.5 % (32.4-45.2); HEMOGLOBIN 11.9 GM/dL (10.7-15.3); LYMPH % 31.4 % (8-40); MCH 29.7 pg (25.7-33.7); MCHC 33.5 g/dl (32.0-36.0); MEAN CELL VOLUME 88.5 fl (80-96); MEAN PLT VOLUME 8.9 fl (7.5-11.1); MONO % 6.4 % (3.8-10.2); NEUT % 59.4 % (42.8-82.8); PLATELET COUNT 213 K/MM3 (134-434); RBC 4.01 M/mm3 (3.60-5.2); RDW 12.9 % (11.6-15.6); WHITE BLOOD COUNT 8.8 K/mm3 (4.0-10.0)
--- NOTE | 2019-12-09 23:25 | PDOC ---
Documentation entered by Aruna Grey SCRIBE, acting as scribe for Abbe Neves DO. Abbe Neves DO: This documentation has been prepared by the Que jin Brenda, SCRIBE, under my direction and personally reviewed by me in its entirety. I confirm that the documentation accurately reflects all work, treatment, procedures, and medical decision making performed by me. Attending Attestation - Resident Resident Name: MarisaDwightNeliSanjay - ED Attending Attestation I have performed the following: I have examined & evaluated the patient, The case was reviewed & discussed with the resident, I agree w/resident's findings & plan, Exceptions are as noted - HPI HPI: 12/09/19 19:58 The patient is a 54 year old female with a significant PMH of IDDM, HTN, Anxiety, opioid dependence (on methadone), and recent osteomyelitis to left heel of left foot s/p wash-out and resection who presents to the ED for evaluation of worsening foot pain to the right lateral side of foot as well as to the left heel of left foot. Denies fever or chills. Patient has not had wound care due to insurance issues. No other complaints. Allergies: NKA - Physicial Exam PE: 12/09/19 21:25 Staged 2-3 ulcer on left heel of left foot, good capillary refill in left foot with palpable but diminished DP pulse. Left foot is warm not cool. Right foot with eschar on lasteral side of foot, pulses are palpable but diminished, capillary refill intact. Otherwise unremarkable exam. - Medical Decision Making 12/09/19 21:25 54 year old diabetic female with diabetic foot pain. Will evaluate for new infection vs neuropathy vs chronic foot pain. Plan for basic labs, likely will get feet imaging and evaluate for diabetic infection. Consider admission due to poor wound care follow-up, no insurance and uncared for wounds. Discharge - Discharge Information Problems reviewed: Yes Clinical Impression/Diagnosis: Diabetic foot ulcer Qualifiers: Diabetic foot ulcer location: heel Diabetes mellitus type: type 2 Laterality: unspecified laterality Non-pressure ulcer stage: with necrosis of bone Qualified Code(s): E11.621 - Type 2 diabetes mellitus with foot ulcer Condition: Stable Disposition: HOME - Follow up/Referral - Patient Discharge Instructions - Post Discharge Activity
[2019-12-09] MEDS ORDERED: ALPRAZolam 1 MG TABLET ONE (23:48)
[2019-12-09] MEDS: ALPRAZolam 1 MG TABLET PO PRN (23:53)
[2019-12-10] MEDS ORDERED: VANCOMYCIN 1 GM in D5W (PRE-DOCKED) 1,000 MG/250 ML IVPB ONE (00:54)
[2019-12-10] MEDS ORDERED: PIPERACILLIN/TAZOB 3.375 GM 3.375 GM in DEXTROSE 5%-WATER - 50 ML IVPB ONE (00:54)
[2019-12-10] MEDS ORDERED: VANCOMYCIN 1 GRAM (PRE-DOCKED) 1,000 MG/250 ML BAG IVPB ONE (01:04)
--- NOTE | 2019-12-10 02:09 | PN ---
Teaching Attending Note Name of Resident: Amita Cash ATTENDING PHYSICIAN STATEMENT I saw and evaluated the patient. I reviewed the resident's note and discussed the case with the resident. I agree with the resident's findings and plan as documented. SUBJECTIVE: Patient is a 54 year old woman with Insulin-treated DM, HTN, Tobacco use, A nxiety, Depression, Opioid use (daily methadone 90 mg daily), Chronic left heel ulcer, Chronic osteomyelitis and Neuropathy presents to the ER with bilateral foot pain. He has a chronic stage III ulcer on left heel (s/p bone biopsy). Pain has been worsening over the last month. He has not had wound care for the last 1 month due to problems with the agency and insurance issues. Patient denies chest pain, shortness of breath, abdominal pain, headache, palpitations, dizziness, fever, chills, nausea, vomiting, diarrhea, constipation, dysuria, frequency, urgency, melena, hematochezia or hematuria. Denies alcohol, tobacco or illicit drug use. No sick contacts or recent travels. Family history is unremarkable. OBJECTIVE: Alert Vital Signs Period Temp Pulse Resp BP Sys/Kelly Pulse Ox Last 24 Hr 97.8 F-99.1 F 78-86 18-20 146-170/78-85 98-98 HEENT: No Jaundice, eye redness or discharge, PERRLA, EOMI. Normocephalic, atraumatic. External ears are normal and hearing is grossly intact. No nasal discharge. Neck: Supple, nontender. No palpable adenopathy or thyromegaly. No JVD Chest: Good effort. Clear to auscultation and percussion. Heart: Regular. No S3, rub or murmur Abdomen: Not distended, soft, nontender and no HSM. No rebound or guarding. Normal bowel sounds. Ext: Peripheral pulses intact. No leg edema. Left heel ulcer - stage III. Skin: Warm and dry. No petechiae, rash or ecchymosis. Neuro: Alert. Oriented x3. CN 2-12 grossly intact. Sensation grossly intact in all four extremities and DTR are symmetric. Psych: Appropriate mood and affect. Good insight. Home Medications Medication Instructions Recorded Alprazolam [Xanax] 2 mg PO TID 10/17/18 Insulin Lispro Protamin/Lispro 24 units SQ BID 04/30/19 [Humalog Mix 75-25 Kwikpen] Albuterol Sulfate Inhaler - 2 inh PO Q4H 05/03/19 [Ventolin HFA Inhaler -] Citalopram Hydrobromide 20 mg PO DAILY 05/03/19 [Citalopram HBr] Fenofibrate Nanocrystallized 145 mg PO DAILY 05/03/19 [Fenofibrate] Ferrous Sulfate 325 mg PO BID 05/03/19 Ipratropium/Albuterol Sulfate 1 vial IH Q6H PRN 05/03/19 [Iprat-Albut 0.5-3(2.5) mg/3 ml] Methadone [Dolophine -] 90 mg PO DAILY #1 tab.disper MDD 05/09/19 90 mg Enalapril Maleate [Vasotec -] 10 mg PO DAILY #30 tablet 05/12/19 Furosemide [Lasix -] 40 mg PO DAILY #30 tablet 05/12/19 Gabapentin 800 mg PO TID #30 tablet 05/12/19 Metformin HCl [Glucophage] 1,000 mg PO BID #60 tablet 05/12/19 Sitagliptin Phosphate [Januvia] 100 mg PO DAILY #30 tablet 05/12/19 Collagenase Clostridium Hist. 1 applic TP DAILY #30 applic 08/19/19 [Santyl] Piperacillin/Tazob 3.375 gm [Zosyn 3.375 gm IVPB Q8H-IV vial 08/19/19 -] Abnormal Lab Results 12/09/19 20:50 Sodium 134 L Chloride 97 L Anion Gap 6 L BUN 19.8 H Random Glucose 126 H ALT 11 L Alkaline Phosphatase 196 H C-Reactive Protein 2.0 H Albumin 2.6 L Current Medications Generic Name Dose Route Start Last Admin Trade Name Freq PRN Reason Stop Dose Admin Alprazolam 2 mg 12/09/19 23:46 12/09/19 23:53 Xanax PO 2 mg ONCE PRN Administration ANXIETY Enoxaparin Sodium 40 mg 12/10/19 10:00 Lovenox - SQ DAILY OBI Piperacillin Sod/Tazobactam 50 mls @ 100 mls/hr 12/10/19 07:30 Sod 3.375 gm/ Dextrose IVPB Q8H-IV OBI Protocol Piperacillin Sod/Tazobactam 50 mls @ 100 mls/hr 08/29/20 09:00 Sod 3.375 gm/ Dextrose IVPB 12/11/19 02:29 Q8H-IV OBI Protocol Vancomycin HCl 1,000 mg in 250 mls @ 166.667 mls/hr 12/10/19 12:00 Vancomycin (Pre-Docked) IVPB 12/11/19 01:29 Q12H OBI Insulin Aspart 1 vial 12/10/19 07:00 Novolog Vial Sliding Scale - SQ ACHS OBI Protocol Vancomycin HCl 1,000 mg 12/11/19 01:30 Vancomycin (Pre-Docked) IVPB DAILY [facility] Protocol ASSESSMENT AND PLAN: 1. Left heel ulcer/Rue out osteomyelitis - No acute abnormality on CXR. CT scan of feet didnot show air collection or evidence of osteomyelitis. Sepsis workup done and patient started on IV Vancomycin and IV Zosyn. Got Methadone 90, Xanax, Neurontin and Ketorolac in the ER. EKG pending. Viral testing for COVID-19 ordered and patient placed on airborne, droplet and contact isolation. Get MRI of foot, consult Podiatry and ID. Hyponatremia likely partly due to hyperglycemia. Will limit free water intake and correct hyperglycemia. Consult bridge gang worker for insurance and Home health agency issues. Will continue comprehensive care for all of patients comorbid conditions. 2. Hypoalbuminemia - Possibly due to combined effects of malnutrition and inflammation associated with comorbid conditions. Will ensure adequate dietary protein intake and also consult veterinarian epidemiologist. Urinalysis pending. 3. DM For now, we will hold the home diabetes drugs and implement sliding scale insulin regimen. Provide comprehensive diabetes care with patient teaching and counseling about the importance of adherence to prescribed diabetes regimen, euglycemia, eye care and foot care. 4. Tobacco Use Counseled on risks associated with tobacco use. We will provide patient all the necessary assistance to facilitate smoking cessation and prescribe Nicotine patch. 5. Obesity Counseled on the risks associated with obesity. Will provide patient all the necessary assistance, counseling and positive reinforcement to facilitate weight loss. Consult veterinarian epidemiologist. 6. Hypertension Will restart suitable outpatient antihypertensive drugs when clinically appropriate. Subsequently, will revise regimen to ensure [id number] excellent BP control. Patient counseled on the injurious effects of uncontrolled hypertension. Nonpharmacologic measures to control hypertension like weight loss, salt restriction and exercise stressed. Importance of adherence to treatment regimen and attainment of normotension emphasized. 7. DVT prophylaxis - Lovenox 40 mg SQ q 24 hours. 8. Advance directives - Full code
[2019-12-10] MEDS ORDERED: ACETAMINOPHEN 1000 MG/100 ML VIAL (NON FORMULARY) IVPB PRN (04:21)
--- NOTE | 2019-12-10 06:36 | HP ---
CHIEF COMPLAINT: bilateral foot pain PCP: unknown HISTORY OF PRESENT ILLNESS: Kat Good is a 54 year old woman with IDDM, HTN, Tobacco use, Anxiety, Depression, Opioid use (daily methadone 90 mg daily), Chronic left heel ulcer, Chronic osteomyelitis and Neuropathy presenting with bilateral foot pain. Neftaly echeverria has a chronic stage III ulcer on left heel (s/p bone biopsy). Patient has had problems with her insurence and coverage so she has not been following up with her podiatry appointments over the last month. She states that she is in a lot of leg pain today. Patient is s/p b/l ankle repair in 1999 and was previously hospitalized for foot ulcers. Family history is unremarkable. ER course was notable for: (1) vanc and zosyn abx administered (2) Methadone 90 given (3) EKG: normal sinus rhythm; QTc 465 (4) CT scan of the feet Recent Travel: denies PAST MEDICAL HISTORY: IDDM, HTN, anxiety, opioid dependence on methadone, recent osteomyelitis to the left heel s/p washouy PAST SURGICAL HISTORY: b/l ankle repair, ulcer washout Social History: Smoking: current 25 pack year smoker, smokes 1/3 pack per day Alcohol: denies Drugs: past heroin use; currently on methadone Allergies No Known Allergies Allergy (Verified 12/09/19 23:29) HOME MEDICATIONS: Home Medications Medication Instructions Recorded Alprazolam [Xanax] 2 mg PO TID 10/17/18 Insulin Lispro Protamin/Lispro 24 units SQ BID 04/30/19 [Humalog Mix 75-25 Kwikpen] Albuterol Sulfate Inhaler - 2 inh PO Q4H 05/03/19 [Ventolin HFA Inhaler -] Citalopram Hydrobromide 20 mg PO DAILY 05/03/19 [Citalopram HBr] Fenofibrate Nanocrystallized 145 mg PO DAILY 05/03/19 [Fenofibrate] Ferrous Sulfate 325 mg PO BID 05/03/19 Ipratropium/Albuterol Sulfate 1 vial IH Q6H PRN 05/03/19 [Iprat-Albut 0.5-3(2.5) mg/3 ml] Methadone [Dolophine -] 90 mg PO DAILY #1 tab.disper MDD 05/09/19 90 mg Enalapril Maleate [Vasotec -] 10 mg PO DAILY #30 tablet 05/12/19 Furosemide [Lasix -] 40 mg PO DAILY #30 tablet 05/12/19 Gabapentin 800 mg PO TID #30 tablet 05/12/19 Metformin HCl [Glucophage] 1,000 mg PO BID #60 tablet 05/12/19 Sitagliptin Phosphate [Januvia] 100 mg PO DAILY #30 tablet 05/12/19 Collagenase Clostridium Hist. 1 applic TP DAILY #30 applic 08/19/19 [Santyl] Piperacillin/Tazob 3.375 gm [Zosyn 3.375 gm IVPB Q8H-IV vial 08/19/19 -] REVIEW OF SYSTEMS CONSTITUTIONAL: Absent: fever, chills, diaphoresis, generalized weakness, malaise, loss of appetite, weight change HEENT: Absent: rhinorrhea, nasal congestion, throat pain, throat swelling, difficulty swallowing, mouth swelling, ear pain, eye pain, visual changes CARDIOVASCULAR: Absent: chest pain, syncope, palpitations, irregular heart rate, lightheadedness, peripheral edema RESPIRATORY: Absent: cough, shortness of breath, dyspnea with exertion, orthopnea, wheezing, stridor, hemoptysis GASTROINTESTINAL: Absent: abdominal pain, abdominal distension, nausea, vomiting, diarrhea, constipation, melena, hematochezia GENITOURINARY: Absent: dysuria, frequency, urgency, hesitancy, hematuria, flank pain, genital pain MUSCULOSKELETAL: +back pain, +leg pain Absent: myalgia, arthralgia, joint swelling, neck pain SKIN: Absent: rash, itching, pallor HEMATOLOGIC/IMMUNOLOGIC: Absent: easy bleeding, easy bruising, lymphadenopathy, frequent infections ENDOCRINE: Absent: unexplained weight gain, unexplained weight loss, heat intolerance, cold intolerance NEUROLOGIC: Absent: headache, focal weakness or paresthesias, dizziness, unsteady gait, seizure, mental status changes, bladder or bowel incontinence PSYCHIATRIC: Absent: anxiety, depression, suicidal or homicidal ideation, hallucinations. PHYSICAL EXAMINATION Vital Signs - 24 hr 12/09/19 12/09/19 12/10/19 17:43 23:43 03:40 Temperature 99.1 F 97.8 F 97.9 F Pulse Rate 86 69 Pulse Rate [ 78 Right Radial] Respiratory 18 20 18 Rate Blood Pressure 146/78 182/88 H Blood Pressure 170/85 [Right Arm] O2 Sat by Pulse 98 98 95 Oximetry (%) GENERAL: AAOx3, in no acute distress HEENT: NCAT, PERRLA, EOMI, sclera anicteric, conjunctiva clear, oropharynx clear w/o exudates. MMM. NECK: Normal ROM, supple, no lymphadenopathy, JVD, or masses LUNGS: CTABL no wheezes/ rhonchi/ rales. No distress, speaks in full sentences. No increased work of breathing. HEART: RRR, normal S1 S2, no M/R/G, peripheral pulses 2+ and equal b/l ABDOMEN: Soft, NTND, + BS. No guarding or rebound. No hepatomegaly or splenomegaly. MSK: ROM WNL EXTREMITIES: L heel ulcer stage 3. right foot eschar on the lateral aspect of the foot. NEUROLOGICAL: CN II-XII intact. Normal speech, normal gait, no focal sensorimotor deficits. SKIN: Warm, Dry, normal turgor, no rashes or lesions noted Laboratory Results - last 24 hr CBC, BMP 12/09/19 22:30 12/09/19 20:50 12/09/19 12/09/19 12/09/19 20:50 20:50 22:30 WBC Cancelled 8.8 Corrected WBC (auto) Cancelled RBC Cancelled 4.01 Hgb Cancelled 11.9 Hct Cancelled 35.5 MCV Cancelled 88.5 MCH Cancelled 29.7 MCHC Cancelled 33.5 RDW Cancelled 12.9 Plt Count Cancelled 213 D MPV Cancelled 8.9 Absolute Neuts (auto) Cancelled 5.3 Absolute Lymphs (auto) Cancelled Absolute Monos (auto) Cancelled Absolute Eos (auto) Cancelled Absolute Basos (auto) Cancelled Add Manual Diff Cancelled Neutrophils % Cancelled 59.4 Lymphocytes % Cancelled 31.4 Monocytes % Cancelled 6.4 Eosinophils % Cancelled 1.4 Basophils % Cancelled 1.4 D Nucleated RBC % Cancelled 0 Platelet Estimate Cancelled Platelet Comment Cancelled Normal RBC Morphology Cancelled Sodium 134 L Potassium 5.0 Chloride 97 L Carbon Dioxide 31 Anion Gap 6 L BUN 19.8 H Creatinine 1.2 Est GFR (CKD-EPI)AfAm 58.51 Est GFR (CKD-EPI)NonAf 50.48 Random Glucose 126 H Calcium 9.2 Total Bilirubin 0.4 AST 27 ALT 11 L Alkaline Phosphatase 196 H C-Reactive Protein 2.0 H Total Protein 7.5 Albumin 2.6 L ASSESSMENT/PLAN: 54 y/o female with PMX IDDM, HTN, anxiety, opioid dependence on methadone, and recent osteomyelitis to the left heel s/p washout presenting with bilateral foot pain. Admitted for left foot ulcer to rule out osteomyelitis. #Left heel ulcer/Rule out Osteomyelitis -CT scan of feet :negative for air collection or evidence of osteomyelitis. -abx: IV Vancomycin and IV Zosyn. -received Methadone 90, Xanax, Neurontin and Ketorolac in the ER. -MRI of foot ordered to r/o osteomyelitis -Podiatry consult appreciated -ID consult appreciated -Consult wireworker for insurance and Home health agency issues -UA ordered #Diabetes Mellitus -ISS BGM ordered #Hypertension monitor blood pressure -will restart HTN meds when appropriate #Opioid Dependence -confirm patient's methadone dosage with [facility] -give Methadone at the dosage confirmed with [facility] #Anxiety -Xanax PRN #FEN -monitor electrolytes -diabetic diet #Prophylaxis -DVT: Lovenox 40 mg SQ q 24 hours. dispo: monitor in m/s. Family Medical History Family History: As Documented Visit type - Emergency Visit Emergency Visit: Yes ED Registration Date: 12/10/19 Care time: The patient presented to the Emergency Department on the above date and was hospitalized for further evaluation of their emergent condition. - New Patient This patient is new to me today: Yes Date on this admission: 12/10/19 - Critical Care Critical Care patient: No ATTENDING PHYSICIAN STATEMENT I saw and evaluated the patient. I reviewed the resident's note and discussed the case with the resident. I agree with the resident's findings and plan as documented. SUBJECTIVE: OBJECTIVE: ASSESSMENT AND PLAN:
[2019-12-10] MEDS: INSULIN SLIDING SCALE (NOVOLOG) 1 VIAL SQ SCH ×4 (07:13→21:15)
[2019-12-10] MEDS ORDERED: DEXTROSE 5%-WATER - 50 ML IVPB ONE ×2 (08:53→17:18)
[2019-12-10] MEDS ORDERED: PIPERACILLIN/TAZOBACTAM 3.375 GM VIAL IVPB ONE ×2 (08:53→17:18)
--- NOTE | 2019-12-10 09:36 | HOSP ---
Subjective - Review of Symptoms Events since last encounter: Patient is refusing his morning labs. methadone was verified by the nurse ,is 90mg daily Vital Signs Temperature 97.9 F 12/10/19 03:40 Pulse Rate 69 12/10/19 03:40 Respiratory Rate 18 12/10/19 03:40 Blood Pressure 182/88 H 12/10/19 03:40 O2 Sat by Pulse Oximetry (%) 95 12/10/19 03:40 GENERAL: The patient is awake, alert, and fully oriented, in no acute distress. HEAD: Normal with no signs of trauma. EYES: PERRL, extraocular movements intact, sclera anicteric, conjunctiva clear. ENT: Ears normal, oropharynx clear without exudates, moist mucous membranes. NECK: Trachea midline, full range of motion, supple. LUNGS: Breath sounds equal, clear to auscultation bilaterally, no wheezes, no crackles, no accessory muscle use. HEART: Regular rate and rhythm, S1, S2 without murmur, rub or gallop. ABDOMEN: Soft, nontender, nondistended, normoactive bowel sounds, no guarding, no rebound, no hepatosplenomegaly, no masses. EXTREMITIES: NEUROLOGICAL: Cranial nerves II through XII grossly intact. Normal speech, gait not observed. PSYCH: Normal mood, normal affect. SKIN: Warm, dry, normal turgor, no rashes or lesions noted CBCD WBC 8.8 K/mm3 (4.0-10.0) 12/09/19 22:30 RBC 4.01 M/mm3 (3.60-5.2) 12/09/19 22:30 Hgb 11.9 GM/dL (10.7-15.3) 12/09/19 22:30 Hct 35.5 % (32.4-45.2) 12/09/19 22:30 MCV 88.5 fl (80-96) 12/09/19 22:30 MCHC 33.5 g/dl (32.0-36.0) 12/09/19 22:30 RDW 12.9 % (11.6-15.6) 12/09/19 22:30 Plt Count 213 K/MM3 (134-434) D 12/09/19 22:30 MPV 8.9 fl (7.5-11.1) 12/09/19 22:30 CMP Sodium 134 mmol/L (136-145) L 12/09/19 20:50 Potassium 5.0 mmol/L (3.5-5.1) 12/09/19 20:50 Chloride 97 mmol/L (98-107) L 12/09/19 20:50 Carbon Dioxide 31 mmol/L (21-32) 12/09/19 20:50 Anion Gap 6 MMOL/L (8-16) L 12/09/19 20:50 BUN 19.8 mg/dL (7-18) H 12/09/19 20:50 Creatinine 1.2 mg/dL (0.55-1.3) 12/09/19 20:50 Random Glucose 126 mg/dL (74-106) H 12/09/19 20:50 Calcium 9.2 mg/dL (8.5-10.1) 12/09/19 20:50 Total Bilirubin 0.4 mg/dL (0.2-1) 12/09/19 20:50 AST 27 U/L (15-37) 12/09/19 20:50 ALT 11 U/L (13-61) L 12/09/19 20:50 Alkaline Phosphatase 196 U/L (45-117) H 12/09/19 20:50 Total Protein 7.5 g/dl (6.4-8.2) 12/09/19 20:50 Albumin 2.6 g/dl (3.4-5.0) L 12/09/19 20:50 Current Medications Generic Name Dose Route Start Last Admin Trade Name Freq PRN Reason Stop Dose Admin Acetaminophen 1,000 mg 12/10/19 04:21 Ofirmev Injection - IVPB 12/11/19 04:22 Q6H PRN PAIN LEVEL 6-10 Alprazolam 2 mg 12/09/19 23:46 12/09/19 23:53 Xanax PO 2 mg ONCE PRN Administration ANXIETY Enoxaparin Sodium 40 mg 12/10/19 10:00 Lovenox - SQ DAILY OBI Piperacillin Sod/Tazobactam 50 mls @ 100 mls/hr 12/10/19 07:30 Sod 3.375 gm/ Dextrose IVPB Q8H-IV [facility] Protocol Piperacillin Sod/Tazobactam 50 mls @ 100 mls/hr 08/29/20 09:00 Sod 3.375 gm/ Dextrose IVPB 12/11/19 02:29 Q8H-IV [facility] Protocol Vancomycin HCl 1,000 mg in 250 mls @ 166.667 mls/hr 12/10/19 12:00 Vancomycin (Pre-Docked) IVPB 12/11/19 01:29 Q12H OBI Insulin Aspart 1 vial 12/10/19 07:00 12/10/19 07:13 Novolog Vial Sliding Scale - SQ Not Given ACHS [facility] Protocol Methadone HCl 90 mg 12/10/19 10:00 Dolophine - PO DAILY [facility] Vancomycin HCl 1,000 mg 12/11/19 01:30 Vancomycin (Pre-Docked) IVPB DAILY [facility] Protocol Home Medications Medication Instructions Recorded Alprazolam [Xanax] 2 mg PO TID 10/17/18 Insulin Lispro Protamin/Lispro 24 units SQ BID 04/30/19 [Humalog Mix 75-25 Kwikpen] Albuterol Sulfate Inhaler - 2 inh PO Q4H 05/03/19 [Ventolin HFA Inhaler -] Citalopram Hydrobromide 20 mg PO DAILY 05/03/19 [Citalopram HBr] Fenofibrate Nanocrystallized 145 mg PO DAILY 05/03/19 [Fenofibrate] Ferrous Sulfate 325 mg PO BID 05/03/19 Ipratropium/Albuterol Sulfate 1 vial IH Q6H PRN 05/03/19 [Iprat-Albut 0.5-3(2.5) mg/3 ml] Methadone [Dolophine -] 90 mg PO DAILY #1 tab.disper MDD 05/09/19 90 mg Enalapril Maleate [Vasotec -] 10 mg PO DAILY #30 tablet 05/12/19 Furosemide [Lasix -] 40 mg PO DAILY #30 tablet 05/12/19 Gabapentin 800 mg PO TID #30 tablet 05/12/19 Metformin HCl [Glucophage] 1,000 mg PO BID #60 tablet 05/12/19 Sitagliptin Phosphate [Januvia] 100 mg PO DAILY #30 tablet 05/12/19 Collagenase Clostridium Hist. 1 applic TP DAILY #30 applic 08/19/19 [Santyl] Piperacillin/Tazob 3.375 gm [Zosyn 3.375 gm IVPB Q8H-IV vial 08/19/19 -] 08/2019 R wrist XR: Healed slightly displaced distal radial fracture as well as an ulnar styloid process fracture, as described above. There is suggestion of mild surrounding soft tissue swelling XR L foot & ankle: Significant soft tissue swelling over the lateral malleolus a No gross acute fracture or dislocation identified XR R foot: Metallic hardware is transfixing a lateral malleolar fracture in satisfactory alignment. No gross acute fracture or dislocation are identified. Prominent dorsal spur formation also noted at the junction of the talus and navicular bone on 08/15/2019; LLE MRI: Large ulcer in the heel region with associated cellulitis and osteomyelitis of the calcaneus. Edema of the shaft and base of the third metatarsal suspicious for a stress fracture. Achilles tendinosis witho ut tear. CXR: no acute pathology 12/09/2019: CT scan of feet: negative for air collection or evidence of osteomyelitis. Assessment and plan: This patient is a 54yof with PMhx of T2DM, HTN, anxiety, opioid dependence on methadone, with recent osteomyelitis to the left heel s/p washout presented with bilateral foot pain and is admitted for left foot ulcer to rule out osteomyelitis #Left heel ulcer with osteomyelitis podiatry and ID on the case , on IV vanco and zosyn, as per podiatry , patient has a chronic bilateral heel diabetic ulcers,with chronic osteomyelitis left calcaneus with no acute intervention is required , continue IV abx per ID, Continue local care Offloading measures. #T2DM with ISS BGM ordered #Hypertension: continue home meds DVT Px: Lovenox 40 mg SQ Physical Examination Vital Signs: Vital Signs Temperature 97.9 F 12/10/19 03:40 Pulse Rate 69 12/10/19 03:40 Respiratory Rate 18 12/10/19 03:40 Blood Pressure 182/88 H 12/10/19 03:40 O2 Sat by Pulse Oximetry (%) 95 12/10/19 03:40 Labs: CBC, BMP 12/09/19 22:30 12/09/19 20:50
[2019-12-10] MEDS ORDERED: METHADONE HCL 40 MG DISPERSABLE TABLET ONE (09:41)
[2019-12-10] MEDS ORDERED: METHADONE HCL 10 MG TABLET ONE (09:41)
[2019-12-10] MEDS: METHADONE 80 MG, METHADONE 10 MG PO SCH (09:45)
[2019-12-10] MEDS: PIPERACILLIN/TAZOB 3.375 GM 3.375 GM in DEXTROSE 5%-WATER - 50 ML IVPB SCH ×2 (09:46→17:33)
[2019-12-10] MEDS ORDERED: ALBUTEROL SO4 HFA INHALER IH PRN (09:47)
[2019-12-10] MEDS: ENOXAPARIN NA (PORCINE) 40 MG/0.4 ML DISP.SYRIN SQ SCH (09:49)
[2019-12-10 09:50] LABS: BASO % 1.2 % (0-2.0); EOS % 2.6 % (0-4.5); HEMATOCRIT 35.7 % (32.4-45.2); LYMPH % 33.2 % (8-40); MCH 29.9 pg (25.7-33.7); MCHC 33.6 g/dl (32.0-36.0); MEAN CELL VOLUME 88.9 fl (80-96); MONO % 5.9 % (3.8-10.2); NEUT % 57.1 % (42.8-82.8); PLATELET COUNT 184 K/MM3 (134-434); RBC 4.02 M/mm3 (3.60-5.2)
[2019-12-10] MEDS ORDERED: PATIENT'S OWN MEDICATION (NON-FORMULARY) (Fenofibrate Nanocrystallized [Fenofibrate] 145 M PO SCH (10:00)
[2019-12-10] MEDS ORDERED: METHADONE HCL 40 MG DISPERSABLE TABLET PO SCH (10:00)
[2019-12-10] MEDS ORDERED: PATIENT'S OWN MEDICATION (NON-FORMULARY) (Insulin Lispro Protamin/Lispro [Humalog Mix 75-2 SQ SCH (10:00)
--- NOTE | 2019-12-10 10:16 | EKG ---
Test Reason : Blood Pressure : / mmHG Vent. Rate : 078 BPM Atrial Rate : 078 BPM P-R Int : 124 ms QRS Dur : 082 ms QT Int : 408 ms P-R-T Axes : 065 069 071 degrees QTc Int : 465 ms NORMAL SINUS RHYTHM NORMAL ECG WHEN COMPARED WITH ECG OF 29-APR-2019 19:06, NONSPECIFIC T WAVE ABNORMALITY NO LONGER EVIDENT IN INFERIOR LEADS Confirmed by ZULEIMA SPEARS MD ([id number]) on 12/10/2019 10:16:07 AM Referred By: Confirmed By:ZULEIMA SPEARS MD
[2019-12-10 10:22] LABS: ALBUMIN 2.5 g/dl (3.4-5.0); BILIRUBIN,TOTAL 0.4 mg/dL (0.2-1); BLOOD UREA NITROGEN 21.5 mg/dL (7-18); CALCIUM 9.1 mg/dL (8.5-10.1); CREATININE 1.3 mg/dL (0.55-1.3); POTASSIUM 4.7 mmol/L (3.5-5.1)
[2019-12-10] MEDS: amLODIPine BESYLATE 10 MG TABLET (FP) PO SCH (12:03)
[2019-12-10] MEDS: FUROSEMIDE 40 MG TABLET (FP) PO SCH (12:03)
[2019-12-10] MEDS: ENALAPRIL MALEATE 10 MG TABLET (FP) PO SCH (12:03)
[2019-12-10] MEDS: ALPRAZolam 1 MG TABLET PO PRN ×2 (12:22→20:24)
[2019-12-10] MEDS: VANCOMYCIN 1 GRAM (PRE-DOCKED) 1,000 MG/250 ML BAG IVPB SCH ×2 (12:23→23:33)
[2019-12-10] MEDS: GABAPENTIN 400 MG CAPSULE PO SCH ×2 (13:29→21:07)
--- NOTE | 2019-12-10 13:44 | PN ---
Progress Note (short form) - Note Progress Note: Podiatry Consultation: 54 year old poorly controlled diabetic female well known to me from prior admission, presents with bilateral feet pain and burning. Patient denies trauma to the feet. She has history of chronic osteomyelitis left calcaneus, underwent long term care administrator IV abx treatment in rehab. She has been consistently lost to follow up. Currently afebrile. VSS. PMHx: IDDM, HTN, Tobacco use, Anxiety, Depression, Opioid use (daily methadone 90 mg daily), Chronic left heel ulcer, Chronic osteomyelitis and Neuropathy Meds: noted ALL: NKMA BRITTANIE: Pedal pulses nonpalpable, TG wnl, CFT brisk to toes. On the right foot is a lateral heel and lateral fifth metatarsal base diabetic ulcer with mixed fibrogranular base, regular borders. No probing to bone, no purulence, no fluctuance, no streaking cellulitis, no signs of infection. On the left foot, there is a large lateral calcaneal diabetic ulcer with mixed fibrogranular base, regular borders. No probing to bone, no purulence, no fluctuance, no streaking cellulitis, no signs of infection. Imp: 54 year old diabetic female with bilateral heel diabetic ulcers, chronic osteomyelitis left calcaneus 1. IV abx per ID 2. Continue local care 3. Offloading measures 4. Glycemic management 5. No acute intervention required. Thank you for the courtesy of this consultation.
[2019-12-10] MEDS ORDERED: PATIENT'S OWN MEDICATION (NON-FORMULARY) (Gabapentin [Gabapentin] 800 MG) PO SCH (14:00)
[2019-12-10 16:02] LABS: EPI CELLS 9 /uL (0-25.1); HYALINE CASTS 0 /uL (0-3.1); PH,URINE 5.5 (5.0-8.0); URINE APPEARANCE CLEAR; URINE BACTERIA 11 /uL (0-1359); URINE BILIRUBIN NEGATIVE (NEGATIVE); URINE COLOR YELLOW; URINE GLUCOSE (UA) NEGATIVE (NEGATIVE); URINE KETONE NEGATIVE (NEGATIVE); URINE LEUK ESTERASE NEGATIVE (NEGATIVE); URINE NITRITE NEGATIVE (NEGATIVE); URINE PROTEIN 2+ (NEGATIVE); URINE RBC 22 /uL (0-23.9); URINE UROBILINOGEN 0.2 mg/dL (0.2-1.0); URINE WBC 4 /uL (0-25.8)
[2019-12-10] MEDS: INSULIN (NOVOLOG MIX 70/30) 100 UNITS/ML MDV SQ SCH (17:33)
[2019-12-10] MEDS ORDERED: INSULIN (NOVOLOG) ASPART 100 UNITS/ML 10ML VIAL ONE (18:03)
[2019-12-10] MEDS ORDERED: INSULIN (NOVOLOG MIX 70/30) 100 UNITS/ML MDV SQ ONE (18:03)
[2019-12-11] MEDS ORDERED: PIPERACILLIN/TAZOBACTAM 3.375 GM VIAL IVPB ONE ×2 (02:12→16:45)
[2019-12-11] MEDS ORDERED: DEXTROSE 5%-WATER - 50 ML IVPB ONE ×2 (02:13→16:45)
[2019-12-11] MEDS: PIPERACILLIN/TAZOB 3.375 GM 3.375 GM in DEXTROSE 5%-WATER - 50 ML IVPB SCH ×4 (02:14→17:37)
[2019-12-11] MEDS ORDERED: METHADONE HCL 10 MG TABLET ONE (05:07)
[2019-12-11] MEDS ORDERED: METHADONE HCL 40 MG DISPERSABLE TABLET ONE (05:07)
[2019-12-11] MEDS: METHADONE 80 MG, METHADONE 10 MG PO SCH (05:44)
[2019-12-11] MEDS: GABAPENTIN 400 MG CAPSULE PO SCH ×3 (05:44→21:01)
[2019-12-11] MEDS: INSULIN (NOVOLOG MIX 70/30) 100 UNITS/ML MDV SQ SCH ×2 (06:02→17:37)
[2019-12-11] MEDS: INSULIN SLIDING SCALE (NOVOLOG) 1 VIAL SQ SCH ×4 (06:03→21:11)
[2019-12-11 08:45] LABS: BASO % 0.6 % (0-2.0); EOS % 1.6 % (0-4.5); HEMATOCRIT 38.1 % (32.4-45.2); HEMOGLOBIN 12.8 GM/dL (10.7-15.3); LYMPH % 15.2 % (8-40); MCH 29.7 pg (25.7-33.7); MCHC 33.5 g/dl (32.0-36.0); MEAN CELL VOLUME 88.7 fl (80-96); MEAN PLT VOLUME 9.3 fl (7.5-11.1); MONO % 4.3 % (3.8-10.2); NEUT % 78.3 % (42.8-82.8); PLATELET COUNT 235 K/MM3 (134-434); RDW 13.2 % (11.6-15.6); WHITE BLOOD COUNT 9.4 K/mm3 (4.0-10.0)
[2019-12-11] MEDS: ALPRAZolam 1 MG TABLET PO PRN ×2 (09:00→19:15)
[2019-12-11 09:13] LABS: ALBUMIN 2.8 g/dl (3.4-5.0); BILIRUBIN,TOTAL 0.9 mg/dL (0.2-1); BLOOD UREA NITROGEN 23.5 mg/dL (7-18); CALCIUM 8.8 mg/dL (8.5-10.1); CREATININE 1.5 mg/dL (0.55-1.3); MAGNESIUM 2.2 mg/dL (1.8-2.4); PHOSPHOROUS 4.1 mg/dL (2.5-4.9); POTASSIUM 4.4 mmol/L (3.5-5.1); TOT PROT 7.5 g/dl (6.4-8.2)
[2019-12-11] MEDS: ENOXAPARIN NA (PORCINE) 40 MG/0.4 ML DISP.SYRIN SQ SCH (10:33)
[2019-12-11] MEDS: amLODIPine BESYLATE 10 MG TABLET (FP) PO SCH ×2 (10:33→12:33)
[2019-12-11] MEDS: ENALAPRIL MALEATE 10 MG TABLET (FP) PO SCH ×2 (10:33→12:33)
[2019-12-11] MEDS: FENOFIBRIC ACID 135 MG CAP PO SCH (10:33)
[2019-12-11] MEDS: FUROSEMIDE 40 MG TABLET (FP) PO SCH (10:33)
--- NOTE | 2019-12-11 10:59 | PN ---
Physical Exam: SUBJECTIVE: Patient seen and examined. She was more concerned over people entering her room than her feet. She reports feet are not bothering her much. She is concerned about abx treatment. She reports having problems with diarrhea with abx. OBJECTIVE: Vital Signs Period Temp Pulse Resp BP Sys/Kelly Pulse Ox Last 24 Hr 97.6 F-98.0 F 79-149 20-20 102-145/62-82 97-100 GENERAL: A&Ox3, in no acute distress. Sitting in chair. HEAD: Normal with no signs of trauma. EYES: PERRL, EOMI. ENT: Ears normal, nares patent, moist mucous membranes. NECK: Trachea midline, full range of motion. LUNGS: CTAB, no wheezes or crackles. HEART: RRR, no murmur. ABDOMEN: Soft, nontender, nondistended, normoactive bowel sounds. EXTREMITIES: Warm, well-perfused, no edema. NEUROLOGICAL: Cranial nerves II through XII grossly intact. Normal speech. PSYCH: Normal mood, normal affect. SKIN: Warm, dry, normal turgor. Laboratory Results - last 24 hr 12/10/19 12/10/19 12/10/19 10:00 12:18 17:14 WBC RBC Hgb Hct MCV MCH MCHC RDW Plt Count MPV Absolute Neuts (auto) Neutrophils % Lymphocytes % Monocytes % Eosinophils % Basophils % Nucleated RBC % Sodium Potassium Chloride Carbon Dioxide Anion Gap BUN Creatinine Est GFR (CKD-EPI)AfAm Est GFR (CKD-EPI)NonAf POC Glucometer 256 174 Random Glucose Calcium Phosphorus Magnesium Total Bilirubin AST ALT Alkaline Phosphatase Total Protein Albumin Urine Color Yellow Urine Appearance Clear Urine pH 5.5 Ur Specific [place] 1.008 L Urine Protein 2+ H Urine Glucose (UA) Negative Urine Ketones Negative Urine Blood Negative Urine Nitrite Negative Urine Bilirubin Negative Urine Urobilinogen 0.2 Ur Leukocyte Esterase Negative Urine WBC (Auto) 4 Urine RBC (Auto) 22 Urine Casts (Auto) 0 U Epithel Cells (Auto) 9 Urine Bacteria (Auto) 11 12/10/19 12/11/19 12/11/19 21:08 06:00 08:08 WBC 9.4 RBC 4.30 Hgb 12.8 Hct 38.1 MCV 88.7 MCH 29.7 MCHC 33.5 RDW 13.2 Plt Count 235 D MPV 9.3 Absolute Neuts (auto) 7.4 Neutrophils % 78.3 D Lymphocytes % 15.2 D Monocytes % 4.3 Eosinophils % 1.6 Basophils % 0.6 Nucleated RBC % 0 Sodium Potassium Chloride Carbon Dioxide Anion Gap BUN Creatinine Est GFR (CKD-EPI)AfAm Est GFR (CKD-EPI)NonAf POC Glucometer 93 127 Random Glucose Calcium Phosphorus Magnesium Total Bilirubin AST ALT Alkaline Phosphatase Total Protein Albumin Urine Color Urine Appearance Urine pH Ur Specific [place] Urine Protein Urine Glucose (UA) Urine Ketones Urine Blood Urine Nitrite Urine Bilirubin Urine Urobilinogen Ur Leukocyte Esterase Urine WBC (Auto) Urine RBC (Auto) Urine Casts (Auto) U Epithel Cells (Auto) Urine Bacteria (Auto) 12/11/19 08:08 WBC RBC Hgb Hct MCV MCH MCHC RDW Plt Count MPV Absolute Neuts (auto) Neutrophils % Lymphocytes % Monocytes % Eosinophils % Basophils % Nucleated RBC % Sodium 132 L Potassium 4.4 Chloride 96 L Carbon Dioxide 28 Anion Gap 8 BUN 23.5 H Creatinine 1.5 H Est GFR (CKD-EPI)AfAm 44.67 Est GFR (CKD-EPI)NonAf 38.54 POC Glucometer Random Glucose 75 Calcium 8.8 Phosphorus 4.1 Magnesium 2.2 Total Bilirubin 0.9 AST 20 ALT 12 L Alkaline Phosphatase 183 H Total Protein 7.5 Albumin 2.8 L Urine Color Urine Appearance Urine pH Ur Specific [place] Urine Protein Urine Glucose (UA) Urine Ketones Urine Blood Urine Nitrite Urine Bilirubin Urine Urobilinogen Ur Leukocyte Esterase Urine WBC (Auto) Urine RBC (Auto) Urine Casts (Auto) U Epithel Cells (Auto) Urine Bacteria (Auto) Active Medications Generic Name Dose Route Start Last Admin Trade Name Freq PRN Reason Stop Dose Admin Albuterol Sulfate 2 puff 12/10/19 09:47 Ventolin Hfa Inhaler - IH Q4H PRN SHORTNESS OF BREATH Alprazolam 2 mg 12/09/19 23:46 12/09/19 23:53 Xanax PO 2 mg ONCE PRN Administration ANXIETY Alprazolam 2 mg 12/10/19 09:53 12/11/19 09:00 Xanax PO 2 mg TID PRN Administration ANXIETY Amlodipine Besylate 10 mg 12/10/19 10:15 12/11/19 10:33 Norvasc - PO 10 mg DAILY OBI Administration Enalapril Maleate 10 mg 12/10/19 10:00 12/11/19 10:33 Vasotec - PO 10 mg DAILY OBI Administration Enoxaparin Sodium 40 mg 12/10/19 10:00 12/11/19 10:33 Lovenox - SQ 40 mg DAILY OBI Administration Fenofibric Acid 135 mg 12/11/19 10:00 12/11/19 10:33 Trilipix - PO 135 mg DAILY OBI Administration Furosemide 40 mg 12/10/19 10:00 12/11/19 10:33 Lasix - PO 40 mg DAILY OBI Administration Gabapentin 800 mg 12/10/19 14:00 12/11/19 05:44 Neurontin - PO 800 mg TID OBI Administration Piperacillin Sod/Tazobactam 50 mls @ 100 mls/hr 12/10/19 07:30 Sod 3.375 gm/ Dextrose IVPB Q8H-IV [facility] Protocol Insulin Aspart 1 vial 12/10/19 07:00 12/11/19 06:03 Novolog Vial Sliding Scale - SQ Not Given ACHS [facility] Protocol Insulin Aspart 20 units 12/10/19 16:30 12/11/19 06:02 Novolog Mix 70/30 Vial SQ 20 units BIDAC [facility]BI Administration Methadone HCl 80 mg/ Methadone 90 mg 12/10/19 09:45 12/11/19 05:44 HCl 10 mg PO 90 mg DAILY@0600 OBI Administration Sitagliptin Phosphate 100 mg 12/10/19 10:00 12/11/19 06:09 Januvia - PO Not Given ACBK [facility] Vancomycin HCl 1,000 mg 12/11/19 01:30 Vancomycin (Pre-Docked) IVPB DAILY [facility] Protocol ASSESSMENT/PLAN: Pt is a 54 y/o female with IDDM type 2 with b/l chronic foot ulcers with osteomyelitis of left heel (staph and enterococcus in August 2019), diabetic neuropathy, HTN, generalized anxiety disorder, and opioid use disorder on methadone presenting with bilateral foot pain. Admitted for left foot ulcer and r/o osteo. #b/l heel ulcers, need to r/o cellulitis vs infected ulcers vs osteomyelitis #diabetic neuropathy -no definitive evidence of osteo on CT -MRI ordered for confirmation -cx growing multiple organisms -Vancomycin 12/09 -Zosyn 12/09 -continue gabapentin -continue Lasix -podiatry following- Dr. Devine familiar with pt, often lost to f/u; offloading measures and wound care -ID following #IDDM type 2 -likely poorly controlled given hx of chronic foot ulcers -continue home Januvia -hold metformin -SSI -BGMs #HTN -continue home enalapril -amlodipine 10mg daily #HLD -continue fenofibrate #opioid use disorder -continue methadone 90mg daily, confirmed dose #generalized anxiety disorder -Xanax TID PRN DVT Ppx Lovenox FEN PO fluids monitor labs diabetic diet dispo med/surg Needs med rec. [facility] closed today. Visit type - Emergency Visit Emergency Visit: Yes ED Registration Date: 12/10/19 Care time: The patient presented to the Emergency Department on the above date and was hospitalized for further evaluation of their emergent condition. - New Patient This patient is new to me today: Yes Date on this admission: 12/11/19 - Critical Care Critical Care patient: No ATTENDING PHYSICIAN STATEMENT I saw and evaluated the patient. I reviewed the resident's note and discussed the case with the resident. I agree with the resident's findings and plan as documented. SUBJECTIVE: OBJECTIVE: ASSESSMENT AND PLAN:
[2019-12-11] MEDS ORDERED: INSULIN (NOVOLOG) ASPART 100 UNITS/ML 10ML VIAL ONE ×2 (11:40→16:45)
[2019-12-11] MEDS: VANCOMYCIN 1 GRAM (PRE-DOCKED) 1,000 MG/250 ML BAG IVPB SCH (14:13)
[2019-12-11] MEDS: VANCOMYCIN 1 GM in D5W (PRE-DOCKED) 1,000 MG/250 ML IVPB SCH (14:14)
--- NOTE | 2019-12-11 17:39 | PN ---
Teaching Attending Note Name of Resident: Meagan Munson ATTENDING PHYSICIAN STATEMENT I saw and evaluated the patient. I reviewed the resident's note and discussed the case with the resident. I agree with the resident's findings and plan as documented. SUBJECTIVE: OBJECTIVE: Vital Signs Temperature 97.6 F 12/11/19 14:06 Pulse Rate 66 12/11/19 14:06 Respiratory Rate 20 12/11/19 14:06 Blood Pressure 91/62 12/11/19 14:06 O2 Sat by Pulse Oximetry (%) 98 12/11/19 10:45 PE: per resident's note CBCD WBC 9.4 K/mm3 (4.0-10.0) 12/11/19 08:08 RBC 4.30 M/mm3 (3.60-5.2) 12/11/19 08:08 Hgb 12.8 GM/dL (10.7-15.3) 12/11/19 08:08 Hct 38.1 % (32.4-45.2) 12/11/19 08:08 MCV 88.7 fl (80-96) 12/11/19 08:08 MCHC 33.5 g/dl (32.0-36.0) 12/11/19 08:08 RDW 13.2 % (11.6-15.6) 12/11/19 08:08 Plt Count 235 K/MM3 (134-434) D 12/11/19 08:08 MPV 9.3 fl (7.5-11.1) 12/11/19 08:08 CMP Sodium 132 mmol/L (136-145) L 12/11/19 08:08 Potassium 4.4 mmol/L (3.5-5.1) 12/11/19 08:08 Chloride 96 mmol/L (98-107) L 12/11/19 08:08 Carbon Dioxide 28 mmol/L (21-32) 12/11/19 08:08 Anion Gap 8 MMOL/L (8-16) 12/11/19 08:08 BUN 23.5 mg/dL (7-18) H 12/11/19 08:08 Creatinine 1.5 mg/dL (0.55-1.3) H 12/11/19 08:08 Random Glucose 75 mg/dL (74-106) 12/11/19 08:08 Calcium 8.8 mg/dL (8.5-10.1) 12/11/19 08:08 Total Bilirubin 0.9 mg/dL (0.2-1) 12/11/19 08:08 AST 20 U/L (15-37) 12/11/19 08:08 ALT 12 U/L (13-61) L 12/11/19 08:08 Alkaline Phosphatase 183 U/L (45-117) H 12/11/19 08:08 Total Protein 7.5 g/dl (6.4-8.2) 12/11/19 08:08 Albumin 2.8 g/dl (3.4-5.0) L 12/11/19 08:08 Current Medications Generic Name Dose Route Start Last Admin Trade Name Freq PRN Reason Stop Dose Admin Albuterol Sulfate 2 puff 12/10/19 09:47 Ventolin Hfa Inhaler - IH Q4H PRN SHORTNESS OF BREATH Alprazolam 2 mg 12/09/19 23:46 12/09/19 23:53 Xanax PO 2 mg ONCE PRN Administration ANXIETY Alprazolam 2 mg 12/10/19 09:53 12/11/19 09:00 Xanax PO 2 mg TID PRN Administration ANXIETY Amlodipine Besylate 10 mg 12/10/19 10:15 12/11/19 12:33 Norvasc - PO Not Given DAILY [facility] Enalapril Maleate 10 mg 12/10/19 10:00 12/11/19 12:33 Vasotec - PO Not Given DAILY [facility] Enoxaparin Sodium 40 mg 12/10/19 10:00 12/11/19 10:33 Lovenox - SQ 40 mg DAILY [facility] Administration Fenofibric Acid 135 mg 12/11/19 10:00 12/11/19 10:33 Trilipix - PO 135 mg DAILY [facility] Administration Furosemide 40 mg 12/10/19 10:00 12/11/19 10:33 Lasix - PO 40 mg DAILY [facility] Administration Gabapentin 800 mg 12/10/19 14:00 12/11/19 14:13 Neurontin - PO 800 mg TID [facility] Administration Piperacillin Sod/Tazobactam 50 mls @ 100 mls/hr 12/11/19 18:00 Sod 3.375 gm/ Dextrose IVPB Q8H-IV [facility] Protocol Vancomycin HCl 1,000 mg in 250 mls @ 200 mls/hr 12/11/19 14:00 12/11/19 14:13 Vancomycin (Pre-Docked) IVPB 200 mls/hr DAILY@1400 [facility] Administration Protocol Insulin Aspart 1 vial 12/10/19 07:00 12/11/19 12:33 Novolog Vial Sliding Scale - SQ Not Given ACHS [facility] Protocol Insulin Aspart 20 units 12/10/19 16:30 12/11/19 06:02 Novolog Mix 70/30 Vial SQ 20 units BIDAC [facility] Administration Methadone HCl 80 mg/ Methadone 90 mg 12/10/19 09:45 12/11/19 05:44 HCl 10 mg PO 90 mg DAILY@0600 [facility] Administration Sitagliptin Phosphate 100 mg 12/10/19 10:00 12/11/19 06:09 Januvia - PO Not Given ACBK [facility] Home Medications Medication Instructions Recorded Alprazolam [Xanax] 2 mg PO TID 10/17/18 Insulin Lispro Protamin/Lispro 24 units SQ BID 04/30/19 [Humalog Mix 75-25 Kwikpen] Albuterol Sulfate Inhaler - 2 inh PO Q4H 05/03/19 [Ventolin HFA Inhaler -] Citalopram Hydrobromide 20 mg PO DAILY 05/03/19 [Citalopram HBr] Fenofibrate Nanocrystallized 145 mg PO DAILY 05/03/19 [Fenofibrate] Ferrous Sulfate 325 mg PO BID 05/03/19 Ipratropium/Albuterol Sulfate 1 vial IH Q6H PRN 05/03/19 [Iprat-Albut 0.5-3(2.5) mg/3 ml] Methadone [Dolophine -] 90 mg PO DAILY #1 tab.disper MDD 05/09/19 90 mg Enalapril Maleate [Vasotec -] 10 mg PO DAILY #30 tablet 05/12/19 Furosemide [Lasix -] 40 mg PO DAILY #30 tablet 05/12/19 Gabapentin 800 mg PO TID #30 tablet 05/12/19 Metformin HCl [Glucophage] 1,000 mg PO BID #60 tablet 05/12/19 Sitagliptin Phosphate [Januvia] 100 mg PO DAILY #30 tablet 05/12/19 Collagenase Clostridium Hist. 1 applic TP DAILY #30 applic 08/19/19 [Santyl] Piperacillin/Tazob 3.375 gm [Zosyn 3.375 gm IVPB Q8H-IV vial 08/19/19 -] 08/2019 R wrist XR: Healed slightly displaced distal radial fracture as well as an ulnar styloid process fracture, as described above. There is suggestion of mild surrounding soft tissue swelling XR L foot & ankle: Significant soft tissue swelling over the lateral malleolus a No gross acute fracture or dislocation identified XR R foot: Metallic hardware is transfixing a lateral malleolar fracture in satisfactory alignment. No gross acute fracture or dislocation are identified. Prominent dorsal spur formation also noted at the junction of the talus and navicular bone on 08/15/2019; LLE MRI: Large ulcer in the heel region with associated cellulitis and osteomyelitis of the calcaneus. Edema of the shaft and base of the third metatarsal suspicious for a stress fracture. Achilles tendinosis without tear. CXR: no acute pathology 12/09/2019: CT scan of feet: negative for air collection or evidence of osteomyelitis. Assessment and plan: This patient is a 54yof with PMhx of T2DM, HTN, anxiety, opioid dependence on methadone, with recent osteomyelitis to the left heel s/p washout presented with bilateral foot pain and is admitted for left foot ulcer to rule out osteomyelitis #Left heel ulcer with osteomyelitis podiatry and ID on the case ,continue IV vanco and zosyn, as per podiatry , patient has a chronic bilateral heel diabetic ulcers,with chronic osteomyelitis left calcaneus with no acute intervention is required , continue IV abx per ID, Continue local care Offloading measures. #T2DM with ISS BGM ordered #Hypertension: continue home meds DVT Px: Lovenox 40 mg SQ will check with ID if ok to discharge her tomorrow with oral antibiotics
[2019-12-11] MEDS ORDERED: INSULIN (NOVOLOG MIX 70/30) 100 UNITS/ML MDV SQ ONE (18:09)
[2019-12-12] MEDS ORDERED: PIPERACILLIN/TAZOBACTAM 3.375 GM VIAL IVPB ONE ×3 (01:15→16:24)
[2019-12-12] MEDS ORDERED: DEXTROSE 5%-WATER - 50 ML IVPB ONE ×3 (01:15→16:24)
[2019-12-12] MEDS: PIPERACILLIN/TAZOB 3.375 GM 3.375 GM in DEXTROSE 5%-WATER - 50 ML IVPB SCH ×3 (01:18→17:03)
[2019-12-12] MEDS ORDERED: PHENYLEPHRINE HCL/COCOA BUTTER SUPPOSITORY RC PRN (04:54)
[2019-12-12] MEDS ORDERED: METHADONE HCL 40 MG DISPERSABLE TABLET ONE (05:18)
[2019-12-12] MEDS ORDERED: METHADONE HCL 10 MG TABLET ONE (05:18)
[2019-12-12] MEDS: GABAPENTIN 400 MG CAPSULE PO SCH ×3 (05:44→21:00)
[2019-12-12] MEDS: METHADONE 80 MG, METHADONE 10 MG PO SCH (05:44)
[2019-12-12] MEDS: ALPRAZolam 1 MG TABLET PO PRN ×3 (06:03→21:01)
[2019-12-12] MEDS: INSULIN (NOVOLOG MIX 70/30) 100 UNITS/ML MDV SQ SCH ×2 (06:03→16:13)
[2019-12-12] MEDS: INSULIN SLIDING SCALE (NOVOLOG) 1 VIAL SQ SCH ×4 (06:04→21:00)
[2019-12-12] MEDS ORDERED: PT OWN MED DRAWER 7, Y5N ONE (06:27)
[2019-12-12 08:05] LABS: BASO % 0.7 % (0-2.0); EOS % 1.8 % (0-4.5); HEMOGLOBIN 12.6 GM/dL (10.7-15.3); LYMPH % 20.9 % (8-40); MCH 29.2 pg (25.7-33.7); MCHC 33.3 g/dl (32.0-36.0); MEAN CELL VOLUME 87.9 fl (80-96); MEAN PLT VOLUME 8.9 fl (7.5-11.1); NEUT % 71.6 % (42.8-82.8); PLATELET COUNT 239 K/MM3 (134-434); RBC 4.33 M/mm3 (3.60-5.2); RDW 13.3 % (11.6-15.6); WHITE BLOOD COUNT 6.2 K/mm3 (4.0-10.0)
[2019-12-12 08:33] LABS: ALBUMIN 2.9 g/dl (3.4-5.0); BILIRUBIN,TOTAL 0.3 mg/dL (0.2-1); BLOOD UREA NITROGEN 24.6 mg/dL (7-18); CALCIUM 8.9 mg/dL (8.5-10.1); CREATININE 1.6 mg/dL (0.55-1.3); MAGNESIUM 2.3 mg/dL (1.8-2.4); POTASSIUM 4.7 mmol/L (3.5-5.1); TOT PROT 7.7 g/dl (6.4-8.2)
[2019-12-12] MEDS: ENOXAPARIN NA (PORCINE) 40 MG/0.4 ML DISP.SYRIN SQ SCH (09:25)
[2019-12-12] MEDS: FUROSEMIDE 40 MG TABLET (FP) PO SCH (09:25)
[2019-12-12] MEDS: ENALAPRIL MALEATE 10 MG TABLET (FP) PO SCH (09:25)
[2019-12-12] MEDS: amLODIPine BESYLATE 10 MG TABLET (FP) PO SCH (09:25)
[2019-12-12] MEDS: FENOFIBRIC ACID 135 MG CAP PO SCH (09:26)
[2019-12-12] MEDS: VANCOMYCIN 1 GRAM (PRE-DOCKED) 1,000 MG/250 ML BAG IVPB SCH (13:10)
--- NOTE | 2019-12-12 15:10 | PN ---
Physical Exam: SUBJECTIVE: Patient seen and examined. No acute events overnight. Pt complains of burning sensation in b/l lower extremities and lower back pain (L>R). Pt denies chest pain, shortness of breath, dysuria, abdominal pain or numbness or tingling. OBJECTIVE: Vital Signs Period Temp Pulse Resp BP Sys/Kelly Pulse Ox Last 24 Hr 97.4 F-98.8 F 67-95 18-18 110-167/68-87 96-99 GENERAL: AAOx3, in mild distress HEENT: NCAT, EOMI, moist mucus membranes. Poor dentition and oral hygiene. LUNGS: Equal breath sounds b/l, clear to auscultation, no wheezes. HEART: Regular rate and rhythm, S1, S2 present. No murmur. ABDOMEN: Obese. Soft, nontender, nondistended, bowel sounds present. EXTREMITIES: Warm, well-perfused, no edema. SKIN: Warm, dry. Wounds on b/l plantar surface are clean, no purulent drainage, no bleeding. Laboratory Last Values WBC 6.2 K/mm3 (4.0-10.0) 12/12/19 07:45 Corrected WBC (auto) Cancelled 12/09/19 20:50 RBC 4.33 M/mm3 (3.60-5.2) 12/12/19 07:45 Hgb 12.6 GM/dL (10.7-15.3) 12/12/19 07:45 Hct 38.0 % (32.4-45.2) 12/12/19 07:45 MCV 87.9 fl (80-96) 12/12/19 07:45 MCH 29.2 pg (25.7-33.7) 12/12/19 07:45 MCHC 33.3 g/dl (32.0-36.0) 12/12/19 07:45 RDW 13.3 % (11.6-15.6) 12/12/19 07:45 Plt Count 239 K/MM3 (134-434) 12/12/19 07:45 MPV 8.9 fl (7.5-11.1) 12/12/19 07:45 Absolute Neuts (auto) 4.5 K/mm3 (1.5-8.0) 12/12/19 07:45 Absolute Lymphs (auto) Cancelled 12/09/19 20:50 Absolute Monos (auto) Cancelled 12/09/19 20:50 Absolute Eos (auto) Cancelled 12/09/19 20:50 Absolute Basos (auto) Cancelled 12/09/19 20:50 Add Manual Diff Cancelled 12/09/19 20:50 Neutrophils % 71.6 % (42.8-82.8) 12/12/19 07:45 Lymphocytes % 20.9 % (8-40) D 12/12/19 07:45 Monocytes % 5.0 % (3.8-10.2) 12/12/19 07:45 Eosinophils % 1.8 % (0-4.5) 12/12/19 07:45 Basophils % 0.7 % (0-2.0) 12/12/19 07:45 Nucleated RBC % 0 % (0-0) 12/12/19 07:45 Platelet Estimate Cancelled 12/09/19 20:50 Platelet Comment Cancelled 12/09/19 20:50 Normal RBC Morphology Cancelled 12/09/19 20:50 Sodium 134 mmol/L (136-145) L 12/12/19 07:45 Potassium 4.7 mmol/L (3.5-5.1) 12/12/19 07:45 Chloride 100 mmol/L (98-107) 12/12/19 07:45 Carbon Dioxide 28 mmol/L (21-32) 12/12/19 07:45 Anion Gap 6 MMOL/L (8-16) L 12/12/19 07:45 BUN 24.6 mg/dL (7-18) H 12/12/19 07:45 Creatinine 1.6 mg/dL (0.55-1.3) H 12/12/19 07:45 Est GFR (CKD-EPI)AfAm 41.32 12/12/19 07:45 Est GFR (CKD-EPI)NonAf 35.65 12/12/19 07:45 POC Glucometer 305 UNITS (80-120) 12/12/19 16:12 Random Glucose 117 mg/dL (74-106) H 12/12/19 07:45 Calcium 8.9 mg/dL (8.5-10.1) 12/12/19 07:45 Phosphorus 4.1 mg/dL (2.5-4.9) 12/11/19 08:08 Magnesium 2.3 mg/dL (1.8-2.4) 12/12/19 07:45 Total Bilirubin 0.3 mg/dL (0.2-1) 12/12/19 07:45 AST 21 U/L (15-37) 12/12/19 07:45 ALT 13 U/L (13-61) 12/12/19 07:45 Alkaline Phosphatase 184 U/L (45-117) H 12/12/19 07:45 C-Reactive Protein 2.0 MG/DL (0.00-0.3) H 12/09/19 20:50 Total Protein 7.7 g/dl (6.4-8.2) 12/12/19 07:45 Albumin 2.9 g/dl (3.4-5.0) L 12/12/19 07:45 Urine Color Yellow 12/10/19 10:00 Urine Appearance Clear 12/10/19 10:00 Urine pH 5.5 (5.0-8.0) 12/10/19 10:00 Ur Specific [place] 1.008 (1.010-1.035) L 12/10/19 10:00 Urine Protein 2+ (NEGATIVE) H 12/10/19 10:00 Urine Glucose (UA) Negative (NEGATIVE) 12/10/19 10:00 Urine Ketones Negative (NEGATIVE) 12/10/19 10:00 Urine Blood Negative (NEGATIVE) 12/10/19 10:00 Urine Nitrite Negative (NEGATIVE) 12/10/19 10:00 Urine Bilirubin Negative (NEGATIVE) 12/10/19 10:00 Urine Urobilinogen 0.2 mg/dL (0.2-1.0) 12/10/19 10:00 Ur Leukocyte Esterase Negative (NEGATIVE) 12/10/19 10:00 Urine WBC (Auto) 4 /uL (0-25.8) 12/10/19 10:00 Urine RBC (Auto) 22 /uL (0-23.9) 12/10/19 10:00 Urine Casts (Auto) 0 /uL (0-3.1) 12/10/19 10:00 U Epithel Cells (Auto) 9 /uL (0-25.1) 12/10/19 10:00 Urine Bacteria (Auto) 11 /uL (0-1359) 12/10/19 10:00 COVID-19 (ANA) Not detected (Not Detected) 12/10/19 09:30 Active Medications Acetaminophen (Tylenol -) 650 mg PO Q6H PRN PRN Reason: Fever Or Pain Albuterol Sulfate (Ventolin Hfa Inhaler -) 2 puff IH Q4H PRN PRN Reason: SHORTNESS OF BREATH Alprazolam (Xanax) 2 mg PO ONCE PRN PRN Reason: ANXIETY Last Admin: 12/09/19 23:53 Dose: 2 mg Documented by: Alprazolam (Xanax) 2 mg PO TID PRN PRN Reason: ANXIETY Last Admin: 12/12/19 15:55 Dose: 2 mg Documented by: Amlodipine Besylate (Norvasc -) 10 mg PO DAILY [facility] Last Admin: 12/12/19 09:25 Dose: 10 mg Documented by: [place] Butter/Phenylephrine (Preparation H Suppository) 1 each RC ONCE PRN PRN Reason: HEMORRHOIDS Stop: 12/13/19 04:53 Enalapril Maleate (Vasotec -) 10 mg PO DAILY [facility] Last Admin: 12/12/19 09:25 Dose: 10 mg Documented by: Enoxaparin Sodium (Lovenox -) 40 mg SQ DAILY [facility] Last Admin: 12/12/19 09:25 Dose: 40 mg Documented by: Fenofibric Acid (Trilipix -) 135 mg PO DAILY [facility] Last Admin: 12/12/19 09:26 Dose: 135 mg Documented by: Furosemide (Lasix -) 40 mg PO DAILY [facility] Last Admin: 12/12/19 09:25 Dose: 40 mg Documented by: Gabapentin (Neurontin -) 800 mg PO TID [facility] Last Admin: 12/12/19 13:08 Dose: 800 mg Documented by: Piperacillin Sod/Tazobactam (Sod 3.375 gm/ Dextrose) 50 mls @ 100 mls/hr IVPB Q8H-IV [facility]; Protocol Last Admin: 12/12/19 09:24 Dose: 100 mls/hr Documented by: Vancomycin HCl (Vancomycin (Pre-Docked)) 1,000 mg in 250 mls @ 200 mls/hr IVPB DAILY@1400 [facility]; Protocol Last Admin: 12/12/19 13:10 Dose: 200 mls/hr Documented by: Insulin Aspart (Novolog Vial Sliding Scale -) 1 vial SQ ACHS [facility]; Protocol Last Admin: 12/12/19 16:15 Dose: 8 units Documented by: Insulin Aspart (Novolog Mix 70/30 Vial) 20 units SQ BIDAC [facility] Last Admin: 12/12/19 16:13 Dose: 20 units Documented by: Methadone HCl 80 mg/ Methadone (HCl 10 mg) 90 mg PO DAILY@0600 [facility] Last Admin: 12/12/19 05:44 Dose: 90 mg Documented by: Sitagliptin Phosphate (Januvia -) 100 mg PO ACBK [facility] Last Admin: 12/12/19 06:04 Dose: Not Given Documented by: CXR; 12/09/2019 No acute chest pathology. No significant change since 04/29/2019 CT lower extremities; 12/09/[address] evidence for osteomyelitis. However osteomyelitis cannot be excluded by CT scan MRI L lower extremity; 12/12/2019 Pending read. ASSESSMENT/PLAN: Pt is a 54 y/o female with IDDM type 2 with b/l chronic foot ulcers with osteomyelitis of left heel (staph and enterococcus in August 2019), diabetic neuropathy, HTN, generalized anxiety disorder, and opioid use disorder on methadone presenting with bilateral foot pain. Admitted for left foot ulcer and r/o osteo. B/l lower extremity ulcers, r/o cellulitis vs. osteomyelitis diabetic neuropathy -CT as above. -F/u MRI -F/u cultures and sensitivities -c/w Vanc/zosyn (12/10/2019) Today is day 3. -c/w gabapentin -Podiatry consulted. Pending recommendations for wound care. -ID consulted. Pending recommendations. - c/w Acetaminophen 650mg q6H PRN for fever/pain IDDM type 2 -c/w home dose Sitagliptin 100 qD -hold metformin - ISS & BGMs - C/w insulin aspart (novolog) 20U BID AC ?Asthma - c/w home albuterol inhaler PRN HTN -c/w home dose enalapril 10 qD -c/w amlodipine 10mg daily, furosemide 40 qD HLD -c/w fenofibrate 135mg qD Opioid use disorder - c/w methadone 90mg qD Generalized anxiety disorder -Alprazolam TID PRN Hemorrhoids -Preparation H suppository PRN Ppx - DVT: Lovenox FEN - No standing IV fluids, as pt is eating/drinking. - monitor and replete electrolytes - Diabetic diet Dispo: Continue to monitor in med/surg Visit type - Emergency Visit Emergency Visit: Yes ED Registration Date: 12/10/19 Care time: The patient presented to the Emergency Department on the above date and was hospitalized for further evaluation of their emergent condition. - New Patient This patient is new to me today: Yes Date on this admission: 12/12/19 - Critical Care Critical Care patient: No ATTENDING PHYSICIAN STATEMENT I saw and evaluated the patient. I reviewed the resident's note and discussed the case with the resident. I agree with the resident's findings and plan as documented. SUBJECTIVE: OBJECTIVE: ASSESSMENT AND PLAN:
--- NOTE | 2019-12-12 17:38 | PN ---
Teaching Attending Note Name of Resident: Gillian Mondragon ATTENDING PHYSICIAN STATEMENT I saw and evaluated the patient. I reviewed the resident's note and discussed the case with the resident. I agree with the resident's findings and plan as documented. SUBJECTIVE: Patient is c/o having burning sensations of lower extremities OBJECTIVE: Vital Signs Temperature 98.8 F 12/12/19 09:00 Pulse Rate 91 H 12/12/19 09:00 Respiratory Rate 18 12/12/19 09:00 Blood Pressure 110/73 12/12/19 09:00 O2 Sat by Pulse Oximetry (%) 96 12/12/19 09:00 PE;per resident's note Bl heel open wounds L>R CBCD WBC 6.2 K/mm3 (4.0-10.0) 12/12/19 07:45 RBC 4.33 M/mm3 (3.60-5.2) 12/12/19 07:45 Hgb 12.6 GM/dL (10.7-15.3) 12/12/19 07:45 Hct 38.0 % (32.4-45.2) 12/12/19 07:45 MCV 87.9 fl (80-96) 12/12/19 07:45 MCHC 33.3 g/dl (32.0-36.0) 12/12/19 07:45 RDW 13.3 % (11.6-15.6) 12/12/19 07:45 Plt Count 239 K/MM3 (134-434) 12/12/19 07:45 MPV 8.9 fl (7.5-11.1) 12/12/19 07:45 CMP Sodium 134 mmol/L (136-145) L 12/12/19 07:45 Potassium 4.7 mmol/L (3.5-5.1) 12/12/19 07:45 Chloride 100 mmol/L (98-107) 12/12/19 07:45 Carbon Dioxide 28 mmol/L (21-32) 12/12/19 07:45 Anion Gap 6 MMOL/L (8-16) L 12/12/19 07:45 BUN 24.6 mg/dL (7-18) H 12/12/19 07:45 Creatinine 1.6 mg/dL (0.55-1.3) H 12/12/19 07:45 Random Glucose 117 mg/dL (74-106) H 12/12/19 07:45 Calcium 8.9 mg/dL (8.5-10.1) 12/12/19 07:45 Total Bilirubin 0.3 mg/dL (0.2-1) 12/12/19 07:45 AST 21 U/L (15-37) 12/12/19 07:45 ALT 13 U/L (13-61) 12/12/19 07:45 Alkaline Phosphatase 184 U/L (45-117) H 12/12/19 07:45 Total Protein 7.7 g/dl (6.4-8.2) 12/12/19 07:45 Albumin 2.9 g/dl (3.4-5.0) L 12/12/19 07:45 Current Medications Generic Name Dose Route Start Last Admin Trade Name Freq PRN Reason Stop Dose Admin Acetaminophen 650 mg 12/12/19 10:24 Tylenol - PO Q6H PRN Fever Or Pain Albuterol Sulfate 2 puff 12/10/19 09:47 Ventolin Hfa Inhaler - IH Q4H PRN SHORTNESS OF BREATH Alprazolam 2 mg 12/09/19 23:46 12/09/19 23:53 Xanax PO 2 mg ONCE PRN Administration ANXIETY Alprazolam 2 mg 12/10/19 09:53 12/12/19 15:55 Xanax PO 2 mg TID PRN Administration ANXIETY Amlodipine Besylate 10 mg 12/10/19 10:15 12/12/19 09:25 Norvasc - PO 10 mg DAILY [facility] Administration [place] Butter/Phenylephrine 1 each 12/12/19 04:54 Preparation H Suppository RC 12/13/19 04:53 ONCE PRN HEMORRHOIDS Enalapril Maleate 10 mg 12/10/19 10:00 12/12/19 09:25 Vasotec - PO 10 mg DAILY [facility] Administration Enoxaparin Sodium 40 mg 12/10/19 10:00 12/12/19 09:25 Lovenox - SQ 40 mg DAILY [facility] Administration Fenofibric Acid 135 mg 12/11/19 10:00 12/12/19 09:26 Trilipix - PO 135 mg DAILY [facility] Administration Furosemide 40 mg 12/10/19 10:00 12/12/19 09:25 Lasix - PO 40 mg DAILY [facility] Administration Gabapentin 800 mg 12/10/19 14:00 12/12/19 13:08 Neurontin - PO 800 mg TID [facility] Administration Piperacillin Sod/Tazobactam 50 mls @ 100 mls/hr 12/11/19 18:00 12/12/19 17:03 Sod 3.375 gm/ Dextrose IVPB 100 mls/hr Q8H-IV [facility] Administration Protocol Vancomycin HCl 1,000 mg in 250 mls @ 200 mls/hr 12/11/19 14:00 12/12/19 13:10 Vancomycin (Pre-Docked) IVPB 200 mls/hr DAILY@1400 [facility] Administration Protocol Insulin Aspart 1 vial 12/10/19 07:00 12/12/19 16:15 Novolog Vial Sliding Scale - SQ 8 units ACHS [facility] Administration Protocol Insulin Aspart 20 units 12/10/19 16:30 12/12/19 16:13 Novolog Mix 70/30 Vial SQ 20 units BIDAC [facility] Administration Methadone HCl 80 mg/ Methadone 90 mg 12/10/19 09:45 12/12/19 05:44 HCl 10 mg PO 90 mg DAILY@0600 [facility] Administration Sitagliptin Phosphate 100 mg 12/10/19 10:00 12/12/19 06:04 Januvia - PO Not Given ACK [facility] Home Medications Medication Instructions Recorded Alprazolam [Xanax] 2 mg PO TID 10/17/18 Insulin Lispro Protamin/Lispro 24 units SQ BID 04/30/19 [Humalog Mix 75-25 Kwikpen] Albuterol Sulfate Inhaler - 2 inh PO Q4H 05/03/19 [Ventolin HFA Inhaler -] Citalopram Hydrobromide 20 mg PO DAILY 05/03/19 [Citalopram HBr] Fenofibrate Nanocrystallized 145 mg PO DAILY 05/03/19 [Fenofibrate] Ferrous Sulfate 325 mg PO BID 05/03/19 Ipratropium/Albuterol Sulfate 1 vial IH Q6H PRN 05/03/19 [Iprat-Albut 0.5-3(2.5) mg/3 ml] Methadone [Dolophine -] 90 mg PO DAILY #1 tab.disper MDD 05/09/19 90 mg Enalapril Maleate [Vasotec -] 10 mg PO DAILY #30 tablet 05/12/19 Furosemide [Lasix -] 40 mg PO DAILY #30 tablet 05/12/19 Gabapentin 800 mg PO TID #30 tablet 05/12/19 Metformin HCl [Glucophage] 1,000 mg PO BID #60 tablet 05/12/19 Sitagliptin Phosphate [Januvia] 100 mg PO DAILY #30 tablet 05/12/19 Collagenase Clostridium Hist. 1 applic TP DAILY #30 applic 08/19/19 [Santyl] Piperacillin/Tazob 3.375 gm [Zosyn 3.375 gm IVPB Q8H-IV vial 08/19/19 -] Microbiology 12/09/19 20:00 Foot - Left Gram Stain - Final 12/09/19 20:00 Foot - Left Wound Culture - Final Lactose Fermenting Neg Bacilli Non Lactose Fermenting Gnb Mr S Aureus Group D Strep Or Entero Coccus 12/10/19 20:00 Blood - Peripheral Venous Blood Culture - Preliminary NO GROWTH OBTAINED AFTER 24 HOURS, INCUBATION TO CONTINUE FOR 4 DAYS. 12/10/19 20:15 Blood - Peripheral Venous Blood Culture - Preliminary NO GROWTH OBTAINED AFTER 24 HOURS, INCUBATION TO CONTINUE FOR 4 DAYS. ASSESSMENT AND PLAN: 08/2019, R wrist XR: Healed slightly displaced distal radial fracture as well as an ulnar styloid process fracture, as described above. There is suggestion of mild surrounding soft tissue swelling XR L foot & ankle: Significant soft tissue swelling over the lateral malleolus a No gross acute fracture or dislocation identified XR R foot: Metallic hardware is transfixing a lateral malleolar fracture in satisfactory alignment. No gross acute fracture or dislocation are identified. Prominent dorsal spur formation also noted at the junction of the talus and navicular bone on 08/15/2019; LLE MRI: Large ulcer in the heel region with associated celluliti s and osteomyelitis of the calcaneus. Edema of the shaft and base of the third metatarsal suspicious for a stress fracture. Achilles tendinosis without tear. CXR: no acute pathology 12/09/2019: CT scan of feet: negative for air collection or evidence of osteomyelitis. Assessment and plan: This patient is a 54yof with PMhx of T2DM, HTN, anxiety, opioid dependence on methadone, with recent osteomyelitis to the left heel s/p washout presented with bilateral foot pain and is admitted for left foot ulcer to rule out osteomyelitis #Left heel ulcer with osteomyelitis podiatry and ID on the case ; cx as above growing MRSA, ,continue IV vanco and zosyn, as per podiatry , patient has a chronic bilateral heel diabetic ulcers,with chronic osteomyelitis left calcaneus with no acute intervention is required , continue IV abx per ID, Continue local care, going for MRI today to check for acute osteo over chronic Offloading measures. #T2DM with ISS BGM ordered #Hypertension: continue home meds DVT Px: Lovenox 40 mg SQ check with ID for further antibiotic use and the length of therapy ,[facility]
[2019-12-12] MEDS: ACETAMINOPHEN 325 MG TABLET (FP) PO PRN (21:04)
[2019-12-13] MEDS ORDERED: DEXTROSE 5%-WATER - 50 ML IVPB ONE ×3 (00:41→16:33)
[2019-12-13] MEDS ORDERED: PIPERACILLIN/TAZOBACTAM 3.375 GM VIAL IVPB ONE ×3 (00:41→16:33)
[2019-12-13] MEDS ORDERED: ACETAMINOPHEN 1000 MG/100 ML VIAL (NON FORMULARY) IVPB ONE (00:59)
[2019-12-13] MEDS: PIPERACILLIN/TAZOB 3.375 GM 3.375 GM in DEXTROSE 5%-WATER - 50 ML IVPB SCH ×3 (01:02→17:30)
[2019-12-13] MEDS ORDERED: METHADONE HCL 40 MG DISPERSABLE TABLET ONE (05:22)
[2019-12-13] MEDS ORDERED: METHADONE HCL 10 MG TABLET ONE (05:22)
[2019-12-13] MEDS: METHADONE 80 MG, METHADONE 10 MG PO SCH (05:25)
[2019-12-13] MEDS: GABAPENTIN 400 MG CAPSULE PO SCH ×3 (05:25→21:21)
[2019-12-13] MEDS: ALPRAZolam 1 MG TABLET PO PRN ×3 (05:25→21:21)
[2019-12-13] MEDS ORDERED: INSULIN (NOVOLOG) ASPART 100 UNITS/ML 10ML VIAL ONE (06:16)
[2019-12-13] MEDS ORDERED: INSULIN (NOVOLOG MIX 70/30) 100 UNITS/ML MDV SQ ONE (06:16)
[2019-12-13] MEDS: INSULIN (NOVOLOG MIX 70/30) 100 UNITS/ML MDV SQ SCH ×2 (06:21→17:27)
[2019-12-13] MEDS: INSULIN SLIDING SCALE (NOVOLOG) 1 VIAL SQ SCH ×4 (06:21→21:32)
[2019-12-13] MEDS: amLODIPine BESYLATE 10 MG TABLET (FP) PO SCH (09:20)
[2019-12-13] MEDS: ENALAPRIL MALEATE 10 MG TABLET (FP) PO SCH (09:21)
[2019-12-13] MEDS: FENOFIBRIC ACID 135 MG CAP PO SCH (09:21)
[2019-12-13] MEDS: ENOXAPARIN NA (PORCINE) 40 MG/0.4 ML DISP.SYRIN SQ SCH (09:22)
[2019-12-13] MEDS: FUROSEMIDE 40 MG TABLET (FP) PO SCH (09:22)
[2019-12-13 11:19] LABS: HEMATOCRIT 35.1 % (32.4-45.2); HEMOGLOBIN 11.7 GM/dL (10.7-15.3); MCH 29.7 pg (25.7-33.7); MCHC 33.4 g/dl (32.0-36.0); MEAN CELL VOLUME 89.2 fl (80-96); MEAN PLT VOLUME 9.3 fl (7.5-11.1); PLATELET COUNT 214 K/MM3 (134-434); RBC 3.94 M/mm3 (3.60-5.2); RDW 13.4 % (11.6-15.6); WHITE BLOOD COUNT 6.2 K/mm3 (4.0-10.0)
[2019-12-13 11:59] LABS: BLOOD UREA NITROGEN 27.5 mg/dL (7-18); CALCIUM 8.8 mg/dL (8.5-10.1); CREATININE 1.7 mg/dL (0.55-1.3); POTASSIUM 4.4 mmol/L (3.5-5.1)
[2019-12-13] MEDS: VANCOMYCIN 1 GRAM (PRE-DOCKED) 1,000 MG/250 ML BAG IVPB SCH (13:05)
--- NOTE | 2019-12-13 15:20 | PN ---
Progress Note, Physician History of Present Illness: LETHARGIC OFFERS NO COMPLAINTS AFEBRILE MRI SUSPICIOUS FOR OSTEO WOUND C/S MIXED - Current Medication List Current Medications: Active Medications Acetaminophen (Tylenol -) 650 mg PO Q6H PRN PRN Reason: Fever Or Pain Last Admin: 12/12/19 21:04 Dose: 650 mg Documented by: Albuterol Sulfate (Ventolin Hfa Inhaler -) 2 puff IH Q4H PRN PRN Reason: SHORTNESS OF BREATH Alprazolam (Xanax) 2 mg PO ONCE PRN PRN Reason: ANXIETY Last Admin: 12/12/19 21:01 Dose: 2 mg Documented by: Alprazolam (Xanax) 2 mg PO TID PRN PRN Reason: ANXIETY Last Admin: 12/13/19 13:31 Dose: 2 mg Documented by: Amlodipine Besylate (Norvasc -) 10 mg PO DAILY [facility] Last Admin: 12/13/19 09:20 Dose: 10 mg Documented by: Enalapril Maleate (Vasotec -) 10 mg PO DAILY [facility] Last Admin: 12/13/19 09:21 Dose: 10 mg Documented by: Enoxaparin Sodium (Lovenox -) 40 mg SQ DAILY [facility] Last Admin: 12/13/19 09:22 Dose: 40 mg Documented by: Fenofibric Acid (Trilipix -) 135 mg PO DAILY [facility] Last Admin: 12/13/19 09:21 Dose: 135 mg Documented by: Furosemide (Lasix -) 40 mg PO DAILY [facility] Last Admin: 12/13/19 09:22 Dose: 40 mg Documented by: Gabapentin (Neurontin -) 800 mg PO TID [facility] Last Admin: 12/13/19 13:05 Dose: 800 mg Documented by: Piperacillin Sod/Tazobactam (Sod 3.375 gm/ Dextrose) 50 mls @ 100 mls/hr IVPB Q8H-IV [facility]; Protocol Last Admin: 12/13/19 09:24 Dose: 100 mls/hr Documented by: Vancomycin HCl (Vancomycin (Pre-Docked)) 1,000 mg in 250 mls @ 200 mls/hr IVPB DAILY@1400 [facility]; Protocol Last Admin: 12/13/19 13:05 Dose: 200 mls/hr Documented by: Insulin Aspart (Novolog Vial Sliding Scale -) 1 vial SQ ACHS [facility]; Protocol Last Admin: 12/13/19 11:34 Dose: Not Given Documented by: Insulin Aspart (Novolog Mix 70/30 Vial) 20 units SQ BIDAC [facility] Last Admin: 12/13/19 06:21 Dose: 20 units Documented by: Methadone HCl 80 mg/ Methadone (HCl 10 mg) 90 mg PO DAILY@0600 [facility] Last Admin: 12/13/19 05:25 Dose: 90 mg Documented by: Sitagliptin Phosphate (Januvia -) 100 mg PO ACBK [facility] Last Admin: 12/13/19 06:13 Dose: Not Given Documented by: - Objective Vital Signs: Vital Signs Temperature 98.2 F 12/13/19 14:13 Pulse Rate 78 12/13/19 14:13 Respiratory Rate 20 12/13/19 14:13 Blood Pressure 114/60 12/13/19 14:13 O2 Sat by Pulse Oximetry (%) 100 12/13/19 14:13 Constitutional: Yes: No Distress Cardiovascular: Yes: Regular Rate and Rhythm, S1, S2 Respiratory: Yes: Diminished Gastrointestinal: Yes: Normal Bowel Sounds, Soft. No: Tenderness Extremities: Yes: Other (DRESSINGS IN PLACE) Labs: CBC, BMP 12/13/19 10:51 12/13/19 10:51 Assessment/Plan INFECTED L HEEL ULCER CHRONIC OSTEO AWAIT C/S CONTINUE ZOSYN/ VANCO
[2019-12-13] MEDS ORDERED: GABAPENTIN 100 MG CAPSULE PO ONE (15:28)
--- NOTE | 2019-12-13 15:45 | PN ---
Physical Exam: SUBJECTIVE: Patient seen and examined. No acute events overnight. Pt denies fevers, chills ,shortness of breath, abdominal pain, nausea, vomiting, diarrhea. Pt endorsed to having b/l lower extremity burning. OBJECTIVE: Vital Signs Period Temp Pulse Resp BP Sys/Kelly Pulse Ox Last 24 Hr 97.5 F-98.4 F 78-89 17-20 93-142/49-82 98-100 GENERAL: AAOx3, in mild distress HEENT: NCAT, EOMI, moist mucus membranes. Poor dentition and oral hygiene. LUNGS: Equal breath sounds b/l, clear to auscultation, no wheezes. HEART: Regular rate and rhythm, S1, S2 present. No murmur. ABDOMEN: Obese. Soft, nontender, nondistended, bowel sounds present. EXTREMITIES: Warm, well-perfused, no edema. SKIN: Warm, dry. Wounds on b/l plantar surface are clean, no purulent drainage, no bleeding. Laboratory Last Values WBC 6.2 K/mm3 (4.0-10.0) 12/13/19 10:51 Corrected WBC (auto) Cancelled 12/09/19 20:50 RBC 3.94 M/mm3 (3.60-5.2) 12/13/19 10:51 Hgb 11.7 GM/dL (10.7-15.3) 12/13/19 10:51 Hct 35.1 % (32.4-45.2) 12/13/19 10:51 MCV 89.2 fl (80-96) 12/13/19 10:51 MCH 29.7 pg (25.7-33.7) 12/13/19 10:51 MCHC 33.4 g/dl (32.0-36.0) 12/13/19 10:51 RDW 13.4 % (11.6-15.6) 12/13/19 10:51 Plt Count 214 K/MM3 (134-434) 12/13/19 10:51 MPV 9.3 fl (7.5-11.1) 12/13/19 10:51 Absolute Neuts (auto) 4.5 K/mm3 (1.5-8.0) 12/12/19 07:45 Absolute Lymphs (auto) Cancelled 12/09/19 20:50 Absolute Monos (auto) Cancelled 12/09/19 20:50 Absolute Eos (auto) Cancelled 12/09/19 20:50 Absolute Basos (auto) Cancelled 12/09/19 20:50 Add Manual Diff Cancelled 12/09/19 20:50 Neutrophils % 71.6 % (42.8-82.8) 12/12/19 07:45 Lymphocytes % 20.9 % (8-40) D 12/12/19 07:45 Monocytes % 5.0 % (3.8-10.2) 12/12/19 07:45 Eosinophils % 1.8 % (0-4.5) 12/12/19 07:45 Basophils % 0.7 % (0-2.0) 12/12/19 07:45 Nucleated RBC % 0 % (0-0) 12/12/19 07:45 Platelet Estimate Cancelled 12/09/19 20:50 Platelet Comment Cancelled 12/09/19 20:50 Normal RBC Morphology Cancelled 12/09/19 20:50 Sodium 135 mmol/L (136-145) L 12/13/19 10:51 Potassium 4.4 mmol/L (3.5-5.1) 12/13/19 10:51 Chloride 101 mmol/L (98-107) 12/13/19 10:51 Carbon Dioxide 26 mmol/L (21-32) 12/13/19 10:51 Anion Gap 9 MMOL/L (8-16) 12/13/19 10:51 BUN 27.5 mg/dL (7-18) H 12/13/19 10:51 Creatinine 1.7 mg/dL (0.55-1.3) H 12/13/19 10:51 Est GFR (CKD-EPI)AfAm 38.40 12/13/19 10:51 Est GFR (CKD-EPI)NonAf 33.13 12/13/19 10:51 POC Glucometer 174 UNITS (80-120) 12/13/19 17:24 Random Glucose 160 mg/dL (74-106) H 12/13/19 10:51 Calcium 8.8 mg/dL (8.5-10.1) 12/13/19 10:51 Phosphorus 4.1 mg/dL (2.5-4.9) 12/11/19 08:08 Magnesium 2.3 mg/dL (1.8-2.4) 12/12/19 07:45 Total Bilirubin 0.3 mg/dL (0.2-1) 12/12/19 07:45 AST 21 U/L (15-37) 12/12/19 07:45 ALT 13 U/L (13-61) 12/12/19 07:45 Alkaline Phosphatase 184 U/L (45-117) H 12/12/19 07:45 C-Reactive Protein 2.0 MG/DL (0.00-0.3) H 12/09/19 20:50 Total Protein 7.7 g/dl (6.4-8.2) 12/12/19 07:45 Albumin 2.9 g/dl (3.4-5.0) L 12/12/19 07:45 Urine Color Yellow 12/10/19 10:00 Urine Appearance Clear 12/10/19 10:00 Urine pH 5.5 (5.0-8.0) 12/10/19 10:00 Ur Specific [place] 1.008 (1.010-1.035) L 12/10/19 10:00 Urine Protein 2+ (NEGATIVE) H 12/10/19 10:00 Urine Glucose (UA) Negative (NEGATIVE) 12/10/19 10:00 Urine Ketones Negative (NEGATIVE) 12/10/19 10:00 Urine Blood Negative (NEGATIVE) 12/10/19 10:00 Urine Nitrite Negative (NEGATIVE) 12/10/19 10:00 Urine Bilirubin Negative (NEGATIVE) 12/10/19 10:00 Urine Urobilinogen 0.2 mg/dL (0.2-1.0) 12/10/19 10:00 Ur Leukocyte Esterase Negative (NEGATIVE) 12/10/19 10:00 Urine WBC (Auto) 4 /uL (0-25.8) 12/10/19 10:00 Urine RBC (Auto) 22 /uL (0-23.9) 12/10/19 10:00 Urine Casts (Auto) 0 /uL (0-3.1) 12/10/19 10:00 U Epithel Cells (Auto) 9 /uL (0-25.1) 12/10/19 10:00 Urine Bacteria (Auto) 11 /uL (0-1359) 12/10/19 10:00 COVID-19 (ANA) Not detected (Not Detected) 12/10/19 09:30 Active Medications Acetaminophen (Tylenol -) 650 mg PO Q6H PRN PRN Reason: Fever Or Pain Last Admin: 12/12/19 21:04 Dose: 650 mg Documented by: Albuterol Sulfate (Ventolin Hfa Inhaler -) 2 puff IH Q4H PRN PRN Reason: SHORTNESS OF BREATH Alprazolam (Xanax) 2 mg PO ONCE PRN PRN Reason: ANXIETY Last Admin: 12/12/19 21:01 Dose: 2 mg Documented by: Alprazolam (Xanax) 2 mg PO TID PRN PRN Reason: ANXIETY Last Admin: 12/13/19 13:31 Dose: 2 mg Documented by: Amlodipine Besylate (Norvasc -) 10 mg PO DAILY [facility] Last Admin: 12/13/19 09:20 Dose: 10 mg Documented by: Enalapril Maleate (Vasotec -) 10 mg PO DAILY [facility] Last Admin: 12/13/19 09:21 Dose: 10 mg Documented by: Enoxaparin Sodium (Lovenox -) 40 mg SQ DAILY [facility] Last Admin: 12/13/19 09:22 Dose: 40 mg Documented by: Fenofibric Acid (Trilipix -) 135 mg PO DAILY [facility] Last Admin: 12/13/19 09:21 Dose: 135 mg Documented by: Furosemide (Lasix -) 40 mg PO DAILY [facility] Last Admin: 12/13/19 09:22 Dose: 40 mg Documented by: Gabapentin (Neurontin -) 800 mg PO TID [facility] Last Admin: 12/13/19 13:05 Dose: 800 mg Documented by: Piperacillin Sod/Tazobactam (Sod 3.375 gm/ Dextrose) 50 mls @ 100 mls/hr IVPB Q8H-IV [facility]; Protocol Last Admin: 12/13/19 17:30 Dose: 100 mls/hr Documented by: Vancomycin HCl (Vancomycin (Pre-Docked)) 1,000 mg in 250 mls @ 200 mls/hr IVPB DAILY@1400 [facility]; Protocol Last Admin: 12/13/19 13:05 Dose: 200 mls/hr Documented by: Insulin Aspart (Novolog Vial Sliding Scale -) 1 vial SQ ACHS [facility]; Protocol Last Admin: 12/13/19 17:26 Dose: 2 units Documented by: Insulin Aspart (Novolog Mix 70/30 Vial) 20 units SQ BIDAC [facility] Last Admin: 12/13/19 17:27 Dose: 20 units Documented by: Methadone HCl 80 mg/ Methadone (HCl 10 mg) 90 mg PO DAILY@0600 [facility] Last Admin: 12/13/19 05:25 Dose: 90 mg Documented by: Sitagliptin Phosphate (Januvia -) 100 mg PO ACBK [facility] Last Admin: 12/13/19 06:13 Dose: Not Given Documented by: CXR; 12/09/2019 No acute chest pathology. No significant change since 04/29/2019 CT lower extremities; 12/09/[address] evidence for osteomyelitis. However osteomyelitis cannot be excluded by CT scan MRI L lower extremity; 12/12/2019 Large heel ulcer with associated cellulitis. There is no soft tissue abscess. Again edema throughout the calcaneus and is suspicious for osteomyelitis. Tenosynovitis tibialis posterior tendon. ASSESSMENT/PLAN: Pt is a 54 y/o female with IDDM type 2 with b/l chronic foot ulcers with osteomyelitis of left heel (staph and enterococcus in August 2019), diabetic neuropathy, HTN, generalized anxiety disorder, and opioid use disorder on methadone presenting with bilateral foot pain. Admitted for left foot ulcer and r/o osteo. B/l lower extremity ulcers, r/o cellulitis vs. osteomyelitis diabetic neuropathy -CT as above. -MRI as above. Unclear if chronic or new infection. -L foot wound culture positive for GNB, MRSA, group D strep/enterococcus; Blood cx negative thus far -c/w Vanc/zosyn (12/10/2019) Today is day 4. -increased gabapentin 800 TID -Podiatry consulted. Pending recommendations for wound care. -ID consulted. Pending recommendations. - c/w Acetaminophen 650mg q6H PRN for fever/pain - f/u vanc trough in AM IDDM type 2 -c/w home dose Sitagliptin 100 qD -hold metformin - ISS & BGMs - C/w insulin aspart (novolog) 20U BID AC ?Asthma - c/w home albuterol inhaler PRN HTN -c/w home dose enalapril 10 qD -c/w amlodipine 10mg daily, furosemide 40 qD HLD -c/w fenofibrate 135mg qD Opioid use disorder - c/w methadone 90mg qD Generalized anxiety disorder -Alprazolam TID PRN Hemorrhoids -Preparation H suppository PRN Ppx - DVT: Lovenox FEN - No standing IV fluids - monitor and replete electrolytes - Diabetic diet Dispo: Continue to monitor in med/surg. Pending discharge planning with patient and possible need for SNF. Patient easily agitated stating she will not attend SNF. Visit type - Emergency Visit Emergency Visit: Yes ED Registration Date: 12/10/19 Care time: The patient presented to the Emergency Department on the above date and was hospitalized for further evaluation of their emergent condition. - New Patient This patient is new to me today: No - Critical Care Critical Care patient: No ATTENDING PHYSICIAN STATEMENT I saw and evaluated the patient. I reviewed the resident's note and discussed the case with the resident. I agree with the resident's findings and plan as documented. SUBJECTIVE: OBJECTIVE: ASSESSMENT AND PLAN:
--- NOTE | 2019-12-13 18:18 | PN ---
Teaching Attending Note Name of Resident: Gillian Mondragon ATTENDING PHYSICIAN STATEMENT I saw and evaluated the patient. I reviewed the resident's note and discussed the case with the resident. I agree with the resident's findings and plan as documented. SUBJECTIVE: patient in excruciating pain this afternoon OBJECTIVE: Vital Signs Period Temp Pulse Resp BP Sys/Kelly Pulse Ox Last 24 Hr 97.5 F-98.4 F 78-89 17-20 93-142/49-82 98-100 Physical Exam as per resident note Labs/Imaging reviewed ASSESSMENT AND PLAN: 54 y/o F with hx of c/l foot ulcers with OM s/p 6 weks of IV abx who presents with bilateral foot pain. b/l LE ulcers -MRi suspicios for OM Unclear if these are chronic changes or if patient has new infection Continue IV abx at this time, Check Vanc troph prior to 4th dose defer Abx course to ID/Podiatry at this time Check CRP pain control with methadone, gabapentin Rest of plan as per resident note
[2019-12-14] MEDS ORDERED: PIPERACILLIN/TAZOBACTAM 3.375 GM VIAL IVPB ONE ×3 (02:31→17:02)
[2019-12-14] MEDS ORDERED: DEXTROSE 5%-WATER - 50 ML IVPB ONE ×3 (02:32→17:02)
[2019-12-14] MEDS: PIPERACILLIN/TAZOB 3.375 GM 3.375 GM in DEXTROSE 5%-WATER - 50 ML IVPB SCH ×3 (02:39→17:33)
[2019-12-14] MEDS: ACETAMINOPHEN 325 MG TABLET (FP) PO PRN (03:41)
[2019-12-14] MEDS ORDERED: METHADONE HCL 10 MG TABLET ONE (05:28)
[2019-12-14] MEDS ORDERED: METHADONE HCL 40 MG DISPERSABLE TABLET ONE (05:29)
[2019-12-14] MEDS: METHADONE 80 MG, METHADONE 10 MG PO SCH (05:59)
[2019-12-14] MEDS: GABAPENTIN 400 MG CAPSULE PO SCH ×2 (06:00→13:22)
[2019-12-14] MEDS: ALPRAZolam 1 MG TABLET PO PRN ×3 (06:00→21:36)
[2019-12-14] MEDS: INSULIN (NOVOLOG MIX 70/30) 100 UNITS/ML MDV SQ SCH ×2 (06:01→17:38)
[2019-12-14] MEDS: INSULIN SLIDING SCALE (NOVOLOG) 1 VIAL SQ SCH ×4 (06:14→21:36)
[2019-12-14] MEDS ORDERED: INSULIN (NOVOLOG MIX 70/30) 100 UNITS/ML MDV SQ ONE (06:37)
[2019-12-14] MEDS ORDERED: INSULIN (NOVOLOG) ASPART 100 UNITS/ML 10ML VIAL ONE ×2 (06:37→06:43)
[2019-12-14] MEDS: ENOXAPARIN NA (PORCINE) 40 MG/0.4 ML DISP.SYRIN SQ SCH (11:45)
[2019-12-14] MEDS: amLODIPine BESYLATE 10 MG TABLET (FP) PO SCH (11:46)
[2019-12-14] MEDS: FUROSEMIDE 40 MG TABLET (FP) PO SCH (11:46)
[2019-12-14] MEDS: FENOFIBRIC ACID 135 MG CAP PO SCH ×2 (11:46→12:51)
[2019-12-14] MEDS: ENALAPRIL MALEATE 10 MG TABLET (FP) PO SCH (11:46)
[2019-12-14] MEDS ORDERED: PT OWN MED DRAWER 7, Y5N ONE (11:50)
--- NOTE | 2019-12-14 13:50 | PN ---
Physical Exam: SUBJECTIVE: Patient seen and examined. Pt continues to complain of b/l lower extremity burning. OBJECTIVE: Vital Signs Period Temp Pulse Resp BP Sys/Kelly Pulse Ox Last 24 Hr 97.6 F-98.4 F 78-86 17-20 114-138/60-77 98-100 GENERAL: AAOx3, in mild distress HEENT: NCAT, EOMI, moist mucus membranes. Poor dentition and oral hygiene. LUNGS: Equal breath sounds b/l, clear to auscultation, no wheezes. HEART: Regular rate and rhythm, S1, S2 present. No murmur. ABDOMEN: Obese. Soft, nontender, nondistended, bowel sounds present. EXTREMITIES: Warm, well-perfused, no edema. B/l lower extremities bandaged, no drainage. SKIN: Warm, dry. Laboratory Last Values WBC 6.2 K/mm3 (4.0-10.0) 12/13/19 10:51 Corrected WBC (auto) Cancelled 12/09/19 20:50 RBC 3.94 M/mm3 (3.60-5.2) 12/13/19 10:51 Hgb 11.7 GM/dL (10.7-15.3) 12/13/19 10:51 Hct 35.1 % (32.4-45.2) 12/13/19 10:51 MCV 89.2 fl (80-96) 12/13/19 10:51 MCH 29.7 pg (25.7-33.7) 12/13/19 10:51 MCHC 33.4 g/dl (32.0-36.0) 12/13/19 10:51 RDW 13.4 % (11.6-15.6) 12/13/19 10:51 Plt Count 214 K/MM3 (134-434) 12/13/19 10:51 MPV 9.3 fl (7.5-11.1) 12/13/19 10:51 Absolute Neuts (auto) 4.5 K/mm3 (1.5-8.0) 12/12/19 07:45 Absolute Lymphs (auto) Cancelled 12/09/19 20:50 Absolute Monos (auto) Cancelled 12/09/19 20:50 Absolute Eos (auto) Cancelled 12/09/19 20:50 Absolute Basos (auto) Cancelled 12/09/19 20:50 Add Manual Diff Cancelled 12/09/19 20:50 Neutrophils % 71.6 % (42.8-82.8) 12/12/19 07:45 Lymphocytes % 20.9 % (8-40) D 12/12/19 07:45 Monocytes % 5.0 % (3.8-10.2) 12/12/19 07:45 Eosinophils % 1.8 % (0-4.5) 12/12/19 07:45 Basophils % 0.7 % (0-2.0) 12/12/19 07:45 Nucleated RBC % 0 % (0-0) 12/12/19 07:45 Platelet Estimate Cancelled 12/09/19 20:50 Platelet Comment Cancelled 12/09/19 20:50 Normal RBC Morphology Cancelled 12/09/19 20:50 Sodium 135 mmol/L (136-145) L 12/13/19 10:51 Potassium 4.4 mmol/L (3.5-5.1) 12/13/19 10:51 Chloride 101 mmol/L (98-107) 12/13/19 10:51 Carbon Dioxide 26 mmol/L (21-32) 12/13/19 10:51 Anion Gap 9 MMOL/L (8-16) 12/13/19 10:51 BUN 27.5 mg/dL (7-18) H 12/13/19 10:51 Creatinine 1.7 mg/dL (0.55-1.3) H 12/13/19 10:51 Est GFR (CKD-EPI)AfAm 38.40 12/13/19 10:51 Est GFR (CKD-EPI)NonAf 33.13 12/13/19 10:51 POC Glucometer 308 UNITS (80-120) 12/14/19 12:50 Random Glucose 160 mg/dL (74-106) H 12/13/19 10:51 Calcium 8.8 mg/dL (8.5-10.1) 12/13/19 10:51 Phosphorus 4.1 mg/dL (2.5-4.9) 12/11/19 08:08 Magnesium 2.3 mg/dL (1.8-2.4) 12/12/19 07:45 Total Bilirubin 0.3 mg/dL (0.2-1) 12/12/19 07:45 AST 21 U/L (15-37) 12/12/19 07:45 ALT 13 U/L (13-61) 12/12/19 07:45 Alkaline Phosphatase 184 U/L (45-117) H 12/12/19 07:45 C-Reactive Protein 0.6 MG/DL (0.00-0.3) H 12/14/19 13:30 Total Protein 7.7 g/dl (6.4-8.2) 12/12/19 07:45 Albumin 2.9 g/dl (3.4-5.0) L 12/12/19 07:45 Urine Color Yellow 12/10/19 10:00 Urine Appearance Clear 12/10/19 10:00 Urine pH 5.5 (5.0-8.0) 12/10/19 10:00 Ur Specific [place] 1.008 (1.010-1.035) L 12/10/19 10:00 Urine Protein 2+ (NEGATIVE) H 12/10/19 10:00 Urine Glucose (UA) Negative (NEGATIVE) 12/10/19 10:00 Urine Ketones Negative (NEGATIVE) 12/10/19 10:00 Urine Blood Negative (NEGATIVE) 12/10/19 10:00 Urine Nitrite Negative (NEGATIVE) 12/10/19 10:00 Urine Bilirubin Negative (NEGATIVE) 12/10/19 10:00 Urine Urobilinogen 0.2 mg/dL (0.2-1.0) 12/10/19 10:00 Ur Leukocyte Esterase Negative (NEGATIVE) 12/10/19 10:00 Urine WBC (Auto) 4 /uL (0-25.8) 12/10/19 10:00 Urine RBC (Auto) 22 /uL (0-23.9) 12/10/19 10:00 Urine Casts (Auto) 0 /uL (0-3.1) 12/10/19 10:00 U Epithel Cells (Auto) 9 /uL (0-25.1) 12/10/19 10:00 Urine Bacteria (Auto) 11 /uL (0-1359) 12/10/19 10:00 Random Vancomycin 21.0 ug/ml (5-26) 12/14/19 13:30 COVID-19 (ANA) Not detected (Not Detected) 12/10/19 09:30 Active Medications Acetaminophen (Tylenol -) 650 mg PO Q6H PRN PRN Reason: Fever Or Pain Last Admin: 12/14/19 03:41 Dose: 650 mg Documented by: Albuterol Sulfate (Ventolin Hfa Inhaler -) 2 puff IH Q4H PRN PRN Reason: SHORTNESS OF BREATH Alprazolam (Xanax) 2 mg PO ONCE PRN PRN Reason: ANXIETY Last Admin: 12/14/19 12:24 Dose: 2 mg Documented by: Alprazolam (Xanax) 2 mg PO TID PRN PRN Reason: ANXIETY Last Admin: 12/14/19 06:00 Dose: 2 mg Documented by: Amlodipine Besylate (Norvasc -) 10 mg PO DAILY [facility] Last Admin: 12/14/19 11:46 Dose: 10 mg Documented by: Enalapril Maleate (Vasotec -) 10 mg PO DAILY [facility] Last Admin: 12/14/19 11:46 Dose: 10 mg Documented by: Enoxaparin Sodium (Lovenox -) 40 mg SQ DAILY [facility] Last Admin: 12/14/19 11:45 Dose: 40 mg Documented by: Fenofibric Acid (Trilipix -) 135 mg PO DAILY [facility] Last Admin: 12/14/19 12:51 Dose: Not Given Documented by: Furosemide (Lasix -) 40 mg PO DAILY [facility] Last Admin: 12/14/19 11:46 Dose: 40 mg Documented by: Gabapentin (Neurontin -) 800 mg PO TID [facility] Last Admin: 12/14/19 13:22 Dose: 800 mg Documented by: Piperacillin Sod/Tazobactam (Sod 3.375 gm/ Dextrose) 50 mls @ 100 mls/hr IVPB Q8H-IV [facility]; Protocol Last Admin: 12/14/19 11:45 Dose: 100 mls/hr Documented by: Vancomycin HCl (Vancomycin (Pre-Docked)) 1,000 mg in 250 mls @ 200 mls/hr IVPB DAILY@1400 [facility]; Protocol Last Admin: 12/13/19 13:05 Dose: 200 mls/hr Documented by: Insulin Aspart (Novolog Vial Sliding Scale -) 1 vial SQ ACHS [facility]; Protocol Last Admin: 12/14/19 12:51 Dose: Not Given Documented by: Insulin Aspart (Novolog Mix 70/30 Vial) 20 units SQ BIDAC [facility] Last Admin: 12/14/19 06:01 Dose: 20 units Documented by: Methadone HCl 80 mg/ Methadone (HCl 10 mg) 90 mg PO DAILY@0600 [facility] Last Admin: 12/14/19 05:59 Dose: 90 mg Documented by: Sitagliptin Phosphate (Januvia -) 100 mg PO ACBK [facility] Last Admin: 12/14/19 06:14 Dose: Not Given Documented by: CXR; 12/09/2019 No acute chest pathology. No significant change since 04/29/2019 CT lower extremities; 12/09/[address] evidence for osteomyelitis. However osteomyelitis cannot be excluded by CT scan MRI L lower extremity; 12/12/2019 Large heel ulcer with associated cellulitis. There is no soft tissue abscess. Again edema throughout the calcaneus and is suspicious for osteomyelitis. Tenosynovitis tibialis posterior tendon. ASSESSMENT/PLAN: Pt is a 54 y/o female with IDDM type 2 with b/l chronic foot ulcers with osteomyelitis of left heel (staph and enterococcus in August 2019), diabetic neuropathy, HTN, generalized anxiety disorder, and opioid use disorder on methadone presenting with bilateral foot pain. Admitted for left foot ulcer and osteomyelitis. B/l lower extremity ulcers, r/o cellulitis vs. osteomyelitis diabetic neuropathy -CT as above. -MRI as above. Unclear if chronic or new infection. -L foot wound culture positive for GNB, MRSA, group D strep/enterococcus; Blood cx negative thus far -c/w Vanc/zosyn (12/10/2019) Today is day 4. - Gabapentin 800 TID--> Pharmacy called. OK to do 600 QID if desired. -Podiatry consulted. Pending recommendations for wound care. -ID consulted. Recommende c/w vanc/zosyn. -c/w Acetaminophen 650mg q6H PRN for fever/pain IDDM type 2 -c/w home dose Sitagliptin 100 qD -hold metformin - ISS & BGMs - C/w insulin aspart (novolog) 20U BID AC ?Asthma - c/w home albuterol inhaler PRN HTN -c/w home dose enalapril 10 qD -c/w amlodipine 10mg daily, furosemide 40 qD HLD -c/w fenofibrate 135mg qD Opioid use disorder - c/w methadone 90mg qD Generalized anxiety disorder -Alprazolam TID PRN Hemorrhoids -Preparation H suppository PRN Ppx - DVT: Lovenox FEN - No standing IV fluids - monitor and replete electrolytes - Diabetic diet Dispo: Continue to monitor in med/surg. Pending discharge planning with patient and possible need for SNF. Patient easily agitated stating she will not attend SNF. Visit type - Emergency Visit Emergency Visit: Yes ED Registration Date: 12/10/19 Care time: The patient presented to the Emergency Department on the above date and was hospitalized for further evaluation of their emergent condition. - New Patient This patient is new to me today: No - Critical Care Critical Care patient: No ATTENDING PHYSICIAN STATEMENT I saw and evaluated the patient. I reviewed the resident's note and discussed the case with the resident. I agree with the resident's findings and plan as documented. SUBJECTIVE: OBJECTIVE: ASSESSMENT AND PLAN:
[2019-12-14] MEDS: VANCOMYCIN 1 GRAM (PRE-DOCKED) 1,000 MG/250 ML BAG IVPB SCH (16:07)
[2019-12-14] MEDS ORDERED: GABAPENTIN 400 MG CAPSULE PO PRN (17:28)
--- NOTE | 2019-12-14 17:37 | PN ---
Teaching Attending Note Name of Resident: Gillian Mondragon ATTENDING PHYSICIAN STATEMENT I saw and evaluated the patient. I reviewed the resident's note and discussed the case with the resident. I agree with the resident's findings and plan as documented. SUBJECTIVE: Patient reports pain in her LE OBJECTIVE: Vital Signs Period Temp Pulse Resp BP Sys/Kelly Pulse Ox Last 24 Hr 97.6 F-97.8 F 80-91 17-20 118-138/68-77 90-99 Physical Exam as per resident note Labs/Imaging reviewed ASSESSMENT AND PLAN: 54 y/o F with hx of c/l foot ulcers with OM s/p 6 weks of IV abx who presents with bilateral foot pain. b/l LE ulcers -MRi suspicious for OM, CRP low Unclear if these are chronic changes or if patient has new infection Continue IV abx at this time, Check Vanc troph prior to 4th dose Ideally, biopsy with podiatry would help to differentiate chronic changes vs. new infection as patient does not appear to have any systemic symptoms, she may not require a prolonged course of abx, however will defer to ID at thsi time pain control with methadone, gabapentin Rest of plan as per resident note
[2019-12-14] MEDS ORDERED: GABAPENTIN 400 MG CAPSULE PO SCH (19:15)
[2019-12-14] MEDS ORDERED: GABAPENTIN 300 MG CAPSULE PO SCH (22:00)
[2019-12-15] MEDS ORDERED: PIPERACILLIN/TAZOBACTAM 3.375 GM VIAL IVPB ONE ×4 (01:39→16:52)
[2019-12-15] MEDS ORDERED: DEXTROSE 5%-WATER - 50 ML IVPB ONE ×4 (01:39→16:52)
[2019-12-15] MEDS: PIPERACILLIN/TAZOB 3.375 GM 3.375 GM in DEXTROSE 5%-WATER - 50 ML IVPB SCH ×5 (01:43→17:01)
[2019-12-15] MEDS: ACETAMINOPHEN 325 MG TABLET (FP) PO PRN (02:24)
[2019-12-15] MEDS ORDERED: METHADONE HCL 40 MG DISPERSABLE TABLET ONE (05:49)
[2019-12-15] MEDS ORDERED: METHADONE HCL 10 MG TABLET ONE (05:49)
[2019-12-15] MEDS: METHADONE 80 MG, METHADONE 10 MG PO SCH (06:28)
[2019-12-15] MEDS: ALPRAZolam 1 MG TABLET PO PRN ×4 (06:28→23:23)
[2019-12-15] MEDS: INSULIN (NOVOLOG MIX 70/30) 100 UNITS/ML MDV SQ SCH (06:29)
[2019-12-15] MEDS: INSULIN SLIDING SCALE (NOVOLOG) 1 VIAL SQ SCH ×4 (06:30→23:27)
[2019-12-15] MEDS: GABAPENTIN 300 MG CAPSULE PO SCH ×2 (07:05→11:52)
[2019-12-15] MEDS: amLODIPine BESYLATE 10 MG TABLET (FP) PO SCH (11:53)
[2019-12-15] MEDS: FUROSEMIDE 40 MG TABLET (FP) PO SCH (11:53)
[2019-12-15] MEDS: ENOXAPARIN NA (PORCINE) 40 MG/0.4 ML DISP.SYRIN SQ SCH (11:53)
[2019-12-15] MEDS: ENALAPRIL MALEATE 10 MG TABLET (FP) PO SCH (11:53)
[2019-12-15] MEDS: FENOFIBRIC ACID 135 MG CAP PO SCH (11:53)
[2019-12-15] MEDS: INSULIN (NOVOLOG) ASPART 100 UNITS/ML 10ML VIAL SQ SCH ×2 (15:06→16:54)
--- NOTE | 2019-12-15 15:06 | PN ---
Teaching Attending Note Name of Resident: Amita Cash ATTENDING PHYSICIAN STATEMENT I saw and evaluated the patient. I reviewed the resident's note and discussed the case with the resident. I agree with the resident's findings and plan as documented. SUBJECTIVE: patient still with lower extremity pain OBJECTIVE: Vital Signs Period Temp Pulse Resp BP Sys/Kelly Pulse Ox Last 24 Hr 97.5 F-98.3 F 77-91 18-20 102-151/54-78 90-106 Physical Exam as per resident note Labs/Imaging reviewed ASSESSMENT AND PLAN: ASSESSMENT AND PLAN: 54 y/o F with hx of c/l foot ulcers with OM s/p 6 weks of IV abx who presents with bilateral foot pain. b/l LE ulcers -MRi suspicious for OM, CRP low, Recheck ESR Unclear if these are chronic changes or if patient has new infection Continue IV abx at this time, Check Vanc troph prior to 4th dose Ideally, biopsy with podiatry would help to differentiate chronic changes vs. ne w infection; as patient does not appear to have any systemic symptoms, she may not require a prolonged course of abx Will defer to Infectious disease assessment for possible PO course of Abx; Discussed this plan with the ID physician pain control with methadone, gabapentin IDDM Continue Levemir ISS, FSG PPx: lovenox Rest of plan as per resident note
[2019-12-15] MEDS: VANCOMYCIN 1 GRAM (PRE-DOCKED) 1,000 MG/250 ML BAG IVPB SCH (15:16)
--- NOTE | 2019-12-15 15:53 | PN ---
Progress Note, Physician History of Present Illness: LETHARGIC OFFERS NO COMPLAINTS AFEBRILE MRI SUSPICIOUS FOR OSTEO WOUND C/S MIXED - Current Medication List Current Medications: Active Medications Acetaminophen (Tylenol -) 650 mg PO Q6H PRN PRN Reason: Fever Or Pain Last Admin: 12/15/19 02:24 Dose: 650 mg Documented by: Albuterol Sulfate (Ventolin Hfa Inhaler -) 2 puff IH Q4H PRN PRN Reason: SHORTNESS OF BREATH Alprazolam (Xanax) 2 mg PO ONCE PRN PRN Reason: ANXIETY Last Admin: 12/15/19 11:51 Dose: 2 mg Documented by: Alprazolam (Xanax) 2 mg PO TID PRN PRN Reason: ANXIETY Last Admin: 12/15/19 06:28 Dose: 2 mg Documented by: Amlodipine Besylate (Norvasc -) [address] [facility] Last Admin: 12/15/19 11:53 Dose: 10 mg Documented by: Enalapril Maleate (Vasotec -) [address] [facility] Last Admin: 12/15/19 11:53 Dose: 10 mg Documented by: Enoxaparin Sodium (Lovenox -) [address] [facility] Last Admin: 12/15/19 11:53 Dose: 40 mg Documented by: Fenofibric Acid (Trilipix -) [address] [facility] Last Admin: 12/15/19 11:53 Dose: Not Given Documented by: Furosemide (Lasix -) [address] [facility] Last Admin: 12/15/19 11:53 Dose: 40 mg Documented by: Gabapentin (Neurontin -) [address] [facility] Last Admin: 12/15/19 11:52 Dose: 600 mg Documented by: Piperacillin Sod/Tazobactam (Sod 3.375 gm/ Dextrose) 50 mls @ 100 mls/hr IVPB Q8H-IV [facility]; Protocol Last Admin: 12/15/19 11:53 Dose: 100 mls/hr Documented by: Insulin Aspart (Novolog Vial Sliding Scale -) [address] [facility]; Protocol Last Admin: 12/15/19 12:22 Dose: Not Given Documented by: Insulin Aspart (Novolog Vial) [address] [facility] Last Admin: 12/15/19 15:06 Dose: Not Given Documented by: Insulin Detemir (Levemir Vial) [address] [facility] Methadone HCl 80 mg/ Methadone (HCl 10 mg) 90 mg PO DAILY@0600 [facility] Last Admin: 12/15/19 06:28 Dose: 90 mg Documented by: Pregabalin (Lyrica -) [address] [facility] Sitagliptin Phosphate (Januvia -) [address] [facility] Last Admin: 12/15/19 06:21 Dose: Not Given Documented by: - Objective Vital Signs: Vital Signs Temperature 98 F 12/15/19 14:21 Pulse Rate 77 12/15/19 14:21 Respiratory Rate 20 12/15/19 14:21 Blood Pressure 102/54 L 12/15/19 14:21 O2 Sat by Pulse Oximetry (%) 98 12/15/19 14:21 Constitutional: Yes: No Distress Cardiovascular: Yes: Regular Rate and Rhythm, S1, S2 Respiratory: Yes: CTA Bilaterally Gastrointestinal: Yes: Normal Bowel Sounds, Soft. No: Tenderness Extremities: Yes: Other (DRY ULCERS R LATERAL FOOT LARGE ULCER L CALCANEUS WITH GRAINULATION TISSUE NO PURULENCE OR EXPOSED BONE) Labs: CBC, BMP 12/13/19 10:51 12/13/19 10:51 Assessment/Plan INFECTED L HEEL ULCER ? CHRONIC OSTEOMYELITIS V. RADIOGRAPHIC LAG HELL DOES NOT APPEAR CLINICALY INFECTED NO EXPOSED BONE CRP ALMOST NORMAL WOULD SUBSTITUTE BACTRIM DS PO BID X 10D OUTPATIENT F/U [facility]
--- NOTE | 2019-12-15 16:59 | PN ---
Physical Exam: SUBJECTIVE: Patient seen and examined today. Ptn was very anxious, nervous 2/2 neuropathic pain. Suggested switching from Neurontin to Lyrica. Ptn was in no acute distress otherwise, speaking in full sentences, and denied CP, SoB. OBJECTIVE: Vital Signs Period Temp Pulse Resp BP Sys/Kelly Pulse Ox Last 24 Hr 97.5 F-98.3 F 77-91 18-20 102-151/54-78 90-106 GENERAL: The patient is awake, alert, and fully oriented, in no acute distress. However is very anxious HEAD: Normal with no signs of trauma. EYES: PERRL, extraocular movements intact, sclera anicteric, conjunctiva clear. No ptosis. NECK: Trachea midline, full range of motion, supple. LUNGS: Breath sounds equal, clear to auscultation bilaterally, no wheezes, no crackles, no accessory muscle use. HEART: Regular rate and rhythm, S1, S2 without murmur, rub or gallop. ABDOMEN: Soft, nontender, nondistended, normoactive bowel sounds EXTREMITIES: 2+ pulses, warm, well-perfused, no edema. NEUROLOGICAL: Normal speech, gait not observed. PSYCH: Anxious, normal affect. SKIN: Warm, dry, normal turgor, no rashes or lesions noted Laboratory Results - last 24 hr 12/14/19 12/14/19 12/14/19 17:35 21:12 21:24 POC Glucometer 239 59 73 12/14/19 12/15/19 12/15/19 22:03 06:27 12:20 POC Glucometer 137 227 107 12/15/19 16:47 POC Glucometer 206 Active Medications Generic Name Dose Route Start Last Admin Trade Name Freq PRN Reason Stop Dose Admin Acetaminophen 650 mg 12/12/19 10:24 12/15/19 02:24 Tylenol - PO 650 mg Q6H PRN Administration Fever Or Pain Albuterol Sulfate 2 puff 12/10/19 09:47 Ventolin Hfa Inhaler - IH Q4H PRN SHORTNESS OF BREATH Alprazolam 2 mg 12/09/19 23:46 12/15/19 11:51 Xanax PO 2 mg ONCE PRN Administration ANXIETY Alprazolam 2 mg 12/10/19 09:53 12/15/19 06:28 Xanax PO 2 mg TID PRN Administration ANXIETY Amlodipine Besylate 10 mg 12/10/19 10:15 12/15/19 11:53 Norvasc - PO 10 mg DAILY OBI Administration Enalapril Maleate 10 mg 12/10/19 10:00 12/15/19 11:53 Vasotec - PO 10 mg DAILY OBI Administration Enoxaparin Sodium 40 mg 12/10/19 10:00 12/15/19 11:53 Lovenox - SQ 40 mg DAILY OBI Administration Fenofibric Acid 135 mg 12/11/19 10:00 12/15/19 11:53 Trilipix - PO Not Given DAILY OBI Furosemide 40 mg 12/10/19 10:00 12/15/19 11:53 Lasix - PO 40 mg DAILY OBI Administration Gabapentin 600 mg 12/15/19 07:00 12/15/19 11:52 Neurontin - PO 600 mg QID OBI Administration Piperacillin Sod/Tazobactam 50 mls @ 100 mls/hr 12/11/19 18:00 12/15/19 11:53 Sod 3.375 gm/ Dextrose IVPB 100 mls/hr Q8H-IV OBI Administration Protocol Insulin Aspart 1 vial 12/10/19 07:00 12/15/19 16:54 Novolog Vial Sliding Scale - SQ 4 units ACHS [facility] Administration Protocol Insulin Aspart 2 units 12/15/19 14:45 12/15/19 16:54 Novolog Vial SQ 2 units TIDAC [facility] Administration Insulin Detemir 7 units 12/15/19 22:00 Levemir Vial SQ HS [facility] Methadone HCl 80 mg/ Methadone 90 mg 12/10/19 09:45 12/15/19 06:28 HCl 10 mg PO 90 mg DAILY@0600 OBI Administration Pregabalin 100 mg 12/15/19 19:00 Lyrica - PO TID OBI Sitagliptin Phosphate 100 mg 12/10/19 10:00 12/15/19 06:21 Januvia - PO Not Given ACBK [facility] CXR; 12/09/2019 No acute chest pathology. No significant change since 04/29/2019 CT lower extremities; 12/09/[address] evidence for osteomyelitis. However osteomyelitis cannot be excluded by CT scan MRI L lower extremity; 12/12/2019 Large heel ulcer with associated cellulitis. There is no soft tissue abscess. Again edema throughout the calcaneus and is suspicious for osteomyelitis. Tenosynovitis tibialis posterior tendon. ASSESSMENT/PLAN: Pt is a 54 y/o female with IDDM type 2 with b/l chronic foot ulcers with osteomyelitis of left heel (staph and enterococcus in August 2019), diabetic neuropathy, HTN, generalized anxiety disorder, and opioid use disorder on methadone presenting with bilateral foot pain. Admitted for left foot ulcer and osteomyelitis. B/l lower extremity ulcers, r/o cellulitis vs. osteomyelitis vs diabetic neuropathy -CT as above. -MRI as above. Unclear if chronic or new infection. -L foot wound culture positive for GNB, MRSA, group D strep/enterococcus; Blood cx negative thus far -Start Lyrica 100 TID 2/2 minimal improvement on Neurontin 600 QID. Can titrate up. -Start Duloxetine 60mg qd for neuropathy -Podiatry consulted. Pending recommendations for wound care. -ID consulted: (12/14) -Heel does not look clinically infected, w/ no exposed bone -Almost normal CRP -Started Bactrim DS BID 10Days. DC Zosyn per ID. -Outpatient wound care center -c/w Acetaminophen 650mg q6H PRN for fever/pain -FU ESR IDDM type 2 -c/w home dose Sitagliptin 100 qD -hold metformin - ISS & BGMs ?Asthma - c/w home albuterol inhaler PRN HTN -c/w home dose enalapril 10 qD -c/w amlodipine 10mg daily, furosemide 40 qD HLD -c/w fenofibrate 135mg qD Opioid use disorder - c/w methadone 90mg qD - Methadone Center: [address] [place] [address]: Document in DC that "Ptn has been receiving maintenace dose of 90 Methadone during her hospital stay" So that ptn can resume methadone upon DC. Generalized anxiety disorder -Alprazolam TID PRN Ppx - DVT: Lovenox FEN - No standing IV fluids - monitor and replete electrolytes - Diabetic diet Visit type - Emergency Visit Emergency Visit: No - New Patient This patient is new to me today: Yes Date on this admission: 12/15/19 - Critical Care Critical Care patient: No - Discharge Referral Referred to [facility] No ATTENDING PHYSICIAN STATEMENT I saw and evaluated the patient. I reviewed the resident's note and discussed the case with the resident. I agree with the resident's findings and plan as documented. SUBJECTIVE: OBJECTIVE: ASSESSMENT AND PLAN:
[2019-12-15] MEDS ORDERED: PT OWN MED DRAWER 7, Y5N ONE (17:16)
[2019-12-15] MEDS: DULoxetine HCL 30 MG CAPSULE.DR PO SCH ×2 (18:52→19:11)
[2019-12-15] MEDS: PREGABALIN 100 MG CAPSULE PO SCH (18:52)
[2019-12-15] MEDS ORDERED: INSULIN (LEVEMIR) 100 UNITS/ML UNITS SQ SCH (22:00)
[2019-12-15] MEDS: SULFAMETHOXAZOLE/TRIMETHOPRIM 800MG/160MG D.S. TABLET PO SCH (23:23)
[2019-12-16 02:48] VITALS: PULSE 79
[2019-12-16] MEDS ORDERED: METHADONE HCL 10 MG TABLET ONE (05:45)
[2019-12-16] MEDS ORDERED: METHADONE HCL 40 MG DISPERSABLE TABLET ONE (05:46)
[2019-12-16] MEDS: METHADONE 80 MG, METHADONE 10 MG PO SCH (06:22)
[2019-12-16] MEDS: PREGABALIN 100 MG CAPSULE PO SCH ×2 (06:22→06:41)
[2019-12-16] MEDS: ALPRAZolam 1 MG TABLET PO PRN ×2 (06:22→15:18)
[2019-12-16] MEDS: INSULIN SLIDING SCALE (NOVOLOG) 1 VIAL SQ SCH ×3 (06:34→16:15)
[2019-12-16] MEDS: INSULIN (NOVOLOG) ASPART 100 UNITS/ML 10ML VIAL SQ SCH ×3 (06:34→16:16)
[2019-12-16 06:54] VITALS: BP 122/64; TEMP 97.6
--- NOTE | 2019-12-16 08:02 | PN ---
Teaching Attending Note Name of Resident: Gillian Mondragon ATTENDING PHYSICIAN STATEMENT I saw and evaluated the patient. I reviewed the resident's note and discussed the case with the resident. I agree with the resident's findings and plan as documented. SUBJECTIVE: Patient still in pain, did not tolerate medication change to lyrica overnight OBJECTIVE: Vital Signs Period Temp Pulse Resp BP Sys/Kelly Pulse Ox Last 24 Hr 97.6 F-98.2 F 77-79 18-20 122-143/64-74 96-100 Physical Exam as per resident note ASSESSMENT AND PLAN: 54 y/o F with hx of c/l foot ulcers with OM s/p 6 weks of IV abx who presents with bilateral foot pain. b/l LE ulcers with radiographic findings suggestive of OM However given low CRP, and no signs of systemic infection as well as clean appearing wound with granulation tissue, radiographic findings may represent old infection which was treated previously with IV Abx x 6 weeks x 2. At this time, will elect to transition to PO Abx--Bactrim DS BID under Infectious disease guidance Continue Pain control with methadone, cymbalta and gabapentin Patient will need outpatient ID follow up Chronic Pain in setting of Hx of OPiate abuse Continue Methadone Patient fixated on her pain management regimen can continue Lyrica over gabapentin IDDM Continue Levemir ISS, FSG PPx: lovenox Rest of plan as per resident note Plan to discharge home today
[2019-12-16] MEDS: SULFAMETHOXAZOLE/TRIMETHOPRIM 800MG/160MG D.S. TABLET PO SCH ×2 (08:52→09:12)
[2019-12-16] MEDS: FUROSEMIDE 40 MG TABLET (FP) PO SCH ×2 (08:53→09:11)
[2019-12-16] MEDS: DULoxetine HCL 30 MG CAPSULE.DR PO SCH ×2 (08:53→09:11)
[2019-12-16] MEDS: ENALAPRIL MALEATE 10 MG TABLET (FP) PO SCH ×2 (08:53→09:10)
[2019-12-16] MEDS: amLODIPine BESYLATE 10 MG TABLET (FP) PO SCH ×2 (08:53→09:10)
[2019-12-16] MEDS: ENOXAPARIN NA (PORCINE) 40 MG/0.4 ML DISP.SYRIN SQ SCH ×2 (08:54→09:12)
[2019-12-16] MEDS: FENOFIBRIC ACID 135 MG CAP PO SCH (09:52)
[2019-12-16] MEDS: GABAPENTIN 300 MG CAPSULE PO SCH (15:18)
--- NOTE | 2019-12-16 15:20 | DS ---
Physical Exam: SUBJECTIVE: Patient seen and examined. Pt complains of b/l feet pain, worsened with change in medication. Pt complained of burning sensation reaching to her knees. Pt denies fevers, chills, shortness of breath, chest pain, nausea, vomiting or diarrhea. OBJECTIVE: Vital Signs Period Temp Pulse Resp BP Sys/Kelly Pulse Ox Last 24 Hr 97.6 F-98.2 F 77-79 18-20 122-143/64-74 96-100 PHYSICAL EXAM GENERAL: AAOx3, in mild distress HEENT: NCAT, EOMI, moist mucus membranes. Poor dentition and oral hygiene. LUNGS: Equal breath sounds b/l, clear to auscultation, no wheezes. HEART: Regular rate and rhythm, S1, S2 present. No murmur. ABDOMEN: Obese. Soft, nontender, nondistended, bowel sounds present. EXTREMITIES: Warm, well-perfused, no edema. B/l lower extremities bandaged, no drainage. SKIN: Warm, dry. Bandaged lower extremities b/l. LABS Laboratory Last Values WBC 6.2 K/mm3 (4.0-10.0) 12/13/19 10:51 Corrected WBC (auto) Cancelled 12/09/19 20:50 RBC 3.94 M/mm3 (3.60-5.2) 12/13/19 10:51 Hgb 11.7 GM/dL (10.7-15.3) 12/13/19 10:51 Hct 35.1 % (32.4-45.2) 12/13/19 10:51 MCV 89.2 fl (80-96) 12/13/19 10:51 MCH 29.7 pg (25.7-33.7) 12/13/19 10:51 MCHC 33.4 g/dl (32.0-36.0) 12/13/19 10:51 RDW 13.4 % (11.6-15.6) 12/13/19 10:51 Plt Count 214 K/MM3 (134-434) 12/13/19 10:51 MPV 9.3 fl (7.5-11.1) 12/13/19 10:51 Absolute Neuts (auto) 4.5 K/mm3 (1.5-8.0) 12/12/19 07:45 Absolute Lymphs (auto) Cancelled 12/09/19 20:50 Absolute Monos (auto) Cancelled 12/09/19 20:50 Absolute Eos (auto) Cancelled 12/09/19 20:50 Absolute Basos (auto) Cancelled 12/09/19 20:50 Add Manual Diff Cancelled 12/09/19 20:50 Neutrophils % 71.6 % (42.8-82.8) 12/12/19 07:45 Lymphocytes % 20.9 % (8-40) D 12/12/19 07:45 Monocytes % 5.0 % (3.8-10.2) 12/12/19 07:45 Eosinophils % 1.8 % (0-4.5) 12/12/19 07:45 Basophils % 0.7 % (0-2.0) 12/12/19 07:45 Nucleated RBC % 0 % (0-0) 12/12/19 07:45 Platelet Estimate Cancelled 12/09/19 20:50 Platelet Comment Cancelled 12/09/19 20:50 Normal RBC Morphology Cancelled 12/09/19 20:50 ESR 74 mm/hr (0-30) H 12/16/19 07:54 Sodium 135 mmol/L (136-145) L 12/13/19 10:51 Potassium 4.7 mmol/L (3.5-5.1) 12/16/19 07:54 Chloride 101 mmol/L (98-107) 12/13/19 10:51 Carbon Dioxide 26 mmol/L (21-32) 12/13/19 10:51 Anion Gap 9 MMOL/L (8-16) 12/13/19 10:51 BUN 27.5 mg/dL (7-18) H 12/13/19 10:51 Creatinine 1.7 mg/dL (0.55-1.3) H 12/13/19 10:51 Est GFR (CKD-EPI)AfAm 38.40 12/13/19 10:51 Est GFR (CKD-EPI)NonAf 33.13 12/13/19 10:51 POC Glucometer 150 UNITS (80-120) 12/16/19 06:25 Random Glucose 160 mg/dL (74-106) H 12/13/19 10:51 Calcium 8.8 mg/dL (8.5-10.1) 12/13/19 10:51 Phosphorus 4.1 mg/dL (2.5-4.9) 12/11/19 08:08 Magnesium 2.3 mg/dL (1.8-2.4) 12/12/19 07:45 Total Bilirubin 0.3 mg/dL (0.2-1) 12/12/19 07:45 AST 21 U/L (15-37) 12/12/19 07:45 ALT 13 U/L (13-61) 12/12/19 07:45 Alkaline Phosphatase 184 U/L (45-117) H 12/12/19 07:45 C-Reactive Protein 0.6 MG/DL (0.00-0.3) H 12/14/19 13:30 Total Protein 7.7 g/dl (6.4-8.2) 12/12/19 07:45 Albumin 2.9 g/dl (3.4-5.0) L 12/12/19 07:45 Urine Color Yellow 12/10/19 10:00 Urine Appearance Clear 12/10/19 10:00 Urine pH 5.5 (5.0-8.0) 12/10/19 10:00 Ur Specific [place] 1.008 (1.010-1.035) L 12/10/19 10:00 Urine Protein 2+ (NEGATIVE) H 12/10/19 10:00 Urine Glucose (UA) Negative (NEGATIVE) 12/10/19 10:00 Urine Ketones Negative (NEGATIVE) 12/10/19 10:00 Urine Blood Negative (NEGATIVE) 12/10/19 10:00 Urine Nitrite Negative (NEGATIVE) 12/10/19 10:00 Urine Bilirubin Negative (NEGATIVE) 12/10/19 10:00 Urine Urobilinogen 0.2 mg/dL (0.2-1.0) 12/10/19 10:00 Ur Leukocyte Esterase Negative (NEGATIVE) 12/10/19 10:00 Urine WBC (Auto) 4 /uL (0-25.8) 12/10/19 10:00 Urine RBC (Auto) 22 /uL (0-23.9) 12/10/19 10:00 Urine Casts (Auto) 0 /uL (0-3.1) 12/10/19 10:00 U Epithel Cells (Auto) 9 /uL (0-25.1) 08/29/20 10:00 Urine Bacteria (Auto) 11 /uL (0-1359) 12/10/19 10:00 Random Vancomycin 21.0 ug/ml (5-26) 12/14/19 13:30 COVID-19 (ANA) Not detected (Not Detected) 12/10/19 09:30 HOSPITAL COURSE: 54 year old F with IDDM type 2 with b/l chronic foot ulcers with osteomyelitis of left heel (staph and enterococcus in August 2019), diabetic neuropathy, HTN, general anxiety disorder and opioid use disorder (on methadone) who presented to the ED with b/l foot pain. She was subsequently admitted for L foot ulcer and osteomyelitis. MRI done on LLE which showed large heel ulcer a/w cellulitis, suspicion for osteomyelitis and tenosynovitis in the tibialis posterior tendon. Pt was treated with Vanc/zosyn and seen by ID. Pt had transitioned over to PO antibiotics. Pt also evaluated by podiatry with specific instructions on proper wound care. Pt is hemodynamically stable and is receiving oral antibiotics. She is medically stable to be discharged home with visiting nurse services to f saumyather care for her wounds. She is to follow up with Podiatry and Infectious Disease as an out-patient for further management. Date of Admission:12/10/19 Date of Discharge: 12/16/19 Minutes to complete discharge: 36 Discharge Summary Problems reviewed: Yes Reason For Visit: OSTEOMYELITIS Condition: Stable - Instructions Diet, Activity, Other Instructions: Your visit: You were admitted to the hospital for your chronic infection of your legs. You had imaging done on your left foot, which showed swelling, a heel ulcer and bone infection. There is some swelling of your foot tendons. You were treated with antibiotics and pain medication with some improvement of your symptoms. Please continue to take care of your wounds and keep them clean to prevent further infections. Apply Santyl to your wounds and cover it. Keep it clean and change the dressing once a day. Please follow up with your Hydrometeorology Teacher Dr. Devine for further wound care. Medications changes: -Please continue to take Bactrim 1 pill twice a day for 9 days. You will have completed your antibiotics on 12/25/2019. -Please continue to take your duloxetine 60mg daily. -Please continue to take your Insulin detemir 7 units at bedtime. -We increased the frequency of your gabapentin. Please take 600 mg, 4 times a day. -Continue to take all other home medications as prescribed. -YOUR LAST METHADONE DOSE WAS 90MG ADMINISTERED ON 12/16/2019 AT 6:22AM. Follow up: - Please follow-up with your passenger car upholsterer apprentice, Dr. Devine, in 1 week. - Please follow up with your Infectious disease doctor, Dr. Gaming, in 1 week. - Please follow up with your Vascular Surgeon, Dr. Barclay, on 12/26/2019 at 10:30AM. - Visit with your Primary Care Provider in 2 weeks. If you do not have a primary care provider you may make an appointment with Dr. Allan at the [facility] clinic located at [address] [place] [address] ([phone]). Additional Instructions: -You are being discharged to your home. -Please return to the Emergency Department if you experience worsening pain, fevers, chills, shortness of breath, or chest pain, or if you experience any worsening, new or concerning symptoms. Referrals: Amilcar Allan MD [Staff Physician] - 2 Weeks Matt Gaming MD [Staff Physician] - 1 Week Javier Devine MD [Staff Physician] - 1 Week Ildefonso Barclay DO [Staff Physician] - 12/26/19 10:30 am Disposition: HOME - Home Medications Comprehensive Discharge Medication List: Ambulatory Orders Alprazolam [Xanax] 2 mg PO TID 10/17/18 Insulin Lispro Protamin/Lispro [Humalog Mix 75-25 Kwikpen] 24 units SQ BID 04/30/19 Albuterol Sulfate Inhaler - [Ventolin HFA Inhaler -] 2 inh PO Q4H 05/03/19 Citalopram Hydrobromide [Citalopram HBr] 20 mg PO DAILY 05/03/19 Fenofibrate Nanocrystallized [Fenofibrate] 145 mg PO DAILY 05/03/19 Ferrous Sulfate 325 mg PO BID 05/03/19 Ipratropium/Albuterol Sulfate [Iprat-Albut 0.5-3(2.5) mg/3 ml] 1 vial IH Q6H PRN 05/03/19 Methadone [Dolophine -] 90 mg PO DAILY #1 tab.disper MDD 90 mg 05/09/19 Enalapril Maleate [Vasotec -] 10 mg PO DAILY #30 tablet 05/12/19 Furosemide [Lasix -] 40 mg PO DAILY #30 tablet 05/12/19 Gabapentin 800 mg PO TID #30 tablet 05/12/19 Metformin HCl [Glucophage] 1,000 mg PO BID #60 tablet 05/12/19 Sitagliptin Phosphate [Januvia] 100 mg PO DAILY #30 tablet 05/12/19 Collagenase Clostridium Hist. [Santyl] 1 applic TP DAILY #30 applic 08/19/19 Piperacillin/Tazob 3.375 gm [Zosyn -] 3.375 gm IVPB Q8H-IV vial 08/19/19 This patient is new to me today: No Emergency Visit: Yes ED Registration Date: 12/10/19 Care time: The patient presented to the Emergency Department on the above date and was hospitalized for further evaluation of their emergent condition. Critical Care patient: No - Discharge Referral Referred to [facility] No ATTENDING PHYSICIAN STATEMENT I saw and evaluated the patient. I reviewed the resident's note and discussed the case with the resident. I agree with the resident's findings and plan as documented. SUBJECTIVE: OBJECTIVE: ASSESSMENT AND PLAN:
== END 2019-12-16 18:14 | disposition home or self-care (01) | DRG 344 ==
LOC: JER 17:42 → JERBED 12-10 00:55 → J7W 12-10 04:03
PROVIDERS: ADMIT Internal Medicine; ATTEND Internal Medicine
DX: E11.69 Type 2 diabetes mellitus with other specified complication (principal); M86.8X6 Other osteomyelitis, lower leg; I10 Essential (primary) hypertension; F41.8 Other specified anxiety disorders; E66.9 Obesity, unspecified; Z68.31 Body mass index [BMI] 31.0-31.9, adult; K64.9 Unspecified hemorrhoids; M86.69 Other chronic osteomyelitis, multiple sites; E87.1 Hypo-osmolality and hyponatremia; E11.40 Type 2 diabetes mellitus with diabetic neuropathy, unspecified; F11.20 Opioid dependence, uncomplicated; E46 Unspecified protein-calorie malnutrition; E11.621 Type 2 diabetes mellitus with foot ulcer; L97.528 Non-pressure chronic ulcer of other part of left foot with other specified severity; F17.210 Nicotine dependence, cigarettes, uncomplicated; L97.518 Non-pressure chronic ulcer of other part of right foot with other specified severity; E11.65 Type 2 diabetes mellitus with hyperglycemia; L03.116 Cellulitis of left lower limb
CPT/HCPCS: 36415; 71045-TC-FY; 73700-TC-RT; 73718-TC-LT; 80048; 80053; 81003; 82962; 83735; 84100; 84132; 85025; 85027; 85651; 86140; 87040; 87070; 87205; 93005; 93010; 97116-GP; 97161-GP; 99285-25; G0480; J0131; U0003

== ENCOUNTER 2020-01-18 14:35 | Inpatient (IN) | payer OTHER ==
--- NOTE | 2020-01-18 16:05 | PDOC ---
History of Present Illness - General Chief Complaint: Wound Stated Complaint: LEG PAIN Time Seen by Provider: 01/18/20 16:05 History Source: Patient Exam Limitations: No Limitations - History of Present Illness Initial Comments: 01/18/20 16:21 54F with PMH of DM, HTN, opioid abuse (daily methadone), peripheral neuropathy, and chronic heel osteomyelitis bilaterally p/w worsening pain in LE bl over the past few days, described as burning, and noted to be malodorous on recent ba ndage change. She was d/c'd 1 month prior for tx of osteomyelitis. She denied fevers/chills, cp, sob, nvdc, dysuria. PMH: as in HPI SH: see below Meds: In chart Allergies: NKDA PCP: Specialist: [place] GENERAL/CONSTITUTIONAL: No fever or chills. No weakness. HEENT: No change in vision. No ear pain or discharge. No sore throat. CARDIOVASCULAR: No chest pain or shortness of breath RESPIRATORY: No cough, wheezing, or hemoptysis. GASTROINTESTINAL: No nausea, vomiting, diarrhea or constipation. GENITOURINARY: No dysuria, frequency, or change in urination. MUSCULOSKELETAL: +LE pain bilaterally. No neck or back pain. SKIN: No rash NEUROLOGIC: No headache, vertigo, loss of consciousness, or change in strength/sensation. ENDOCRINE: No increased thirst. No abnormal weight change HEMATOLOGIC/LYMPHATIC: No anemia, easy bleeding, or history of blood clots. ALLERGIC/IMMUNOLOGIC: No hives or skin allergy. PE GENERAL: AOx3; no apparent distress HEAD: No signs of trauma, NC/AT EYES: PERRLA, EOMI, sclera anicteric, conjunctiva clear ENT: Auricles normal inspection, hearing grossly normal, nares patent, moist mucosa, oropharynx clear without exudates. NECK: Normal ROM, supple, no LAD, JVD, or masses HEART: RRR, normal S1/S2, no murmurs, rubs, or gallops. Peripheral pulses 2+ and equal bilaterally. LUNGS: No distress, speaks full sentences, CTA bilaterally ABDOMEN: Soft, nontender. No guarding, no rebound. No masses EXTREMITIES: left LE warmth, with un-stagable ulcer at left heel (7x9cm) with purulence; right heel punctate ulcer ~0.5cm depth, and right lateral foot ulcer ~0.5cm depth NEUROLOGICAL: Normal speech. No focal sensorimotor deficits SKIN: Warm, Dry, normal turgor. Assessment and Plan 1. osteomyelitis 2/2 diabetic foot ulcer 2. cellulitis Parvez Khanna, PGY1 Emergency Medicine Past History - Medical History Allergies/Adverse Reactions: Allergies Allergy/AdvReac Type Severity Reaction Status Date / Time No Known Allergies Allergy Verified 01/18/20 15:38 Home Medications: Ambulatory Orders Alprazolam [Xanax] 2 mg PO TID 10/17/18 Insulin Lispro Protamin/Lispro [Humalog Mix 75-25 Kwikpen] 24 units SQ BID 04/30/19 Albuterol Sulfate Inhaler - [Ventolin HFA Inhaler -] 2 inh PO Q4H 05/03/19 Citalopram Hydrobromide [Citalopram HBr] 20 mg PO DAILY 05/03/19 Fenofibrate Nanocrystallized [Fenofibrate] 145 mg PO DAILY 05/03/19 Ferrous Sulfate 325 mg PO BID 05/03/19 Ipratropium/Albuterol Sulfate [Iprat-Albut 0.5-3(2.5) mg/3 ml] 1 vial IH Q6H PRN 05/03/19 Methadone [Dolophine -] 90 mg PO DAILY #1 tab.disper MDD 90 mg 05/09/19 Enalapril Maleate [Vasotec -] 10 mg PO DAILY #30 tablet 05/12/19 Furosemide [Lasix -] 40 mg PO DAILY #30 tablet 05/12/19 Gabapentin 800 mg PO TID #30 tablet 05/12/19 Metformin HCl [Glucophage] 1,000 mg PO BID #60 tablet 05/12/19 Sitagliptin Phosphate [Januvia] 100 mg PO DAILY #30 tablet 05/12/19 Collagenase Clostridium Hist. [Santyl] 1 applic TP DAILY #30 applic 08/19/19 Piperacillin/Tazob 3.375 gm [Zosyn -] 3.375 gm IVPB Q8H-IV vial 08/19/19 Collagen/Sod Algin/Carboxymeth [Biostep 4"X4" Dressing] 1 each TP DAILY #30 bandage 12/16/19 Collagenase Clostridium Hist. [Santyl] 1 applic TP DAILY #1 oint...g. 12/16/19 Sulfamethoxazole/Trimethoprim [Bactrim Ds -] 1 tab PO DAILY #18 tablet 12/16/19 COPD: No Diabetes: Yes HTN: Yes Psychiatric Problems: Yes (anxiety, depression) - Surgical History Orthopedic Surgery: Yes (Rt ulnar fracture) - Reproductive History Is Patient Now?: No - Immunization History Immunization Up to Date: (UNKNOWN) - Psycho-Social/Smoking History Smoking History: Current every day smoker Have you smoked in the past 12 months: Yes Number of Cigarettes Smoked Daily: 10 Information on smoking cessation initiated: No 'Breaking Loose' booklet given: 08/15/19 *Physical Exam - Vital Signs Last Vital Signs Temp Pulse Resp BP Pulse Ox 98.2 F 94 H 20 184/83 H 97 01/18/20 15:38 01/18/20 15:38 01/18/20 15:38 01/18/20 15:38 01/18/20 15:38 ED Treatment Course - LABORATORY CBC & Chemistry Diagram: 01/18/20 18:08 01/18/20 18:08 Medical Decision Making - Medical Decision Making 01/18/20 16:56 54F with PMH of chronic osteomyelitis of feet bl, p/w worsening pain. -> foot ulcers bl on exam, warmth of left LE -> imaging and labs to eval for osteomyelitis +/- cellulitis. 01/18/20 19:12 CBC unremarkable. Pending xray. 01/18/20 19:27 Signed out to night team. Discharge - Discharge Information Problems reviewed: Yes Clinical Impression/Diagnosis: Diabetic foot ulcer Qualifiers: Diabetic foot ulcer location: heel Diabetes mellitus type: other specified (including ASHANTI) Laterality: left Non-pressure ulcer stage: unspecified non- pressure ulcer stage Qualified Code(s): E13.621 - Other specified diabetes mellitus with foot ulcer; L97.429 - Non-pressure chronic ulcer of left heel and midfoot with unspecified severity - Follow up/Referral Referrals: Ailyn Herbert NP [Primary Care Provider] - - Patient Discharge Instructions - Post Discharge Activity
[2020-01-18] MEDS ORDERED: VANCOMYCIN 1 GM in D5W (PRE-DOCKED) 1,000 MG/250 ML IVPB ONE (16:46)
--- NOTE | 2020-01-18 16:53 | PDOC ---
Attending Attestation - Resident Resident Name: Parvez Khanna - ED Attending Attestation I have performed the following: I have examined & evaluated the patient, The case was reviewed & discussed with the resident, I agree w/resident's findings & plan, Exceptions are as noted - HPI HPI: 01/18/20 16:49 54yo female with hx of dm and diabetic foot wounds who was dc on bactrim last month presents for eval of b/l foot pain. Pt states her feet started to burn yesterday and continued to burn despite gabapentin therapy. Pt sates she also has increased drainage from the foot wounds. Pt denies f/c. No cp/sob. Pt states she did take her methadone today. - Physicial Exam PE: 01/18/20 16:50 Gen: aaox3, speaking in full clear sentences heent: mmm, poor dentition, dental caries neck: supple heart; +s1s2 reg lungs: cta b/l abd: soft, nt/nd +bs ext: L heel wound with purulent and serous drainage, surrounding induration, warmth and redness up the LLE to below the knee, R foot with 2 wounds - 1 on the heel with surrounding induration and R lateral foot wound that when probed with a q-tip to go in about half the length of the q-tip, b/l foot ttp, foot warm, brisk cap refill - Medical Decision Making 01/18/20 16:52 a/p: 54yo female with b/l diabetic foot wounds -concern for wound infections and LLE cellulitis -will send labs, ekg, cxr, foot xrays, iv abx -prior cultures reviewed, +MRSA -will give vanco and levaquin -pt did take methadone for pain today 01/18/20 17:40 pt states she does not want to stay any longer for intervention or treatment pt states she wants to sign out AMA discussed risks of infection, osteo that is worsening, cellulitis, sepsis, , loss of limb pt states she wants to go fruit picker her methadone tomorrow at the clinic states she will come back tomorrow 01/18/20 17:42 pt now states she will stay for further evaluation 01/18/20 19:57 xrays reviewed labs reviewed pt receiving IV abx willing to stay for further evaluation and treatment 01/18/20 21:03 resident discussed the case with feng who accepts pt to service Discharge - Discharge Information Problems reviewed: Yes Clinical Impression/Diagnosis: Left leg cellulitis Diabetic foot ulcer Qualifiers: Diabetic foot ulcer location: heel Diabetes mellitus type: other specified (including ASHANTI) Laterality: left Non-pressure ulcer stage: unspecified non- pressure ulcer stage Qualified Code(s): E13.621 - Other specified diabetes mellitus with foot ulcer Condition: Stable - Admission Yes - Follow up/Referral - Patient Discharge Instructions - Post Discharge Activity
[2020-01-18] MEDS ORDERED: GABAPENTIN 400 MG CAPSULE PO ONE (16:54)
[2020-01-18] MEDS ORDERED: GABAPENTIN 100 MG CAPSULE ONE (18:17)
[2020-01-18] MEDS ORDERED: VANCOMYCIN 1 GRAM (PRE-DOCKED) 1,000 MG/250 ML BAG IVPB ONE (18:18)
[2020-01-18 18:38] LABS: BASO % 0.4 % (0-2.0); EOS % 1.6 % (0-4.5); HEMOGLOBIN 11.6 GM/dL (10.7-15.3); MCH 29.9 pg (25.7-33.7); MEAN PLT VOLUME 8.7 fl (7.5-11.1); MONO % 5.1 % (3.8-10.2); NEUT % 65.9 % (42.8-82.8); PLATELET COUNT 256 K/MM3 (134-434); RBC 3.87 M/mm3 (3.60-5.2); RDW 14.2 % (11.6-15.6); WHITE BLOOD COUNT 8.8 K/mm3 (4.0-10.0)
[2020-01-18 18:53] LABS: INR 1.08 (0.83-1.09); PROTHROMBIN TIME (PATIENT) 12.8 SEC (9.7-13.0)
[2020-01-18 18:56] LABS: ACTIVATED PTT 36.2 SECONDS (25.2-36.5)
[2020-01-18 19:22] LABS: ALBUMIN 2.8 g/dl (3.4-5.0); BILIRUBIN,TOTAL 0.3 mg/dL (0.2-1); BLOOD UREA NITROGEN 27.7 mg/dL (7-18); CALCIUM 8.7 mg/dL (8.5-10.1); CREATININE 1.4 mg/dL (0.55-1.3); MAGNESIUM 1.8 mg/dL (1.8-2.4); POTASSIUM 4.7 mmol/L (3.5-5.1); TOT PROT 7.7 g/dl (6.4-8.2)
--- NOTE | 2020-01-18 19:23 | PDOC ---
*Physical Exam - Vital Signs Last Vital Signs Temp Pulse Resp BP Pulse Ox 98.2 F 94 H 20 184/83 H 97 01/18/20 15:38 01/18/20 15:38 01/18/20 15:38 01/18/20 15:38 01/18/20 15:38 ED Treatment Course - LABORATORY CBC & Chemistry Diagram: 01/18/20 18:08 01/18/20 18:08 - ADDITIONAL ORDERS Additional order review: Laboratory Results 01/18/20 01/18/20 18:08 18:08 PT with INR 12.80 INR 1.08 PTT (Actin FS) 36.2 Sodium 135 L Potassium 4.7 Chloride 103 Carbon Dioxide 27 Anion Gap 4 L BUN 27.7 H Creatinine 1.4 H Est GFR (CKD-EPI)AfAm 48.56 Est GFR (CKD-EPI)NonAf 41.90 Random Glucose 124 H Calcium 8.7 Magnesium 1.8 Total Bilirubin 0.3 AST 23 ALT 17 Alkaline Phosphatase 242 H Total Protein 7.7 Albumin 2.8 L 01/18/20 18:08 RBC 3.87 MCV 88.0 MCHC 34.0 RDW 14.2 MPV 8.7 Neutrophils % 65.9 Lymphocytes % 27.0 D Monocytes % 5.1 Eosinophils % 1.6 Basophils % 0.4 - Medications Given in the ED: ED Medications Discontinued Medications Generic Name Dose Route Start Last Admin Trade Name Sarah Beth PRN Reason Stop Dose Admin Fentanyl 50 mcg 01/18/20 16:54 01/18/20 18:49 Sublimaze Injection - IVPUSH 01/18/20 16:55 50 mcg ONCE ONE Administration Gabapentin 800 mg 01/18/20 16:54 01/18/20 18:49 Neurontin - PO 01/18/20 16:55 800 mg ONCE ONE Administration Levofloxacin 750 mg in 150 mls @ 100 mls/hr 01/18/20 16:46 01/18/20 18:49 Levaquin 750 Mg Premixed Ivpb - IVPB 01/18/20 18:15 100 mls/hr ONCE ONE Administration Protocol Medical Decision Making - Medical Decision Making 01/18/20 19:24 54F with PMH of DM, HTN, opioid abuse (daily methadone), peripheral neuropathy, and chronic heel osteomyelitis bilaterally (discharged 1mo prior for OM) p/w worsening pain in LE bl over the past few days, described as burning, and noted to be malodorous on recent bandage change. She denied fevers/chills, cp, sob, nvdc, dysuria. PE notable for left LE warmth, with un-stagable ulcer at left heel (7x9cm) with purulence; right heel punctate ulcer ~0.5cm depth, and right lateral foot ulcer ~0.5cm depth -Levofloxacin -Vanc -CXR: no acute []labs, EKG, XR feet >admit for IV antibiotics 01/18/20 20:03 Pt is crying and requests her daily 2mg Xanax TID, last took at 0400. -2mg Xanax Labs reviewed. XRs reviewed: chronic changes, no acute pathology Admit for IV antibiotics for BLE diabetic wounds and LLE cellulitis Discharge - Discharge Information Problems reviewed: Yes Clinical Impression/Diagnosis: Left leg cellulitis Diabetic foot ulcer Qualifiers: Diabetic foot ulcer location: heel Diabetes mellitus type: other specified (including ASHANTI) Laterality: left Non-pressure ulcer stage: unspecified non- pressure ulcer stage Qualified Code(s): E13.621 - Other specified diabetes mellitus with foot ulcer Condition: Stable - Admission Yes - Follow up/Referral Referrals: Ailyn Herbert NP [Primary Care Provider] - - Patient Discharge Instructions - Post Discharge Activity
--- NOTE | 2020-01-18 20:20 | PN ---
Teaching Attending Note Name of Resident: Hari Ovalle ATTENDING PHYSICIAN STATEMENT I saw and evaluated the patient. I reviewed the resident's note and discussed the case with the resident. I agree with the resident's findings and plan as documented. SUBJECTIVE: History from patient is limited due to her cooperation. Primarily obtained from resident's history and chart review. 54yoF with history of chronic bilateral foot ulcers, chronic left heel osteomyelitis, T2DM on insulin, diabetic neuropathy, HTN, anxiety, and opioid abuse on methadone who presents with malodorous discharge from the left heel wound. Patient has been admitted multiple times for management of osteomyelitis, most recently 12/09-12/15 at which time patient had abnormal MRI findings but given flat ESR/CRP this was attributed to radiological lag. She was discharged with Bactrim to complete 2 week course of antibiotics (last day 12/24), which she states she completed. Notes in the interim she has not had adequate supplies or assistance with wound care and today she noticed foul smelling discharge from the left heel after unwrapping her bandages. Denies fever, chills. Patient was afebrile and hemodynamically stable in the ED. ED exam did note purulent drainage from the left heel wound with warmth and erythema of the LLE as well as a right foot wound that was probed with depth of about half the length of a qtip. Labs show WBC 8.8, ESR 95, CRP 4.1. XR of both feet without evidence of osteomyelitis. Wound culture obtained from left heel. Patient receiv ed vancomycin and levofloxacin and is admitted for further management. OBJECTIVE: Vital Signs - 24 hr 01/18/20 15:38 Temperature 98.2 F Pulse Rate 94 H Respiratory 20 Rate Blood Pressure 184/83 H O2 Sat by Pulse 97 Oximetry (%) EXAM Gen: awake, alert, mild distress secondary to pain HEENT: NC/AT. Poor dentition CV: RRR, no MRG appreciated Resp: CTAB Abd: Soft, nontender, nondistended Ext: Nonpitting edema BLE. Bilateral feet wrapped, bandages are clean/dry. Patient refuses examination of wounds due to pain Neuro: CN II-XII grossly intact Psych: AOx3 Laboratory Results - last 24 hr 01/18/20 01/18/20 01/18/20 18:08 18:08 18:08 WBC 8.8 RBC 3.87 Hgb 11.6 Hct 34.0 MCV 88.0 MCH 29.9 MCHC 34.0 RDW 14.2 Plt Count 256 MPV 8.7 Absolute Neuts (auto) 5.8 Neutrophils % 65.9 Lymphocytes % 27.0 D Monocytes % 5.1 Eosinophils % 1.6 Basophils % 0.4 Nucleated RBC % 0 PT with INR 12.80 INR 1.08 PTT (Actin FS) 36.2 Sodium 135 L Potassium 4.7 Chloride 103 Carbon Dioxide 27 Anion Gap 4 L BUN 27.7 H Creatinine 1.4 H Est GFR (CKD-EPI)AfAm 48.56 Est GFR (CKD-EPI)NonAf 41.90 Random Glucose 124 H Lactic Acid Calcium 8.7 Magnesium 1.8 Total Bilirubin 0.3 AST 23 ALT 17 Alkaline Phosphatase 242 H Total Protein 7.7 Albumin 2.8 L Blood Type Antibody Screen 01/18/20 01/18/20 18:08 18:08 WBC RBC Hgb Hct MCV MCH MCHC RDW Plt Count MPV Absolute Neuts (auto) Neutrophils % Lymphocytes % Monocytes % Eosinophils % Basophils % Nucleated RBC % PT with INR INR PTT (Actin FS) Sodium Potassium Chloride Carbon Dioxide Anion Gap BUN Creatinine Est GFR (CKD-EPI)AfAm Est GFR (CKD-EPI)NonAf Random Glucose Lactic Acid 1.1 Calcium Magnesium Total Bilirubin AST ALT Alkaline Phosphatase Total Protein Albumin Blood Type A POSITIVE Antibody Screen Negative ASSESSMENT AND PLAN: 54yoF with history of chronic bilateral foot ulcers, chronic left heel osteomyelitis, T2DM on insulin, diabetic neuropathy, HTN, anxiety, and opioid abuse on methadone who presents with malodorous discharge from the left heel wound admitted with wound infection and possible acute on chronic osteomyelitis. Wound infection of chronic left heel wound; ?acute on chronic osteomyelitis Purulent drainage from chronic left heel wound without evidence of sepsis currently Right foot wound also noted by ED exam although patient is currently refusing exam of either wound at time of evaluation ESR minimally elevated from prior admission, CRP now 4.1 from 0.6 - f/u wound, blood cultures - empiric vancomycin/Zosyn - ID consult - will defer further imaging to ID - pain control with Tylenol, Toradol, gabapentin Opioid dependence: on methadone, please confirm dose with her clinic in AM HTN: continue home meds T2DM: ISS DVT ppx: Lovenox subq
[2020-01-18] MEDS ORDERED: ALPRAZolam 1 MG TABLET ONE (20:36)
[2020-01-18] MEDS: ALPRAZolam 1 MG TABLET PO PRN (21:02)
[2020-01-18 21:11] LABS: ERYTHROCYTE SEDIMENTATION RATE 95 mm/hr (0-30)
--- NOTE | 2020-01-18 21:15 | HP ---
CHIEF COMPLAINT: BL LE diabetic foot ulcers PCP: none HISTORY OF PRESENT ILLNESS: Ms. Good is a 54F with PMH of DM, HTN, opioid abuse (daily methadone), peripheral neuropathy, and chronic heel osteomyelitis bilaterally arriving to the emergency department for worsening pain and foul smell in bilateral foot ulcers. The patient notes that the wound on her right foot is dry on the lateral and heel aspect. The Left foot shows a purulent ulcer in the heel area w worsening pain in LE bl over the past few days, described as burning, and noted to be malodorous on recent bandage change. She states that she never was able to receive supplies or aide for maintenance of wound care. She denied fever, chills, diaphoresis, generalized weakness, malaise, loss of appetite, weight change, cp, sob, nvdc, dysuria. ER course was notable for: (1) fentanyl/ativan in ED Recent Travel: no PAST MEDICAL HISTORY: PAST SURGICAL HISTORY: Social History: Smokin cigarettes/day since she was 16 Alcohol: denies Drugs: denies (on methadone) Allergies No Known Allergies Allergy (Verified 01/18/20 15:38) HOME MEDICATIONS: Home Medications Medication Instructions Recorded Alprazolam [Xanax] 2 mg PO TID 10/17/18 Insulin Lispro Protamin/Lispro 24 units SQ BID 04/30/19 [Humalog Mix 75-25 Kwikpen] Albuterol Sulfate Inhaler - 2 inh PO Q4H 05/03/19 [Ventolin HFA Inhaler -] Citalopram Hydrobromide 20 mg PO DAILY 05/03/19 [Citalopram HBr] Fenofibrate Nanocrystallized 145 mg PO DAILY 05/03/19 [Fenofibrate] Ferrous Sulfate 325 mg PO BID 05/03/19 Ipratropium/Albuterol Sulfate 1 vial IH Q6H PRN 05/03/19 [Iprat-Albut 0.5-3(2.5) mg/3 ml] Methadone [Dolophine -] 90 mg PO DAILY #1 tab.disper MDD 05/09/19 90 mg Enalapril Maleate [Vasotec -] 10 mg PO DAILY #30 tablet 05/12/19 Furosemide [Lasix -] 40 mg PO DAILY #30 tablet 05/12/19 Gabapentin 800 mg PO TID #30 tablet 05/12/19 Metformin HCl [Glucophage] 1,000 mg PO BID #60 tablet 05/12/19 Sitagliptin Phosphate [Januvia] 100 mg PO DAILY #30 tablet 05/12/19 Collagenase Clostridium Hist. 1 applic TP DAILY #30 applic 08/19/19 [Santyl] Piperacillin/Tazob 3.375 gm [Zosyn 3.375 gm IVPB Q8H-IV vial 08/19/19 -] Collagen/Sod Algin/Carboxymeth 1 each TP DAILY #30 bandage 12/16/19 [Biostep 4"X4" Dressing] Collagenase Clostridium Hist. 1 applic TP DAILY #1 oint...g. 12/16/19 [Santyl] Sulfamethoxazole/Trimethoprim 1 tab PO DAILY #18 tablet 12/16/19 [Bactrim Ds -] REVIEW OF SYSTEMS see above PHYSICAL EXAMINATION Vital Signs - 24 hr 01/18/20 01/18/20 15:38 19:43 Temperature 98.2 F 97.8 F Pulse Rate 94 H Pulse Rate [ 88 Right Radial] Respiratory 20 20 Rate Blood Pressure 184/83 H Blood Pressure 163/83 [Left Arm] O2 Sat by Pulse 97 98 Oximetry (%) GENERAL: Awake, alert, and fully oriented, in no acute distress. HEAD: Normal with no signs of trauma. LUNGS: Breath sounds equal, clear to auscultation bilaterally. No wheezes, and no crackles. No accessory muscle use. HEART: Regular rate and rhythm, normal S1 and S2 without murmur, rub or gallop. ABDOMEN: Soft, nontender, not distended, normoactive bowel sounds, no guarding, no rebound, no masses. No hepatomegaly or splenomegaly. LOWER EXTREMITIES: 2+ pulses, warm, well-perfused. No calf tenderness. No peripheral edema. Laboratory Results - last 24 hr 01/18/20 01/18/20 01/18/20 18:08 18:08 18:08 WBC 8.8 RBC 3.87 Hgb 11.6 Hct 34.0 MCV 88.0 MCH 29.9 MCHC 34.0 RDW 14.2 Plt Count 256 MPV 8.7 Absolute Neuts (auto) 5.8 Neutrophils % 65.9 Lymphocytes % 27.0 D Monocytes % 5.1 Eosinophils % 1.6 Basophils % 0.4 Nucleated RBC % 0 ESR 95 H PT with INR 12.80 INR 1.08 PTT (Actin FS) 36.2 Sodium 135 L Potassium 4.7 Chloride 103 Carbon Dioxide 27 Anion Gap 4 L BUN 27.7 H Creatinine 1.4 H Est GFR (CKD-EPI)AfAm 48.56 Est GFR (CKD-EPI)NonAf 41.90 Random Glucose 124 H Lactic Acid Calcium 8.7 Magnesium 1.8 Total Bilirubin 0.3 AST 23 ALT 17 Alkaline Phosphatase 242 H C-Reactive Protein 4.1 H Total Protein 7.7 Albumin 2.8 L Blood Type Antibody Screen 01/18/20 01/18/20 18:08 18:08 WBC RBC Hgb Hct MCV MCH MCHC RDW Plt Count MPV Absolute Neuts (auto) Neutrophils % Lymphocytes % Monocytes % Eosinophils % Basophils % Nucleated RBC % ESR PT with INR INR PTT (Actin FS) Sodium Potassium Chloride Carbon Dioxide Anion Gap BUN Creatinine Est GFR (CKD-EPI)AfAm Est GFR (CKD-EPI)NonAf Random Glucose Lactic Acid 1.1 Calcium Magnesium Total Bilirubin AST ALT Alkaline Phosphatase C-Reactive Protein Total Protein Albumin Blood Type A POSITIVE Antibody Screen Negative ASSESSMENT/PLAN: Ms. Good is a 54F with PMH of DM, HTN, opioid abuse (daily methadone), peripheral neuropathy, and chronic heel osteomyelitis bilaterally arriving to the emergency department for worsening pain in bilateral feet. #Left heel ulcer/Rule out Osteomyelitis -CT scan of feet :negative for air collection or evidence of osteomyelitis. -abx: IV Vancomycin and IV Zosyn. -imaging suggestion deferred to ID -Podiatry consult appreciated -ID consult appreciated #Diabetes Mellitus -ISS BGM ordered #Hypertension monitor blood pressure -will restart HTN meds when appropriate #Opioid Dependence -confirm patient's methadone dosage with [facility] -give Methadone at the dosage confirmed with [facility] #Anxiety -Xanax PRN #FEN -monitor electrolytes -diabetic diet #Prophylaxis -DVT: Lovenox 40 mg SQ q 24 hours. Family Medical History Family History: As Documented Visit type - Emergency Visit Emergency Visit: Yes ED Registration Date: 01/18/20 Care time: The patient presented to the Emergency Department on the above date and was hospitalized for further evaluation of their emergent condition. - New Patient This patient is new to me today: Yes Date on this admission: 01/19/20 - Critical Care Critical Care patient: No ATTENDING PHYSICIAN STATEMENT I saw and evaluated the patient. I reviewed the resident's note and discussed the case with the resident. I agree with the resident's findings and plan as documented. SUBJECTIVE: OBJECTIVE: ASSESSMENT AND PLAN:
--- OUTSIDE RECORDS SUMMARY | 2020-01-18 22:39 | XMS ---
:1965 Author Organization [facility] Care Team Providers Name Role Phone LASHAWN LOWE Unavailable Unavailable [facility] Unavailable Unavailable Josseline Ring Unavailable [phone] Josseline Ring Unavailable [phone] Zulma Kidd Unavailable Rober Garzon Unavailable [phone] Laci Kim Unavailable [phone] MAGALI KIMBROUGH, MER Unavailable MAGALI KIMBROUGH, MER Unavailable MAGALI KIMBROUGH, MER Unavailable MAGALI KIMBROUGH, MER Unavailable MAGALI KIMBROUGH, MER Unavailable MAGALI KIMBROUGH, MER Unavailable DELMI DILLON Unavailable OYEKOLA COMPUTER NETWORK AND SYSTEMS ENGINEER, MOBOLAJI Unavailable OYEKOLA COMPUTER NETWORK AND SYSTEMS ENGINEER, MOBOLAJI Unavailable OYEKOLA COMPUTER NETWORK AND SYSTEMS ENGINEER, MOBOLAJI Unavailable Sonia SHIFT FOREMAN, SHIFT FOREMAN Godwin Unavailable [phone] Sonia SHIFT FOREMAN, SHIFT FOREMAN Godwin Unavailable [phone] ED STAFF PHYSICIAN, STAFF Unavailable Unavailable AGYEPONG COMPUTER NETWORK AND SYSTEMS ENGINEER, BLANCA Unavailable AGYEPONG COMPUTER NETWORK AND SYSTEMS ENGINEER, BLANCA Unavailable Jerry Mondragon DPM Unavailable Unavailable Matt Mondragon DPM Unavailable Unavailable AurMatt tay DPM Unavailable Unavailable MARII COMPUTER NETWORK AND SYSTEMS ENGINEER Unavailable MARII COMPUTER NETWORK AND SYSTEMS ENGINEER Unavailable MARII COMPUTER NETWORK AND SYSTEMS ENGINEER Unavailable WHITE Unavailable Unavailable ED STAFF PHYSICIAN Unavailable Unavailable MD MÓNICA Unavailable Unavailable MD MÓNICA Unavailable Unavailable MD MÓNICA Unavailable Unavailable MD MÓNICA Unavailable Unavailable MD MÓNICA Unavailable Unavailable MD MÓNICA Unavailable Unavailable MD MÓNICA Unavailable Unavailable MD MÓNICA Unavailable Unavailable MD MÓNICA Unavailable Unavailable MD MÓNICA Unavailable Unavailable MD MÓNICA Unavailable Unavailable JHONATHAN LIRIANOYLDwightLAUREN R Unavailable Unavailable Janet Unavailable Unavailable Janet Unavailable Unavailable Janet Unavailable Unavailable Veselinovic Unavailable [phone] Veselinovic Unavailable [phone] Re-disclosure Warning The records that you are about to access may contain information from federally- assisted alcohol or drug abuse programs. If such information is present, then the following federally mandated warning applies: This information has been disclosed to you from records protected by federal confidentiality rules (42 CFR part 2). The federal rules prohibit you from making any further disclosure of this information unless further disclosure is expressly permitted by the written consent of the person to whom it pertains or as otherwise permitted by 42 CFR part 2. A general authorization for the release of medical or other information is NOT sufficient for this purpose. The Federal rules restrict any use of the information to criminally investigate or prosecute any alcohol or drug abuse patient.The records that you are about to access may contain highly sensitive health information, the redisclosure of which is protected by Article 27-F of the [facility] Public Health law. If you continue you may haveaccess to information: Regarding HIV / AIDS; Provided by facilities licensed or operated by the [facility] Office of Mental Health; or Provided by the [facility] Office for People With Developmental Disabilities. If such information is present, then the following [facility] mandated warning applies: This information has been disclosed to you from confidential records which are protected by state law. State law prohibits you from making any further disclosure of this information without the specific written consent of the person to whom it pertains, or as otherwise permitted by law. Any unauthorized further disclosure in violation of state law may result in a fine or detention sentence or both. A general authorization for the release of medical or other information is NOT sufficient authorization for further disclosure. Allergies and Adverse Reactions Type Description Substance Reaction Status Data Source(s ) Drug allergy aspirin 325 MG Oral Aspirin 325 MG swell up [facility] ([facility] Tablet Oral Tablet [facility]) Encounters Encounter Providers Location Date Indications Data Source(s ) Outpatient Attender: SJ9 01/16/2020 [facility] ([facility] 03:43:27 PM Care Anna starks) EDT Patient admitted. OutpatientOFFICE/OUTPATIENT Attender: Mental [facility]/28[facility] 10:10:00 AM [facility] 12/28/2019 Medical 10:10:00 AM Center) EDT OutpatientOFFICE/OUTPATIENT Attender: Mental 11/30/2019 [facility] VISIT, [facility] 11:08:00 AM [facility] 11/30/2019 Medical 11:08:00 AM [place]) EDT Outpatient<td Attender: Tosha 11/22/2019 [facility] ID="encounterTypeDescription [facility] 01:30:00 PM Screen ([place] ID0">OFFICE MÓNICA KIMBROUGH Health EDT - Malignant Neighborhood VISIT</td><td>CHRISTIANO [facility] 11/22/2019 Neoplasm, Health </td><td>[place] [facility] 11:59:00 PM [facility]) Health EDT Malignant Center</td><td>11/22/2019</t Neoplas m d><td><content CervixColon ID="encounterDiagnosisID0-0" Screeni ngHype >Obesity</content>, <content rcholes terole ID="encounterDiagnosisID0-1" miaDiab etes >Diabetes Mellitus Type 2 Mellitus w ith with Ulcer</content>, Foot <content UlcerEssentia ID="encounterDiagnosisID0-2" l >Essential HypertensionD Hypertension</content>, iabetes <content Mellitus Type ID="encounterDiagnosisID0-3" 2 with >Diabetes Mellitus with Foot UlcerOb esity Ulcer</content>, <content ID="encounterDiagnosisID0-4" >Hypercholesterolemia</isabella nt>, <content ID="encounterDiagnosisID0-5" >Colon Screening</content>, <content ID="encounterDiagnosisID0-6" >Screen Malignant Neoplasm Cervix</content>, <content ID="encounterDiagnosisID0-7" >Special Screen Malignant Neoplasm, Other</content></td> Special Screen Malignant Neoplasm, Other Screen Malignant Neoplasm Cervix Colon Screening Hypercholesterolemia Diabetes Mellitus with Foot Ulcer Essential Hypertension Diabetes Mellitus Type 2 with Ulcer Obesity Outpatient<td Attender: Tosha 11/18/2019 [place] ID="encounterTypeDescriptionID1">*Phone*</td><td>[facility] 02:22:00 PM ([facility]</td><td>[facility] [place] [place]</td><td>11/18/2019</td><td></td> COMPUTER NETWORK AND SYSTEMS ENGINEER Center [address] [place] [address] 11:59:00 PM Center) EDT Outpatient<td Attender: Tosha 11/15/2019 L [place] ID="encounterTypeDescriptionID2">*Phone*</td><td>[facility] 02:47:00 PM i ([facility]</td><td>[facility]</td><td>11/15/2019</td><td><content COMPUTER NETWORK AND SYSTEMS ENGINEER Center 0 07/2019 b Health ID="encounterDiagnosisID2-0">Limb Pain</content></td> 11:59:00 PM P Center) EDT a i n L i m b P a i n L i m b P a i n L i m b P a i n Limb Pain Limb Pain Limb Pain Limb Pain Outpatient<td Attender: Tosha 11/15/2019 ANGIE ID="encounterTypeDescriptionID3">*Phone*</td><td>DELMI COLON [facility] 01:43:00 PM ([facility] COMPUTER NETWORK AND SYSTEMS ENGINEER</td><td>[facility] ED T - Neighborhood Center</td><td>11/15/2019</td><td></td> COMPUTER NETWORK AND SYSTEMS ENGINEER [place] [address] [place] [address] 11:59:00 PM Center) EDT Outpatient Attender: 11/12/2019 [facility] ([facility] 11:28:59 AM [facility] EDT [facility]) Patient admitted. Outpatient<td Attender: Tosha 11/02/2019 [place] ID="encounterTypeDescriptionID4">*Phone*</td><td>MELANIE NAVARRO [facility] 04:22:00 PM ([facility] COMPUTER NETWORK AND SYSTEMS ENGINEER</td><td>[facility] E DT - [facility] Center</td><td>11/02/2019</td><td></td> COMPUTER NETWORK AND SYSTEMS ENGINEER Center [address] [place] [address] 11:59:00 PM Center) EDT OutpatientOFFICE/OUTPATIENT VISIT, EST Attender: Mental 11/02/19 20 [facility] 12:37:00 PM ([facility] EDT [facility] 11/02/2019 Medical 12:37:00 PM Center) EDT Outpatient<td ID="encounterTypeDescriptionID5">*No Attender: John mittal 10/11/2019 [place] Show*</td><td>CHRISTIANO SALES MD</td><td>[facility] 03:38:00 PM ([facility]</td><td>10/11/2019</td><td></td> [facility] EDT - Neighborhood Center 10/11/2019 Health 11:59:00 PM Center) EDT Outpatient<td Attender: Tosha 10/10/2019 ANGIE ID="encounterTypeDescriptionID6">*Phone*</td><td>MELANIE NAVARRO [facility] 12:35:00 PM ([facility]</td><td>[facility] E DT - [facility] Center</td><td>10/10/2019</td><td></td> COMPUTER NETWORK AND SYSTEMS ENGINEER Center 020 Health 11:59:00 PM Center) EDT OutpatientOFFICE/OUTPATIENT VISIT, EST Attender: Mental 10/05/19 [facility] 10:57:00 AM ([facility] EDT [facility] 10/05/2019 Medical 10:57:00 AM Center) EDT Attender: Mental 09/21/2019 [facility] 10:46:00 AM ([facility] 09/21/2019 Medical 10:46:00 AM Center) EDT Attender: Mental 08/24/2019 [facility] 10:56:00 AM ([facility] EDT [facility] 08/24/2019 Medical 10:56:00 AM Center) EDT Attender: Mental 08/02/2019 [facility] 11:04:00 AM ([facility] EDT [facility] 08/02/2019 Medical 11:04:00 AM Center) EDT Outpatient<td Attender: Tosha 07/22/2019 ANGIE ID="encounterTypeDescriptionID7">*Phone*</td><td>[facility] 01:30:00 PM ([facility]</td><td>[facility] EDT - Neighborhood Center</td><td>07/22/2019</td><td></td> COMPUTER NETWORK AND SYSTEMS ENGINEER Center 020 Health 11:59:00 PM Center) EDT Attender: Mental 07/05/2019 [facility] 10[facility]29[facility]00 AM [facility] - Karine 07/05/2019 Medical 10:29:00 AM Center) EDT OutpatientOFFICE/OUTPATIENT VISIT, EST Attender: Mental 06/07/19 20 [facility] 11:39:00 AM [facility] EST [facility] 06/07/2019 Medical 11:39:00 AM Center) EST Outpatient Attender: 05/31/2019 [facility] ([facility] 11:55:10 AM [facility] Patient admitted. Attender: Mental 05/13/2019 [facility] 01:18:00 PM ([facility] EST [facility] 05/13/2019 Medical 01:18:00 PM Center) EST Outpatient Attender: SHIFT FOREMAN Mental 05/13/2019 [facility] OFFICE/OUT [facility] 11:26:00 AM ([facility] PATIENT NPAttender: Clinic [facility] VISIT, [facility] 05/13/2019 Medical Julio 11:26:00 AM Center) EST Outpatient Attender: Tosha 04/25/2019 EdemaFracture of ANGIE <td MELANIE Community 12:00:00 PM HandHyperlipidemiaHypert ensio ([place] ID="encoun MARII COMPUTER NETWORK AND SYSTEMS ENGINEER Health EST - n (systemic)Diabetes Ne ighborhood [facility] 04/25/2019 MellitusEdemaFracture of Health criptionID 01:53:59 PM HandHyperlipidemiaHypert ensio Center) 8">WALK[place] EST n (systemic)Diabetes </td><td>G MellitusEdemaFracture of IFTY HandHyperlipidemiaHyperte [facility] MARII n (systemic)Diabetes COMPUTER NETWORK AND SYSTEMS ENGINEER</td><t MellitusEdemaFracture of d>[place] HandHyperlipidemiaHyperte nsio [facility] n (systemic)Diabetes Health MellitusEdemaFracture of Center</td HandHyperlipidemiaHyperte nsio ><td>04/25 n (systemic)Diabetes </td> MellitusEdemaFracture of <td><isabella HandHyperlipidemiaHyperte nsio nt n (systemic)Diabetes ID="encoun MellitusEdemaFracture of terDiagnos HandHyperlipidemiaHyperte nsio isID8-0">D n (systemic)Diabetes iabetes MellitusEdemaFracture of Mellitus</ HandHyperlipidemiaHyperte nsio content>, n (systemic)Diabetes <content MellitusEdemaFracture of ID="encoun HandHyperlipidemiaHyperte nsio terDiagnos n (systemic)Diabetes isID8-1">H MellitusEdemaFracture of ypertensio HandHyperlipidemiaHyperte nsio n n (systemic)Diabetes (systemic) MellitusEdemaFracture of </content> HandHyperlipidemiaHyperte nsio , <content n (systemic)Diabetes Myrna itus ID="encoun terDiagnos isID8-2">H yperlipide syd</isabella nt>, <content ID="encoun terDiagnos isID8-3">F racture of Hand</cont ent>, <content ID="encoun terDiagnos isID8-4">E darell</cont ent></td> Edema Fracture of Hand Hyperlipidemia Hypertension (systemic) Diabetes Mellitus Edema Fracture of Hand Hyperlipidemia Hypertension (systemic) Diabetes Mellitus Edema Fracture of Hand Hyperlipidemia Hypertension (systemic) Diabetes Mellitus Edema Fracture of Hand Hyperlipidemia Hypertension (systemic) Diabetes Mellitus Edema Fracture of Hand Hyperlipidemia Hypertension (systemic) Diabetes Mellitus Edema Fracture of Hand Hyperlipidemia Hypertension (systemic) Diabetes Mellitus Edema Fracture of Hand Hyperlipidemia Hypertension (systemic) Diabetes Mellitus Edema Fracture of Hand Hyperlipidemia Hypertension (systemic) Diabetes Mellitus Edema Fracture of Hand Hyperlipidemia Hypertension (systemic) Diabetes Mellitus Edema Fracture of Hand Hyperlipidemia Hypertension (systemic) Diabetes Mellitus Edema Fracture of Hand Hyperlipidemia Hypertension (systemic) Diabetes Mellitus Emergency Attender: ARMINDA ED STAFF H 04/22/2019 05:08:00 AM [facility] PHYSICIANAttender: STAFF ED [facility] - 04/22/2019 [facility] STAFF PHYSICIAN 11:21:00 AM EST Patient discharged. OutpatientOFFICE/OUTPATIENT Attender: Mental 04/15/2019 SHAVON BILL [facility] 12:07:[address] [facility] Medical 04/15/2019 [place]) 12:07:00 PM EST Outpatient Attender: 04/15/2019 [facility] 10:05:00 AM [facility] RAdmitter: JOSSELINE RING MEDINA-LAUREN R OutpatientOFFICE/OUTPATIENT Attender: Mental 03/16/2019 [facility]EXT[facility] ([facility] 10:31:00 AM Man [facility] - Medical 03/16/2019 Center) 10:31:00 AM EST Attender: Mental 03/08/2019 [facility] 02:18:00 PM [facility] Medical 03/08/2019 [place]) 02:18:00 PM EST Outpatient<td Attender: [place] 02/17/2019 [place] ID="encounterTypeDescriptionID [facility] 04:04:00 PM (Mike Morillo 9">*No Show*</td><td>[facility]</td><td>[facility] 02/17/2019 [facility] 11:59:00 PM Center</td><td>02/17/2019</td> EST <td></td> OutpatientOFFICE/OUTPATIENT Attender: Mental 02/07/2019 [facility] 10:54:00 AM [facility] [place] EDT - Medical 02/07/2019 Center) 10:54:00 AM EDT Outpatient Attender: ENMANUEL [place] 01/31/2019 [facility] edda [facility] 01:15:00 PM Medical [place] EDT RAdmitter: ENMANUEL WHITE Attender: Family 01/31/2019 [facility] ([facility] 01:15:00 PM [facility] EDT - Medical 01/31/2019 Center) 01:15:00 PM EDT Outpatient<td Attender: [place] 01/29/2019 [place] ID="encounterTypeDescriptionID MER [facility] 02:05:00 PM ([place] 10">*No Show*</td><td>MER DE LOS SANTOS MD [facility] EDT - [facility] MAGALI KIMBROUGH</td><td>[facility] 01/29/2019 [facility]) [facility] 11:59:00 PM Center</td><td>01/29/2019</td> EDT <td></td> 01/24/2019 [facility] 02:53:00 PM Medical Cente r EDT Patient admitted. Outpatient Attender: 01/24/2019 [facility] ENMANUEL SOLIS 01:19:00 PM Medical [facility] EDT Center WILL Coronadomitter: ENMANUEL WILL WHITE Attender: [facility] 01/24/2019 [facility] 01:19:00 PM ([facility] 01/24/2019 Medical 01:19:00 PM Center) EDT OutpatientO Attender: [facility] 01/21/2019 [facility] FFICE/OUTPA [facility] 11:17:00 AM ([facility] EDT [facility] VISIT, EST 01/21/2019 Medical 11:17:00 AM Center) EDT Outpatient Attender: 01/17/2019 [facility] ENMANUEL SOLIS 01:22:00 PM Medical [facility] EDT Center WILL Coronadomitter: HIYossi ARELLANO [facility] WILL [place] Attender: [facility] 01/17/2019 [facility] 01:22:00 PM ([facility] 01/17/2019 Medical 01:22:00 PM Center) EDT Outpatient< Attender: Tosha 01/07/2019 [facility] 04:17:00 PM (Mike Morillo [facility] 01/07/2019 Health [id number]" 11:59:00 PM Center) >PATIENT EDT ADVOCACY</t d><td>[facility]</td ><td>[facility]</td> <td> 019</td><td ></td> Outpatient< Attender: Tohsa 01/07/2019 ObesityObesityObesityObe [facility] 01:00:00 PM besityObesityObesityObes ityOb (Mike Morillo ID="[facility] EDT - esityObesityObesityObesi tyObe [facility] 01/07/2019 [facility] [id number]" 02:17:12 PM Center) >OFFICE EDT VISIT</td>< td>BLANCA PENA</td><td >[facility]</td> <td> 019</td><td ><content ID="encount erDiagnosis ID12-0">Obe sity</isabella nt></td> Obesity Obesity Obesity Obesity Obesity Obesity Obesity Obesity Obesity Obesity Obesity Obesity Obesity Outpatient [facility]: [facility] 01/03/2019 [facility] ARELLANO ENMANUEL 01:13:00 PM Medical [facility] [place] EDT RAdmitter: ENMANUEL WHITE Attender: [facility] 01/03/2019 [facility] ([facility] 01:13:00 PM [facility] EDT - Medical 01/03/2019 Center) 01:13:00 PM EDT Attender: [facility] 12/31/2018 [facility] ([facility] 03:52:00 PM [facility] [place] EDT - Medical 12/31/2018 Center) 03:52:00 PM EDT Outpatient Attender: [facility] 12/27/2018 [facility] 03:12:00 PM Medical [place] EDT RAdmitter: ENMANUEL WHITE Attender: [facility] 12/27/2018 [facility] ([facility] 03:12:00 PM [facility] EDT - Medical 12/27/2018 Center) 03:12:00 PM EDT Outpatient<td Attender: 12/24/2018 [place] ID="encounter BLANCA 09:38:00 AM ([facility] Jamin non TypeDescripti PAM YANEZP EDT - [facility] ood onID13">*OUTR 12/24/2018 Health Cent er) EACH*</td><td 11:59:00 PM >BLANCA PENA</td><td> </td><td>12/12</td><t d></td> Outpatient<td Attender: Tosha 12/23/2018 ObesityCarbuncle in [facility] ID="encounter BLANCA [facility] 01:30:00 PM the Left AxillaUrinar y ([place] TypeDescripti [facility] Health EDT - IncontinencePain in Neighborhood onID14">[facility] Center 12/23/2018 [facility]) E 02:21:34 PM in the Left VISIT</td><td EDT AxillaUrinary >BLANCA IncontinencePain in [facility] LimbObesityCarTr[facility] Health [facility]</td><td>Y in the Left [facility] IncontinencePain in [facility] System[facility]esityCarbuncBrande[facility]</td><t in the Left d>12/23/2018< AxillaUrinary /td><td><cont IncontinencePain in ent LimbObesityCarbuncle ID="encounter in the Left [id number] AxillaUrinary -0">Pain in IncontinencePain in Limb</content LimbObesityCarbuncle >, <content in the Left ID="encounter AxillaUrinary [id number] IncontinencePain in -1">Urinary LimbObesityCarbuncle Incontinence< in the Left /content>, AxillaUrinary <content IncontinencePain in ID="encounter LimbObesityCarbuncle [id number] in the Left -2">Carbuncle AxillaUrinary in the Left IncontinencePain in Axilla</isabella LimbObesityCarbuncle nt>, <content in the Left ID="encounter AxillaUrinary [id number] IncontinencePain in -3">Obesity</ LimbObesityCarbuncle content></td> in the Left AxillaUrinary IncontinencePain in LimbObesityCarbuncle in the Left AxillaUrinary IncontinencePain in LimbObesityCarbuncle in the Left AxillaUrinary IncontinencePain in LimbObesityCarbuncle in the Left AxillaUrinary IncontinencePain in LimbObesityCarbuncle in the Left AxillaUrinary IncontinencePain in LimbObesityCarbuncle in the Left AxillaUrinary IncontinencePain in LimbObesityCarbuncle in the Left AxillaUrinary IncontinencePain in LimbObesityCarbuncle in the Left AxillaUrinary IncontinencePain in Limb Obesity Carbuncle in the Left Axilla Urinary Incontinence Pain in Limb Obesity Carbuncle in the Left Axilla Urinary Incontinence Pain in Limb Obesity Carbuncle in the Left Axilla Urinary Incontinence Pain in Limb Obesity Carbuncle in the Left Axilla Urinary Incontinence Pain in Limb Obesity Carbuncle in the Left Axilla Urinary Incontinence Pain in Limb Obesity Carbuncle in the Left Axilla Urinary Incontinence Pain in Limb Obesity Carbuncle in the Left Axilla Urinary Incontinence Pain in Limb Obesity Carbuncle in the Left Axilla Urinary Incontinence Pain in Limb Obesity Carbuncle in the Left Axilla Urinary Incontinence Pain in Limb Obesity Carbuncle in the Left Axilla Urinary Incontinence Pain in Limb Obesity Carbuncle in the Left Axilla Urinary Incontinence Pain in Limb Obesity Carbuncle in the Left Axilla Urinary Incontinence Pain in Limb Obesity Carbuncle in the Left Axilla Urinary Incontinence Pain in Limb Obesity Carbuncle in the Left Axilla Urinary Incontinence Pain in Limb Obesity Carbuncle in the Left Axilla Urinary Incontinence Pain in Limb Obesity Carbuncle in the Left Axilla Urinary Incontinence Pain in Limb Obesity Carbuncle in the Left Axilla Urinary Incontinence Pain in Limb Outpatient Attender: ENMANUEL [place] 12/20/2018 [facility] 01:20:00 PM EDT [facility] WILL Coronadomitter: ENMANUEL SAUCEDA RReferrer: ENMANUEL WHTIE Attender: [facility] 12/20/2018 LILIANA N ([facility] 01:20:00 PM EDT Karine lara - 12/20/2018 Center) 01:20:00 PM EDT OutpatientOFFICE/ Attender: Mental Health 12/17/2018 NEXT GEN ([facility] VISIT, [facility] 11:23:00 AM EDT [facility] Medical [facility] Jhonathan - 12/17/2018 Center) 11:23:00 AM EDT Outpatient<td Attender: BLANCA Givens 12/15/2018 [facility] ID="encounterType [facility] Community 12:47:00 PM EDT Ilia [id number]"> Health Center - 12/15/2018 Ne ighborhood *No 11:59:00 PM EDT Health Ce nter) Show*</td><td>CALLI OROZCO COMPUTER NETWORK AND SYSTEMS ENGINEER</td><td>[facility]</td><td></td><td> </td> Outpatient 12/07/2018 [facility] 11:04:00 AM EDT Medical C enter Outpatient H 12/07/2018 [facility] 10:57:00 AM EDT Medical C enter OutpatientOFFICE/ Attender: [facility] 12/07/2018 [facility] ([facility] OUTPATIENT VISIT, Tu Kim 10:57:00 AM EDT J [place] [facility] Medical EST - 12/07/2018 Center) 10:57:00 AM EDT Outpatient 12/07/2018 [facility] 12:00:00 AM EDT Medical C enter Outpatient 11/25/2018 [facility] 10:54:00 AM EDT Medical C enter Outpatient Attender: Jerry Toledo 11/25/2018 [facility] 10:30:00 AM EDT Medical C enter DPMAdmitter: Jerry Mondragon DPMReferrer: Jerry Mondragon DPM OutpatientOFFICE/ Attender: [facility] 11/25/2018 [facility] ([facility] OUTPATIENT VISIT, Tu Kim 10:30:00 AM EDT [facility] Medical EST - 11/25/2018 Center) 10:30:00 AM EDT Outpatient 11/25/2018 [facility] 12:00:00 AM EDT Medical C enter OutpatientOFFICE/ Attender: Mental Health 11/19/2018 [facility] ([facility] OUTPATIENT VISIT, [facility] 03:13:00 PM EDT [facility] Medical EST Ring - 11/19/2018 Center) 03:13:00 PM EDT Outpatient Attender: Jerry Toledo 11/18/2018 [facility] P[facility] [place] 10:16:00 AM EDT Medical C enter DPMAdmitter: Jerry Mondragon DPMReferrer: Jerry Mondragon DPM Inpatient Attender: LASHAWN H-HAL5 10/29/2018 [facility] donnie ELLIS 08:08:00 PM EDT Medical C enter MAHERAdmitter: - 11/11/2018 LASHAWN ELLIS 05:08:00 PM EDT MAHERReferrer: LASHAWN HARDIN Patient discharged. Medications Medication Brand Start Product Dose Route Administrative Pharmacy [facility] Indications Reaction Description Data Name Date Form Instructions Instructions Source(s) Citalopram Celexa .00 ORAL active citalopr am NEXTGEN 20 MG Oral 20 mg 2020 {tabl 20 MG Oral ( Saint Tablet tablet 12:00: et} Tablet Karine [Celexa] 00 AM [Celexa] Medica l Celexa 20 EDT Center) mg tablet Alprazolam Xanax ORAL active alprazola m 2 NEXTGEN 2 MG Oral 2 mg 2020 {tabl MG Oral (Saint Tablet tablet 12:00: et} Tablet Karine [Xanax] 00 AM [Xanax] Medical Xanax 2 mg EDT Center) tablet Alprazolam Xanax ORAL complet alprazol am 2 NEXTGEN 2 MG Oral 2 mg 2019 {tabl ed MG Oral (Saint Tablet tablet 12:00: et} Tablet Karine [Xanax] 00 AM [Xanax] Medical Xanax 2 mg EDT Center) tablet Citalopram Celexa . ORAL complet citalop manish NEXTGEN 20 MG Oral 20 mg 2020 {tabl ed 20 MG Oral ( Saint Tablet tablet 12:00: et} Tablet Karine [Celexa] 00 AM [Celexa] Medica l Celexa 20 EDT Center) mg tablet HumaLOG Mix HumaLO 11/21/ UNIT 1 active Humalog Mix ANGIE 75/25 G Mix 2019 ([facility] KwikPen 75/25 12:00: Ilia (75-25) KwikPe 00 AM Neighborh o 100UNIT/ML n EDT od Health Subcutaneou (75-25 Center ) s ) Suspension 100UNI Pen-injecto T/ML r Subcut aneous Suspen guero Pen-in jector Fenofibrate Fenofi 11/21/ UNIT 1 active Fenofib rate ANGIE 145 MG Oral brate 2019 ([facility] Tablet 145MG 12:00: Ilia Fenofibrate Oral 00 AM Neighbo rho 145MG Oral Tablet EDT od [facility] th Tablet Center) Blood Blood UNIT 1 active Blood ANGIE Glucose Glucos 2020 Glucose Test (M ount Test In e Test 12:00: Ilia Vitro Strip In 00 AM Neighbo rho Vitro EDT od Health Strip Center) Ventolin Ventol 11/21/ INHALATI active Ventol in ANGIE HFA 108 (90 in HFA 2020 ON ([place] Base)MCG/AC 108 12:00: DOSING Bartolome on T (90 00 AM UNIT [facility] Inhalation Base)M EDT od [facility] Aerosol CG/ACT Center) Solution Inhala tion Aeroso l Soluti on BD Pen BD Pen 11/21/ UNIT 1 active BD Pen [facility] Needle Mini Needle 2019 Needle Mini ([facility] U/F 31G X 5 Mini 12:00: U/F Ilia MM U/F 00 AM [facility] Miscellaneo 31G X EDT od [facility] us 5 MM Center) Miscel laneou s Enalapril Enalap 11/21/ UNIT 1 active Enalapril [place] Maleate 10 ril 2019 Maleate ([facility] MG Oral Maleat 12:00: Ilia Tablet e 10MG 00 AM [facility] Enalapril Oral EDT Health Maleate Tablet Center) 10MG Oral Tablet Lancets Lancet 11/21/ UNIT 1 active Lancets Thi n [place] Thin s Thin 2019 ([facility] Miscellaneo Miscel 12:00: Bartolome on us laneou 00 AM [facility] s EDT od Health Center) Lasix 40MG Lasix 11/21/ UNIT 1 active Lasix GRE ENWAY Oral Tablet 40MG 2019 ([facility] Oral 12:00: Ilia [facility] Blood Blood 11/21/ UNIT 1 active Blood [place] Glucose Glucos 2020 Glucose ([facility] System Pato e 12:00: System Pato V ernon Kit System 00 AM [facility] Pato EDT Health Kit Center) Metformin metFOR 11/21/ UNIT 1 active metFORMIN [place] hydrochlori MIN 2020 HCl ([facility] de 1000 MG HCl 12:00: Ilia Oral Tablet 1000MG 00 AM [facility] metFORMIN Oral EDT Health HCl 1000MG Tablet Center) Oral Tablet Albuterol Ipratr 11/21/ CAPFUL active Ipratro pium- ANGIE 0.833 MG/ML opium- 2019 DOSING Albuterol ([facility] / [place] 12:00: UNIT Ilia Ipratropium rol 00 AM [place] 0.5-2. EDT od Health 0.167 MG/ML 5 Center) Inhalant (3)MG/ Solution 3ML Ipratropium Inhala -Albuterol tion 0.5-2.5 Soluti (3)MG/3ML on Inhalation Solution Januvia Januvi 11/21/ UNIT 1 active Januvia [place] 100MG Oral a 2019 ([facility] Tablet 100MG 12:00: Ilia Oral 00 AM [facility] Tablet EDT Health Center) gabapentin Gabape UNIT 1 active Gabapent in ANGIE 800 MG Oral ntin 2019 ([facility] Tablet 800MG 12:00: Ilia Gabapentin Oral 00 AM Neighbor ho 800MG Oral Tablet EDT od [facility] th Tablet Center) Alcohol Alcoho UNIT active Alcohol Pad s ANGIE Pads 70% l Pads 2019 (Mount 70% 12:00: Ilia 00 [facility] Alprazolam Xanax ORAL complet alprazol am 2 NEXTGEN 2 MG Oral 2 mg 2020 {tabl ed MG Oral (Saint Tablet tablet 12:00: et} Tablet Karine [Xanax] 00 AM [Xanax] Medical Xanax 2 mg EDT Center) tablet Citalopram Celexa ORAL complet citalop manish NEXTGEN 20 MG Oral 20 mg 2020 {tabl ed 20 MG Oral ( Saint Tablet tablet 12:00: et} Tablet Karine [Celexa] 00 AM [Celexa] Medica l Celexa 20 EDT Center) mg tablet Citalopram Celexa ORAL complet Citalop manish NEXTGEN 20 MG Oral 20 mg 2020 {tbl} ed 20 MG Oral ( Saint Tablet tablet 12:00: Tablet Karine [Celexa] 00 AM [Celexa] Medica l Celexa 20 EDT Center) mg tablet Alprazolam Xanax ORAL complet Alprazol am 2 NEXTGEN 2 MG Oral 2 mg 2020 {tbl} ed MG Oral (Saint Tablet tablet 12:00: Tablet Karine [Xanax] 00 AM [Xanax] Medical Xanax 2 mg EDT Center) tablet Citalopram Celexa ORAL complet Citalop manish NEXTGEN 20 MG Oral 20 mg 2020 {tbl} ed 20 MG Oral ( Saint Tablet tablet 12:00: Tablet Karine [Celexa] 00 AM [Celexa] Medica l Celexa 20 EDT Center) mg tablet Citalopram Celexa 1.00 ORAL complet Citalop manish NEXTGEN 20 MG Oral 20 mg 2019 {tbl} ed 20 MG Oral ( Saint Tablet tablet 12:00: Tablet Karine [Celexa] 00 AM [Celexa] Medica l Celexa 20 EDT [place]) mg tablet Medication administered onsite Alprazolam 2 Xanax 2 mg 08/02/2019 1 ORAL completed Alprazolam 2 NEXTGEN MG Oral Tablet tablet 12:00:00 AM {tbl} MG Oral (Saint [Xanax] Xanax EDT Tablet Pavel phs 2 mg tablet [Xanax] Medic al Center) Citalopram 20 Celexa 20 08/02/2019 1.00 ORAL completed Citalopram NEXTGEN MG Oral Tablet mg tablet 12:00:00 AM {tbl} 20 MG Oral (Saint [Celexa] EDT Tablet Karine Celexa 20 mg [Celexa] Med ical tablet [place]) gabapentin 800 Gabapentin 07/22/2019 UNI 1 suspended Gabapentin ANGIE MG Oral Tablet 800MG Oral 12:00:00 AM T ([facility] Gabapentin Tablet EDT Ilia 800MG Oral [facility] Center) Citalopram 20 Celexa 20 07/05/2019 1.00 ORAL completed Citalopram NEXTGEN MG Oral Tablet mg tablet 12:00:00 AM {tbl} 20 MG Oral (Saint [Celexa] EDT Tablet Karine Celexa 20 mg [Celexa] Med ical tablet [place]) Alprazolam 2 Xanax 2 mg 07/05/2019 1 ORAL completed Alprazolam 2 NEXTGEN MG Oral Tablet tablet 12:00:00 AM {tbl} MG Oral (Saint [Xanax] Xanax EDT Tablet Pavel phs 2 mg tablet [Xanax] Medic al Center) Alprazolam 2 Xanax 2 mg 06/07/2019 1 ORAL completed Alprazolam 2 NEXTGEN MG Oral Tablet tablet 12:00:00 AM {tbl} MG Oral (Saint [Xanax] Xanax EST Tablet Pavel phs 2 mg tablet [Xanax] Medic al Center) Citalopram 20 Celexa 20 06/07/2019 1.00 ORAL completed Citalopram NEXTGEN MG Oral Tablet mg tablet 12:00:00 AM {tbl} 20 MG Oral (Saint [Celexa] EST Tablet Karine Celexa 20 mg [Celexa] Med ical tablet Center) Citalopram 20 Celexa 20 05/13/2019 1.00 ORAL completed Citalopram NEXTGEN MG Oral Tablet mg tablet 12:00:00 AM {tbl} 20 MG Oral ( [Celexa] EST Tablet Karine Celexa 20 mg [Celexa] Med ical tablet Center) Alprazolam 2 Xanax 2 mg 05/13/2019 1 ORAL completed Alprazolam 2 NEXTGEN MG Oral Tablet tablet 12:00:00 AM {tbl} MG Oral (Saint [Xanax] Xanax EST Tablet Pavel phs 2 mg tablet [Xanax] Medic al [place]) Ventolin HFA Ventolin 04/25/2019 INH suspended Ventolin ANGIE 108 (90 HFA 108 12:00:00 AM ALA (M ount Base)MCG/ACT (90 EST WILLIAM Ilia Inhalation Base)MCG/A N Nei ghborho Aerosol CT DOS od Health Solution Inhalation ING Cente r) Aerosol UNI Solution T BD Pen Needle BD Pen 04/25/2019 UNI 1 suspended BD Pen ANGIE Mini U/F 31G X Needle 12:00:00 AM T N eedle Mini (Mount 5 MM Mini U/F EST U/F Ilia Miscellaneous 31G X 5 MM Neighborho Miscellane Health ous Center) Albuterol Ipratropiu 04/25/2019 CAP suspended Ipratropium- ANGIE 0.833 MG/ML / m-Albutero 12:00:00 AM FUL Albuterol (Mount Ipratropium l 0.5-2.5 EST DOS Jamin non [place] 0.167 (3)MG/3ML ING N eighborho MG/ML Inhalant Inhalation UNI od Health Solution Solution T Center) Ipratropium-Al buterol 0.5-2.5 (3)MG/3ML Inhalation Solution gabapentin 800 Gabapentin 04/25/2019 UNI 1 suspended Gabapentin ANGIE MG Oral Tablet 800MG Oral 12:00:00 AM T ([facility] Gabapentin Tablet EST Ilia 800MG Oral Neighborh o Tablet od Health Center) HumaLOG Mix HumaLOG 04/25/2019 UNI 1 suspended Humalog Mix ANGIE 75/25 KwikPen Mix 75/25 12:00:00 AM T ([facility] (75-25) KwikPen EST Ilia 100UNIT/ML (75-25) Neighb orho Subcutaneous 100UNIT/ML o d Health Suspension Subcutaneo Tom ter) Pen-injector us Suspension Pen-inject or Lancets Thin Lancets 04/25/2019 UNI 1 suspended Lancets Thin ANGIE Miscellaneous Thin 12:00:00 AM T ([facility] Miscellane EST Ilia ous Neighborho [facility]) Blood Glucose Blood 04/25/2019 UNI 1 suspended Blood ANGIE Test In Vitro Glucose 12:00:00 AM T G lucose Test ([facility] Strip Test In EST Ilia Vitro Neighborho Strip od [facility]) Alcohol Pads Alcohol 04/25/2019 UNI suspended Alcohol Pads ANGIE 70% Pads 70% 12:00:00 AM T (Nidia nt EST Ilia Neighborho [facility]) Metformin metFORMIN 04/25/2019 UNI 1 suspended metFORMIN ANGIE hydrochloride HCl 1000MG 12:00:00 AM T HCl (Mount 1000 MG Oral Oral EST Ilia Tablet Tablet Neighborho metFORMIN HCl od Hea lth 1000MG Oral Center) Tablet ferrous Ferrous 04/25/2019 UNI 1 completed [place] ANGIE sulfate 325 MG Sulfate 12:00:00 AM T Sulfate (Mount Oral Tablet 325 (65 EST Verno n Ferrous Fe)MG Oral Neighb orho Sulfate 325 Tablet od Hea lth (65 Fe)MG Oral Cente r) Tablet Fenofibrate Fenofibrat 04/25/2019 UNI 1 suspended Fenofibrate ANGIE 145 MG Oral e 145MG 12:00:00 AM T ([facility] Tablet Oral EST Ilia Fenofibrate Tablet Neighb orho 145MG Oral od [facility] Tablet [place]) Enalapril Enalapril 04/25/2019 UNI 1 suspended Enalapril ANGIE Maleate 10 MG Maleate 12:00:00 AM T M aleate (Mount Oral Tablet 10MG Oral EST Jamin non Enalapril Tablet Neighbor ho Maleate 10MG od Heal th Oral Tablet Center) Lasix 40MG Lasix 40MG 04/25/2019 UNI 1 suspended Lasix ANGIE Oral Tablet Oral 12:00:00 AM T ( [place] Tablet [facility]) Januvia 100MG Januvia 04/25/2019 UNI 1 suspended Januvia ANGIE Oral Tablet 100MG Oral 12:00:00 AM T ([place] Tablet [facility]) Citalopram 20 Celexa 20 04/15/2019 1.00 ORAL completed Citalopram NEXTGEN MG Oral Tablet mg tablet 12:00:00 AM {tbl} 20 MG Oral (Saint [Celexa] EST Tablet Karine Celexa 20 mg [Celexa] Med ical tablet Center) Alprazolam 2 Xanax 2 mg 04/15/2019 1 ORAL completed Alprazolam 2 NEXTGEN MG Oral Tablet tablet 12:00:00 AM {tbl} MG Oral (Saint [Xanax] Xanax EST Tablet Pavel phs 2 mg tablet [Xanax] Medic al Center) Citalopram 20 Celexa 20 03/16/2019 1.00 ORAL completed Citalopram NEXTGEN MG Oral Tablet mg tablet 12:00:00 AM {tbl} 20 MG Oral (Saint [Celexa] EST Tablet Karine Celexa 20 mg [Celexa] Med ical tablet Center) Alprazolam 2 Xanax 2 mg 03/16/2019 1 ORAL completed Alprazolam 2 NEXTGEN MG Oral Tablet tablet 12:00:00 AM {tbl} MG Oral (Saint [Xanax] Xanax EST Tablet Pavel phs 2 mg tablet [Xanax] Medic al Center) Citalopram 20 Celexa 20 03/08/2019 1.00 ORAL completed Citalopram NEXTGEN MG Oral Tablet mg tablet 12:00:00 AM {tbl} 20 MG Oral (Saint [Celexa] EST Tablet Karine Celexa 20 mg [Celexa] Med ical tablet Center) Alprazolam 2 Xanax 2 mg 03/08/2019 1 ORAL completed Alprazolam 2 NEXTGEN MG Oral Tablet tablet 12:00:00 AM {tbl} MG Oral (Saint [Xanax] Xanax EST Tablet Pavel phs 2 mg tablet [Xanax] Medic al Center) Alprazolam 2 Xanax 2 mg 02/07/2019 1 ORAL completed Alprazolam 2 NEXTGEN MG Oral Tablet tablet 12:00:00 AM {tbl} MG Oral (Saint [Xanax] Xanax EDT Tablet Pavel phs 2 mg tablet [Xanax] Medic al [place]) Citalopram 20 Celexa 20 02/07/2019 1.00 ORAL completed Citalopram NEXTGEN MG Oral Tablet mg tablet 12:00:00 AM {tbl} 20 MG Oral (Saint [Celexa] EDT Tablet Karine Celexa 20 mg [Celexa] Med ical tablet Center) Citalopram 20 Celexa 20 01/21/2019 1.00 ORAL completed Citalopram NEXTGEN MG Oral Tablet mg tablet 12:00:00 AM {tbl} 20 MG Oral (Saint [Celexa] EDT Tablet Karine Celexa 20 mg [Celexa] Med ical tablet Center) Alprazolam 2 Xanax 2 mg 01/21/2019 1 ORAL completed Alprazolam 2 NEXTGEN MG Oral Tablet tablet 12:00:00 AM {tbl} MG Oral (Saint [Xanax] Xanax EDT Tablet Pavel phs 2 mg tablet [Xanax] [facility] al [place]) gabapentin 800 Gabapentin 01/07/2019 UNI 1 suspended Gabapentin ANGIE MG Oral Tablet 800MG Oral 12:00:00 AM T ([facility] Gabapentin Tablet EDT Ilia 800MG Oral Neighborh o Tablet od Health Center) HumaLOG Mix HumaLOG 01/07/2019 UNI 1 suspended Humalog Mix ANGIE 75/25 KwikPen Mix 75/25 12:00:00 AM T ([facility] (75-25) KwikPen EDT Ilia 100UNIT/ML (75-25) Neighb orho Subcutaneous 100UNIT/ML o d Health Suspension Subcutaneo Tom ter) Pen-injector us Suspension Pen-inject or ferrous Ferrous 01/07/2019 UNI 1 suspended [place] ANGIE sulfate 325 MG Sulfate 12:00:00 AM T Sulfate (Mount Oral Tablet 325 (65 EDT Verno n Ferrous Fe)MG Oral Neighb orho Sulfate 325 Tablet od Hea lth (65 Fe)MG Oral Cente r) Tablet Ascorbic Acid Ascorbic 01/07/2019 UNI 1 completed Ascorbic ANGIE 500 MG Oral Acid 500MG 12:00:00 AM T Acid (Mount Tablet Oral EDT Ilia Ascorbic Acid Tablet Neig hborho 500MG Oral od Health Tablet [place]) Enalapril Enalapril 01/07/2019 UNI 1 suspended Enalapril ANGIE Maleate 10 MG Maleate 12:00:00 AM T M aleate (Mount Oral Tablet 10MG Oral EDT Jamin non Enalapril Tablet Neighbor ho Maleate 10MG od Heal Oral Tablet [place]) Metformin metFORMIN 01/07/2019 UNI 1 suspended metFORMIN ANGIE hydrochloride HCl 1000MG 12:00:00 AM T HCl (Mount 1000 MG Oral Oral EDT Ilia Tablet Tablet Neighbor metFORMIN HCl od a lth 1000MG Oral Center) Tablet Lasix 40MG Lasix 40MG 01/07/2019 UNI 1 suspended Lasix ANGIE Oral Tablet Oral 12:00:00 AM T ( [facility] Tablet EDT Ilia [facility]) Januvia 100MG Januvia 01/07/2019 UNI 1 suspended Januvia ANGIE Oral Tablet 100MG Oral 12:00:00 AM T ([facility] Tablet EDT Ilia [facility]) Fenofibrate Fenofibrat 01/07/2019 UNI 1 suspended Fenofibrate ANGIE 145 MG Oral e 145MG 12:00:00 AM T ([facility] Tablet Oral EDT Ilia Fenofibrate Tablet Neighb orho 145MG Oral od [facility] Tablet [place]) Januvia 100MG Januvia 12/23/2018 UNI 1 suspended Januvia ANGIE Oral Tablet 100MG Oral 12:00:00 AM T ([facility] Tablet EDT Ilia [facility]) gabapentin 800 Gabapentin 12/23/2018 UNI 1 suspended Gabapentin ANGIE MG Oral Tablet 800MG Oral 12:00:00 AM T ([facility] Gabapentin Tablet EDT Ilia 800MG Oral Neighbor o Tablet [facility]) Alcohol Pads Alcohol 12/23/2018 UNI suspended Alcohol Pads ANGIE 70% Pads 70% 12:00:00 AM T (Nidia nt EDT [facility]) HumaLOG Mix HumaLOG 12/23/2018 UNI 1 suspended Humalog Mix ANGIE 75/25 KwikPen Mix 75/25 12:00:00 AM T ([facility] (75-25) KwikPen EDT Ilia 100UNIT/ML (75-25) Neighb orho Subcutaneous 100UNIT/ML o d Health Suspension Subcutaneo Tom ter) Pen-injector us Suspension Pen-inject or Albuterol Ipratropiu 12/23/2018 CAP suspended Ipratropium- ANGIE 0.833 MG/ML / m-Albutero 12:00:00 AM FUL Albuterol ([facility] Ipratropium l 0.5-2.5 EDT DOS Jamin non [place] 0.167 (3)MG/3ML ING N eighborho MG/ML Inhalant Inhalation UNI od Health Solution Solution T Center) Ipratropium-Al buterol 0.5-2.5 (3)MG/3ML Inhalation Solution Blood Glucose Blood 12/23/2018 UNI 1 suspended Blood ANGIE Test In Vitro Glucose 12:00:00 AM T G lucose Test (Mount Strip Test In EDT Ilia Vitro [facility] Strip [facility]) Enalapril Enalapril 12/23/2018 UNI 1 completed Enalapril ANGIE Maleate 2.5 MG Maleate 12:00:00 AM T Maleate (Mount Oral Tablet 2.5MG Oral EDT Ve rnon Enalapril Tablet Neighbor Maleate 2.5MG [facility] Oral Tablet [place]) Fenofibrate Fenofibrat 12/23/2018 UNI 1 suspended Fenofibrate ANGIE 145 MG Oral e 145MG 12:00:00 AM T (Mount Tablet Oral EDT Ilia Fenofibrate Tablet [facility] Oral od [facility] Tablet [place]) Lasix 40MG Lasix 40MG 12/23/2018 UNI 1 suspended Lasix ANGIE Oral Tablet Oral 12:00:00 AM T ( [facility] Tablet EDT Ilia [facility]) Metformin metFORMIN 12/23/2018 UNI 1 suspended metFORMIN ANGIE hydrochloride HCl 1000MG 12:00:00 AM T HCl (Mount 1000 MG Oral Oral EDT Ilai Tablet Tablet [facility] metFORMIN HCl [facility] 1000MG Oral Center) Tablet BD Pen Needle BD Pen 12/23/2018 UNI 1 suspended BD Pen ANGIE Mini U/F 31G X Needle 12:00:00 AM T N eedle Mini (Mount 5 MM Mini U/F EDT U/F Ilia Miscellaneous 31G X 5 MM [facility] Miscellane Health ous [place]) Ventolin HFA Ventolin 12/23/2018 INH suspended Ventolin ANGIE 108 (90 HFA 108 12:00:00 AM ALA (M ount Base)MCG/ACT (90 EDT WILLIAM Ilia Inhalation Base)MCG/A N Coi [facility] Aerosol CT DOS od Health Solution Inhalation ING Cente r) Aerosol UNI Solution T Lancets Thin Lancets 12/23/2018 UNI 1 suspended Lancets Thin ANGIE Miscellaneous Thin 12:00:00 AM T ([facility] Miscellane EDT Ilia ous [facility]) Citalopram 20 Celexa 20 12/17/2018 1.00 ORAL completed Citalopram NEXTGEN MG Oral Tablet mg tablet 12:00:00 AM {tbl} 20 MG Oral (Saint [Celexa] EDT Tablet Karine Celexa 20 mg [Celexa] Med ical tablet Center) Alprazolam 2 Xanax 2 mg 12/17/2018 1 ORAL completed Alprazolam 2 NEXTGEN MG Oral Tablet tablet 12:00:00 AM {tbl} MG Oral (Saint [Xanax] Xanax EDT Tablet Pavel phs 2 mg tablet [Xanax] Medic al Center) Citalopram 20 Celexa 20 11/19/2018 1.00 ORAL completed Citalopram NEXTGEN MG Oral Tablet mg tablet 12:00:00 AM {tbl} 20 MG Oral (Saint [Celexa] EDT Tablet Karine Celexa 20 mg [Celexa] Med ical tablet Center) Alprazolam 2 Xanax 2 mg 11/19/2018 1 ORAL completed Alprazolam 2 NEXTGEN MG Oral Tablet tablet 12:00:00 AM {tbl} MG Oral (Saint [Xanax] Xanax EDT Tablet Pavel phs 2 mg tablet [Xanax] Medic al Center) Aspirin 325 MG aspirin 11/18/2018 1.00 ORAL active take 1 NEXTGEN Delayed 325 mg 12:00:00 AM {tbl} tablet by (Saint Release Oral tablet,del EDT oral r oute Karine Tablet aspirin ayed every day Medical 325 mg release Center) tablet,delayed release Citalopram 20 Celexa 20 10/29/2018 1.00 ORAL completed Citalopram NEXTGEN MG Oral Tablet mg tablet 12:00:00 AM {tbl} 20 MG Oral (Saint [Celexa] EDT Tablet Karine Celexa 20 mg [Celexa] Med ical tablet Center) Alprazolam 2 Xanax 2 mg 10/29/2018 1 ORAL completed Alprazolam 2 NEXTGEN MG Oral Tablet tablet 12:00:00 AM {tbl} MG Oral (Saint [Xanax] Xanax EDT Tablet Pavel phs 2 mg tablet [Xanax] Medic al [place]) Lasix 40MG Lasix 40MG 10/28/2018 UNI 1 suspended Lasix ANGIE Oral Tablet Oral 12:00:00 AM T ( [facility] Tablet EDT [facility]) Januvia 100MG Januvia 10/28/2018 UNI 1 suspended Januvia ANGIE Oral Tablet 100MG Oral 12:00:00 AM T ([facility] Tablet EDT [facility]) BD Pen Needle BD Pen 10/28/2018 UNI 1 suspended BD Pen ANGIE Mini U/F 31G X Needle 12:00:00 AM T N eedle Mini ([facility] 5 MM Mini U/F EDT U/F Ilia Miscellaneous 31G X 5 MM [facility] Miscellane Health ous [place]) Ventolin HFA Ventolin 10/28/2018 INH suspended Ventolin ANGIE 108 (90 HFA 108 12:00:00 AM ALA (M ount Base)MCG/ACT (90 EDT WILLIAM Ilia Inhalation Base)MCG/A N Nei ghborho Aerosol CT DOS od Health Solution Inhalation ING Cente r) Aerosol UNI Solution T Albuterol Ipratropiu 10/28/2018 CAP suspended Ipratropium- ANGIE 0.833 MG/ML / m-Albutero 12:00:00 AM FUL Albuterol ([facility] Ipratropium l 0.5-2.5 EDT DOS Jamin non [place] 0.167 (3)MG/3ML ING N eighborho MG/ML Inhalant Inhalation UNI od Health Solution Solution T Center) Ipratropium-Al buterol 0.5-2.5 (3)MG/3ML Inhalation Solution Fenofibrate Fenofibrat 10/28/2018 UNI 1 suspended Fenofibrate ANGIE 145 MG Oral e 145MG 12:00:00 AM T (Mount Tablet Oral EDT Ilia Fenofibrate Tablet Neighb orho 145MG Oral od [facility] Tablet [place]) Metformin metFORMIN 10/28/2018 UNI 1 suspended metFORMIN ANGIE hydrochloride HCl 1000MG 12:00:00 AM T HCl (Mount 1000 MG Oral Oral EDT Ilia Tablet Tablet [facility] metFORMIN HCl od Hea lth 1000MG Oral [place]) Tablet gabapentin 800 Gabapentin 10/28/2018 UNI 1 suspended Gabapentin ANGIE MG Oral Tablet 800MG Oral 12:00:00 AM T ([facility] Gabapentin Tablet EDT Ilia 800MG Oral Neighbor o Tablet [facility]) HumaLOG Mix HumaLOG 10/28/2018 UNI 1 suspended Humalog Mix ANGIE 75/25 KwikPen Mix 75/25 12:00:00 AM T ([facility] (75-25) KwikPen EDT Ilia 100UNIT/ML (75-25) Neighb orho Subcutaneous 100UNIT/ML o d Health Suspension Subcutaneo Tom ter) Pen-injector us Suspension Pen-inject or Enalapril Enalapril 10/28/2018 UNI 1 suspended Enalapril ANGIE Maleate 2.5 MG Maleate 12:00:00 AM T Maleate (Mount Oral Tablet 2.5MG Oral EDT Ve rnon Enalapril Tablet Neighbor ho Maleate 2.5MG od [facility] Oral Tablet [place]) Lancets Thin Lancets 08/31/2018 UNI 1 suspended Lancets Thin ANGIE Miscellaneous Thin 12:00:00 AM T ([facility] Miscellane EDT Ilia ous [facility]) Blood Glucose Blood 08/31/2018 UNI 1 suspended Blood ANGIE Test In Vitro Glucose 12:00:00 AM T G lucose Test ([facility] Strip Test In EDT Ilia Vitro [facility] Strip [facility]) Alcohol Pads Alcohol 08/31/2018 UNI suspended Alcohol Pads ANGIE 70% Pads 70% 12:00:00 AM T (Nidia nt EDT [facility]) Insurance Providers Payer name Policy type Policy ID Covered Covered Policy Plan In formation / Coverage green party ID green party's Schulte type relationship to schulte AFFINITY [id number] SP [id number] BEACON O [id number] HEALTH-AFFI NITY CLMS AFFINITY O [id number] HEALTH PLAN Affinity Individual 0 Self 0 Health Plan Policy Affinity Individual 0 Self 0 Health Plan Policy Affinity Individual 0 Self 0 Health Plan Policy Affinity Individual 0 Self 0 Health Plan Policy Affinity Individual 0 Self 0 Health Plan Policy Affinity Individual 0 Self 0 Health Plan Policy MEDICAID [id number] SP [id number] AFFINITY [id number] SP [id number] Affinity Individual 0 Self 0 Health Plan Policy Affinity Individual 0 Self 0 Health Plan Policy AFFINITY-RE [id number] SP [id number] SOLUTION TEAM Affinity Individual 0 Self 0 Health Plan Policy Affinity Individual 0 Self 0 Health Plan Policy Affinity Individual 0 Self 0 Health Plan Policy BEACON O [id number] 01 [id number] HEALTH-AFFI NITY CLMS Affinity Individual 0 Self 0 Health Plan Policy Affinity Individual 0 Self 0 Health Plan Policy Affinity Individual 0 Self 0 Health Plan Policy Affinity Individual 0 Self 0 Health Plan Policy Affinity Individual 0 Self 0 Health Plan Policy W [id number] 01 [id number] AFFINITY W [id number] 01 [id number] Affinity Individual 0 Self 0 Health Plan Policy AFFINITY O [id number] 01 [id number] Affinity Individual 0 Self 0 Health Plan Policy MEDICAID [id number] Affinity Individual 0 Self 0 Health Plan Policy Problems, Conditions, and Diagnoses Code Display Name Description Problem Effective Data Type Dates Source(s) 67250898 Essential Essential Problem 11/22/2019 [place] hypertension Hypertension 12:00:00 ([facility] (disorder) [facility]) [id number] Diabetes mellitus Diabetes Mellitus Problem 11/22/2019 [place] type 2 (disorder) Type 2 12:00:00 ([facility]) [id number] 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 11/11 [place] 6 type 2 diabetes Diabetic Neuropathy 12:00:00 ([facility] (disorder) [facility]) 69705966 Depressive Depression Problem 11/22/2019 [place] disorder 12:00:00 ([place] (disorder) [facility]) 28141667 Hyperlipidemia Hyperlipidemia Problem 11/22/2019 [facility] (disorder) 12:00:00 ([facility]) [id number] Diabetic foot Diabetes Mellitus Problem 11/22/2019 [place] ulcer (disorder) with Foot Ulcer 12:00:00 ([facility]) 41746971 Hypercholesterole Hypercholesterolemia Problem 11/22/19 20 [place] syd (disorder) 12:00:00 ([facility]) 04133136 Diabetes mellitus Diabetes Mellitus Problem 11/15/2019 [place] type 2 (disorder) Type 2 12:00:00 ([facility]) [id number] 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 07/2019 [place] 6 type 2 diabetes Diabetic Neuropathy 12:00:00 ([place] mellitus [facility] (disorder) [facility]) 19733285 Depressive Depression Problem 11/15/2019 ANGIE disorder 12:00:00 ([place] (disorder) [facility]) 68611957 Hyperlipidemia Hyperlipidemia Problem 11/15/2019 [place] A[facility] (disorder) 12:00:00 ([place] [facility]) 39368694 Essential Essential Problem 11/15/2019 [place] hypertension Hypertension 12:00:00 ([place] (disorder) [facility]) 82778799 Diabetes mellitus Diabetes Mellitus Problem 11/15/2019 [place] type 2 (disorder) Type 2 12:00:00 ([place] [facility]) [id number] 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 07/2019 [place] 6 type 2 diabetes Diabetic Neuropathy 12:00:00 ([place] mellitus [facility] (disorder) [facility]) 09882830 Depressive Depression Problem 11/15/2019 ANGIE disorder 12:00:00 ([place] (disorder) [facility]) 09801682 Hyperlipidemia Hyperlipidemia Problem 11/15/2019 [place] A[facility] (disorder) 12:00:00 ([place] [facility]) 59427090 Essential Essential Problem 11/15/2019 [place] hypertension Hypertension 12:00:00 ([place] (disorder) [facility]) 78478149 Diabetes mellitus Diabetes Mellitus Problem 11/15/2019 ANG[place] type 2 (disorder) Type 2 12:00:00 ([place] [facility]) 22596084234513 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 07/2019 [place] 6 type 2 diabetes Diabetic Neuropathy 12:00:00 ([place] mellitus [facility] (disorder) [facility]) 61899101 Depressive Depression Problem 11/15/2019 ANG[place] disorder 12:00:00 ([place] (disorder) [facility]) 34001166 Hyperlipidemia Hyperlipidemia Problem 11/15/2019 [place] [facility] (disorder) 12:00:00 ([place] [facility]) 76285925 Essential Essential Problem 11/15/2019 [place] hypertension Hypertension 12:00:00 ([place] (disorder) [facility]) 80233529 Essential Essential Problem 10/11/2019 [place] hypertension Hypertension 12:00:00 ([place] (disorder) [facility]) 85586737 Diabetes mellitus Diabetes Mellitus Problem 10/11/2019 [place] type 2 (disorder) Type 2 12:00:00 ([place] [facility]) [id number] 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 09/13 [place] 6 type 2 diabetes Diabetic Neuropathy 12:00:00 ([place] mellitus [facility] (disorder) [facility]) 36088873 Depressive Depression Problem 10/11/2019 ANGIE disorder 12:00:00 ([place] (disorder) [facility]) 84705505 Hyperlipidemia Hyperlipidemia Problem 10/11/2019 [place] [facility] (disorder) 12:00:00 ([place] [facility]) 83924556 Essential Essential Problem 10/11/2019 [place] hypertension Hypertension 12:00:00 ([place] non (disorder) [facility]) 42327107 Diabetes mellitus Diabetes Mellitus Problem 10/11/2019 [place] type 2 (disorder) Type 2 12:00:00 ([place] [facility]) [id number] 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 09/13 [place] 6 type 2 diabetes Diabetic Neuropathy 12:00:00 ([place] mellitus [facility] (disorder) [facility]) 15199547 Depressive Depression Problem 10/11/2019 ANGIE disorder 12:00:00 ([place] (disorder) [facility]) 60436632 Hyperlipidemia Hyperlipidemia Problem 10/11/2019 [place] [facility] (disorder) 12:00:00 ([place] [facility]) 40932692 Essential Essential Problem 10/11/2019 [place] hypertension Hypertension 12:00:00 ([place] non (disorder) [facility]) 22984507 Diabetes mellitus Diabetes Mellitus Problem 10/11/2019 [place] type 2 (disorder) Type 2 12:00:00 ([place] [facility]) [id number] 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 09/13 [place] 6 type 2 diabetes Diabetic Neuropathy 12:00:00 ([place] mellitus [facility] (disorder) [facility]) 53255036 Depressive Depression Problem 10/11/2019 ANGIE disorder 12:00:00 ([place] (disorder) [facility]) 40619848 Hyperlipidemia Hyperlipidemia Problem 10/11/2019 [place] [facility] (disorder) 12:00:00 [facility] 71460977 Essential Essential Problem 04/29/2019 [place] hypertension Hypertension 12:00:00 ([facility] [place] non (disorder) [facility]) 41939791 Diabetes mellitus Diabetes Mellitus Problem 04/29/2019 [place] type 2 (disorder) Type 2 12:00:00 ([facility]) [id number] 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 04/13 [place] 6 type 2 diabetes Diabetic Neuropathy 12:00:00 [facility]) 15023595 Depressive Depression Problem 04/29/2019 [place] disorder 12:00:00 ([place] (disorder) [facility]) 36338356 Hyperlipidemia Hyperlipidemia Problem 04/29/2019 [place] [facility] (disorder) 12:00:00 [facility] 68177709 Essential Essential Problem 04/29/2019 [place] hypertension Hypertension 12:00:00 ([facility] [place] non (disorder) [facility]) 89403241 Diabetes mellitus Diabetes Mellitus Problem 04/29/2019 [place] type 2 (disorder) Type 2 12:00:00 ([facility]) 58976102406144 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 (disorder) [facility]) 61289947 Depressive Depression Problem 04/29/2019 [place] disorder 12:00:00 ([place] (disorder) [facility]) 96009504 Hyperlipidemia Hyperlipidemia Problem 04/29/2019 [place] (disorder) 12:00:00 ([facility]) 816.03 Unsp fracture of Unsp fracture of Problem 04/25/2019 [place] right wrist and right wrist and hand, 12:00:00 ([place] hand, init for init for clos fx [facility] Neig [facility]) 816.03 Unsp fracture of Unsp fracture of Problem 04/25/2019 [place] right wrist and right wrist and hand, 12:00:00 ([place] hand, init for init for clos fx AM [facility]) 816.03 Unsp fracture of Unsp fracture of Problem 04/25/2019 [place] right wrist and right wrist and hand, 12:00:00 ([place] hand, init for init for clos fx AM [facility]) 816.03 Unsp fracture of Unsp fracture of Problem 04/25/2019 [place] right wrist and right wrist and hand, 12:00:00 ([place] hand, init for init for clos fx [facility]) 816.03 Unsp fracture of Unsp fracture of Problem 04/25/2019 [place] right wrist and right wrist and hand, 12:00:00 ([place] hand, init for init for [facility] fx [facility]) 38764832 Essential Essential Problem 04/25/2019 [place] hypertension Hypertension 12:00:00 ([facility] [place] non (disorder) [facility]) 69854906 Diabetes mellitus Diabetes Mellitus Problem 04/25/2019 [place] type 2 (disorder) Type 2 12:00:00 ([place] [facility]) [id number] 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 (disorder) [facility]) 44068061 Depressive Depression Problem 04/25/2019 [place] disorder 12:00:00 ([place] (disorder) [facility]) 91428195 Hyperlipidemia Hyperlipidemia Problem 04/25/2019 [facility] (disorder) 12:00:00 ([place] [facility]) 816.03 Unsp fracture of Unsp fracture of Problem 04/25/2019 [place] right wrist and right wrist and hand, 12:00:00 ([place] hand, init for init for clos fx AM 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 (disorder) [facility]) 06554538 Depressive Depression Problem 04/25/2019 [place] disorder 12:00:00 ([place] (disorder) [facility]) 09930789 Hyperlipidemia Hyperlipidemia Problem 04/25/2019 [facility] (disorder) 12:00:00 ([place] [facility]) 816.03 Unsp fracture of Unsp fracture of Problem 04/25/2019 [place] right wrist and right wrist and hand, 12:00:00 ([place] hand, init for init for clos fx AM EST Neig [facility] [place]) 816.03 Unsp fracture of Unsp fracture of Problem 04/25/2019 [place] right wrist and right wrist and hand, 12:00:00 ([place] hand, init for init for clos fx AM EST [facility]) 816.03 Unsp fracture of Unsp fracture of Problem 04/25/2019 [place] right wrist and right wrist and hand, 12:00:00 ([place] hand, init for init for clos fx AM EST [facility]) 816.03 Unsp fracture of Unsp fracture of Problem 04/25/2019 [place] right wrist and right wrist and hand, 12:00:00 ([place] hand, init for init for clos fx AM EST [facility]) 816.03 Unsp fracture of Unsp fracture of Problem 04/25/2019 [place] right wrist and right wrist and hand, 12:00:00 ([place] hand, init for init for clos fx AM EST [facility]) 97950888 Essential Essential Problem 01/10/2019 [place] hypertension Hypertension 12:00:00 ([facility] [place] non (disorder) [facility]) 27528431 Diabetes mellitus Diabetes Mellitus Problem 01/10/2019 [place] type 2 (disorder) Type 2 12:00:00 ([place] [facility]) [id number] 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 12/14 [place] 6 type 2 diabetes Diabetic Neuropathy 12:00:00 ([place] mellitus [facility] (disorder) [facility]) 21618034 Depressive Depression Problem 01/10/2019 ANGIE disorder 12:00:00 ([place] (disorder) [facility]) 92885641 Hyperlipidemia Hyperlipidemia Problem 01/10/2019 [place] [facility] (disorder) 12:00:00 ([place] [facility]) 55595232 Essential Essential Problem 01/07/2019 [place] hypertension Hypertension 12:00:00 ([place] (disorder) [facility]) 58130284 Diabetes mellitus Diabetes Mellitus Problem 01/07/2019 [place] type 2 (disorder) Type 2 12:00:00 ([place] [facility]) 88640360648844 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 12/13 [place] 6 type 2 diabetes Diabetic Neuropathy 12:00:00 ([place] mellitus [facility] (disorder) [facility]) 41455907 Depressive Depression Problem 01/07/2019 [place] disorder 12:00:00 ([place] (disorder) [facility]) 07887491 Hyperlipidemia Hyperlipidemia Problem 01/07/2019 [place] [facility] (disorder) 12:00:00 ([place] [facility]) 32624945 Essential Essential Problem 12/24/2018 [place] hypertension Hypertension 12:00:00 ([place] non (disorder) [facility]) 00876513 Diabetes mellitus Diabetes Mellitus Problem 12/24/2018 [place] type 2 (disorder) Type 2 12:00:00 ([place] [facility]) 84730156173831 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 12/12 [place] 6 type 2 diabetes Diabetic Neuropathy 12:00:00 ([place] mellitus [facility] (disorder) [facility]) 57923485 Depressive Depression Problem 12/24/2018 [place] disorder 12:00:00 ([place] (disorder) [facility]) 11115917 Hyperlipidemia Hyperlipidemia Problem 12/24/2018 [place] [facility] (disorder) 12:00:00 ([place] [facility]) 54236210 Essential Essential Problem 12/24/2018 [place] hypertension Hypertension 12:00:00 ([place] non (disorder) [facility]) 67225713 Diabetes mellitus Diabetes Mellitus Problem 12/24/2018 [place] type 2 (disorder) Type 2 12:00:00 ([place] [facility]) 25637663756874 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 12/12 [place] 6 type 2 diabetes Diabetic Neuropathy 12:00:00 ([place] mellitus [facility] (disorder) [facility]) 54573246 Depressive Depression Problem 12/24/2018 [place] disorder 12:00:00 ([place] (disorder) [facility]) 88619419 Hyperlipidemia Hyperlipidemia Problem 12/24/2018 [place] [facility] (disorder) 12:00:00 ([place] [facility]) 40495146 Essential Essential Problem 12/24/2018 [place] hypertension Hypertension 12:00:00 ([place] (disorder) [facility]) 56305933 Diabetes mellitus Diabetes Mellitus Problem 12/24/2018 [place] type 2 (disorder) Type 2 12:00:00 ([place] [facility]) 73752964633496 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 12/12 [place] 6 type 2 diabetes Diabetic Neuropathy 12:00:00 ([place] mellitus [facility] (disorder) [facility]) 39016098 Depressive Depression Problem 12/24/2018 [place] disorder 12:00:00 ([place] (disorder) [facility]) 74957784 Hyperlipidemia Hyperlipidemia Problem 12/24/2018 [place] [facility] (disorder) 12:00:00 ([place] [facility]) 24309634 Essential Essential Problem 12/23/2018 [place] hypertension Hypertension 12:00:00 ([place] non (disorder) [facility]) 11493976 Diabetes mellitus Diabetes Mellitus Problem 12/23/2018 [place] type 2 (disorder) Type 2 12:00:00 ([place] [facility]) 84223139225872 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 12/12 [place] 6 type 2 diabetes Diabetic Neuropathy 12:00:00 ([place] mellitus [facility] (disorder) [facility]) 50801617 Depressive Depression Problem 12/23/2018 [place] disorder 12:00:00 ([place] (disorder) [facility]) 79962243 Hyperlipidemia Hyperlipidemia Problem 12/23/2018 [facility] (disorder) 12:00:00 ([place] [facility]) F17.210 Nicotine NICOTINE DEPENDENCE, Diagnosis 04/22/2019 [place] dependence, CIGARETTES, 05:08:00 Medical cigarettes, UNCOMPLICATED AM EST Center uncomplicated L97.819 Non-pressure NON-PRESSURE CHRONIC Diagnosis 04/22/2019 Sa int [place] chronic ulcer of ULCER OTH PRT R LOW 05:08:00 Medical other part of LEG W UNSP SEVERITY AM EST Ce nter right lower leg with unspecified severity L97.829 Non-pressure NON-PRESSURE CHRONIC Diagnosis 04/22/2019 int [place] chronic ulcer of ULCER OTH PRT L LOW 05:08:00 Medical other part of LEG W UNSP SEVERITY AM EST Ce nter left lower leg with unspecified severity Y99.9 Unspecified UNSPECIFIED EXTERNAL Diagnosis 04/22/2019 Chris sen Karine external cause CAUSE STATUS 05:08:00 Medical status AM EST Center Y92.[address] IN UNSP Diagnosis 04/22/2019 [place] in unspecified NON-INSTITUT 05:08:00 Medical non-institutional (PRIVATE) RESIDENCE AM EST Center (private) PLACE residence as the place of occurrence of the external cause Y93.9 Activity, ACTIVITY, UNSPECIFIED Diagnosis 04/22/2019 Chris nt [place] unspecified 05:08:00 Medical AM EST Center W19.XXXA Unspecified fall, UNSPECIFIED FALL, Diagnosis 04/22/2019 [facility] [place] initial encounter INITIAL ENCOUNTER 05:08:00 Medical AM EST Center S52.511A Displaced DISP FX OF RIGHT Diagnosis 04/22/2019 [place] fracture of right RADIAL STYLOID 05:08:00 Med ical radial styloid PROCESS, INIT FOR AM EST Tom ter process, initial CLOS FX encounter for closed fracture M79.601 Pain in right arm PAIN IN RIGHT ARM Diagnosis 04/22/2019 [facility] 05:08:00 Medical AM EST Center F41.1 Generalized GENERALIZED ANXIETY Diagnosis 04/15/2019 [place] anxiety disorder DISORDER 10:05:00 Medical AM EST Center F32.9 Major depressive MAJOR DEPRESSIVE Diagnosis 04/15/2019 [place] disorder, single DISORDER, SINGLE 10:05:00 Me dical episode, EPISODE, UNSPECIFIED AM EST Cent er unspecified M79.671 Pain in right PAIN IN RIGHT FOOT Diagnosis 01/31/2019 [facility] [place] foot 01:15:00 Medical PM EDT Center M79.672 Pain in left foot PAIN IN LEFT FOOT Diagnosis 01/31/2019 [facility] 01:15:00 Medical PM EDT Center L89.610 Pressure ulcer of PRESSURE ULCER OF Diagnosis 01/31/2019 [facility] [place] right heel, RIGHT HEEL, 01:15:00 Medical unstageable UNSTAGEABLE PM EDT Center L97.423 Non-pressure NON-PRS CHR ULCER OF Diagnosis 01/31/2019 [place] chronic ulcer of LEFT HEEL AND MIDFOOT 01:15:00 Medical left heel and W NECROS MUSCLE PM EDT Center midfoot with necrosis of muscle E11.621 Type 2 diabetes TYPE 2 DIABETES Diagnosis 01/31/2019 [place] mellitus with MELLITUS WITH FOOT 01:15:00 Med ical foot ulcer ULCER PM EDT Center R19.7 Diarrhea, DIARRHEA, UNSPECIFIED Diagnosis 01/17/2019 [facility] [place] unspecified 01:22:00 Medical PM EDT Center Z91.19 Patient's PATIENT'S Diagnosis 01/17/2019 [facility] noncompliance NONCOMPLIANCE W OTH 01:22:00 Me dical with other MEDICAL TREATMENT AND PM EDT [facility] medical treatment REGIMEN and regimen 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/03/2019 [facility] [place] (current) use of USE OF INSULIN 01:13:00 Medi kristina insulin PM EDT Center R26.89 Other OTHER ABNORMALITIES Diagnosis 12/07/2018 [facility] abnormalities of OF GAIT AND MOBILITY 10:57:00 Medical gait and mobility AM EDT Center L89.622 Pressure ulcer of PRESSURE ULCER OF Diagnosis 12/07/2018 [facility] [place] left heel, stage LEFT HEEL, STAGE 2 10:57:00 Medical 2 AM EDT Center B35.1 Tinea unguium TINEA UNGUIUM Diagnosis 12/07/2018 [facility] [place]aneda 10:57:00 Medical AM EDT Center I73.89 Other specified OTHER SPECIFIED Diagnosis 12/07/2018 [facility] [place]no peripheral PERIPHERAL VASCULAR 10:57:00 Medic al vascular diseases DISEASES EDT Center E11.42 Type 2 diabetes TYPE 2 DIABETES Diagnosis 12/07/2018 [facility] [place] mellitus with MELLITUS WITH 10:57:00 Medical diabetic DIABETIC EDT Center polyneuropathy POLYNEUROPATHY B35.9 Dermatophytosis, DERMATOPHYTOSIS, Diagnosis 11/25/2018 [place] unspecified UNSPECIFIED 10:30:00 Medical AM EDT Center Surgeries/Procedures Procedure Description Date Indications Data Source(s) OFFICE/OUTPATIENT 12/28/2019 NEXTGEN (S aint VISIT, EST 12:[facility] 12[facility]28/2019 12:00:00 AM EDT OFFICE/OUTPATIENT 11/30/2019 NEXTGEN (S aint VISIT, EST [facility]:00:[facility] 11/30/2019 12:00:00 AM EDT OFFICE/OUTPATIENT 11/02/2019 NEXTGEN (S aint VISIT, EST 12:00:00 [facility] 11/02/2019 12:00:00 AM EDT OFFICE/OUTPATIENT 10/05/2019 NEXTGEN (S aint VISIT, EST 12:00:00 [facility] 10/05/2019 12:00:00 AM EDT Psychotherapy (30 06/07/2019 NEXTGEN (S aint Mins) W/ E&M 12:00:00 AM [facility]) 06/07/2019 12:00:00 AM EST OFFICE/OUTPATIENT 06/07/2019 NEXTGEN (S aint VISIT, EST 12:00:00 AM [facility]) 06/07/2019 12:00:00 AM EST OFFICE/OUTPATIENT 05/13/2019 NEXTGEN (S aint VISIT, EST 12:00:00 AM [facility]) 05/13/2019 12:00:00 AM EST FINGER STICK BLOOD FINGER STICK BLOOD 04/25/2019 TACHO GARCIA ([place] GLUCOSE GLUCOSE 12:00:00 AM [facility]) Psychotherapy (30 04/15/2019 NEXTGEN (S aint Mins) W/ E&M 12:00:00 AM [facility]) 04/15/2019 12:00:00 AM EST OFFICE/OUTPATIENT 04/15/2019 NEXTGEN (S aint VISIT, EST 12:00:00 AM [facility]) 04/15/2019 12:00:00 AM EST Psychotherapy (30 03/16/2019 NEXTGEN (S aint Mins) W/ E&M 12:00:00 AM [facility]) 03/16/2019 12:00:00 AM EST OFFICE/OUTPATIENT 03/16/2019 NEXTGEN (S aint VISIT, EST 12:00:00 AM [facility]) 03/16/2019 12:00:00 AM EST OFFICE/OUTPATIENT 02/07/2019 NEXTGEN (S aint VISIT, EST 12:00:00 AM [facility]) 02/07/2019 12:00:00 AM EDT OFFICE/OUTPATIENT 01/21/2019 NEXTGEN (S aint VISIT, EST 12:00:00 AM [facility]) 01/21/2019 12:00:00 AM EDT FINGER STICK BLOOD FINGER STICK BLOOD 01/07/2019 TACHO GARCIA ([facility] GLUCOSE GLUCOSE 12:00:00 AM [facility]) Bmi documented outside BMI OUTSIDE NORMAL 01/07/2019 ANGIE ([facility] normal parameters, no RANGE - NO F/U PLAN 12:00:[address] [facility] follow-up [facility] ) documented, no reason given FINGER STICK BLOOD FINGER STICK BLOOD 12/23/2018 TACHO GARCIA ([facility] GLUCOSE GLUCOSE 12:00:00 AM [facility]) OFFICE/OUTPATIENT 12/17/2018 NEXTGEN (S aint VISIT, EST 12:00:00 AM [facility]) 12/17/2018 12:00:00 AM EDT OFFICE/OUTPATIENT 12/07/2018 NEXTGEN (S aint VISIT, EST 12:00:00 AM [facility]) 12/07/2018 12:00:00 AM EDT DEBRIDE NAIL, 1-5 12/07/2018 NEXTGEN (S aint 12:00:00 AM [facility]) 12/07/2018 12:00:00 AM EDT OFFICE/OUTPATIENT 11/25/2018 NEXTGEN (S aint VISIT, EST 12:00:00 AM [facility] Center) 11/25/2018 12:00:00 AM EDT DEBRIDE NAIL, 1-5 11/25/2018 NEXTGEN (S aint 12:00:00 [facility] 11/25/2018 12:00:00 AM EDT APPLY MULTLAY COMPRS 11/25/2018 NEXTGEN ([facility] LEG 12:00:00 [facility] 11/25/2018 12:00:00 AM EDT Psychotherapy (30 11/19/2018 NEXTGEN (S aint Mins) W/ E&M 12:00:00 [facility] 11/19/2018 12:00:00 AM EDT OFFICE/OUTPATIENT 11/19/2018 NEXTGEN (S aint VISIT, EST 12:00:00 [facility] 11/19/2018 12:00:00 AM EDT Results ID Date Data Source [id number] 12/10/2019 09:30:00 AM EDT [facility] Name Value Range Interpretation Description Data Sup porting Code Source(s) Document(s ) SARS [facility] coronavirus 2 RNA This lab was ordered by [facility] and reported by [facility]. ID Date Data Source [id number] 08/31/2019 12:00:00 AM EDT [facility] Name Value Range Interpretation Code Description Data Pat rce(s) Supporting Document(s ) 2019-nCoV [facility] RNA XXX ANA+probe- Imp This lab was ordered by GODFRE[facility] and reported by [facility]. ID Date Data Source [id number] 08/19/2019 02:15:00 PM EDT [facility] Name Value Range Interpretation Description Data Sup porting Code Source(s) Document(s ) SARS [facility] CORONAVIRUS 2 RNA This lab was ordered by [facility] and reported by [facility]. ID Date Data Source [id number] 12/29/2018 11:41:24 AM EDT [place] Colon ([place] [id number] [facility]) Name Value Range Interpretation Description Data Source(s ) Supporting Code Document(s ) No Results No Results No Results ANGIE ([facility] Recorded For [facility]) ID Date Data Source [id number] 12/29/2018 11:40:35 AM EDT [place] Y ([place] [id number] [facility]) Name Value Range Interpretation Description Data Source(s ) Supporting Code Document(s ) No Results No Results No Results ANGIE ([facility] Recorded For [facility]) ID Date Data Source [id number] 12/23/2018 02:31:48 PM EDT [place] Y ([place] [id number] [facility]) Name Value Range Interpretation Description Data Source(s ) Supporting Code Document(s ) No Results No Results No Results ANGIE ([facility] Recorded For [facility]) ID Date Data Source [id number] 12/23/2018 12:00:00 AM EDT ANGIE ([facility]) Name Value Range Interpretation Description Data Source(s ) Supporting Code Document(s ) Bacteria Final Urine ANGIE identified in report Culture, (Mike Morillo Urine by Routine [facility]) Bacteria No growth Result 1 ANGIE identified in ([place] Urine by [facility]) ID Date Data Source [id number] 12/23/2018 12:00:00 AM EDT ANGIE ([facility]) Name Value Range Interpretation Description Data Source(s ) Supporting Code Document(s ) Microalbumin 24.8 Albumin, ANGIE [Mass/volume] ug/mL Urine (Mike Morillo in Urine [facility]) ID Date Data Source [id number] 12/23/2018 12:00:00 AM EDT ANGIE ([facility]) Name Value Range Interpretation Description Data Source(s ) Supporting Code Document(s ) Hemoglobin 7.3 % Above high normal Hemoglobin A1c AUDELIA AY ([facility] A1c/Hemoglobi Ilia n.total in [facility] Blood [facility]) Note: Prediabetes: 5.7 - 6.4 Diabetes: >6.4 Glycemic control for adults with diabetes: <7.0 ID Date Data Source [id number] 12/23/2018 12:00:00 AM EDT ANGIE ([facility]) Name Value Range Interpretation Description Data Source(s ) Supporting Code Document(s ) Cholesterol 159 Cholesterol, ANGIE [Mass/volume] mg/dL Total ([place] in Serum or [facility] Plasma [facility]) Cholesterol in 41 HDL Cholesterol ANGIE HDL mg/dL ([place] [Mass/volume] [facility] in Serum or [facility]) Plasma Laboratory N/A Comment: ANGIE comment [Text] ([place] in Report [facility]) Triglyceride 179 Above high Triglycerides ANGIE [Mass/volume] mg/dL normal ([place] in Serum or [facility]) Cholesterol in 2.0 LDL/HDL Ratio ANGIE LDL/Cholestero ratio ([place] l in HDL [Mass [facility] Ratio] [facility]) Serum or Plasma Note: LDL/HDL Ratio Men Women 1/2 Avg.Risk 1.0 1.5 Avg.Risk 3.6 3.2 2X Avg.Risk 6.2 5.0 3X Avg.Risk 8.0 6.1 Cholesterol in LDL 82 mg/dL LDL Cholesterol Calc ANGIE ([place] [Mass/volume] in Serum or [facility] Plasma by calculation Center) Cholesterol in VLDL 36 mg/dL VLDL Cholesterol Kristina ANGIE ([place] [Mass/volume] in Serum or [facility] Plasma by calculation Center) ID Date Data Source [id number] 12/23/2018 12:00:00 AM EDT ANGIE ([facility]) Name Value Range Interpretation Description Data Sup porting Code Source(s) Document(s ) Glucose 210 Above high Glucose ANGIE [Mass/volume] in mg/dL normal ([place] Serum or [facility]) Calcium 8.9 Calcium ANGIE [Mass/volume] in mg/dL ([facility] or [facility]) Urea nitrogen 18 BUN ANGIE [Mass/volume] in mg/dL ([facility] or [facility]) Protein 6.6 Protein, ANGIE [Mass/volume] in g/dL Total ([facility]) Bilirubin.total <0.2 Bilirubin, ANGIE [Mass/volume] in mg/dL Total ([facility] or [facility]) Alkaline 130 Above high Alkaline ANGIE phosphatase IU/L normal Phosphatase ([place] [Enzymatic Neighborhood activity/volume] [facility] in Serum or [facility]) Albumin 3.6 Albumin ANGIE [Mass/volume] in g/dL ([facility] or [facility]) Potassium 4.4 Potassium ANGIE [Moles/volume] in mmol/L ([facility] or [facility]) Aspartate 20 IU/L AST (SGOT) ANGIE aminotransferase ([place] [Enzymatic Neighborhood activity/volume] [facility] in Serum or Plasma [place]) Sodium 139 Sodium ANGIE [Moles/volume] in mmol/L ([facility] or [facility]) Creatinine 1.04 Above high Creatinine ANGIE [Mass/volume] in mg/dL normal ([facility] or [facility]) Chloride 102 Chloride ANGIE [Moles/volume] in mmol/L ([facility] or [facility]) Carbon dioxide, 24 Carbon ANGIE total mmol/L Dioxide, ([place] [Moles/volume] in Total [facility] or [facility]) Urea 17 BUN/Creatinin ANGIE nitrogen/Creatinin e Ratio ([facility] on e [Mass Ratio] in [facility]) Alanine 12 IU/L ALT (SGPT) ANGIE aminotransferase ([place] [Enzymatic Neighborhood activity/volume] [facility] in Serum or Plasma [place]) Globulin 3.0 Globulin, ANGIE [Mass/volume] in g/dL Total ([place] Serum by [facility]) Albumin/Globulin 1.2 A/G Ratio ANGIE [Mass Ratio] in ([facility] or [facility]) eGFR If Africn Am 70 eGFR If ANGIE mL/min/ Africn Am ([address]) eGFR If NonAfricn 61 eGFR If ANGIE Am mL/min/ NonAfricn Am ([address]) ID Date Data Source [id number] 12/20/2018 03:48:00 PM EDT [facility]0400 Name Value Range Interpretation Code Description Data Pat rce(s) Supporting Document(s ) UNK 4.2-5.8 Above high normal <content [facility] styleCode="Bold" Medical Cente r >Hemoglobin A1C </content>7.6 % H<content styleCode="Itali cs"> (4.2-5.8 %)</content> Procedure Social History Code Duration Value Status Description Data Source(s ) Caffeine Use 12/28/2019 completed NEXTGEN (Chris nt Details 12:00:00 AM [facility]) Smoking 12/28/2019 Unknown if completed Unknown if ever NEXTGEN ( 12:00:00 AM ever smoked smoked [facility]) Caffeine Use 11/02/2019 completed NEXTGEN (Chris nt Details 12:00:00 AM [facility]) Smoking 04/22/2019 Daily Smoker completed Daily Smoker [facility] 05:46:00 AM Medical Cente r EST Smoking 01/07/2019 Smokes completed Smokes tobacco ANGIE ( [facility] 03:22:35 PM tobacco daily daily (finding) Verno n EDT (finding) [facility]) Smoking 12/23/2018 Smokes completed Smokes tobacco ANGIE ( [facility] 02:31:46 PM tobacco daily daily (finding) [place] EDT (finding) [facility]) Vital Signs ID Date Data Source UNK Name Value Range Interpretation Code Description Data Source(s) PhenX - pain, 10 10 ANGIE ([facility] abdominal - type [facility] and intensity Center) protocol Pt follow up. Body surface area Derived from 1.74 m2 1.74 m2 [place] ([facility]) Pt follow up. Body mass index (BMI) 31.0 kg/m2 31.0 kg/m2 [place] ([place] [Ratio] [facility] Pt follow up. Body weight 164 [lb_av] 164 [lb_av] [place] ([facility]) Pt follow up. Body height 61 [in_us] 61 [in_us] [place] ([facility]) Pt follow up. Body temperature 98.6 [degF] 98.6 [degF] [facility] ([facility]) Pt follow up. Heart rate 84 /min 84 /min [place] ([facility]) Pt follow up. Diastolic blood pressure 85 mm[Hg] 85 mm[Hg] [place] ([facility]) Pt follow up. Systolic blood pressure 166 mm[Hg] 166 mm[Hg] G [place] ([facility]) Pt follow up. PhenX - pain, abdominal - type and 9 9 ANGIE ([facility]) Pt presents today for follow up ED Body height 61 [in_us] 61 [in_us] ANGIE ([facility]) Pt presents today for follow up ED Body temperature 98.9 [degF] 98.9 [degF] [place] AY ([facility]) Pt presents today for follow up ED Heart rate 94 /min 94 /min ANGIE ([facility]) Pt presents today for follow up ED Diastolic blood pressure 86 mm[Hg] 86 mm[Hg] ANGIE ([facility]) Pt presents today for follow up ED Systolic blood pressure 154 mm[Hg] 154 mm[Hg] G [place] ([facility]) Pt presents today for follow up ED Body temperature 36.197493 Enriqueta 36.242955 Enriqueta [facility] Respiratory rate 20 /min 20 /min [facility] Oxygen saturation in 98 % 98 % [facility] Arterial blood by Pulse C enter oximetry Heart rate 78 /min 78 /min [facility] Diastolic blood pressure 88 mm[Hg] 88 mm[Hg] [facility] Systolic blood pressure 154 mm[Hg] 154 mm[Hg] [facility] Body weight Measured 68.989704 kg 68.558982 kg [facility] Body temperature 35.029093 Enriqueta 35.706869 Enriqueta [facility] Respiratory rate 17 /min 17 /min [facility] Oxygen saturation in 99 % 99 % [facility] Arterial blood by Pulse C enter oximetry Heart rate 85 /min 85 /min [facility] Body height 157.903096 cm 157.762604 cm [facility] Diastolic blood pressure 91 mm[Hg] 91 mm[Hg] [facility] Systolic blood pressure 151 mm[Hg] 151 mm[Hg] [facility] Body mass index (BMI) 27.6 kg/m2 27.6 kg/m2 [facility] [Ratio] [place] PhenX - pain, abdominal - 9 9 ANGIE ([facility] and intensity [facility]) protocol Pt is here for follow up Body surface area Derived from 1.75 m2 1.75 m2 [place] ([facility]) Pt is here for follow up Body mass index (BMI) 31.7 kg/m2 31.7 kg/m2 [facility] ([place] [[facility]] [facility]) Pt is here for follow up Body weight 168 [lb_av] 168 [lb_av] [place] ([facility]) Pt is here for follow up Body height 61 [in_us] 61 [in_us] ANGIE ([facility]) Pt is here for follow up Body temperature 98.3 [degF] 98.3 [degF] [place] AY ([facility]) Pt is here for follow up Heart rate 86 /min 86 /min [place] ([facility]) Pt is here for follow up Diastolic blood pressure 90 mm[Hg] 90 mm[Hg] [place] ([facility]) Pt is here for follow up Systolic blood pressure 166 mm[Hg] 166 mm[Hg] G [place] ([facility]) Pt is here for follow up Body surface area Derived from 1.75 m2 1.75 m2 [place] ([facility]) Pt. presenting for f/u and Rx refills. Body mass index (BMI) 31.6 kg/m2 31.6 kg/m2 [facility] ([place] [[facility]] [facility]) Pt. presenting for f/u and Rx refills. Body weight 167 [lb_av] 167 [lb_av] [place] ([facility]) Pt. presenting for f/u and Rx refills. Body height 61 [in_us] 61 [in_us] ANGIE ([facility]) Pt. presenting for f/u and Rx refills. Body temperature 98.3 [degF] 98.3 [degF] [place] AY ([facility]) Pt. presenting for f/u and Rx refills. Heart rate 90 /min 90 /min [place] ([facility]) Pt. presenting for f/u and Rx refills. Diastolic blood pressure 77 mm[Hg] 77 mm[Hg] [place] ([facility]) Pt. presenting for f/u and Rx refills. Systolic blood pressure 123 mm[Hg] 123 mm[Hg] G DEANNE ([facility]) Pt. presenting for f/u and Rx refills. Patient Treatment Plan of Care Planned Activity Planned Date Details Description Data Source (s) Alprazolam 2 MG Oral 12/28/2019 [facility]EXT[facility] ([facility] Tablet [Xanax] 12:00:00 AM EDT Medical Ce nter) Citalopram 20 MG Oral 12/28/2019 NEXTGE N ([facility] Tablet [Celexa] 12:00:00 AM EDT Medical C enter) Alprazolam 2 MG Oral 11/30/2019 NEXTGEN ([facility] Tablet [Xanax] 12:00:00 AM EDT Medical Ce nter) Citalopram 20 MG Oral 11/30/2019 NEXTGE N ([facility] Tablet [Celexa] 12:00:00 AM EDT Medical C enter) gabapentin 800 MG Oral 11/22/2019 [place] [facility] ([place] Tablet 12:00:00 AM [facility]) Alcohol Pads 70% 11/22/2019 [place] (M ount Ilia 12:00:00 AM [facility]) Blood Glucose Test In 11/22/2019 [facility] AY ([place] Vitro Strip 12:00:00 AM [facility]) Blood Glucose System Pato 11/22/2019 [place] ([place] Kit 12:00:00 AM [facility]) BD Pen Needle Mini U/F 11/22/2019 [facility] ([place] 31G X 5 MM Miscellaneous 12:00:00 AM [facility]) Enalapril Maleate 10 MG 11/22/2019 GREE NWAY ([place] Oral Tablet 12:00:00 AM [facility]) Fenofibrate 145 MG Oral 11/22/2019 [place] NWAY ([place] Tablet 12:00:00 AM [facility]) HumaLOG Mix 75/25 11/22/2019 [place] ( [place] KwikPen (75-25) 12:00:00 AM EDT [facility] 100UNIT/ML Subcutaneous Cent er) Suspension Pen-injector Albuterol 0.833 MG/ML / 11/22/2019 [place] NWAY ([place] Ipratropium [place] 12:00:00 AM EDT [facility] 0.167 MG/ML Inhalant Center) Solution Januvia 100MG Oral 11/22/2019 ANGIE ([place] Tablet 12:00:00 AM EDT [facility]) Lancets Thin 11/22/2019 ANGIE ([place] Miscellaneous 12:00:00 AM EDT [facility]) Lasix 40MG Oral Tablet 11/22/[address] ([place] 12:00:00 AM EDT [facility]) Metformin hydrochloride 11/22/2019 GREE NWAY ([place] 1000 MG Oral Tablet 12:00:00 AM EDT [facility]) Ventolin HFA 108 (90 11/22/2019 [place] ([place] Base)MCG/ACT Inhalation 12:00:00 AM EDT [facility] Aerosol Solution Center) Alprazolam 2 MG Oral 11/02/2019 NEXTGEN ([facility] Tablet [Xanax] 12:00:00 AM EDT Medical Ce nter) Citalopram 20 MG Oral 11/02/2019 NEXTGE N ([facility] Tablet [Celexa] 12:00:00 AM EDT Medical C enter) Citalopram 20 MG Oral 10/05/2019 NEXTGE N ([facility] Tablet [Celexa] 12:00:00 AM EDT Medical C enter) Alprazolam 2 MG Oral 10/05/2019 NEXTGEN ([facility] Tablet [Xanax] 12:00:00 AM EDT Medical Ce nter) Citalopram 20 MG Oral 08/24/2019 NEXTGE N ([facility] Tablet [Celexa] 12:00:00 AM EDT Medical C enter) Citalopram 20 MG Oral 08/24/2019 NEXTGE N ([facility] Tablet [Celexa] 12:00:00 AM EDT Medical C enter) Alprazolam 2 MG Oral 08/02/2019 NEXTGEN ([facility] Tablet [Xanax] 12:00:00 AM EDT Medical Ce nter) Citalopram 20 MG Oral 08/02/2019 NEXTGE N ([facility] Tablet [Celexa] 12:00:00 AM EDT Medical C enter) gabapentin 800 MG Oral 07/22/[address] ([place] Tablet 12:00:00 AM [facility]) Alprazolam 2 MG Oral 07/05/2019 NEXTGEN ([facility] Tablet [Xanax] 12:00:00 AM EDT Medical Ce nter) Citalopram 20 MG Oral 07/05/2019 NEXTGE N ([facility] Tablet [Celexa] 12:00:00 AM EDT Medical C enter) Alprazolam 2 MG Oral 06/07/2019 NEXTGEN ([facility] Tablet [Xanax] 12:00:00 AM EST Medical Ce nter) Citalopram 20 MG Oral 06/07/2019 NEXTGE N ([facility] Tablet [Celexa] 12:00:00 AM EST Medical C enter) Alprazolam 2 MG Oral 05/13/2019 NEXTGEN ([facility] Tablet [Xanax] 12:00:00 AM EST Medical Ce nter) Citalopram 20 MG Oral 05/13/2019 NEXTGE N ([facility] Tablet [Celexa] 12:00:00 AM EST Medical C enter) ferrous sulfate 325 MG 04/25/[address] ([place] Oral Tablet 12:00:00 AM [facility]) Enalapril Maleate 10 MG 04/25/2019 [place] ([place] Oral Tablet 12:00:00 AM [facility]) Januvia 100MG Oral 04/25/2019 ANGIE ([place] Tablet 12:00:00 AM [facility]) Lasix 40MG Oral Tablet 04/25/[address] ([place] 12:00:00 AM [facility]) Metformin hydrochloride 04/25/2019 [place] ([place] 1000 MG Oral Tablet 12:[facility]:00 [facility] Fenofibrate 145 MG Oral 04/25/2019 [place] ([place] Tablet 12:00:00 AM [facility]) HumaLOG Mix 75/25 04/25/2019 ANGIE ( [place] KwikPen (75-25) 12:00:00 AM [facility] 100UNIT/ML Subcutaneous Cent er) Suspension Pen-injector Lancets Thin 04/25/2019 ANGIE ([place] Miscellaneous 12:00:00 AM [facility]) Blood Glucose Test In 04/25/2019 [place] AY ([place] Vitro Strip 12:00:00 AM [facility]) Alcohol Pads 70% 04/25/2019 ANGIE (M ount Ilia 12:00:00 AM [facility]) BD Pen Needle Mini U/F 04/25/[address] ([place] 31G X 5 MM Miscellaneous 12:00:00 AM [facility]) Ventolin HFA 108 (90 04/25/2019 [place] Y ([place])MCG/ACT Inhalation 12:00:00 AM [facility]) Albuterol 0.833 MG/ML / 04/25/2019 [place] ([place] Ipratropium [place] 12:00:00 AM [facility] 0.167 MG/ML Inhalant Center) Solution gabapentin 800 MG Oral 04/25/2019 GREEN [facility] ([place] Tablet 12:00:00 AM [facility]) Citalopram 20 MG Oral 04/15/2019 NEXTGE N ([facility] Tablet [Celexa] 12:00:00 AM EST Medical C enter) Alprazolam 2 MG Oral 04/15/2019 NEXTGEN ([facility] Tablet [Xanax] 12:00:00 AM EST Medical Ce nter) Alprazolam 2 MG Oral 03/16/2019 NEXTGEN ([facility] Tablet [Xanax] 12:00:00 AM EST Medical Ce nter) Citalopram 20 MG Oral 03/16/2019 NEXTGE N ([facility] Tablet [Celexa] 12:00:00 AM EST Medical C enter) Alprazolam 2 MG Oral 03/08/2019 NEXTGEN ([facility] Tablet [Xanax] 12:00:00 AM EST Medical Ce nter) Citalopram 20 MG Oral 03/08/2019 NEXTGE N ([facility] Tablet [Celexa] 12:00:00 AM EST Medical C enter) Alprazolam 2 MG Oral 02/07/2019 NEXTGEN ([facility] Tablet [Xanax] 12:00:00 AM EDT Medical Ce nter) Citalopram 20 MG Oral 02/07/2019 NEXTGE N ([facility] Tablet [Celexa] 12:00:00 AM EDT Medical C enter) Citalopram 20 MG Oral 01/21/2019 NEXTGE N ([facility] Tablet [Celexa] 12:00:00 AM EDT Medical C enter) Alprazolam 2 MG Oral 01/21/2019 NEXTGEN ([facility] Tablet [Xanax] 12:00:00 AM EDT Medical Ce nter) HumaLOG Mix 75/25 01/07/2019 ANGIE ( [place] KwikPen (75-25) 12:00:00 AM EDT [facility] 100UNIT/ML Subcutaneous Cent er) Suspension Pen-injector gabapentin 800 MG Oral 01/07/[address] ([place] Tablet 12:00:00 AM [facility]) ferrous sulfate 325 MG 01/07/[address] ([place] Oral Tablet 12:00:00 AM [facility]) Fenofibrate 145 MG Oral 01/07/2019 [place] ([place] Tablet 12:00:00 AM [facility]) Januvia 100MG Oral 01/07/2019 ANGIE ([place] Tablet 12:00:00 AM [facility]) Lasix 40MG Oral Tablet 01/07/[address] ([place] 12:00:00 AM [facility]) Metformin hydrochloride 01/07/2019 [place] ([place] 1000 MG Oral Tablet 12:00:00 AM EDT [facility]) Enalapril Maleate 10 MG 01/07/2019 [place] ([place] Oral Tablet 12:00:00 AM [facility]) Ascorbic Acid 500 MG 01/07/2019 [place] Y ([place] Oral Tablet 12:00:00 AM [facility]) Enalapril Maleate 2.5 MG 12/23/2018 [place] ([place] Oral Tablet 12:00:00 AM [facility]) Fenofibrate 145 MG Oral 12/23/2018 [place] ([place] Tablet 12:00:00 AM [facility]) gabapentin 800 MG Oral 12/23/[address] ([place] Tablet 12:00:00 AM [facility]) Januvia 100MG Oral 12/23/2018 ANGIE ([place] Tablet 12:00:00 AM [facility]) Albuterol 0.833 MG/ML / 12/23/2018 [place] ([place] Ipratropium [place] 12:00:00 AM EDT [facility] 0.167 MG/ML Inhalant Center) Solution HumaLOG Mix 75/25 12/23/2018 [place] ( [place] KwikPen (75-25) 12:00:00 AM EDT [facility] 100UNIT/ML Subcutaneous Cent er) Suspension Pen-injector BD Pen Needle Mini U/F 12/23/2018 [facility] ([place] 31G X 5 MM Miscellaneous 12:00:00 AM [facility]) Lasix 40MG Oral Tablet 12/23/2018 [facility] ([place] 12:00:00 AM [facility]) Metformin hydrochloride 12/23/2018 RAOUL NWKAY ([place] 1000 MG Oral Tablet 12:00:00 AM EDT [facility]) Blood Glucose Test In 12/23/2018 DAGO AY ([place] Vitro Strip 12:00:00 AM [facility]) Alcohol Pads 70% 12/23/2018 [place] (M ount Ilia 12:00:00 AM [facility]) Lancets Thin 12/23/2018 [place] ([place] Miscellaneous 12:00:00 AM EDT [facility]) Ventolin HFA 108 (90 12/23/2018 [place] Y ([place])MCG/ACT Inhalation 12:00:00 AM EDT [facility] Aerosol Solution Center) Citalopram 20 MG Oral 12/17/2018 NEXTGE N ([facility] Tablet [Celexa] 12:00:00 AM EDT Medical C enter) Alprazolam 2 MG Oral 12/17/2018 NEXTGEN ([facility] Tablet [Xanax] 12:00:00 AM EDT Medical Ce nter) Citalopram 20 MG Oral 11/19/2018 NEXTGE N ([facility] Tablet [Celexa] 12:00:00 AM EDT Medical C enter) Alprazolam 2 MG Oral 11/19/2018 NEXTGEN ([facility] Tablet [Xanax] 12:00:00 AM EDT Medical Ce nter) Aspirin 325 MG Delayed 11/18/2018 NEXTG EN ([facility] Release Oral Tablet 12:00:00 AM EDT Medic al Center) Citalopram 20 MG Oral 10/29/2018 NEXTGE N ([facility] Tablet [Celexa] 12:00:00 AM EDT Medical C enter) Alprazolam 2 MG Oral 10/29/2018 NEXTGEN ([facility] Tablet [Xanax] 12:00:00 AM EDT Medical Ce nter) Lasix 40MG Oral Tablet 10/28/[address] ([place] 12:00:00 AM [facility]) BD Pen Needle Mini U/F 10/28/[address] ([place] 31G X 5 MM Miscellaneous 12:00:00 AM [facility]) Ventolin HFA 108 (90 10/28/2018 [place] ([place])MCG/ACT Inhalation 12:00:00 AM EDT [facility] Aerosol Solution Center) Enalapril Maleate 2.5 MG 10/28/2018 [place] ([place] Oral Tablet 12:00:00 AM [facility]) gabapentin 800 MG Oral 10/28/[address] ([place] Tablet 12:00:00 AM [facility]) HumaLOG Mix 75/25 10/28/2018 ANGIE ( [place] KwikPen (75-25) 12:00:00 AM EDT [facility] 100UNIT/ML Subcutaneous Cent er) Suspension Pen-injector Metformin hydrochloride 10/28/2018 [place]AY ([place] 1000 MG Oral Tablet 12:00:00 AM EDT [facility]) Fenofibrate 145 MG Oral 10/28/2018 [place] ([place] Tablet 12:00:00 AM [facility]) Albuterol 0.833 MG/ML / 10/28/2018 [place] NW[place] ([place] Ipratropium [place] 12:00:00 AM EDT [facility] 0.167 MG/ML Inhalant Center) Solution Januvia 100MG Oral 10/28/2018 ANGIE ([place] Tablet 12:00:00 AM [facility]) Lancets Thin 08/31/2018 ANGIE ([place] Miscellaneous 12:00:00 AM EDT [facility]) Blood Glucose Test In 08/31/2018 DAGO VILLANUEVA ([place] Vitro Strip 12:00:00 AM [facility]) Alcohol Pads 70% 08/31/2018 ANGIE (Gretchen Morillo 12:00:00 AM [facility])
[2020-01-19] MEDS ORDERED: KETOROLAC TROMETHAMINE 15 MG/ML VIAL IVPUSH ONE (01:45)
[2020-01-19] MEDS ORDERED: KETOROLAC TROMETHAMINE 15 MG/ML VIAL ONE (02:17)
[2020-01-19] MEDS ORDERED: PATIENT'S OWN MEDICATION (NON-FORMULARY) (Gabapentin [Gabapentin] 800 MG) PO SCH (06:00)
--- NOTE | 2020-01-19 07:35 | PN ---
Progress Note, Physician Chief Complaint: Seen and examined in ED sitting in chair. C/o "stabbing pain" in LE BL. Recently admitted and treated oseto and dc home on bactrim. Pt unsure if she completed the 2 week course. History of Present Illness: 54F with PMH of DM, HTN, opioid abuse (daily methadone), peripheral neuropathy, and chronic heel osteomyelitis bilaterally arriving to the emergency department for worsening pain in bilateral feet. - Current Medication List Current Medications: Active Medications Alprazolam (Xanax) 2 mg PO ONCE PRN PRN Reason: ANXIETY Last Admin: 01/18/20 21:02 Dose: 2 mg Documented by: Gabapentin (Neurontin -) 800 mg PO TID OBI Heparin Sodium (Porcine) (Heparin -) 5,000 unit SQ TID OBI - Objective Vital Signs: Vital Signs Temperature 97.9 F 01/19/20 02:40 Pulse Rate 80 01/19/20 02:40 Respiratory Rate 19 01/19/20 02:40 Blood Pressure 151/77 01/19/20 02:40 O2 Sat by Pulse Oximetry (%) 98 01/19/20 03:25 Constitutional: Yes: Anxious, Poor Hygeine Eyes: Yes: WNL, Conjunctiva Clear HENT: Yes: WNL, Atraumatic, Normocephalic Neck: Yes: WNL, Supple, Trachea Midline Cardiovascular: Yes: WNL, Regular Rate and Rhythm Respiratory: Yes: WNL, Regular, CTA Bilaterally Gastrointestinal: Yes: WNL, Normal Bowel Sounds, Soft, Abdomen, Obese ...Rectal Exam: Yes: Deferred Genitourinary: Yes: WNL Breast(s): Yes: WNL Musculoskeletal: Yes: WNL Extremities: Yes: WNL Edema: No Peripheral Pulses WNL: Yes Peripheral Pulses: Left Radial: 2+, Right Radial: 2+, Left Doralis Pedis: 2+, Right Dorsalis Pedis: 2+, Left Femoral: 2+, Right Femoral: 2+ Wound/Incision: Yes: Other (purulent ulcer in the right heel area, BL dsd intact) Neurological: Yes: WNL, Alert, Oriented ...Motor Strength: WNL Psychiatric: Yes: WNL Labs: CBC, BMP 01/18/20 18:08 01/18/20 18:08 INR, PTT INR 1.08 (0.83-1.09) 01/18/20 18:08 - ....Imaging Cat Scan: Report Reviewed (12/11: edema throughout calceneous and is suspicious for osteo) Problem List - Problems (1) Diabetes Assessment/Plan: poorly controlled observed eating bag of chips and driving coke BGM AC/HS with novolog sliding scale c/w levemir diabetic diet counseled on adherence to diet Code(s): E11.9 - TYPE 2 DIABETES MELLITUS WITHOUT COMPLICATIONS (2) HTN (hypertension) Assessment/Plan: c/w vasotec, lasix Cr 1.4 Code(s): I10 - ESSENTIAL (PRIMARY) HYPERTENSION (3) Opioid dependence Assessment/Plan: on methadone maintence therapy Code(s): F11.20 - OPIOID DEPENDENCE, UNCOMPLICATED (4) Anxiety Assessment/Plan: c/y xanax supportive care Code(s): F41.9 - ANXIETY DISORDER, UNSPECIFIED (5) Peripheral neuropathy Assessment/Plan: c/w gabapentin Code(s): G62.9 - POLYNEUROPATHY, UNSPECIFIED (6) Methadone maintenance therapy patient Code(s): F11.20 - OPIOID DEPENDENCE, UNCOMPLICATED (7) Diabetic foot ulcer Assessment/Plan: followed by ID and podiatry given vanco amd lvx in ED awaiting recs from ID-Dr Gaming for continuation of abx Code(s): E11.621 - TYPE 2 DIABETES MELLITUS WITH FOOT ULCER; L97.509 - NON- PRESSURE CHRONIC ULCER OTH PRT UNSP FOOT W UNSP SEVERITY Qualifiers: Diabetic foot ulcer location: heel Diabetes mellitus type: other specified (including ASHANTI) Laterality: left Non-pressure ulcer stage: unspecified non- pressure ulcer stage Qualified Code(s): E13.621 - Other specified diabetes mellitus with foot ulcer; L97.429 - Non-pressure chronic ulcer of left heel and midfoot with unspecified severity (8) Osteomyelitis Assessment/Plan: suspicious for osteo on recent MRI ID consulted for abx recs Code(s): M86.9 - OSTEOMYELITIS, UNSPECIFIED Qualifiers: Osteomyelitis type: unspecified type Osteomyelitis location: foot Laterality: left Qualified Code(s): M86.9 - Osteomyelitis, unspecified (9) Prophylactic measure Assessment/Plan: FEN Fluids: adequate PO intake Electrolytes: monitor & replete as needed Nutrition: diabetic diet DVT moderate risk sq heparin Dispo Maintain as inpatient full code discharge planning Code(s): Z29.9 - ENCOUNTER FOR PROPHYLACTIC MEASURES, UNSPECIFIED (10) Suspected COVID-19 virus infection Assessment/Plan: COVID Suspicion low On RA strict airborne/droplet precautions until resulted Code(s): Z20.828 - CONTACT W AND EXPOSURE TO OTH VIRAL COMMUNICABLE DISEASES Visit type - Emergency Visit Emergency Visit: Yes ED Registration Date: 01/18/20 Care time: The patient presented to the Emergency Department on the above date and was hospitalized for further evaluation of their emergent condition. - New Patient This patient is new to me today: Yes Date on this admission: 01/19/20 - Critical Care Critical Care patient: No - Discharge Referral Referred to [facility] No
[2020-01-19] MEDS ORDERED: HEPARIN NA (PORCINE) 5,000 UNITS/ML 1ML VIAL ONE ×2 (08:27→14:43)
[2020-01-19] MEDS ORDERED: GABAPENTIN 100 MG CAPSULE ONE (08:27)
[2020-01-19] MEDS ORDERED: ALPRAZolam 1 MG TABLET ONE ×2 (08:27→18:34)
[2020-01-19] MEDS: GABAPENTIN 400 MG CAPSULE PO SCH ×3 (08:30→21:03)
[2020-01-19] MEDS: ALPRAZolam 1 MG TABLET PO PRN ×2 (08:30→18:35)
[2020-01-19] MEDS: HEPARIN NA (PORCINE) 5,000 UNITS/ML 1ML VIAL SQ SCH ×3 (08:30→23:00)
[2020-01-19] MEDS ORDERED: METHADONE HCL 40 MG DISPERSABLE TABLET ONE (09:28)
[2020-01-19] MEDS ORDERED: METHADONE HCL 10 MG TABLET ONE (09:28)
[2020-01-19] MEDS: METHADONE 10 MG, METHADONE 80 MG PO SCH (09:30)
[2020-01-19] MEDS ORDERED: METHADONE HCL 40 MG DISPERSABLE TABLET PO SCH (10:00)
[2020-01-19] MEDS: FUROSEMIDE 40 MG TABLET (FP) PO SCH (10:51)
[2020-01-19] MEDS: CITALOPRAM HYDROBROMIDE 20 MG TABLET PO SCH (10:51)
[2020-01-19] MEDS: ENALAPRIL MALEATE 10 MG TABLET PO SCH (10:51)
[2020-01-19] MEDS ORDERED: INSULIN SLIDING SCALE (NOVOLOG) 1 VIAL SQ SCH (11:00)
[2020-01-19] MEDS ORDERED: FUROSEMIDE 40 MG TABLET (FP) ONE (11:13)
[2020-01-19] MEDS: INSULIN SLIDING SCALE (NOVOLOG) 1 VIAL SQ SCH ×3 (12:56→23:00)
--- NOTE | 2020-01-19 13:22 | EKG ---
Test Reason : Blood Pressure : / mmHG Vent. Rate : 089 BPM Atrial Rate : 089 BPM P-R Int : 122 ms QRS Dur : 080 ms QT Int : 374 ms P-R-T Axes : 069 073 066 degrees QTc Int : 455 ms NORMAL SINUS RHYTHM NORMAL ECG WHEN COMPARED WITH ECG OF 09-DEC-2019 19:58, NO SIGNIFICANT CHANGE WAS FOUND Confirmed by ELMIRA SWANSON MD ([id number]) on 01/19/2020 1:22:31 PM Referred By: Confirmed By:ELMIRA SWANSON MD
[2020-01-19] MEDS: INSULIN (LEVEMIR) 100 UNITS/ML UNITS SQ SCH (22:51)
[2020-01-20] MEDS ORDERED: METHADONE HCL 40 MG DISPERSABLE TABLET ONE (06:16)
[2020-01-20] MEDS ORDERED: METHADONE HCL 10 MG TABLET ONE (06:16)
[2020-01-20] MEDS: METHADONE 10 MG, METHADONE 80 MG PO SCH (06:19)
[2020-01-20] MEDS: GABAPENTIN 400 MG CAPSULE PO SCH ×2 (06:19→15:09)
[2020-01-20] MEDS: HEPARIN NA (PORCINE) 5,000 UNITS/ML 1ML VIAL SQ SCH ×2 (06:20→15:09)
[2020-01-20] MEDS: INSULIN SLIDING SCALE (NOVOLOG) 1 VIAL SQ SCH ×3 (06:21→16:28)
[2020-01-20] MEDS: ALPRAZolam 1 MG TABLET PO PRN ×3 (06:23→20:08)
[2020-01-20] MEDS ORDERED: VANCOMYCIN 1 GM in D5W (PRE-DOCKED) 1,000 MG/250 ML IVPB ONE (07:57)
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
[2020-01-20] MEDS ORDERED: PIPERACILLIN/TAZOB 3.375 GM 3.375 GM in DEXTROSE 5%-WATER - 50 ML IVPB ONE (09:00)
[2020-01-20 09:59] LABS: BASO % 0.6 % (0-2.0); EOS % 1.9 % (0-4.5); HEMATOCRIT 34.5 % (32.4-45.2); HEMOGLOBIN 11.6 GM/dL (10.7-15.3); LYMPH % 21.9 % (8-40); MCHC 33.4 g/dl (32.0-36.0); MEAN CELL VOLUME 89.6 fl (80-96); MEAN PLT VOLUME 8.9 fl (7.5-11.1); MONO % 4.4 % (3.8-10.2); NEUT % 71.2 % (42.8-82.8); PLATELET COUNT 232 K/MM3 (134-434); RBC 3.86 M/mm3 (3.60-5.2); RDW 14.6 % (11.6-15.6); WHITE BLOOD COUNT 6.6 K/mm3 (4.0-10.0)
[2020-01-20] MEDS ORDERED: DEXTROSE 5%-WATER - 50 ML IVPB ONE ×2 (09:59→18:52)
[2020-01-20] MEDS ORDERED: PIPERACILLIN/TAZOBACTAM 3.375 GM VIAL IVPB ONE ×2 (09:59→18:52)
[2020-01-20] MEDS ORDERED: VANCOMYCIN HCL 1,500 MG in DEXTROSE 5%-WATER - 500 ML IVPB ONE (10:00)
[2020-01-20] MEDS: ENALAPRIL MALEATE 10 MG TABLET PO SCH (10:12)
[2020-01-20] MEDS: FUROSEMIDE 40 MG TABLET (FP) PO SCH (10:12)
[2020-01-20] MEDS: CITALOPRAM HYDROBROMIDE 20 MG TABLET PO SCH (10:12)
[2020-01-20 10:31] LABS: ALBUMIN 2.6 g/dl (3.4-5.0); BILIRUBIN,TOTAL 0.3 mg/dL (0.2-1); BLOOD UREA NITROGEN 39.6 mg/dL (7-18); CALCIUM 8.6 mg/dL (8.5-10.1); CREATININE 1.7 mg/dL (0.55-1.3); MAGNESIUM 2.1 mg/dL (1.8-2.4); POTASSIUM 5.4 mmol/L (3.5-5.1); TOT PROT 7.5 g/dl (6.4-8.2)
--- NOTE | 2020-01-20 10:58 | PN ---
Progress Note (short form) - Note Progress Note: ID CONSULT DICTATED CHRONIC NON HEALING L HEEL ULCER DIABETES MELLITUS WOUND CARE EVAL EMPIRIC VANCOMYCIN/ ZOSYN
[2020-01-20] MEDS ORDERED: INSULIN (NOVOLOG) ASPART 100 UNITS/ML 10ML VIAL ONE ×2 (11:17→22:05)
--- NOTE | 2020-01-20 11:39 | CONS ---
DATE OF CONSULTATION: DATE OF DICTATION: 02/20/2020 INFECTIOUS DISEASE CONSULTATION HISTORY OF PRESENT ILLNESS: The patient is a 54-year-old female who has had multiple recent hospital admissions for nonhealing left calcaneal ulcer and osteomyelitis, now readmitted with complaints of burning pain of the lower extremities bilaterally. She presents with complaints of bilateral foot pain described as burning in nature associated with some wound drainage from her foot ulcers. Cultures were obtained. She was empirically treated with vancomycin and Zosyn. She has had multiple recent hospital admissions. She was admitted to [facility] in January 2018 with a nonhealing left calcaneal ulcer. She was admitted to [facility] in April 2019 at which time she was treated for osteomyelitis of the left heel. She had a recurrent admission in November 2019 at which time she was treated with oral antibiotic therapy. Imaging studies were felt to represent residual changes from her previous osteomyelitis. She now presents with bilateral foot pain. There was some drainage noted from her left calcaneal ulcer. She denies any associated fever or chills. PAST MEDICAL HISTORY: Positive for insulin-dependent diabetes mellitus, hypertension, peripheral neuropathy. ALLERGIES: No known allergies. MEDICATIONS: At the present time include vancomycin, Zosyn, heparin, enalapril, Xanax, Celexa, Neurontin, methadone, Lasix. SOCIAL HISTORY: She is a former opioid user. She is on methadone maintenance. She reports testing HIV negative in the past. LABORATORY DATA: White count 6.6, hematocrit 34.5, platelet count 232. Creatinine . ESR 95. C-reactive protein 2.8. COVID-19 PCR pending. X-ray of the foot shows bone density loss, arthritic changes in the toes and the tarsal. There is no note of changes consistent with osteomyelitis of the calcaneus. On examination of the right foot there is no evidence of osteomyelitis. Previous wound cultures have been positive for mixed gram-negatives as well as MRSA. PHYSICAL EXAMINATION: General: She is awake and alert. She is not acutely toxic appearing. Vital Signs: Temperature 98.7, blood pressure 120/65, pulse 73, regular, respirations 20 per minute. HEENT: Sclerae are anicteric. Cardiac: Heart sounds S1-S2. Lungs: Clear. Abdomen: Soft, nontender. Extremities: Pedal edema 1+. On examination of the right foot there are 2 dry ulcers present on the lateral aspect of the right foot. There is no erythema or drainage noted. On examination of the left foot there is a large ulceration present over the calcaneus with granulation tissue. There is no exposed bone. No purulent drainage or foul odor noted. IMPRESSION: 1. Chronic nonhealing left calcaneal ulcer. 2. Diabetes mellitus. 3. Azotemia. 4. History of osteomyelitis of the left foot. RECOMMENDATIONS: At the present time the right foot ulcers do not appear to be clinically infected. The large left calcaneus ulcer does not appear to be infected. There is no foul odor or drainage noted. Would continue local wound care. Cultures are pending. Continue empiric vancomycin and Zosyn. Podiatry evaluation. Patient would benefit from intensive wound care therapy with regular followups in the wound care center. There is no compelling evidence of chronic osteomyelitis of the calcaneus at this time. Await Podiatry evaluation. Thank you for the kind referral. ZULEIMA TEJADA M.D. [id number]
[2020-01-20 12:14] LABS: ERYTHROCYTE SEDIMENTATION RATE 93 mm/hr (0-30)
--- NOTE | 2020-01-20 16:33 | CONSULT ---
Consult - text type - Consultation Consultation Note: Podiatry Consultation: 54 year old diabetic female, well known to me from prior hospital admissions, presented with bilateral lower leg "burning and pain". Patient has been in and out of the hospital several times since I have known her. S/p left heel debridement with bone biopsy. Completed course of intravenous abx for osteomyelitis of the heel as prescribed by infectious disease. Patient has not followed up with me in wound healing center and non-compliant with outpatient follow up. She denies F/V/N/C/SOB/CP. AFebrile. BRITTANIE: Pedal pulses nonpalpable, TG wnl, CFT brisk to all digits bilaterally. There are no ischemic changes to the foot bilaterally. The foot is warm and well perfused bilaterally. On the right foot, there is a lateral heel and lateral fifth metatarsal base diabetic ulcer with mixed fibrogranular base, hyperkeratotic edges. There is no probing to bone, no purulence, no fluctuance, no cellulitis, no signs of infection. On the left foot, there is posterolateral heel diabetic ulcer with mixed fibrogranular base, hyperkeratotic borders, no probing to bone, no purulence, no cellulitis, no signs of infection Imp: 54 year old diabetic female with bilateral heel diabetic ulcers, left heel osteomyelitis 1. IV abx per ID 2. Continue local care 3. No acute podiatric intervention required, as both heel ulcers are stable. She will need follow up as outpatient for wound care, would benefit from home nursing services. Thank you for the courtesy of this consultation.
[2020-01-20 16:46] LABS: BLOOD UREA NITROGEN 41.6 mg/dL (7-18); CALCIUM 8.2 mg/dL (8.5-10.1); CREATININE 1.7 mg/dL (0.55-1.3); POTASSIUM 4.8 mmol/L (3.5-5.1)
--- NOTE | 2020-01-20 18:04 | CONSULT ---
Consult Consult Specialty:: Nephrology Reason for Consultation:: CKD - History of Present Illness Chief Complaint: bilateral foot ulcers History of Present Illness: Pt is a 54 year old female with pmhx of ckd, dm, htn, neuropathy, opioid abuse on methadone who presents to the ER with worsening lower ext ulcers and pain. 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 She denies dysuria or hematuria. She denies fevers or chills. She denies nsaid use. she has poor insight to her medical conditions. She denies chest pain or palpitations. 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 Cardio/Vascular: Yes: HTN, Other (PVD) ...: No Endocrine: Yes: Diabetes Insipidus - Past Surgical History Past Surgical History: Yes: - Alcohol/Substance Use Hx Alcohol Use: No - Smoking History Smoking history: Current every day smoker Have you smoked in the past 12 months: Yes Aproximately how many cigarettes per day: 10 - Social History Usual Living Arrangement: Alone Home Medications - Allergies Allergies/Adverse Reactions: Allergies Allergy/AdvReac Type Severity Reaction Status Date / Time No Known Allergies Allergy Verified 01/18/20 15:38 - Home Medications Home Medications: Ambulatory Orders Alprazolam [Xanax] 2 mg PO TID 10/17/18 Insulin Lispro Protamin/Lispro [Humalog Mix 75-25 Kwikpen] 24 units SQ BID 04/30/19 Albuterol Sulfate Inhaler - [Ventolin HFA Inhaler -] 2 inh PO Q4H 05/03/19 Citalopram Hydrobromide [Citalopram HBr] 20 mg PO DAILY 05/03/19 Fenofibrate Nanocrystallized [Fenofibrate] 145 mg PO DAILY 05/03/19 Ferrous Sulfate 325 mg PO BID 05/03/19 Ipratropium/Albuterol Sulfate [Iprat-Albut 0.5-3(2.5) mg/3 ml] 1 vial IH Q6H PRN 05/03/19 Methadone [Dolophine -] 90 mg PO DAILY #1 tab.disper MDD 90 mg 05/09/19 Enalapril Maleate [Vasotec -] 10 mg PO DAILY #30 tablet 05/12/19 Furosemide [Lasix -] 40 mg PO DAILY #30 tablet 05/12/19 Gabapentin 800 mg PO TID #30 tablet 05/12/19 Metformin HCl [Glucophage] 1,000 mg PO BID #60 tablet 05/12/19 Sitagliptin Phosphate [Januvia] 100 mg PO DAILY #30 tablet 05/12/19 Collagenase Clostridium Hist. [Santyl] 1 applic TP DAILY #30 applic 08/19/19 Piperacillin/Tazob 3.375 gm [Zosyn -] 3.375 gm IVPB Q8H-IV vial 08/19/19 Collagen/Sod Algin/Carboxymeth [Biostep 4"X4" Dressing] 1 each TP DAILY #30 bandage 12/16/19 Collagenase Clostridium Hist. [Santyl] 1 applic TP DAILY #1 oint...g. 12/16/19 Sulfamethoxazole/Trimethoprim [Bactrim Ds -] 1 tab PO DAILY #18 tablet 12/16/19 Family Medical History Family History: Denies Review of Systems - Review of Systems Constitutional: reports: No Symptoms Eyes: reports: No Symptoms HENT: reports: No Symptoms Neck: reports: No Symptoms Cardiovascular: reports: No Symptoms Respiratory: reports: No Symptoms Gastrointestinal: reports: No Symptoms Genitourinary: reports: No Symptoms Musculoskeletal: reports: No Symptoms Integumentary: reports: No Symptoms Neurological: reports: No Symptoms Endocrine: reports: No Symptoms Hematology/Lymphatic: reports: No Symptoms Physical Exam Vital Signs: Vital Signs Temperature 97.5 F L 01/20/20 14:05 Pulse Rate 75 01/20/20 14:05 Respiratory Rate 20 01/20/20 14:05 Blood Pressure 140/80 01/20/20 14:05 O2 Sat by Pulse Oximetry (%) 98 01/20/20 09:00 Constitutional: Yes: Calm Eyes: Yes: Conjunctiva Clear HENT: Yes: Atraumatic Cardiovascular: Yes: S1, S2 Respiratory: Yes: CTA Bilaterally Gastrointestinal: Yes: Soft Edema: Yes Edema: LLE: 1+, RLE: 1+ Integumentary: Yes: Venous Stasis Changes Neurological: Yes: Oriented Psychiatric: Yes: Oriented Labs: CBC, BMP 01/20/20 09:37 01/20/20 16:00 Imaging - Results Chest X-ray: Report Reviewed Problem List - Problems (1) Diabetes Code(s): E11.9 - TYPE 2 DIABETES MELLITUS WITHOUT COMPLICATIONS (2) HTN (hypertension) Code(s): I10 - ESSENTIAL (PRIMARY) HYPERTENSION Assessment/Plan Current Medications Generic Name Dose Route Start Last Admin Trade Name Freq PRN Reason Stop Dose Admin Alprazolam 2 mg 01/18/20 19:56 01/20/20 11:20 Xanax PO 2 mg ONCE PRN Administration ANXIETY Alprazolam 2 mg 01/19/20 07:39 01/20/20 06:23 Xanax PO 2 mg TID PRN Administration ANXIETY Citalopram Hydrobromide 20 mg 01/19/20 10:00 01/20/20 10:12 Celexa - PO 20 mg DAILY [facility] Administration Enalapril Maleate 10 mg 01/19/20 10:00 01/20/20 10:12 Vasotec - PO 10 mg DAILY [facility] Administration Furosemide 40 mg 01/19/20 10:00 01/20/20 10:12 Lasix - PO 40 mg DAILY [facility] Administration Gabapentin 800 mg 01/19/20 06:00 01/20/20 15:09 Neurontin - PO 800 mg TID OBI Administration Heparin Sodium (Porcine) 5,000 unit 01/19/20 06:00 01/20/20 15:09 Heparin - SQ 5,000 unit TID OBI Administration Vancomycin HCl 1,000 mg in 250 mls @ 200 mls/hr 01/21/20 10:00 Vancomycin (Pre-Docked) IVPB DAILY [facility] Protocol Piperacillin Sod/Tazobactam 50 mls @ 100 mls/hr 01/20/20 18:00 Sod 3.375 gm/ Dextrose IVPB Q8H-IV [facility] Protocol Insulin Aspart 1 vial 01/19/20 11:00 01/20/20 16:28 Novolog Vial Sliding Scale - SQ 6 units ACHS [facility] Administration Protocol Insulin Detemir 7 units 01/19/20 22:00 01/19/20 22:51 Levemir Vial SQ Not Given HS [facility] Methadone HCl 10 mg/ Methadone 90 mg 01/19/20 09:15 01/20/20 06:19 HCl 80 mg PO 90 mg DAILY@0600 [facility] Administration Impression 1. REDD vs CKD 2. cellulitis 3. opioid abuse on methadone 4. dm 5. htn Plan - check renal ultrasound - monitor renal function - check ua - renal dose meds - check vanco levels - will need outpt follow up and workup - pt has very poor insight to her disease process
[2020-01-20] MEDS: PIPERACILLIN/TAZOB 3.375 GM 3.375 GM in DEXTROSE 5%-WATER - 50 ML IVPB SCH (20:08)
[2020-01-20 23:35] LABS: EPI CELLS 5 /uL (0-25.1); HYALINE CASTS 0 /uL (0-3.1); URINE APPEARANCE CLEAR; URINE BACTERIA 2 /uL (0-1359); URINE BILIRUBIN NEGATIVE (NEGATIVE); URINE COLOR YELLOW; URINE GLUCOSE (UA) NEGATIVE (NEGATIVE); URINE KETONE NEGATIVE (NEGATIVE); URINE LEUK ESTERASE NEGATIVE (NEGATIVE); URINE NITRITE NEGATIVE (NEGATIVE); URINE PROTEIN 1+ (NEGATIVE); URINE RBC 10 /uL (0-23.9); URINE UROBILINOGEN 0.2 mg/dL (0.2-1.0); URINE WBC 6 /uL (0-25.8)
[2020-01-21 00:13] LABS: URINE UREA NITROGEN 344 MG/DL (350-1000)
[2020-01-21] MEDS: GABAPENTIN 400 MG CAPSULE PO SCH ×4 (00:35→22:07)
[2020-01-21] MEDS: HEPARIN NA (PORCINE) 5,000 UNITS/ML 1ML VIAL SQ SCH ×4 (00:52→22:07)
[2020-01-21] MEDS: INSULIN SLIDING SCALE (NOVOLOG) 1 VIAL SQ SCH ×5 (00:52→22:07)
[2020-01-21] MEDS: INSULIN (LEVEMIR) 100 UNITS/ML UNITS SQ SCH ×2 (00:52→22:07)
[2020-01-21] MEDS ORDERED: DEXTROSE 5%-WATER - 50 ML IVPB ONE ×4 (00:58→18:08)
[2020-01-21] MEDS ORDERED: PIPERACILLIN/TAZOBACTAM 3.375 GM VIAL IVPB ONE ×4 (00:58→18:08)
[2020-01-21] MEDS: PIPERACILLIN/TAZOB 3.375 GM 3.375 GM in DEXTROSE 5%-WATER - 50 ML IVPB SCH ×3 (01:10→18:38)
[2020-01-21] MEDS ORDERED: METHADONE HCL 40 MG DISPERSABLE TABLET ONE (06:40)
[2020-01-21] MEDS ORDERED: METHADONE HCL 10 MG TABLET ONE (06:40)
[2020-01-21] MEDS: METHADONE 10 MG, METHADONE 80 MG PO SCH (06:48)
[2020-01-21] MEDS ORDERED: INSULIN (NOVOLOG) ASPART 100 UNITS/ML 10ML VIAL ONE ×3 (07:52→21:56)
--- NOTE | 2020-01-21 08:22 | PN ---
Progress Note, Physician Chief Complaint: Seen and examined in bed. C/o LLQ abd pain. States she had a small BM. "stabbing pain" remains in legs BL. Labile glycemic control-noncompliant with diabetic diet-snack and soda at bedside. Seen by renal yesterday for rising creatanine. Renal US results pending. C/w abx History of Present Illness: 54F with PMH of DM, HTN, opioid abuse (daily methadone), peripheral neuropathy, and chronic heel osteomyelitis bilaterally arriving to the emergency department for worsening pain in bilateral feet. - Current Medication List Current Medications: Active Medications Alprazolam (Xanax) 2 mg PO ONCE PRN PRN Reason: ANXIETY Last Admin: 01/20/20 11:20 Dose: 2 mg Documented by: Alprazolam (Xanax) 2 mg PO TID PRN PRN Reason: ANXIETY Last Admin: 01/20/20 20:08 Dose: 2 mg Documented by: Citalopram Hydrobromide (Celexa -) 20 mg PO DAILY [facility] Last Admin: 01/20/20 10:12 Dose: 20 mg Documented by: Enalapril Maleate (Vasotec -) 10 mg PO DAILY [facility] Last Admin: 01/20/20 10:12 Dose: 10 mg Documented by: Furosemide (Lasix -) 40 mg PO DAILY [facility] Last Admin: 01/20/20 10:12 Dose: 40 mg Documented by: Gabapentin (Neurontin -) 800 mg PO TID [facility] Last Admin: 01/21/20 06:49 Dose: 800 mg Documented by: Heparin Sodium (Porcine) (Heparin -) 5,000 unit SQ TID [facility] Last Admin: 01/21/20 06:49 Dose: 5,000 unit Documented by: Vancomycin HCl (Vancomycin (Pre-Docked)) 1,000 mg in 250 mls @ 200 mls/hr IVPB DAILY [facility]; Protocol Piperacillin Sod/Tazobactam (Sod 3.375 gm/ Dextrose) 50 mls @ 100 mls/hr IVPB Q8H-IV [facility]; Protocol Last Admin: 01/21/20 01:10 Dose: 100 mls/hr Documented by: Insulin Aspart (Novolog Vial Sliding Scale -) 1 vial SQ ACHS [facility]; Protocol Last Admin: 01/21/20 06:49 Dose: 4 units Documented by: Insulin Detemir (Levemir Vial) 7 units SQ HS [facility] Last Admin: 01/21/20 00:52 Dose: 7 units Documented by: Methadone HCl 10 mg/ Methadone (HCl 80 mg) 90 mg PO DAILY@0600 [facility] Last Admin: 01/21/20 06:48 Dose: 90 mg Documented by: - Objective Vital Signs: Vital Signs Temperature 98.2 F 01/21/20 07:24 Pulse Rate 81 01/20/20 19:48 Respiratory Rate 20 01/20/20 21:00 Blood Pressure 161/94 01/20/20 19:48 O2 Sat by Pulse Oximetry (%) 91 L 01/20/20 21:00 Additional Findings/Remarks: Constitutional: Yes: Anxious, Poor Hygeine Eyes: Yes: WNL, Conjunctiva Clear HENT: Yes: WNL, Atraumatic, Normocephalic Neck: Yes: WNL, Supple, Trachea Midline Cardiovascular: Yes: WNL, Regular Rate and Rhythm Respiratory: Yes: WNL, Regular, CTA Bilaterally Gastrointestinal: Yes: WNL, Normal Bowel Sounds, Soft, Abdomen, Obese ...Rectal Exam: Yes: Deferred Genitourinary: Yes: WNL Breast(s): Yes: WNL Musculoskeletal: Yes: WNL Extremities: Yes: WNL Edema: Yes: 2+ to LE Peripheral Pulses WNL: Yes Peripheral Pulses: Left Radial: 2+, Right Radial: 2+, Left Doralis Pedis: 2+, Right Dorsalis Pedis: 2+, Left Femoral: 2+, Right Femoral: 2+ Wound/Incision: Yes: Other (purulent ulcer in the right heel area, BL dsd intact) Neurological: Yes: WNL, Alert, Oriented ...Motor Strength: WNL Psychiatric: Yes: WNL Labs: INR, PTT INR 1.08 (0.83-1.09) 01/18/20 18:08 - ....Imaging X-ray: Image Reviewed (Gross fecal impaction) Ultrasound: Pending (renal US pending) Problem List - Problems (1) Diabetes Assessment/Plan: poorly controlled-soda and snacks at bedside BGM AC/HS with novolog sliding scale increased levemir to 10u bid diabetic diet counseled on adherence to diet Code(s): E11.9 - TYPE 2 DIABETES MELLITUS WITHOUT COMPLICATIONS (2) HTN (hypertension) Assessment/Plan: Cr 1.4-1.7-1.8 today c/t hold enalapril restart lasix Code(s): I10 - ESSENTIAL (PRIMARY) HYPERTENSION (3) Opioid dependence Assessment/Plan: on methadone maintence therapy Code(s): F11.20 - OPIOID DEPENDENCE, UNCOMPLICATED (4) Anxiety Assessment/Plan: c/w xanax supportive care Code(s): F41.9 - ANXIETY DISORDER, UNSPECIFIED (5) Peripheral neuropathy Code(s): G62.9 - POLYNEUROPATHY, UNSPECIFIED (6) Methadone maintenance therapy patient Code(s): F11.20 - OPIOID DEPENDENCE, UNCOMPLICATED (7) Diabetic foot ulcer Assessment/Plan: followed by ID and podiatry seen by ID-Dr Gaming c/w fernando and dony constantino with acinectobacter, enterococcus and MRSA Code(s): E11.621 - TYPE 2 DIABETES MELLITUS WITH FOOT ULCER; L97.509 - NON- PRESSURE CHRONIC ULCER OTH PRT UNSP FOOT W UNSP SEVERITY Qualifiers: Diabetic foot ulcer location: heel Diabetes mellitus type: other specified (including ASHANTI) Laterality: left Non-pressure ulcer stage: unspecified non- pressure ulcer stage Qualified Code(s): E13.621 - Other specified diabetes mellitus with foot ulcer; L97.429 - Non-pressure chronic ulcer of left heel and midfoot with unspecified severity (8) Osteomyelitis Assessment/Plan: suspicious for osteo on recent MRI ID following c/w abx Code(s): M86.9 - OSTEOMYELITIS, UNSPECIFIED Qualifiers: Osteomyelitis type: unspecified type Osteomyelitis location: foot Laterality: left Qualified Code(s): M86.9 - Osteomyelitis, unspecified (9) Prophylactic measure Assessment/Plan: FEN Fluids: adequate PO intake Electrolytes: monitor & replete as needed Nutrition: diabetic diet DVT moderate risk sq heparin Dispo Maintain as inpatient full code discharge planning Code(s): Z29.9 - ENCOUNTER FOR PROPHYLACTIC MEASURES, UNSPECIFIED (10) COVID-19 virus not detected Assessment/Plan: pcr neg Code(s): Z03.818 - ENCNTR FOR OBS FOR SUSP EXPSR TO OTH BIOLG AGENTS RULED OUT (11) REDD (acute kidney injury) Assessment/Plan: Cr 1.8 from 1.4 hold vasotec renal consult appreciate renal US pending Code(s): N17.9 - ACUTE KIDNEY FAILURE, UNSPECIFIED (12) Constipation Assessment/Plan: gross fecal impaction start miralax , colace,senna Code(s): K59.00 - CONSTIPATION, UNSPECIFIED Visit type - Emergency Visit Emergency Visit: Yes ED Registration Date: 01/18/20 Care time: The patient presented to the Emergency Department on the above date and was hospitalized for further evaluation of their emergent condition. - New Patient This patient is new to me today: No - Critical Care Critical Care patient: No - Discharge Referral Referred to [facility] Med P.C.: No
[2020-01-21 08:42] LABS: BASO % 0.9 % (0-2.0); EOS % 3.8 % (0-4.5); HEMATOCRIT 29.5 % (32.4-45.2); HEMOGLOBIN 9.9 GM/dL (10.7-15.3); LYMPH % 24.7 % (8-40); MCH 29.7 pg (25.7-33.7); MCHC 33.7 g/dl (32.0-36.0); MEAN CELL VOLUME 88.1 fl (80-96); MEAN PLT VOLUME 9.4 fl (7.5-11.1); MONO % 5.2 % (3.8-10.2); NEUT % 65.4 % (42.8-82.8); PLATELET COUNT 211 K/MM3 (134-434); RBC 3.35 M/mm3 (3.60-5.2); RDW 14.2 % (11.6-15.6)
[2020-01-21 08:57] LABS: ALBUMIN 2.4 g/dl (3.4-5.0); BILIRUBIN,TOTAL 0.6 mg/dL (0.2-1); BLOOD UREA NITROGEN 43.4 mg/dL (7-18); CALCIUM 8.2 mg/dL (8.5-10.1); CREATININE 1.8 mg/dL (0.55-1.3); MAGNESIUM 2.2 mg/dL (1.8-2.4); POTASSIUM 5.2 mmol/L (3.5-5.1); TOT PROT 6.8 g/dl (6.4-8.2)
[2020-01-21] MEDS: CITALOPRAM HYDROBROMIDE 20 MG TABLET PO SCH (09:36)
[2020-01-21] MEDS: VANCOMYCIN 1 GRAM (PRE-DOCKED) 1,000 MG/250 ML BAG IVPB SCH (09:37)
[2020-01-21 09:41] LABS: ERYTHROCYTE SEDIMENTATION RATE 107 mm/hr (0-30)
[2020-01-21] MEDS: ALPRAZolam 1 MG TABLET PO PRN ×2 (13:16→22:07)
[2020-01-21] MEDS: POLYETHYLENE GLYCOL 3350 119 GM BTL PO SCH ×2 (13:24→22:00)
[2020-01-21] MEDS ORDERED: ALBUTEROL SO4 HFA INHALER IH PRN (15:15)
--- NOTE | 2020-01-21 16:01 | PN ---
Progress Note, Physician History of Present Illness: Seen and examined at the bedside awake and alert complains of bilateral foot and leg pain no chest pain, fever or shortness of breath making urine - Current Medication List Current Medications: Active Medications Albuterol Sulfate (Ventolin Hfa Inhaler -) 2 puff IH Q4H PRN PRN Reason: SHORT OF BREATH/WHEEZING Alprazolam (Xanax) 2 mg PO ONCE PRN PRN Reason: ANXIETY Last Admin: 01/20/20 11:20 Dose: 2 mg Documented by: Alprazolam (Xanax) 2 mg PO TID PRN PRN Reason: ANXIETY Last Admin: 01/21/20 13:16 Dose: 2 mg Documented by: Citalopram Hydrobromide (Celexa -) 20 mg PO DAILY [facility] Last Admin: 01/21/20 09:36 Dose: 20 mg Documented by: Docusate Sodium (Colace -) 300 mg PO [facility] Enalapril Maleate (Vasotec -) 10 mg PO DAILY [facility] Last Admin: 01/20/20 10:12 Dose: 10 mg Documented by: Furosemide (Lasix -) 40 mg PO DAILY [facility] Last Admin: 01/20/20 10:12 Dose: 40 mg Documented by: Gabapentin (Neurontin -) 800 mg PO TID [facility] Last Admin: 01/21/20 13:31 Dose: 800 mg Documented by: Heparin Sodium (Porcine) (Heparin -) 5,000 unit SQ TID [facility] Last Admin: 01/21/20 13:31 Dose: 5,000 unit Documented by: Vancomycin HCl (Vancomycin (Pre-Docked)) 1,000 mg in 250 mls @ 200 mls/hr IVPB DAILY [facility]; Protocol Last Admin: 01/21/20 09:37 Dose: 200 mls/hr Documented by: Piperacillin Sod/Tazobactam (Sod 3.375 gm/ Dextrose) 50 mls @ 100 mls/hr IVPB Q8H-IV [facility]; Protocol Last Admin: 01/21/20 09:37 Dose: 100 mls/hr Documented by: Insulin Aspart (Novolog Vial Sliding Scale -) 1 vial SQ ACHS [facility]; Protocol Last Admin: 01/21/20 11:30 Dose: 4 units Documented by: Insulin Detemir (Levemir Vial) 10 units SQ [facility] Methadone HCl 10 mg/ Methadone (HCl 80 mg) 90 mg PO DAILY@0600 [facility] Last Admin: 01/21/20 06:48 Dose: 90 mg Documented by: Polyethylene Glycol (Miralax (For Daily Use) -) 17 gm PO BID [facility] Last Admin: 01/21/20 13:24 Dose: Not Given Documented by: Kendra (Senna -) 1 tab PO HS [facility] - Objective Vital Signs: Vital Signs Temperature 98.4 F 01/21/20 14:42 Pulse Rate 80 01/21/20 14:42 Respiratory Rate 20 01/21/20 14:42 Blood Pressure 130/70 01/21/20 14:42 O2 Sat by Pulse Oximetry (%) 99 01/21/20 14:42 Constitutional: Yes: No Distress Neck: Yes: Supple Gastrointestinal: Yes: Soft Extremities: No: Cyanosis Edema: Yes Edema: LLE: 1+, RLE: 1+ Neurological: Yes: Alert Labs: CBC, BMP 01/21/20 07:41 01/21/20 07:41 INR, PTT INR 1.08 (0.83-1.09) 01/18/20 18:08 Assessment/Plan Impression 1. REDD vs CKD 2. cellulitis 3. opioid abuse on methadone 4. dm 5. htn Plan Renal function unchanged thus far Renal US done but results pending Urine studies show FeNa of 1.7% which is indeterminate and UPCR is in tubular range Hold ACEi for now continue oral Lasix daily as pt has edema continue empiric antibiotics Change diet to low potassium Trend renal function and electrolytes daily Malachi Aguilar DO
[2020-01-21] MEDS: BACITRACIN 15 GM TUBE TOPICAL OINTMENT TP SCH (18:37)
[2020-01-21] MEDS ORDERED: SENNOSIDES 8.6MG TABLET (FP) PO SCH (22:00)
[2020-01-21] MEDS ORDERED: DOCUSATE SODIUM 100 MG CAPSULE (FP) PO SCH (22:00)
[2020-01-22] MEDS: PIPERACILLIN/TAZOB 3.375 GM 3.375 GM in DEXTROSE 5%-WATER - 50 ML IVPB SCH ×3 (02:30→18:05)
[2020-01-22] MEDS ORDERED: METHADONE HCL 10 MG TABLET ONE (06:41)
[2020-01-22] MEDS ORDERED: METHADONE HCL 40 MG DISPERSABLE TABLET ONE (06:41)
[2020-01-22] MEDS: HEPARIN NA (PORCINE) 5,000 UNITS/ML 1ML VIAL SQ SCH ×3 (06:49→21:08)
[2020-01-22] MEDS: GABAPENTIN 400 MG CAPSULE PO SCH (06:50)
[2020-01-22] MEDS: METHADONE 10 MG, METHADONE 80 MG PO SCH (06:50)
[2020-01-22] MEDS: INSULIN SLIDING SCALE (NOVOLOG) 1 VIAL SQ SCH ×4 (06:50→21:22)
[2020-01-22] MEDS ORDERED: ALPRAZolam 2 MG TABLET PO ONE (08:02)
[2020-01-22 08:05] LABS: BASO % 1.1 % (0-2.0); EOS % 3.7 % (0-4.5); HEMATOCRIT 30.2 % (32.4-45.2); MCH 29.3 pg (25.7-33.7); MCHC 33.1 g/dl (32.0-36.0); MEAN CELL VOLUME 88.5 fl (80-96); MEAN PLT VOLUME 9.1 fl (7.5-11.1); MONO % 6.1 % (3.8-10.2); NEUT % 59.1 % (42.8-82.8); PLATELET COUNT 227 K/MM3 (134-434); RBC 3.42 M/mm3 (3.60-5.2); RDW 14.5 % (11.6-15.6); WHITE BLOOD COUNT 5.9 K/mm3 (4.0-10.0)
[2020-01-22] MEDS: ALPRAZolam 1 MG TABLET PO PRN ×3 (08:09→23:33)
--- NOTE | 2020-01-22 08:11 | PN ---
Progress Note, Physician Chief Complaint: Seen and examined in bed. c/o increased neuropathic to LE. Had BM last night - c/o mild left flank pain. Renal US results pending. C/w abx for MRSA/acinebacter. History of Present Illness: 54F with PMH of DM, HTN, opioid abuse (daily methadone), peripheral neuropathy, and chronic heel osteomyelitis bilaterally arriving to the emergency department for worsening pain in bilateral feet. - Current Medication List Current Medications: Active Medications Albuterol Sulfate (Ventolin Hfa Inhaler -) 2 puff IH Q4H PRN PRN Reason: SHORT OF BREATH/WHEEZING Alprazolam (Xanax) 2 mg PO Q8H PRN PRN Reason: ANXIETY Stop: 01/23/20 08:14 Last Admin: 01/22/20 08:09 Dose: 2 mg Documented by: Bacitracin (Bacitracin -) 1 applic TP DAILY [facility] Last Admin: 01/21/20 18:37 Dose: 1 applic Documented by: Citalopram Hydrobromide (Celexa -) 20 mg PO DAILY [facility] Last Admin: 01/21/20 09:36 Dose: 20 mg Documented by: Docusate Sodium (Colace -) 300 mg PO HS [facility] Last Admin: 01/21/20 22:06 Dose: 300 mg Documented by: Furosemide (Lasix -) 40 mg PO DAILY [facility] Last Admin: 01/20/20 10:12 Dose: 40 mg Documented by: Gabapentin (Neurontin -) 800 mg PO TID [facility] Last Admin: 01/22/20 06:50 Dose: 800 mg Documented by: Heparin Sodium (Porcine) (Heparin -) 5,000 unit SQ TID [facility] Last Admin: 01/22/20 06:49 Dose: 5,000 unit Documented by: Vancomycin HCl (Vancomycin (Pre-Docked)) 1,000 mg in 250 mls @ 200 mls/hr IVPB DAILY [facility]; Protocol Last Admin: 01/21/20 09:37 Dose: 200 mls/hr Documented by: Piperacillin Sod/Tazobactam (Sod 3.375 gm/ Dextrose) 50 mls @ 100 mls/hr IVPB Q8H-IV [facility]; Protocol Last Admin: 01/22/20 02:30 Dose: 100 mls/hr Documented by: Insulin Aspart (Novolog Vial Sliding Scale -) 1 vial SQ ACHS [facility]; Protocol Last Admin: 01/22/20 06:50 Dose: Not Given Documented by: Insulin Detemir (Levemir Vial) 10 units SQ [facility] Last Admin: 01/21/20 22:07 Dose: 10 units Documented by: Methadone HCl 10 mg/ Methadone (HCl 80 mg) 90 mg PO DAILY@0600 [facility] Last Admin: 01/22/20 06:50 Dose: 90 mg Documented by: Polyethylene Glycol (Miralax (For Daily Use) -) 17 gm PO BID [facility] Last Admin: 01/21/20 22:00 Dose: Not Given Documented by: Senna (Senna -) 1 tab PO [facility] Last Admin: 01/21/20 22:07 Dose: 1 tab Documented by: - Objective Vital Signs: Vital Signs Temperature 97.2 F L 01/22/20 06:00 Pulse Rate 72 01/22/20 06:00 Respiratory Rate 18 01/22/20 06:00 Blood Pressure 142/66 01/22/20 06:00 O2 Sat by Pulse Oximetry (%) 93 L 01/22/20 06:00 Additional Findings/Remarks: Constitutional: Yes: Anxious, Poor Hygeine Eyes: Yes: WNL, Conjunctiva Clear HENT: Yes: WNL, Atraumatic, Normocephalic Neck: Yes: WNL, Supple, Trachea Midline Cardiovascular: Yes: WNL, Regular Rate and Rhythm Respiratory: Yes: WNL, Regular, CTA Bilaterally Gastrointestinal: Yes: WNL, Normal Bowel Sounds, Soft, Abdomen, Obese ...Rectal Exam: Yes: Deferred Genitourinary: Yes: WNL Breast(s): Yes: WNL Musculoskeletal: Yes: WNL Extremities: Yes: WNL Edema: Yes: 2+ to LE Peripheral Pulses WNL: Yes Peripheral Pulses: Left Radial: 2+, Right Radial: 2+, Left Doralis Pedis: 2+, Right Dorsalis Pedis: 2+, Left Femoral: 2+, Right Femoral: 2+ Wound/Incision: Yes: Other (BL dsd intact) Abrasion to right wrist with luke wrap intact Neurological: Yes: WNL, Alert, Oriented ...Motor Strength: WNL Psychiatric: Yes: WNL Labs: INR, PTT INR 1.08 (0.83-1.09) 01/18/20 18:08 Problem List - Problems (1) Diabetes Assessment/Plan: better controlled on increased levemir dose BGM AC/HS with novolog sliding scale c/w levemir 10u bid diabetic diet counseled on adherence to diet Code(s): E11.9 - TYPE 2 DIABETES MELLITUS WITHOUT COMPLICATIONS (2) HTN (hypertension) Assessment/Plan: Cr 1.4-1.7-1.8-1.9 today c/t hold enalapril c/w lasix at lower dose Code(s): I10 - ESSENTIAL (PRIMARY) HYPERTENSION (3) Opioid dependence Assessment/Plan: on methadone maintenance therapy Code(s): F11.20 - OPIOID DEPENDENCE, UNCOMPLICATED (4) Anxiety Assessment/Plan: c/w xanax supportive care Code(s): F41.9 - ANXIETY DISORDER, UNSPECIFIED (5) Peripheral neuropathy Assessment/Plan: increased neuropathic pain increased gabapentin to 900 tid Code(s): G62.9 - POLYNEUROPATHY, UNSPECIFIED (6) Methadone maintenance therapy patient Code(s): F11.20 - OPIOID DEPENDENCE, UNCOMPLICATED (7) Diabetic foot ulcer Assessment/Plan: followed by ID and podiatry ID following c/w vanco and zosyn cx with acinectobacter, enterococcus and MRSA-most likely will need rock dust sprayer abx Code(s): E11.621 - TYPE 2 DIABETES MELLITUS WITH FOOT ULCER; L97.509 - NON- PRESSURE CHRONIC ULCER OTH PRT UNSP FOOT W UNSP SEVERITY Qualifiers: Diabetic foot ulcer location: heel Diabetes mellitus type: other specified (including ASHANTI) Laterality: left Non-pressure ulcer stage: unspecified non- pressure ulcer stage Qualified Code(s): E13.621 - Other specified diabetes mellitus with foot ulcer; L97.429 - Non-pressure chronic ulcer of left heel and midfoot with unspecified severity (8) Osteomyelitis Assessment/Plan: suspicious for osteo on recent MRI ID following c/w abx Code(s): M86.9 - OSTEOMYELITIS, UNSPECIFIED Qualifiers: Osteomyelitis type: unspecified type Osteomyelitis location: foot Laterality: left Qualified Code(s): M86.9 - Osteomyelitis, unspecified (9) Prophylactic measure Assessment/Plan: FEN Fluids: adequate PO intake Electrolytes: monitor & replete as needed Nutrition: diabetic diet DVT moderate risk sq heparin Dispo Maintain as inpatient full code discharge planning-if rock dust sprayer abx are needed given drug history will need SNF for abx Code(s): Z29.9 - ENCOUNTER FOR PROPHYLACTIC MEASURES, UNSPECIFIED (10) COVID-19 virus not detected Assessment/Plan: pcr neg Code(s): Z03.818 - ENCNTR FOR OBS FOR SUSP EXPSR TO OTH BIOLG AGENTS RULED OUT (11) REDD (acute kidney injury) Assessment/Plan: Cr 1.9 from 1.4 c/t hold vasotec lasix dcereased to 20mg qd renal consult appreciate renal US report pending Code(s): N17.9 - ACUTE KIDNEY FAILURE, UNSPECIFIED (12) Constipation Assessment/Plan: gross fecal impaction on xray had BM last night c/w miralax pt refusing colace,senna Code(s): K59.00 - CONSTIPATION, UNSPECIFIED Visit type - Emergency Visit Emergency Visit: Yes ED Registration Date: 01/18/20 Care time: The patient presented to the Emergency Department on the above date and was hospitalized for further evaluation of their emergent condition. - New Patient This patient is new to me today: No - Critical Care Critical Care patient: No - Discharge Referral Referred to [facility] Med P.C.: No
[2020-01-22 08:35] LABS: ALBUMIN 2.5 g/dl (3.4-5.0); BILIRUBIN,TOTAL 0.4 mg/dL (0.2-1); BLOOD UREA NITROGEN 48.6 mg/dL (7-18); CALCIUM 8.6 mg/dL (8.5-10.1); CREATININE 1.9 mg/dL (0.55-1.3); MAGNESIUM 2.4 mg/dL (1.8-2.4); POTASSIUM 5.2 mmol/L (3.5-5.1); TOT PROT 7.2 g/dl (6.4-8.2)
[2020-01-22] MEDS ORDERED: PIPERACILLIN/TAZOBACTAM 3.375 GM VIAL IVPB ONE ×2 (09:17→17:36)
[2020-01-22] MEDS ORDERED: DEXTROSE 5%-WATER - 50 ML IVPB ONE ×2 (09:18→17:36)
[2020-01-22] MEDS: CITALOPRAM HYDROBROMIDE 20 MG TABLET PO SCH (09:37)
[2020-01-22] MEDS: FUROSEMIDE 40 MG TABLET (FP) PO SCH (09:38)
[2020-01-22] MEDS: POLYETHYLENE GLYCOL 3350 119 GM BTL PO SCH ×2 (10:03→21:08)
[2020-01-22] MEDS: VANCOMYCIN 1 GRAM (PRE-DOCKED) 1,000 MG/250 ML BAG IVPB SCH (10:13)
[2020-01-22 10:18] LABS: ERYTHROCYTE SEDIMENTATION RATE 96 mm/hr (0-30)
[2020-01-22] MEDS: BACITRACIN 15 GM TUBE TOPICAL OINTMENT TP SCH (10:52)
[2020-01-22] MEDS ORDERED: FUROSEMIDE 20 MG TABLET (FP) PO SCH (12:01)
--- NOTE | 2020-01-22 12:29 | PN ---
Progress Note, Physician History of Present Illness: Seen and examined at the bedside awake and alert complains of bilateral foot and leg pain no chest pain, fever or shortness of breath making urine - Current Medication List Current Medications: Active Medications Albuterol Sulfate (Ventolin Hfa Inhaler -) 2 puff IH Q4H PRN PRN Reason: SHORT OF BREATH/WHEEZING Alprazolam (Xanax) 2 mg PO Q8H PRN PRN Reason: ANXIETY Stop: 01/23/20 08:14 Last Admin: 01/22/20 08:09 Dose: 2 mg Documented by: Bacitracin (Bacitracin -) 1 applic TP DAILY [facility] Last Admin: 01/21/20 18:37 Dose: 1 applic Documented by: Citalopram Hydrobromide (Celexa -) 20 mg PO DAILY [facility] Last Admin: 01/22/20 09:37 Dose: 20 mg Documented by: Furosemide (Lasix -) 20 mg PO DAILY [facility] Gabapentin (Neurontin -) 900 mg PO TID [facility] Heparin Sodium (Porcine) (Heparin -) 5,000 unit SQ TID [facility] Last Admin: 01/22/20 06:49 Dose: 5,000 unit Documented by: Vancomycin HCl (Vancomycin (Pre-Docked)) 1,000 mg in 250 mls @ 200 mls/hr IVPB DAILY [facility]; Protocol Last Admin: 01/22/20 10:13 Dose: Not Given Documented by: Piperacillin Sod/Tazobactam (Sod 3.375 gm/ Dextrose) 50 mls @ 100 mls/hr IVPB Q8H-IV [facility]; Protocol Last Admin: 01/22/20 09:37 Dose: 100 mls/hr Documented by: Insulin Aspart (Novolog Vial Sliding Scale -) 1 vial SQ ACHS [facility]; Protocol Last Admin: 01/22/20 12:15 Dose: Not Given Documented by: Insulin Detemir (Levemir Vial) 10 units SQ HS [facility] Last Admin: 01/21/20 22:07 Dose: 10 units Documented by: Methadone HCl 10 mg/ Methadone (HCl 80 mg) 90 mg PO DAILY@0600 [facility] Last Admin: 01/22/20 06:50 Dose: 90 mg Documented by: Polyethylene Glycol (Miralax (For Daily Use) -) 17 gm PO BID [facility] Last Admin: 01/22/20 10:03 Dose: Not Given Documented by: - Objective Vital Signs: Vital Signs Temperature 97.5 F L 01/22/20 12:00 Pulse Rate 83 01/22/20 12:00 Respiratory Rate 18 01/22/20 12:00 Blood Pressure 144/74 01/22/20 12:00 O2 Sat by Pulse Oximetry (%) 97 01/22/20 12:00 Constitutional: Yes: No Distress Cardiovascular: Yes: Regular Rate and Rhythm Respiratory: Yes: Diminished Edema: Yes Edema: LLE: 2+, RLE: 2+ Labs: CBC, BMP 01/22/20 06:25 01/22/20 06:25 INR, PTT INR 1.08 (0.83-1.09) 01/18/20 18:08 Assessment/Plan Impression 1. REDD vs CKD 2. cellulitis 3. opioid abuse on methadone 4. dm 5. htn Plan Renal function stable Renal US done but results pending Urine studies show FeNa of 1.7% which is indeterminate and UPCR is in tubular range Hold ACEi for now give hyperkalemia and decreased eGFR Increase Lasix 20mg to BID continue empiric antibiotics Change diet to low potassium Trend renal function and electrolytes daily Malachi Aguilar DO
[2020-01-22] MEDS: FUROSEMIDE 20 MG TABLET (FP) PO SCH (14:52)
[2020-01-22] MEDS: GABAPENTIN 300 MG CAPSULE PO SCH ×2 (14:52→21:07)
[2020-01-22] MEDS ORDERED: INSULIN (NOVOLOG) ASPART 100 UNITS/ML 10ML VIAL ONE (16:07)
[2020-01-22] MEDS ORDERED: PT OWN MED DRAWER 7, Y5N ONE (17:52)
[2020-01-22] MEDS: INSULIN (LEVEMIR) 100 UNITS/ML UNITS SQ SCH (21:08)
[2020-01-23] MEDS ORDERED: DEXTROSE 5%-WATER - 50 ML IVPB ONE ×2 (00:50→10:06)
[2020-01-23] MEDS ORDERED: PIPERACILLIN/TAZOBACTAM 3.375 GM VIAL IVPB ONE ×2 (00:50→10:06)
[2020-01-23] MEDS: PIPERACILLIN/TAZOB 3.375 GM 3.375 GM in DEXTROSE 5%-WATER - 50 ML IVPB SCH ×2 (01:00→10:20)
[2020-01-23] MEDS ORDERED: METHADONE HCL 10 MG TABLET ONE (05:39)
[2020-01-23] MEDS ORDERED: METHADONE HCL 40 MG DISPERSABLE TABLET ONE (05:40)
[2020-01-23] MEDS: METHADONE 10 MG, METHADONE 80 MG PO SCH (05:45)
[2020-01-23] MEDS: HEPARIN NA (PORCINE) 5,000 UNITS/ML 1ML VIAL SQ SCH ×3 (05:47→22:17)
[2020-01-23] MEDS: FUROSEMIDE 20 MG TABLET (FP) PO SCH ×2 (05:47→14:05)
[2020-01-23] MEDS: GABAPENTIN 300 MG CAPSULE PO SCH ×3 (05:47→22:15)
[2020-01-23] MEDS: INSULIN SLIDING SCALE (NOVOLOG) 1 VIAL SQ SCH ×4 (06:10→22:18)
[2020-01-23] MEDS: ALPRAZolam 1 MG TABLET PO PRN ×2 (07:56→16:57)
--- NOTE | 2020-01-23 08:09 | PN ---
Progress Note, Physician Chief Complaint: Seen and examined in bed. Refusing daily labs. Renal US without acute pathology. Neuropathic pain in feet improved with increased gabapentin. Flank pain resolving after BM. Wound cx with MRSA/acinebacter. 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 Plan for SNF-PICC line not an option given drug history and pt repeatedly missed appointments in infusion clinic last admission History of Present Illness: 54F with PMH of DM, HTN, opioid abuse (daily methadone), peripheral neuropathy, and chronic heel osteomyelitis bilaterally arriving to the emergency department for worsening pain in bilateral feet. - Current Medication List Current Medications: Active Medications Albuterol Sulfate (Ventolin Hfa Inhaler -) 2 puff IH Q4H PRN PRN Reason: SHORT OF BREATH/WHEEZING Alprazolam (Xanax) 2 mg PO Q8H PRN PRN Reason: ANXIETY Stop: 01/23/20 08:14 Last Admin: 01/23/20 07:56 Dose: 2 mg Documented by: Bacitracin (Bacitracin -) 1 applic TP DAILY [facility] Last Admin: 01/22/20 10:52 Dose: 1 applic Documented by: Citalopram Hydrobromide (Celexa -) 20 mg PO DAILY [facility] Last Admin: 01/22/20 09:37 Dose: 20 mg Documented by: Furosemide (Lasix -) 20 mg PO BID@0600,1400 [facility] Last Admin: 01/23/20 05:47 Dose: 20 mg Documented by: Gabapentin (Neurontin -) 900 mg PO TID [facility] Last Admin: 01/23/20 05:47 Dose: 900 mg Documented by: Heparin Sodium (Porcine) (Heparin -) 5,000 unit SQ TID [facility] Last Admin: 01/23/20 05:47 Dose: 5,000 unit Documented by: Piperacillin Sod/Tazobactam (Sod 3.375 gm/ Dextrose) 50 mls @ 100 mls/hr IVPB Q8H-IV [facility]; Protocol Last Admin: 01/23/20 01:00 Dose: 100 mls/hr Documented by: Insulin Aspart (Novolog Vial Sliding Scale -) 1 vial SQ ACHS [facility]; Protocol Last Admin: 01/23/20 06:10 Dose: 2 units Documented by: Insulin Detemir (Levemir Vial) 10 units SQ HS [facility] Last Admin: 01/22/20 21:08 Dose: 10 units Documented by: Methadone HCl 10 mg/ Methadone (HCl 80 mg) 90 mg PO DAILY@0600 [facility] Last Admin: 01/23/20 05:45 Dose: 90 mg Documented by: Polyethylene Glycol (Miralax (For Daily Use) -) 17 gm PO BID [facility] Last Admin: 01/22/20 21:08 Dose: Not Given Documented by: - Objective Vital Signs: Vital Signs Temperature 97.7 F 01/23/20 05:45 Pulse Rate 71 01/23/20 05:45 Respiratory Rate 18 01/23/20 05:45 Blood Pressure 117/68 01/23/20 05:45 O2 Sat by Pulse Oximetry (%) 98 01/23/20 05:45 Additional Findings/Remarks: Constitutional: Yes: Anxious, Poor Hygeine Eyes: Yes: WNL, Conjunctiva Clear HENT: Yes: WNL, Atraumatic, Normocephalic Neck: Yes: WNL, Supple, Trachea Midline Cardiovascular: Yes: WNL, Regular Rate and Rhythm Respiratory: Yes: WNL, Regular, CTA Bilaterally Gastrointestinal: Yes: WNL, Normal Bowel Sounds, Soft, Abdomen, Obese ...Rectal Exam: Yes: Deferred Genitourinary: Yes: WNL Breast(s): Yes: WNL Musculoskeletal: Yes: WNL Extremities: Yes: WNL Edema: Yes: 2+ to LE Peripheral Pulses WNL: Yes Peripheral Pulses: Left Radial: 2+, Right Radial: 2+, Left Doralis Pedis: 2+, Right Dorsalis Pedis: 2+, Left Femoral: 2+, Right Femoral: 2+ Wound/Incision: Yes: Other ( BL dsg intact) Neurological: Yes: WNL, Alert, Oriented ...Motor Strength: WNL Psychiatric: Yes: WNL Labs: CBC, BMP 01/22/20 06:25 01/22/20 06:25 INR, PTT INR 1.08 (0.83-1.09) 01/18/20 18:08 Problem List - Problems (1) Diabetes Assessment/Plan: better controlled on increased levemir dose BGM AC/HS with novolog sliding scale c/w levemir 10u bid with titration if needed diabetic diet counseled on adherence to diet Code(s): E11.9 - TYPE 2 DIABETES MELLITUS WITHOUT COMPLICATIONS (2) HTN (hypertension) Assessment/Plan: Cr 1.4-1.7-1.8-1.9 today c/t hold enalapril c/w lasix at lower dose 20mg Code(s): I10 - ESSENTIAL (PRIMARY) HYPERTENSION (3) Opioid dependence Assessment/Plan: on methadone maintenance therapy Code(s): F11.20 - OPIOID DEPENDENCE, UNCOMPLICATED (4) Anxiety Assessment/Plan: c/w xanax supportive care Code(s): F41.9 - ANXIETY DISORDER, UNSPECIFIED (5) Peripheral neuropathy Assessment/Plan: improved neuropathic pain increased gabapentin to 900 tid Code(s): G62.9 - POLYNEUROPATHY, UNSPECIFIED (6) Methadone maintenance therapy patient Code(s): F11.20 - OPIOID DEPENDENCE, UNCOMPLICATED (7) Diabetic foot ulcer Assessment/Plan: followed by ID and podiatry No acute podiatric intervention required, as both heel ulcers are stable. She will need follow up as outpatient for wound care ID following c/w vanco and zosyn cx with acinectobacter, enterococcus and MRSA-most likely will need interventional physician abx Code(s): E11.621 - TYPE 2 DIABETES MELLITUS WITH FOOT ULCER; L97.509 - NON- PRESSURE CHRONIC ULCER OTH PRT UNSP FOOT W UNSP SEVERITY Qualifiers: Diabetic foot ulcer location: heel Diabetes mellitus type: other specified (including ASHANTI) Laterality: left Non-pressure ulcer stage: unspecified non- pressure ulcer stage Qualified Code(s): E13.621 - Other specified diabetes mellitus with foot ulcer; L97.429 - Non-pressure chronic ulcer of left heel and midfoot with unspecified severity (8) Osteomyelitis Assessment/Plan: suspicious for osteo on recent MRI ID following c/w abx Code(s): M86.9 - OSTEOMYELITIS, UNSPECIFIED Qualifiers: Osteomyelitis type: unspecified type Osteomyelitis location: foot Laterality: left Qualified Code(s): M86.9 - Osteomyelitis, unspecified (9) Prophylactic measure Assessment/Plan: FEN Fluids: adequate PO intake Electrolytes: monitor & replete as needed Nutrition: diabetic diet DVT moderate risk sq heparin Dispo Maintain as inpatient full code discharge planning-if alf abx are needed given drug history will need SNF for abx Code(s): Z29.9 - ENCOUNTER FOR PROPHYLACTIC MEASURES, UNSPECIFIED (10) COVID-19 virus not detected Assessment/Plan: pcr neg Code(s): Z03.818 - ENCNTR FOR OBS FOR SUSP EXPSR TO OTH BIOLG AGENTS RULED OUT (11) REDD (acute kidney injury) Assessment/Plan: Cr 1.9 on last labs-refusing blood draws c/t hold vasotec renal consult appreciate renal US : with no acute renal pathology cirrhotic liver Code(s): N17.9 - ACUTE KIDNEY FAILURE, UNSPECIFIED (12) Constipation Assessment/Plan: gross fecal impaction on xray had BM last night c/w bowel regimine Code(s): K59.00 - CONSTIPATION, UNSPECIFIED Visit type - Emergency Visit Emergency Visit: Yes ED Registration Date: 01/18/20 Care time: The patient presented to the Emergency Department on the above date and was hospitalized for further evaluation of their emergent condition. - New Patient This patient is new to me today: No - Critical Care Critical Care patient: No - Discharge Referral Referred to [facility] Med P.C.: No
[2020-01-23] MEDS: CITALOPRAM HYDROBROMIDE 20 MG TABLET PO SCH (10:20)
[2020-01-23] MEDS: POLYETHYLENE GLYCOL 3350 119 GM BTL PO SCH ×2 (10:21→22:18)
[2020-01-23] MEDS: BACITRACIN 15 GM TUBE TOPICAL OINTMENT TP SCH (10:21)
[2020-01-23] MEDS ORDERED: INSULIN (NOVOLOG) ASPART 100 UNITS/ML 10ML VIAL ONE ×3 (12:09→22:20)
--- NOTE | 2020-01-23 15:30 | PN ---
Progress Note, Physician History of Present Illness: Pt seen and examined at bedside. She is awake and alert. She denies shortness of breath. - Current Medication List Current Medications: Active Medications Albuterol Sulfate (Ventolin Hfa Inhaler -) 2 puff IH Q4H PRN PRN Reason: SHORT OF BREATH/WHEEZING Alprazolam (Xanax) 2 mg PO Q8H PRN PRN Reason: ANXIETY Bacitracin (Bacitracin -) 1 applic TP DAILY [facility] Last Admin: 01/23/20 10:21 Dose: 1 applic Documented by: Citalopram Hydrobromide (Celexa -) 20 mg PO DAILY [facility] Last Admin: 01/23/20 10:20 Dose: 20 mg Documented by: Furosemide (Lasix -) 20 mg PO BID@0600,1400 [facility] Last Admin: 01/23/20 14:05 Dose: 20 mg Documented by: Gabapentin (Neurontin -) 900 mg PO TID [facility] Last Admin: 01/23/20 14:05 Dose: 900 mg Documented by: Heparin Sodium (Porcine) (Heparin -) 5,000 unit SQ TID [facility] Last Admin: 01/23/20 14:05 Dose: 5,000 unit Documented by: Piperacillin Sod/Tazobactam (Sod 3.375 gm/ Dextrose) 50 mls @ 100 mls/hr IVPB Q8H-IV [facility]; Protocol Last Admin: 01/23/20 10:20 Dose: 100 mls/hr Documented by: Insulin Aspart (Novolog Vial Sliding Scale -) 1 vial SQ ACHS [facility]; Protocol Last Admin: 01/23/20 12:12 Dose: 4 units Documented by: Insulin Detemir (Levemir Vial) 10 units SQ HS [facility] Last Admin: 01/22/20 21:08 Dose: 10 units Documented by: Methadone HCl 10 mg/ Methadone (HCl 80 mg) 90 mg PO DAILY@0600 [facility] Last Admin: 01/23/20 05:45 Dose: 90 mg Documented by: Polyethylene Glycol (Miralax (For Daily Use) -) 17 gm PO BID [facility] Last Admin: 01/23/20 10:21 Dose: Not Given Documented by: - Objective Vital Signs: Vital Signs Temperature 97.4 F L 01/23/20 14:32 Pulse Rate 76 01/23/20 14:32 Respiratory Rate 18 10/12/20 14:32 Blood Pressure 153/78 10/12/20 14:32 O2 Sat by Pulse Oximetry (%) 98 01/23/20 09:00 Constitutional: Yes: Calm Eyes: Yes: Conjunctiva Clear HENT: Yes: Atraumatic Cardiovascular: Yes: S1, S2 Respiratory: Yes: CTA Bilaterally Gastrointestinal: Yes: Soft Genitourinary: Yes: WNL Musculoskeletal: Yes: WNL Edema: Yes Edema: LLE: 1+, RLE: 1+ Neurological: Yes: Oriented Psychiatric: Yes: Oriented Labs: CBC, BMP 01/22/20 06:25 01/22/20 06:25 INR, PTT INR 1.08 (0.83-1.09) 01/18/20 18:08 Problem List - Problems (1) Diabetes Code(s): E11.9 - TYPE 2 DIABETES MELLITUS WITHOUT COMPLICATIONS (2) HTN (hypertension) Code(s): I10 - ESSENTIAL (PRIMARY) HYPERTENSION Assessment/Plan Current Medications Generic Name Dose Route Start Last Admin Trade Name Freq PRN Reason Stop Dose Admin Albuterol Sulfate 2 puff 01/21/20 15:15 Ventolin Hfa Inhaler - IH Q4H PRN SHORT OF BREATH/WHEEZING Alprazolam 2 mg 01/23/20 10:44 Xanax PO Q8H PRN ANXIETY Bacitracin 1 applic 01/21/20 16:15 01/23/20 10:21 Bacitracin - TP 1 applic DAILY [facility] Administration Citalopram Hydrobromide 20 mg 01/19/20 10:00 01/23/20 10:20 Celexa - PO 20 mg DAILY [facility] Administration Furosemide 20 mg 01/22/20 14:00 01/23/20 14:05 Lasix - PO 20 mg BID@0600,1400 [facility] Administration Gabapentin 900 mg 01/22/20 11:57 01/23/20 14:05 Neurontin - PO 900 mg TID [facility] Administration Heparin Sodium (Porcine) 5,000 unit 01/19/20 06:00 01/23/20 14:05 Heparin - SQ 5,000 unit TID [facility] Administration Piperacillin Sod/Tazobactam 50 mls @ 100 mls/hr 01/20/20 18:00 01/23/20 10:20 Sod 3.375 gm/ Dextrose IVPB 100 mls/hr Q8H-IV [facility] Administration Protocol Insulin Aspart 1 vial 01/19/20 11:00 01/23/20 12:12 Novolog Vial Sliding Scale - SQ 4 units ACHS [facility] Administration Protocol Insulin Detemir 10 units 01/21/20 09:04 01/22/20 21:08 Levemir Vial SQ 10 units HS [facility] Administration Methadone HCl 10 mg/ Methadone 90 mg 01/19/20 09:15 01/23/20 05:45 HCl 80 mg PO 90 mg DAILY@0600 [facility] Administration Polyethylene Glycol 17 gm 01/21/20 12:15 01/23/20 10:21 Miralax (For Daily Use) - PO Not Given BID [facility] Impression 1. REDD 2. cellulitis 3. opioid abuse on methadone 4. dm 5. htn Plan - cont lasix - renal ultrasound reviewed - renal dose meds - check vanco levels - low potassium diet
[2020-01-23 17:31] LABS: BASO % 0.7 % (0-2.0); EOS % 4.5 % (0-4.5); HEMATOCRIT 31.7 % (32.4-45.2); HEMOGLOBIN 10.7 GM/dL (10.7-15.3); LYMPH % 32.7 % (8-40); MCHC 33.8 g/dl (32.0-36.0); MEAN CELL VOLUME 88.8 fl (80-96); MEAN PLT VOLUME 9.3 fl (7.5-11.1); NEUT % 55.1 % (42.8-82.8); PLATELET COUNT 221 K/MM3 (134-434); RBC 3.57 M/mm3 (3.60-5.2); RDW 14.8 % (11.6-15.6); WHITE BLOOD COUNT 5.3 K/mm3 (4.0-10.0)
[2020-01-23] MEDS: AMPICILLIN NA/SULBACTAM NA 1.5 GM in SODIUM CHLORIDE 100 ML IVPB SCH ×2 (17:38→22:16)
[2020-01-23 18:00] LABS: ALBUMIN 2.6 g/dl (3.4-5.0); BILIRUBIN,TOTAL 0.3 mg/dL (0.2-1); BLOOD UREA NITROGEN 42.8 mg/dL (7-18); CALCIUM 8.7 mg/dL (8.5-10.1); CREATININE 1.6 mg/dL (0.55-1.3); MAGNESIUM 2.1 mg/dL (1.8-2.4); PHOSPHOROUS 4.9 mg/dL (2.5-4.9); POTASSIUM 4.8 mmol/L (3.5-5.1); TOT PROT 7.3 g/dl (6.4-8.2)
[2020-01-23] MEDS ORDERED: AMPICILLIN NA/SULBACTAM NA 1.5 GM VIAL ONE (21:27)
[2020-01-23] MEDS ORDERED: SODIUM CHLORIDE 100 ML IVPB ONE (21:27)
[2020-01-23] MEDS: INSULIN (LEVEMIR) 100 UNITS/ML UNITS SQ SCH (22:17)
[2020-01-24] MEDS ORDERED: AMPICILLIN NA/SULBACTAM NA 1.5 GM VIAL ONE ×4 (01:19→21:30)
[2020-01-24] MEDS ORDERED: SODIUM CHLORIDE 100 ML IVPB ONE ×4 (01:19→21:30)
[2020-01-24] MEDS: ALPRAZolam 1 MG TABLET PO PRN ×3 (01:26→22:05)
[2020-01-24] MEDS: AMPICILLIN NA/SULBACTAM NA 1.5 GM in SODIUM CHLORIDE 100 ML IVPB SCH ×4 (03:01→22:00)
[2020-01-24] MEDS ORDERED: PT OWN MED DRAWER 7, Y5N ONE (06:16)
[2020-01-24] MEDS ORDERED: METHADONE HCL 10 MG TABLET ONE (06:41)
[2020-01-24] MEDS ORDERED: METHADONE HCL 40 MG DISPERSABLE TABLET ONE (06:42)
[2020-01-24] MEDS: METHADONE 10 MG, METHADONE 80 MG PO SCH (06:45)
[2020-01-24] MEDS: GABAPENTIN 300 MG CAPSULE PO SCH ×3 (06:47→22:05)
[2020-01-24] MEDS: HEPARIN NA (PORCINE) 5,000 UNITS/ML 1ML VIAL SQ SCH ×3 (06:47→22:04)
[2020-01-24] MEDS: FUROSEMIDE 20 MG TABLET (FP) PO SCH ×2 (06:47→16:27)
[2020-01-24] MEDS: INSULIN SLIDING SCALE (NOVOLOG) 1 VIAL SQ SCH ×4 (06:55→22:06)
[2020-01-24 09:14] LABS: EOS % 3.8 % (0-4.5); HEMATOCRIT 30.4 % (32.4-45.2); HEMOGLOBIN 10.3 GM/dL (10.7-15.3); LYMPH % 30.9 % (8-40); MCH 30.3 pg (25.7-33.7); MEAN CELL VOLUME 89.1 fl (80-96); MEAN PLT VOLUME 9.6 fl (7.5-11.1); MONO % 6.1 % (3.8-10.2); NEUT % 58.2 % (42.8-82.8); PLATELET COUNT 213 K/MM3 (134-434); RBC 3.41 M/mm3 (3.60-5.2); RDW 14.8 % (11.6-15.6); WHITE BLOOD COUNT 5.5 K/mm3 (4.0-10.0)
[2020-01-24] MEDS: CITALOPRAM HYDROBROMIDE 20 MG TABLET PO SCH (09:32)
[2020-01-24] MEDS: BACITRACIN 15 GM TUBE TOPICAL OINTMENT TP SCH (09:32)
[2020-01-24] MEDS: POLYETHYLENE GLYCOL 3350 119 GM BTL PO SCH ×2 (09:44→22:05)
[2020-01-24 09:57] LABS: POTASSIUM 4.7 mmol/L (3.5-5.1)
[2020-01-24 10:07] LABS: ALBUMIN 2.7 g/dl (3.4-5.0); BILIRUBIN,TOTAL 0.4 mg/dL (0.2-1); BLOOD UREA NITROGEN 42.5 mg/dL (7-18); CALCIUM 8.7 mg/dL (8.5-10.1); CREATININE 1.6 mg/dL (0.55-1.3); MAGNESIUM 2.1 mg/dL (1.8-2.4); TOT PROT 7.3 g/dl (6.4-8.2)
--- NOTE | 2020-01-24 12:54 | PN ---
Progress Note, Physician History of Present Illness: Pt seen and examined at bedside. She is awake and alert. She denies shortness of breath. - Current Medication List Current Medications: Active Medications Albuterol Sulfate (Ventolin Hfa Inhaler -) 2 puff IH Q4H PRN PRN Reason: SHORT OF BREATH/WHEEZING Alprazolam (Xanax) 2 mg PO Q8H PRN PRN Reason: ANXIETY Last Admin: 01/24/20 09:32 Dose: 2 mg Documented by: Bacitracin (Bacitracin -) 1 applic TP DAILY [facility] Last Admin: 01/24/20 09:32 Dose: 1 applic Documented by: Citalopram Hydrobromide (Celexa -) 20 mg PO DAILY [facility] Last Admin: 01/24/20 09:32 Dose: 20 mg Documented by: Furosemide (Lasix -) 20 mg PO BID@0600,1400 [facility] Last Admin: 01/24/20 06:47 Dose: 20 mg Documented by: Gabapentin (Neurontin -) 900 mg PO TID [facility] Last Admin: 01/24/20 06:47 Dose: 900 mg Documented by: Heparin Sodium (Porcine) (Heparin -) 5,000 unit SQ TID [facility] Last Admin: 01/24/20 06:47 Dose: 5,000 unit Documented by: Ampicillin Sodium/Sulbactam (Sodium 1.5 gm/ Sodium Chloride) 100 mls @ 200 mls/hr IVPB Q6H-IV [facility] Last Admin: 01/24/20 09:32 Dose: 200 mls/hr Documented by: Insulin Aspart (Novolog Vial Sliding Scale -) 1 vial SQ [facility]; Protocol Last Admin: 01/24/20 11:56 Dose: 6 units Documented by: Insulin Detemir (Levemir Vial) 10 units SQ HS [facility] Last Admin: 01/23/20 22:17 Dose: 10 units Documented by: Methadone HCl 10 mg/ Methadone (HCl 80 mg) 90 mg PO DAILY@0600 [facility] Last Admin: 01/24/20 06:45 Dose: 90 mg Documented by: Polyethylene Glycol (Miralax (For Daily Use) -) 17 gm PO BID [facility] Last Admin: 01/24/20 09:44 Dose: Not Given Documented by: - Objective Vital Signs: Vital Signs Temperature 98.6 F 01/24/20 10:12 Pulse Rate 79 01/24/20 10:12 Respiratory Rate 18 01/24/20 10:12 Blood Pressure 138/78 01/24/20 10:12 O2 Sat by Pulse Oximetry (%) 99 01/24/20 10:12 Constitutional: Yes: Calm Eyes: Yes: Conjunctiva Clear HENT: Yes: Atraumatic Neck: Yes: Supple Cardiovascular: Yes: S1, S2 Respiratory: Yes: CTA Bilaterally Gastrointestinal: Yes: Soft, Abdomen, Obese Genitourinary: Yes: WNL Edema: Yes Edema: LLE: 2+, RLE: 2+ Neurological: Yes: Oriented Psychiatric: Yes: Oriented Labs: CBC, BMP 01/24/20 08:10 01/24/20 08:10 INR, PTT INR 1.08 (0.83-1.09) 01/18/20 18:08 Problem List - Problems (1) Diabetes Code(s): E11.9 - TYPE 2 DIABETES MELLITUS WITHOUT COMPLICATIONS (2) HTN (hypertension) Code(s): I10 - ESSENTIAL (PRIMARY) HYPERTENSION Assessment/Plan Current Medications Generic Name Dose Route Start Last Admin Trade Name Freq PRN Reason Stop Dose Admin Albuterol Sulfate 2 puff 01/21/20 15:15 Ventolin Hfa Inhaler - IH Q4H PRN SHORT OF BREATH/WHEEZING Alprazolam 2 mg 01/23/20 10:44 01/24/20 09:32 Xanax PO 2 mg Q8H PRN Administration ANXIETY Bacitracin 1 applic 01/21/20 16:15 01/24/20 09:32 Bacitracin - TP 1 applic DAILY [facility] Administration Citalopram Hydrobromide 20 mg 01/19/20 10:00 01/24/20 09:32 Celexa - PO 20 mg DAILY [facility] Administration Furosemide 20 mg 01/22/20 14:00 01/24/20 06:47 Lasix - PO 20 mg BID@0600,1400 [facility] Administration Gabapentin 900 mg 01/22/20 11:57 01/24/20 06:47 Neurontin - PO 900 mg TID [facility] Administration Heparin Sodium (Porcine) 5,000 unit 01/19/20 06:00 01/24/20 06:47 Heparin - SQ 5,000 unit TID [facility] Administration Ampicillin Sodium/Sulbactam 100 mls @ 200 mls/hr 01/23/20 16:00 01/24/20 09:32 Sodium 1.5 gm/ Sodium Chloride IVPB 200 mls/hr Q6H-IV [facility] Administration Insulin Aspart 1 vial 01/19/20 11:00 01/24/20 11:56 Novolog Vial Sliding Scale - SQ 6 units ACHS [facility] Administration Protocol Insulin Detemir 10 units 01/21/20 09:04 01/23/20 22:17 Levemir Vial SQ 10 units HS [facility] Administration Methadone HCl 10 mg/ Methadone 90 mg 01/19/20 09:15 01/24/20 06:45 HCl 80 mg PO 90 mg DAILY@0600 [facility] Administration Polyethylene Glycol 17 gm 01/21/20 12:15 01/24/20 09:44 Miralax (For Daily Use) - PO Not Given BID [facility] Laboratory Tests 12/09/19 12/10/19 12/11/19 20:50 09:30 08:08 Sodium Potassium Creatinine 1.2 1.3 1.5 H Random Vancomycin COVID-19 ([facility]) 12/12/19 12/13/19 01/18/20 07:45 10:51 18:08 Sodium Potassium Creatinine 1.6 H 1.7 H 1.4 H Random Vancomycin COVID-19 ([facility]) 01/19/20 01/20/20 01/20/20 03:04 09:37 16:00 Sodium 132 L Potassium 4.8 Creatinine 1.7 H 1.7 H Random Vancomycin COVID-19 ([facility]) Not detected 01/24/20 08:10 Sodium Potassium Creatinine Random Vancomycin 7.5 COVID-19 ([facility]) Impression 1. REDD 2. cellulitis 3. opioid abuse on methadone 4. dm 5. htn Plan - cont with lasix - monitor renal function - repeat labs in am - discussed with medical team - will need outpt follow up after discharge
--- NOTE | 2020-01-24 16:44 | PN ---
Physical Exam: SUBJECTIVE: Patient seen and examined at the bedside. In no acute distress and asking to go home. does not want to go to SNF. OBJECTIVE: Patient is a 54 year old female with a significant past medical history of DM, HTN, opioid abuse (on daily methadone), peripheral neuropathy, and chronic heel osteomyelitis bilaterally arriving to the emergency department for worsening pain in bilateral feet. Neuropathic pain in feet improved with increased gabapentin. Flank pain resolved. Wound cx with MRSA/acinebacter. residential abx required. Plan for SNF-PICC line not an option given drug history and pt repeatedly missed appointments in infusion clinic last admission Awaiting final recommendations from ID on antibiotics. Vital Signs Period Temp Pulse Resp BP Sys/Kelly Pulse Ox Last 24 Hr 97.4 F-99.0 F 79-88 18-18 137-164/71-97 96-99 GENERAL: The patient is awake, alert, and fully oriented, in no acute distress. anxious at times HEAD: Normal with no signs of trauma. EYES: PERRL, extraocular movements intact, sclera anicteric, conjunctiva clear. No ptosis. ENT: Ears normal, nares patent, oropharynx clear without exudates NECK: Trachea midline, full range of motion, supple. LUNGS: Breath sounds equal, clear to auscultation bilaterally, no wheezes HEART: Regular rate and rhythm ABDOMEN: Soft, nontender, nondistended, normoactive bowel sounds EXTREMITIES: +2 lower ext edema, hyperpigmentation of lower ext. bilateral heel diabetic ulcers, left heel osteomyelitis NEUROLOGICAL: Normal speech, gait not observed. Laboratory Results - last 24 hr 01/23/20 01/23/20 01/23/20 16:53 17:00 17:00 WBC 5.3 RBC 3.57 L Hgb 10.7 Hct 31.7 L MCV 88.8 MCH 30.0 MCHC 33.8 RDW 14.8 Plt Count 221 MPV 9.3 Absolute Neuts (auto) 2.9 Neutrophils % 55.1 Lymphocytes % 32.7 Monocytes % 7.0 Eosinophils % 4.5 Basophils % 0.7 Nucleated RBC % 0 Sodium 135 L Potassium 4.8 Chloride 102 Carbon Dioxide 27 Anion Gap 6 L BUN 42.8 H Creatinine 1.6 H Est GFR (CKD-EPI)AfAm 41.32 Est GFR (CKD-EPI)NonAf 35.65 POC Glucometer 218 Random Glucose 207 H Calcium 8.7 Phosphorus 4.9 Magnesium 2.1 Total Bilirubin 0.3 AST 27 ALT 25 Alkaline Phosphatase 183 H Total Protein 7.3 Albumin 2.6 L Random Vancomycin 01/23/20 01/24/20 01/24/20 22:13 06:53 08:10 WBC RBC Hgb Hct MCV MCH MCHC RDW Plt Count MPV Absolute Neuts (auto) Neutrophils % Lymphocytes % Monocytes % Eosinophils % Basophils % Nucleated RBC % Sodium Potassium Chloride Carbon Dioxide Anion Gap BUN Creatinine Est GFR (CKD-EPI)AfAm Est GFR (CKD-EPI)NonAf POC Glucometer 215 167 Random Glucose Calcium Phosphorus Magnesium Total Bilirubin AST ALT Alkaline Phosphatase Total Protein Albumin Random Vancomycin 7.5 01/24/20 01/24/20 01/24/20 08:10 08:10 11:55 WBC 5.5 RBC 3.41 L Hgb 10.3 L Hct 30.4 L MCV 89.1 MCH 30.3 MCHC 34.0 RDW 14.8 Plt Count 213 MPV 9.6 Absolute Neuts (auto) 3.2 Neutrophils % 58.2 Lymphocytes % 30.9 Monocytes % 6.1 Eosinophils % 3.8 Basophils % 1.0 Nucleated RBC % 0 Sodium 134 L Potassium 4.7 Chloride 101 Carbon Dioxide 28 Anion Gap 5 L BUN 42.5 H Creatinine 1.6 H Est GFR (CKD-EPI)AfAm 41.32 Est GFR (CKD-EPI)NonAf 35.65 POC Glucometer 299 Random Glucose 109 H Calcium 8.7 Phosphorus Magnesium 2.1 Total Bilirubin 0.4 AST 22 ALT 23 Alkaline Phosphatase 177 H Total Protein 7.3 Albumin 2.7 L Random Vancomycin 01/24/20 16:37 WBC RBC Hgb Hct MCV MCH MCHC RDW Plt Count MPV Absolute Neuts (auto) Neutrophils % Lymphocytes % Monocytes % Eosinophils % Basophils % Nucleated RBC % Sodium Potassium Chloride Carbon Dioxide Anion Gap BUN Creatinine Est GFR (CKD-EPI)AfAm Est GFR (CKD-EPI)NonAf POC Glucometer 153 Random Glucose Calcium Phosphorus Magnesium Total Bilirubin AST ALT Alkaline Phosphatase Total Protein Albumin Random Vancomycin Active Medications Generic Name Dose Route Start Last Admin Trade Name Freq PRN Reason Stop Dose Admin Albuterol Sulfate 2 puff 01/21/20 15:15 Ventolin Hfa Inhaler - IH Q4H PRN SHORT OF BREATH/WHEEZING Alprazolam 2 mg 01/23/20 10:44 10/13/20 09:32 Xanax PO 2 mg Q8H PRN Administration ANXIETY Bacitracin 1 applic 01/21/20 16:15 01/24/20 09:32 Bacitracin - TP 1 applic DAILY [facility] Administration Citalopram Hydrobromide 20 mg 01/19/20 10:00 01/24/20 09:32 Celexa - PO 20 mg DAILY [facility] Administration Furosemide 20 mg 01/22/20 14:00 01/24/20 16:27 Lasix - PO 20 mg BID@0600,1400 [facility] Administration Gabapentin 900 mg 01/22/20 11:57 01/24/20 16:27 Neurontin - PO 900 mg TID [facility] Administration Heparin Sodium (Porcine) 5,000 unit 01/19/20 06:00 01/24/20 16:26 Heparin - SQ 5,000 unit TID [facility] Administration Ampicillin Sodium/Sulbactam 100 mls @ 200 mls/hr 01/23/20 16:00 01/24/20 16:27 Sodium 1.5 gm/ Sodium Chloride IVPB 200 mls/hr Q6H-IV [facility] Administration Insulin Aspart 1 vial 01/19/20 11:00 01/24/20 16:39 Novolog Vial Sliding Scale - SQ 2 units ACHS [facility] Administration Protocol Insulin Detemir 10 units 01/21/20 09:04 01/23/20 22:17 Levemir Vial SQ 10 units HS [facility] Administration Methadone HCl 10 mg/ Methadone 90 mg 01/19/20 09:15 01/24/20 06:45 HCl 80 mg PO 90 mg DAILY@0600 [facility] Administration Polyethylene Glycol 17 gm 01/21/20 12:15 01/24/20 09:44 Miralax (For Daily Use) - PO Not Given BID [facility] ASSESSMENT/PLAN: Problem List - Problems (1) Osteomyelitis Assessment/Plan: followed by ID and podiatry No acute pattern storage clerk intervention required, as both heel ulcers are stable. 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 pending ID recommendations Code(s): M86.9 - OSTEOMYELITIS, UNSPECIFIED Qualifiers: Osteomyelitis type: unspecified type Osteomyelitis location: foot Laterality: left Qualified Code(s): M86.9 - Osteomyelitis, unspecified (2) REDD (acute kidney injury) Assessment/Plan: creatinine improving @ 1.6. Vasotec on hold. renal consulted and following renal US : with no acute renal pathology cirrhotic liver Code(s): N17.9 - ACUTE KIDNEY FAILURE, UNSPECIFIED (3) Anxiety Assessment/Plan: on xanax q 8 prn for anxiety Code(s): F41.9 - ANXIETY DISORDER, UNSPECIFIED (4) COVID-19 virus not detected Assessment/Plan: covid negative per serology Code(s): Z03.818 - ENCNTR FOR OBS FOR SUSP EXPSR TO OTH BIOLG AGENTS RULED OUT (5) Constipation Assessment/Plan: no acute issues with constipation currently Code(s): K59.00 - CONSTIPATION, UNSPECIFIED (6) Diabetes Assessment/Plan: on levemir and novolog. will need outpatient close monitoring. Code(s): E11.9 - TYPE 2 DIABETES MELLITUS WITHOUT COMPLICATIONS (7) HTN (hypertension) Assessment/Plan: slightly above goal today c/t hold enalapril c/w lasix at lower dose 20mg Code(s): I10 - ESSENTIAL (PRIMARY) HYPERTENSION (8) Methadone maintenance therapy patient Assessment/Plan: on methadone maintenance therapy Code(s): F11.20 - OPIOID DEPENDENCE, UNCOMPLICATED (9) Peripheral neuropathy Assessment/Plan: Code(s): G62.9 - POLYNEUROPATHY, UNSPECIFIED (10) Prophylactic measure Assessment/Plan: on heparin tid Code(s): Z29.9 - ENCOUNTER FOR PROPHYLACTIC MEASURES, UNSPECIFIED Visit type - Emergency Visit Emergency Visit: Yes ED Registration Date: 01/18/20 Care time: The patient presented to the Emergency Department on the above date and was hospitalized for further evaluation of their emergent condition. - New Patient This patient is new to me today: Yes Date on this admission: 01/24/20 - Critical Care Critical Care patient: No - Discharge Referral Referred to [facility] Med P.C.: No
[2020-01-24] MEDS ORDERED: INSULIN (NOVOLOG) ASPART 100 UNITS/ML 10ML VIAL ONE (22:03)
[2020-01-24] MEDS: INSULIN (LEVEMIR) 100 UNITS/ML UNITS SQ SCH (22:04)
[2020-01-24 23:30] VITALS: BMI 34.7
[2020-01-25] MEDS ORDERED: AMPICILLIN NA/SULBACTAM NA 1.5 GM VIAL ONE ×2 (01:32→10:37)
[2020-01-25] MEDS ORDERED: SODIUM CHLORIDE 100 ML IVPB ONE ×2 (01:32→10:37)
[2020-01-25] MEDS: AMPICILLIN NA/SULBACTAM NA 1.5 GM in SODIUM CHLORIDE 100 ML IVPB SCH ×2 (03:13→10:46)
[2020-01-25] MEDS ORDERED: METHADONE HCL 10 MG TABLET ONE (05:17)
[2020-01-25] MEDS ORDERED: METHADONE HCL 40 MG DISPERSABLE TABLET ONE (05:18)
[2020-01-25] MEDS: GABAPENTIN 300 MG CAPSULE PO SCH ×2 (06:00→13:38)
[2020-01-25] MEDS: METHADONE 10 MG, METHADONE 80 MG PO SCH (06:02)
[2020-01-25] MEDS: HEPARIN NA (PORCINE) 5,000 UNITS/ML 1ML VIAL SQ SCH ×2 (06:03→13:39)
[2020-01-25] MEDS: FUROSEMIDE 20 MG TABLET (FP) PO SCH ×2 (06:03→13:39)
[2020-01-25] MEDS: INSULIN SLIDING SCALE (NOVOLOG) 1 VIAL SQ SCH ×2 (06:11→11:37)
[2020-01-25] MEDS: ALPRAZolam 1 MG TABLET PO PRN (06:18)
[2020-01-25 08:48] VITALS: BP 150/83; PULSE 82; TEMP 97
[2020-01-25 08:58] LABS: BASO % 0.7 % (0-2.0); EOS % 3.7 % (0-4.5); HEMATOCRIT 27.4 % (32.4-45.2); HEMOGLOBIN 9.2 GM/dL (10.7-15.3); LYMPH % 37.9 % (8-40); MCH 30.1 pg (25.7-33.7); MCHC 33.5 g/dl (32.0-36.0); MEAN CELL VOLUME 89.9 fl (80-96); MEAN PLT VOLUME 9.3 fl (7.5-11.1); MONO % 7.3 % (3.8-10.2); NEUT % 50.4 % (42.8-82.8); PLATELET COUNT 182 K/MM3 (134-434); RBC 3.05 M/mm3 (3.60-5.2); RDW 14.8 % (11.6-15.6); WHITE BLOOD COUNT 5.8 K/mm3 (4.0-10.0)
[2020-01-25 09:34] LABS: ALBUMIN 2.3 g/dl (3.4-5.0); BILIRUBIN,TOTAL 0.2 mg/dL (0.2-1); BLOOD UREA NITROGEN 41.6 mg/dL (7-18); CREATININE 1.5 mg/dL (0.55-1.3); MAGNESIUM 2.1 mg/dL (1.8-2.4); POTASSIUM 4.9 mmol/L (3.5-5.1); TOT PROT 6.3 g/dl (6.4-8.2)
[2020-01-25] MEDS ORDERED: MULTIVITAMINS (DAILY MVI) TABLET (FP) PO SCH (10:00)
[2020-01-25] MEDS: BACITRACIN 15 GM TUBE TOPICAL OINTMENT TP SCH (10:46)
[2020-01-25] MEDS: CITALOPRAM HYDROBROMIDE 20 MG TABLET PO SCH (10:46)
[2020-01-25] MEDS: POLYETHYLENE GLYCOL 3350 119 GM BTL PO SCH (10:47)
--- NOTE | 2020-01-25 11:11 | PN ---
Progress Note, Physician History of Present Illness: AWAKE, ALERT AFEBRILE DAY#7 IV ANTIBIOTICS - Current Medication List Current Medications: Active Medications Albuterol Sulfate (Ventolin Hfa Inhaler -) 2 puff IH Q4H PRN PRN Reason: SHORT OF BREATH/WHEEZING Last Admin: 01/25/20 10:47 Dose: 2 puff Documented by: Alprazolam (Xanax) 2 mg PO Q8H PRN PRN Reason: ANXIETY Last Admin: 01/25/20 06:18 Dose: 2 mg Documented by: Bacitracin (Bacitracin -) 1 applic TP DAILY [facility] Last Admin: 01/25/20 10:46 Dose: 1 applic Documented by: Citalopram Hydrobromide (Celexa -) 20 mg PO DAILY [facility] Last Admin: 01/25/20 10:46 Dose: 20 mg Documented by: Furosemide (Lasix -) 20 mg PO BID@0600,1400 [facility] Last Admin: 01/25/20 06:03 Dose: 20 mg Documented by: Gabapentin (Neurontin -) 900 mg PO TID [facility] Last Admin: 01/25/20 06:00 Dose: 900 mg Documented by: Heparin Sodium (Porcine) (Heparin -) 5,000 unit SQ TID [facility] Last Admin: 01/25/20 06:03 Dose: 5,000 unit Documented by: Ampicillin Sodium/Sulbactam (Sodium 1.5 gm/ Sodium Chloride) 100 mls @ 200 mls/hr IVPB Q6H-IV [facility] Last Admin: 01/25/20 10:46 Dose: 200 mls/hr Documented by: Insulin Aspart (Novolog Vial Sliding Scale -) 1 vial SQ [facility]; Protocol Last Admin: 01/25/20 06:11 Dose: 4 units Documented by: Insulin Detemir (Levemir Vial) 10 units SQ HS [facility] Last Admin: 01/24/20 22:04 Dose: 10 units Documented by: Methadone HCl 10 mg/ Methadone (HCl 80 mg) 90 mg PO DAILY@0600 [facility] Last Admin: 01/25/20 06:02 Dose: 90 mg Documented by: Multivitamins/Minerals/Vitamin C (Tab-A-Vit -) 1 tab PO DAILY [facility] Last Admin: 01/25/20 10:47 Dose: 1 tab Documented by: Polyethylene Glycol (Miralax (For Daily Use) -) 17 gm PO BID [facility] Last Admin: 01/25/20 10:47 Dose: Not Given Documented by: - Objective Vital Signs: Vital Signs Temperature 97 F L 01/25/20 08:47 Pulse Rate 82 01/25/20 08:47 Respiratory Rate 18 01/25/20 08:47 Blood Pressure 150/83 01/25/20 08:47 O2 Sat by Pulse Oximetry (%) 98 01/25/20 08:47 Constitutional: Yes: No Distress Eyes: Yes: Conjunctiva Clear Cardiovascular: Yes: Regular Rate and Rhythm, S1, S2 Respiratory: Yes: CTA Bilaterally Gastrointestinal: Yes: Normal Bowel Sounds, Soft. No: Tenderness Extremities: Yes: Other (L HEEL WITH GRANAULATION TISSUE. NO DRAINAGE OR FOUL ODOR) Labs: CBC, BMP 01/25/20 08:25 01/25/20 08:25 INR, PTT INR 1.08 (0.83-1.09) 01/18/20 18:08 Assessment/Plan NON HEALING L CALCANEAL ULCER HX OSTEOMYELITIS (TREATED) DIABETES MELLITUS SUBSTITUTE BACTRIM DS PO BID X 7D OUTPATIENT F/U WOUND CARE CENTER
--- NOTE | 2020-01-25 11:50 | DS ---
Physical Exam: SUBJECTIVE: Patient seen and examined prior to discharge. She is awake and alert and in no u OBJECTIVE: Patient is a 54 year old female with a significant past medical history of DM, HTN, opioid abuse (on daily methadone), peripheral neuropathy, and chronic heel osteomyelitis bilaterally arriving to the emergency department on 01/18/2020 for worsening pain in bilateral feet. Neuropathic pain in feet improved with increased gabapentin. Flank pain resolved. Wound cx with MRSA/acinebacter. Patient has completed 7 days of IV antibiotics and will be sent home on oral antibiotics of Bactrim DS BID x 7 days. She will follow up at the wound care clinic. Vital Signs Period Temp Pulse Resp BP Sys/Kelly Pulse Ox Last 24 Hr 97 F-98.3 F 80-88 18-18 150-164/73-97 98-99 PHYSICAL EXAM GENERAL: The patient is awake, alert, and fully oriented, in no acute distress. anxious at times HEAD: Normal with no signs of trauma. EYES: PERRL, extraocular movements intact, sclera anicteric, conjunctiva clear. No ptosis. ENT: Ears normal, nares patent, oropharynx clear without exudates NECK: Trachea midline, full range of motion, supple. LUNGS: Breath sounds equal, clear to auscultation bilaterally, no wheezes HEART: Regular rate and rhythm ABDOMEN: Soft, nontender, nondistended, normoactive bowel sounds EXTREMITIES: +2 lower ext edema, hyperpigmentation of lower ext. bilateral heel diabetic ulcers, left heel osteomyelitis NEUROLOGICAL: Normal speech, gait not observed. LABS Laboratory Results - last 24 hr 01/24/20 01/24/20 01/24/20 11:55 16:37 21:51 WBC RBC Hgb Hct MCV MCH MCHC RDW Plt Count MPV Absolute Neuts (auto) Neutrophils % Lymphocytes % Monocytes % Eosinophils % Basophils % Nucleated RBC % Sodium Potassium Chloride Carbon Dioxide Anion Gap BUN Creatinine Est GFR (CKD-EPI)AfAm Est GFR (CKD-EPI)NonAf POC Glucometer 299 153 290 Random Glucose Calcium Magnesium Total Bilirubin AST ALT Alkaline Phosphatase Total Protein Albumin 01/25/20 01/25/20 01/25/20 06:09 08:25 08:25 WBC 5.8 RBC 3.05 L Hgb 9.2 L Hct 27.4 L MCV 89.9 MCH 30.1 MCHC 33.5 RDW 14.8 Plt Count 182 MPV 9.3 Absolute Neuts (auto) 2.9 Neutrophils % 50.4 Lymphocytes % 37.9 D Monocytes % 7.3 Eosinophils % 3.7 Basophils % 0.7 Nucleated RBC % 0 Sodium 136 Potassium 4.9 Chloride 104 Carbon Dioxide 27 Anion Gap 5 L BUN 41.6 H Creatinine 1.5 H Est GFR (CKD-EPI)AfAm 44.67 Est GFR (CKD-EPI)NonAf 38.54 POC Glucometer 220 Random Glucose 161 H Calcium 8.0 L Magnesium 2.1 Total Bilirubin 0.2 AST 18 ALT 17 Alkaline Phosphatase 149 H Total Protein 6.3 L Albumin 2.3 L 01/25/20 11:22 WBC RBC Hgb Hct MCV MCH MCHC RDW Plt Count MPV Absolute Neuts (auto) Neutrophils % Lymphocytes % Monocytes % Eosinophils % Basophils % Nucleated RBC % Sodium Potassium Chloride Carbon Dioxide Anion Gap BUN Creatinine Est GFR (CKD-EPI)AfAm Est GFR (CKD-EPI)NonAf POC Glucometer 188 Random Glucose Calcium Magnesium Total Bilirubin AST ALT Alkaline Phosphatase Total Protein Albumin HOSPITAL COURSE: Date of Admission:01/18/20 Date of Discharge: 01/25/20 Minutes to complete discharge: 45 Discharge Summary Problems reviewed: Yes Reason For Visit: CELLULITIS OF LEFT LOWER EXTREMITY, DIABETIC Current Active Problems REDD (acute kidney injury) (Acute) Anxiety (Acute) COVID-19 virus not detected (Acute) Constipation (Acute) Diabetes (Acute) HTN (hypertension) (Acute) Left leg cellulitis (Acute) Methadone maintenance therapy patient (Acute) Opioid dependence (Acute) Peripheral neuropathy (Acute) Prophylactic measure (Acute) Suspected COVID-19 virus infection (Acute) Diabetic foot ulcer (Chronic) Condition: Stable - Instructions Diet, Activity, Other Instructions: DISCHARGE YOUR VISIT You came to the hospital because of feed ulcerations and have had 7 days of intravenous antibiotics. We will be switching you to Bactrim DS TWICE per day for 7 more days. Please follow up at the wound care clinic. WOUND CARE DAILY: Clean wound with sterile saline and apply non adherent dressing to wound. Wrap in ronit. Monitor wound for drainage or odor. MEDICATIONS Please continue to take your home medications as prescribed. Antibiotics: We will be switching you to Bactrim DS TWICE per day for 7 more days. DIET Continue your home diet ADDITIONAL CARE Please make an appointment to see your primary care provider, 1 week from today. ADDITIONAL INFORMATION Please call 911 or come directly to the emergency department if you experience unusual headache, vision change, shortness of breath, chest pain, numbness, tingling, loss of alertness/awareness, loss of function, unusual bleeding or any alarming symptoms. Thank you for allowing us to care for you. [facility] Referrals: Ailyn Herbert, RESIDENTIAL COORDINATOR [Primary Care Provider] - Disposition: HOME - Home Medications Comprehensive Discharge Medication List: Ambulatory Orders Alprazolam [Xanax] 2 mg PO TID 10/17/18 Insulin Lispro Protamin/Lispro [Humalog Mix 75-25 Kwikpen] 24 units SQ BID 04/30/19 Albuterol Sulfate Inhaler - [Ventolin HFA Inhaler -] 2 inh PO Q4H 05/03/19 Citalopram Hydrobromide [Citalopram HBr] 20 mg PO DAILY 05/03/19 Fenofibrate Nanocrystallized [Fenofibrate] 145 mg PO DAILY 05/03/19 Ferrous Sulfate 325 mg PO BID 05/03/19 Ipratropium/Albuterol Sulfate [Iprat-Albut 0.5-3(2.5) mg/3 ml] 1 vial IH Q6H PRN 05/03/19 Methadone [Dolophine -] 90 mg PO DAILY #1 tab.disper MDD 90 mg 05/09/19 Enalapril Maleate [Vasotec -] 10 mg PO DAILY #30 tablet 05/12/19 Metformin HCl [Glucophage] 1,000 mg PO BID #60 tablet 05/12/19 Sitagliptin Phosphate [Januvia] 100 mg PO DAILY #30 tablet 05/12/19 Albuterol Sulfate Inhaler - [Ventolin HFA Inhaler -] 2 puff IH Q4H PRN inhaler 01/25/20 Alprazolam [Xanax] 2 mg PO Q8H PRN tablet 01/25/20 Furosemide [Lasix -] 20 mg PO BID@0600,1400 tablet 01/25/20 Gabapentin [Neurontin -] 900 mg PO TID #60 capsule 01/25/20 Insulin (Levemir) [Levemir Vial] 10 units SQ HS units 01/25/20 Insulin Sliding Scale [Novolog Vial Sliding Scale -] 1 vial SQ ACHS units 01/25/20 Sulfamethoxazole/Trimethoprim [Bactrim Ds -] 1 tab PO BID 7 Days #14 tablet 01/25/20 Problem List - Problems (1) Osteomyelitis Assessment/Plan: followed by ID and podiatry No acute can slider intervention required, as both heel ulcers are stable. She will need follow up as outpatient for wound care. Per ID, can send home on Bactrim DS BID x 7 days. Code(s): M86.9 - OSTEOMYELITIS, UNSPECIFIED Qualifiers: Osteomyelitis type: unspecified type Osteomyelitis location: foot Laterality: left Qualified Code(s): M86.9 - Osteomyelitis, unspecified (2) REDD (acute kidney injury) Assessment/Plan: creatinine improving renal US : with no acute renal pathology cirrhotic liver Code(s): N17.9 - ACUTE KIDNEY FAILURE, UNSPECIFIED (3) Anxiety Assessment/Plan: on xanax. ISTOP reviewed and patient on Xanax at home. Code(s): F41.9 - ANXIETY DISORDER, UNSPECIFIED (4) COVID-19 virus not detected Assessment/Plan: covid negative per serology Code(s): Z03.818 - ENCNTR FOR OBS FOR SUSP EXPSR TO OTH BIOLG AGENTS RULED OUT (5) Constipation Assessment/Plan: no acute issues with constipation currently Code(s): K59.00 - CONSTIPATION, UNSPECIFIED (6) Diabetes Assessment/Plan: on levemir and novolog. will need outpatient close monitoring. Code(s): E11.9 - TYPE 2 DIABETES MELLITUS WITHOUT COMPLICATIONS (7) HTN (hypertension) Assessment/Plan: continue enalapril Code(s): I10 - ESSENTIAL (PRIMARY) HYPERTENSION (8) Methadone maintenance therapy patient Assessment/Plan: on methadone maintenance therapy Code(s): F11.20 - OPIOID DEPENDENCE, UNCOMPLICATED (9) Peripheral neuropathy Code(s): G62.9 - POLYNEUROPATHY, UNSPECIFIED (10) Prophylactic measure Code(s): Z29.9 - ENCOUNTER FOR PROPHYLACTIC MEASURES, UNSPECIFIED This patient is new to me today: No Emergency Visit: Yes ED Registration Date: 01/18/20 Care time: The patient presented to the Emergency Department on the above date and was hospitalized for further evaluation of their emergent condition. Critical Care patient: No - Discharge Referral Referred to [facility] No
--- NOTE | 2020-01-25 12:17 | PN ---
Progress Note, Physician History of Present Illness: Pt seen and examined at bedside. She is awake and alert. She denies shortness of breath. - Current Medication List Current Medications: Active Medications Albuterol Sulfate (Ventolin Hfa Inhaler -) 2 puff IH Q4H PRN PRN Reason: SHORT OF BREATH/WHEEZING Last Admin: 01/25/20 10:47 Dose: 2 puff Documented by: Alprazolam (Xanax) 2 mg PO Q8H PRN PRN Reason: ANXIETY Last Admin: 01/25/20 06:18 Dose: 2 mg Documented by: Bacitracin (Bacitracin -) 1 applic TP DAILY [facility] Last Admin: 01/25/20 10:46 Dose: 1 applic Documented by: Citalopram Hydrobromide (Celexa -) 20 mg PO DAILY [facility] Last Admin: 01/25/20 10:46 Dose: 20 mg Documented by: Furosemide (Lasix -) 20 mg PO BID@0600,1400 [facility] Last Admin: 01/25/20 06:03 Dose: 20 mg Documented by: Gabapentin (Neurontin -) 900 mg PO TID [facility] Last Admin: 01/25/20 06:00 Dose: 900 mg Documented by: Heparin Sodium (Porcine) (Heparin -) 5,000 unit SQ TID [facility] Last Admin: 01/25/20 06:03 Dose: 5,000 unit Documented by: Ampicillin Sodium/Sulbactam (Sodium 1.5 gm/ Sodium Chloride) 100 mls @ 200 mls/hr IVPB Q6H-IV [facility] Last Admin: 01/25/20 10:46 Dose: 200 mls/hr Documented by: Insulin Aspart (Novolog Vial Sliding Scale -) 1 vial SQ ACHS [facility]; Protocol Last Admin: 01/25/20 11:37 Dose: 2 units Documented by: Insulin Detemir (Levemir Vial) 10 units SQ HS [facility] Last Admin: 01/24/20 22:04 Dose: 10 units Documented by: Methadone HCl 10 mg/ Methadone (HCl 80 mg) 90 mg PO DAILY@0600 [facility] Last Admin: 01/25/20 06:02 Dose: 90 mg Documented by: Multivitamins/Minerals/Vitamin C (Tab-A-Vit -) 1 tab PO DAILY [facility] Last Admin: 01/25/20 10:47 Dose: 1 tab Documented by: Polyethylene Glycol (Miralax (For Daily Use) -) 17 gm PO BID [facility] Last Admin: 01/25/20 10:47 Dose: Not Given Documented by: - Objective Vital Signs: Vital Signs Temperature 97 F L 01/25/20 08:47 Pulse Rate 82 01/25/20 08:47 Respiratory Rate 18 01/25/20 09:00 Blood Pressure 150/83 01/25/20 08:47 O2 Sat by Pulse Oximetry (%) 98 01/25/20 09:00 Constitutional: Yes: Calm Eyes: Yes: Conjunctiva Clear HENT: Yes: Atraumatic Neck: Yes: Supple Cardiovascular: Yes: S1, S2 Respiratory: Yes: CTA Bilaterally Gastrointestinal: Yes: Soft Genitourinary: Yes: WNL Musculoskeletal: Yes: WNL Edema: Yes Edema: LLE: 1+, RLE: 1+ Neurological: Yes: Oriented Psychiatric: Yes: Oriented Labs: CBC, BMP 01/25/20 08:25 01/25/20 08:25 INR, PTT INR 1.08 (0.83-1.09) 01/18/20 18:08 Problem List - Problems (1) Diabetes Code(s): E11.9 - TYPE 2 DIABETES MELLITUS WITHOUT COMPLICATIONS (2) HTN (hypertension) Code(s): I10 - ESSENTIAL (PRIMARY) HYPERTENSION Assessment/Plan Current Medications Generic Name Dose Route Start Last Admin Trade Name Freq PRN Reason Stop Dose Admin Albuterol Sulfate 2 puff 01/21/20 15:15 01/25/20 10:47 Ventolin Hfa Inhaler - IH 2 puff Q4H PRN Administration SHORT OF BREATH/WHEEZING Alprazolam 2 mg 01/23/20 10:44 01/25/20 06:18 Xanax PO 2 mg Q8H PRN Administration ANXIETY Bacitracin 1 applic 01/21/20 16:15 01/25/20 10:46 Bacitracin - TP 1 applic DAILY [facility] Administration Citalopram Hydrobromide 20 mg 01/19/20 10:00 01/25/20 10:46 Celexa - PO 20 mg DAILY [facility] Administration Furosemide 20 mg 01/22/20 14:00 01/25/20 06:03 Lasix - PO 20 mg BID@0600,1400 [facility] Administration Gabapentin 900 mg 01/22/20 11:57 01/25/20 06:00 Neurontin - PO 900 mg TID [facility] Administration Heparin Sodium (Porcine) 5,000 unit 01/19/20 06:00 01/25/20 06:03 Heparin - SQ 5,000 unit TID [facility] Administration Ampicillin Sodium/Sulbactam 100 mls @ 200 mls/hr 01/23/20 16:00 01/25/20 10:46 Sodium 1.5 gm/ Sodium Chloride IVPB 200 mls/hr Q6H-IV [facility] Administration Insulin Aspart 1 vial 01/19/20 11:00 01/25/20 11:37 Novolog Vial Sliding Scale - SQ 2 units ACHS [facility] Administration Protocol Insulin Detemir 10 units 01/21/20 09:04 01/24/20 22:04 Levemir Vial SQ 10 units HS [facility] Administration Methadone HCl 10 mg/ Methadone 90 mg 01/19/20 09:15 01/25/20 06:02 HCl 80 mg PO 90 mg DAILY@0600 [facility] Administration Multivitamins/Minerals/Vitamin C 1 tab 01/25/20 10:00 01/25/20 10:47 Tab-A-Vit - PO 1 tab DAILY [facility] Administration Polyethylene Glycol 17 gm 01/21/20 12:15 01/25/20 10:47 Miralax (For Daily Use) - PO Not Given BID [facility] Impression 1. REDD 2. cellulitis 3. opioid abuse on methadone 4. dm 5. htn Plan - cont lasix- - supervisor brake repair is improving - pt will need outpt follow up - repeat labs in am - avoid nsaids
== END 2020-01-25 15:39 | disposition home or self-care (01) | DRG 380 ==
LOC: JER 14:35 → JERBED 19:58 → J6S 01-19 20:54
PROVIDERS: ADMIT Hospitalist; ATTEND Nurse Practitioner Family
DX: E11.69 Type 2 diabetes mellitus with other specified complication (principal); L97.429 Non-pressure chronic ulcer of left heel and midfoot with unspecified severity; L97.419 Non-pressure chronic ulcer of right heel and midfoot with unspecified severity; N17.9 Acute kidney failure, unspecified; M86.68 Other chronic osteomyelitis, other site; E11.42 Type 2 diabetes mellitus with diabetic polyneuropathy; F11.20 Opioid dependence, uncomplicated; E11.621 Type 2 diabetes mellitus with foot ulcer; F41.9 Anxiety disorder, unspecified; I10 Essential (primary) hypertension; K59.00 Constipation, unspecified; L03.116 Cellulitis of left lower limb; Z20.828 Contact with and (suspected) exposure to other viral communicable diseases; Z79.4 Long term (current) use of insulin
CPT/HCPCS: 36415; 71045-TC-FY; 73110-TC-RT-FY; 73630-TC-LT; 73630-TC-RT-FY; 74019-TC-FY; 76775-TC; 80048; 80053; 80061; 81003; 82565; 82962; 83605; 83721; 83735; 84100; 84156; 84300; 85025; 85610; 85651; 85730; 86140; 86850; 86900; 86901; 87040; 87070; 87186; 87205; 93005; 93010; 99285-25; C9803; G0480; J1644; U0003